=== PATIENT | female | born 1990 | race Caucasian/White ===

== ENCOUNTER → 2021-12-23 08:02 | Outpatient (CLI) | payer OTHER, SELFPAY ==
--- NOTE | ~2021-12-23 | US_ITS ---
US thyroid INDICATION: Thyroid goiter. TECHNIQUE: Real-time sonographic images of the thyroid gland were obtained. COMPARISON: No prior studies for comparison. FINDINGS: The right thyroid lobe measures 4.8 x 1.6 x 1.2 cm. The left thyroid lobe measures 4.5 x 1 .4 x 1.2 cm. There is normal echotexture and echogenicity throughout the thyroid gland. There are sma ll bilateral nodules. In the right thyroid lobe there is a hypoechoic solid mass measuring 5 x 3 x 2 mm which is wider than tall, smooth margins and punctate echogenic foci, TR 5. Follow-up is recommend ed. In the left lobe there is a 2-3 mm cyst, benign. IMPRESSION: 1. Small 5 mm right thyroid mass, TR 5. Follow-up ultrasound in 12 months recommended. Reviewed, dictated and finalized at location A. IMPRESSION: 1. Small 5 mm right thyroid mass, TR 5. Follow-up ultrasound in 12 months kandy mmended.
== END ==
PROVIDERS: PCP Physician Assistant; Visit Provider Nurse Practitioner
DX: E04.9 Nontoxic goiter, unspecified (principal)
CPT/HCPCS: 76536

== ENCOUNTER 2022-05-06 21:30 | Emergency (ER) | payer OTHER, SELFPAY ==
--- NOTE | ~2022-05-06 | CT_ITS ---
EXAMINATION: CT brain wo con DATE: 05/06/2022 22:30 INDICATION: One month of intermittent right hand and foot numbness TECHNIQUE: Computed tomography (CT) of the head was performed without intravenous contrast. Sagittal and coronal reconstructions were performed. The mA was adjusted according to patient size. Iterative reconstruction technique was employed. The dose-length product was 605.33 mGy-cm. COMPARISON: Brain MR dated 04/24/2018 FINDINGS: No acute intracranial hemorrhage, acute infarction or abnormal extra axial fluid collection. Ventricl es are normal and symmetric. No mass/mass effect. The orbits, paranasal sinuses and mastoid air cells are normal. A few small likely benign calcified scalp nodules. IMPRESSION: 1. Normal brain. Reviewed, dictated and finalized at location A. CTOR EXPORT IMPRESSION: 1. Normal brain.
[2022-05-06 21:55] VITALS: BP 129/93; PULSE 91; RESP 16; TEMP 36.8; O2SAT 98
--- NOTE | 2022-05-06 22:10 | ED.GENADULT ---
HPI - General Adult General Chief complaint: Unspecified Stated complaint: numbness on right side Time Seen by Provider: 05/06/22 21:33 History of Present Illness HPI narrative: 32-year-old female presented to the emergency department for evaluation of decreased sensation over her right arm and leg. Patient states that symptoms have been ongoing since the last few days. Patient denies any associated weakness. Patient denies any ataxia or discoordination. Patient reports she is diabetic but does not take her metformin as directed. Patient is unsure of what her blood sugars have been running. Patient reports he did have a fall last week out of bed and she is unsure what caused the fall. Patient denies any other significant past medical history. Patient states while she is not that she does has decreased sensation on the right side. Related Data Allergies Allergy/AdvReac Type Severity Reaction Status Date / Time No Known Allergies Allergy Unverified 07/15/18 06:47 Review of Systems Review of Systems: CONSTITUTIONAL: Denies fever, chills, or sweats. EYES: Denies visual changes, redness, or discharge. ENT: Denies rhinorrhea, congestion, sore throat, or otalgia. CARDIOVASCULAR: Denies chest pain, palpitations, or edema. RESPIRATORY: Denies cough or dyspnea. GASTROINTESTINAL: Denies abdominal pain, nausea, vomiting, or diarrhea. GENITOURINARY: Denies dysuria or hematuria. SKIN: Denies rash or itching. MUSCULOSKELETAL: Denies back pain, joint pain, or myalgia. NEUROLOGIC: See [facility] Family History Family History (Updated 06/30/18 @ 14:31 by DOCTOR UNKNOWN) Mother Diabetes mellitus Exam Narrative: APPEARANCE: Well appearing, no pain, no distress, well-nourished. HEAD: normocephalic, atraumatic. EYES: PERRLA/EOMI, conjunctivae clear. NOSE: Normal no drainage EARS:TMS clear with good light reflex. THROAT: Pharynx clear, no exudate. NECK: Supple. No adenopathy, no masses. RESPIRATORY: Airway patent, respirations nonlabored. Clear to auscultation bilaterally, no rales, rhonchi, wheezing. CARDIOVASCULAR: Regular rate and rhythm without murmurs rubs or gallops. ABDOMINAL: Soft, nontender, nondistended, normal bowel sounds MUSCULOSKELETAL: Moves all extremities. Strength/ROM intact, No edema, No calf tenderness. NEURO: Alert. Cranial nerves II through XII intact. Intact to both light touch and pinprick. Normal proprioception. Normal strength and reflexes. No ataxia SKIN: Warm, dry. Normal Color PSYCHIATRIC: Normal affect/mood. Course Course Emergency Course: Patient's head CT was negative. Patient was afebrile but does have a leukocytosis of 11.7. Patient's electrolytes are within normal limits. Patient was updated the results of her work-up. Low concern for acute stroke. Patient was encouraged of close follow-up with her primary care physician and with neurology. Patient and visitor were comfortable with the plan for discharge and follow-up. All questions and concerns were addressed. Vital Signs Vital signs: Vital Signs Temperature 98.3 F 05/06/22 21:55 Pulse Rate 91 05/06/22 21:55 Respiratory Rate 16 05/06/22 21:55 Blood Pressure 129/93 H 05/06/22 21:55 Pulse Oximetry 98 05/06/22 21:55 Oxygen Delivery Room Air 05/06/22 21:55 Temperature 98.0 F 05/07/22 00:00 Pulse Rate 90 05/07/22 00:00 Respiratory Rate 16 05/07/22 00:00 Blood Pressure 124/78 05/07/22 00:00 Pulse Oximetry 100 05/07/22 00:00 Oxygen Delivery Room Air 05/06/22 21:55 Medical Decision Making Vital Signs Vital Signs: Vital Signs Temperature 98.3 F 05/06/22 21:55 Pulse Rate 91 05/06/22 21:55 Respiratory Rate 16 05/06/22 21:55 Blood Pressure 129/93 H 05/06/22 21:55 Pulse Oximetry 98 05/06/22 21:55 Oxygen Delivery Room Air 05/06/22 21:55 Temperature 98.0 F 05/07/22 00:00 Pulse Rate 90 05/07/22 00:00 Respiratory Rate 16 05/07/22 00:00 Blood Pressure 124/78 05/07
[2022-05-06 22:18] LABS: Basophils Absolute Auto 0.1 K/mm3 (0.0-0.1); Basophils Percent Auto 0.7 % (0.2-1.2); Eosinophils Absolute Auto 0.2 K/mm3 (0-0.3); Hematocrit 40.6 % (37.0-47.0); Hemoglobin 13.2 g/dL (12.0-15.0); Immature Granulocyte Absolute 0.04 K/mm3 (0.00-0.031); Immature Granulocyte Percent A 0.3 % (0-0.5); Lymphocytes Absolute Auto 3.71 K/mm3 (0.9-3.2); Lymphocytes Percent Auto 31.6 % (18.3-44.2); Mean Corpuscular HGB Conc 32.5 g/dl (32-36); Mean Corpuscular Hemoglobin 28.3 pg (26-34); Mean Corpuscular Volume 87.1 fl (80-100); Mean Platelet Volume 10.5 fl (7.4-10.4); Monocytes Absolute Auto 0.6 K/mm3 (0.1-0.6); Neutrophils Absolute Auto 7.1 K/mm3 (1.3-6.7); Neutrophils Percent Auto 60.4 % (45.5-73.1); Platelet Count Result 389 k/mm3 (150-375); Red Blood Count 4.66 M/mm3 (4.2-5.4); Red Cell Distribution Width 12.7 % (11.5-14.5); White Blood Count 11.7 K/mm3 (4.5-10.0)
[2022-05-06 22:29] LABS: Alanine Aminotransferase 48 U/L (6-35); Albumin Level 4.6 g/dL (3.5-5.1); Alkaline Phosphatase 108 U/L (38-126); Anion Gap 9 mmol/L (8-16); Aspartate Amino Transferase 33 U/L (14-36); Bilirubin,Total 0.3 mg/dL (0.2-1.3); Blood Urea Nitrogen 11 mg/dL (7-17); Carbon Dioxide 28 mmol/L (22-30); Chloride 103 mmol/L (98-107); Estimated CRCL calculation 124 ml/min; Estimated Glomerular Filt Rate > 60; Glucose 103 mg/dL (65-110); Magnesium 1.7 mg/dL (1.6-2.3); Potassium 3.6 mmol/L (3.4-5.0); Sodium 140 mmol/L (137-145)
[2022-05-06 22:33] LABS: Hemoglobin A1C 5.4 % (<5.7)
[2022-05-06 23:00] VITALS: BP 126/88; PULSE 92; RESP 16; TEMP 36.7; O2SAT 100
[2022-05-07] VITALS: BP 124/78; PULSE 90; RESP 16; TEMP 36.7; O2SAT 100
== END 2022-05-07 00:20 | disposition home or self-care (01) ==
PROVIDERS: Emergency Provider Emergency Medicine; PCP Nurse Practitioner
DX: R20.2 Paresthesia of skin (principal)
CPT/HCPCS: 36415; 70450; 80053; 81025; 83036; 83735; 84443; 85025; 99284

== ENCOUNTER → 2022-05-15 10:14 | Outpatient (CLI) | payer OTHER, SELFPAY ==
--- NOTE | ~2022-05-15 | MR_ITS ---
MRI of the cervical spine Clinical History: Right-sided numbness Technique: Axial T2-weighted and gradient images, and sagittal T1-weighted, T2-weighted, and STIR april ges were acquired. Findings: There is no fracture or subluxation of the cervical spine. Vertebral bodies maintain normal height and alignment. No suspicious bone marrow signal abnormality identified. No significant disc bulge or herniation identified. No spinal canal stenosis, cord compression, or ne ural foraminal narrowing identified in the cervical spine. Multiple T2 hyperintense cord lesions are present. Lesion at the C2 level involves the right central and posterior cord. Probable small dorsal lesion at the C3-C4 level. There is a right-sided cord lesi on at the C4 level. Small lesions are present bilaterally at the C5-C6 level. No abnormal postcontrast enhancement identified. Paravertebral soft tissues are normal.. Impression: Multiple T2 hyperintense spinal cord lesions, as detailed above. Findings most likely represent demye linating plaques of multiple sclerosis. Correlate clinically. Consider MR brain for further evaluatio n. Reviewed, dictated and finalized at [facility]. NKER Impression: Multiple T2 hyperintense spinal cord lesions, as detailed above. Findings most likely represent demyelinating plaques of multiple sclerosis. Correlate clinica lly. Consider MR brain for further evaluation.
--- NOTE | ~2022-05-15 | MR_ITS ---
MRI of the thoracic spine Clinical History: Numbness Technique: Axial T2-weighted and gradient images, and sagittal T1-weighted, T2-weighted, and STIR april ges were acquired. Findings: No fracture or subluxation seen in the thoracic spine. Vertebral bodies maintain normal hei ght . No bone marrow signal abnormality seen. No disc bulge or herniation seen. No spinal canal stenosis, cord compression, or neural foraminal forest rowing identified. There is abnormal signal in the spinal cord at the T4 and T5 levels, with probable focal dilatations the central canal, as well as surrounding amorphous T2 hyperintense signal in the cord at these regio ns, best seen on series 17 images 12-18. Impression: Abnormal signal in the spinal cord at the T4-T5 levels, with with probable focal syrinx as well as esparza rrounding amorphous parenchymal T2 hyperintensity in the cord at these levels. Postcontrast enhanceme nt advised for more complete evaluation of this area. Diagnostic considerations include transverse my elitis versus other infectious/inflammatory conditions. Neoplastic etiology not completely excluded, though felt to be less likely. Reviewed, dictated and finalized at [facility]. NESS INTELLIGENCE ARCHITECT Impression: Abnormal signal in the spinal cord at the T4-T5 levels, with with probable foca l syrinx as well as surrounding amorphous parenchymal T2 hyperintensity in the cord at these levels. Postcontrast enhancement advised for more complete evalua tion of this area. Diagnostic considerations include transverse myelitis versus other infectious/inflammatory conditions. Neoplastic etiology not completely e xcluded, though felt to be less likely.
--- NOTE | ~2022-05-15 | MR_ITS ---
MRI of the lumbar spine Clinical History: Right-sided numbness Technique: Axial T2-weighted images, and sagittal T1-weighted, T2-weighted, and T2 fat-sat images wer e acquired. Findings: There is no fracture or subluxation of the lumbar spine. Vertebral bodies maintain normal h eight and alignment. No bone marrow signal abnormality identified. At L1-L2, L2-L3, L3-L4, L4-L5, there is no disc bulge or herniation. No spinal canal stenosis or neur al foraminal narrowing at these levels. There is minimal facet joint arthropathy at L4-L5. At L5-S1, there is mild disc desiccation with tiny annular fissure/tear. There is minimal disc bulge. No spinal canal stenosis. There is minimal left neural foraminal narrowing. Right neural foramen pre served. Paravertebral soft tissues are unremarkable. Impression: Minimal degenerative spondylosis at L5-S1, as detailed above. Reviewed, dictated and finalized at [facility]. UNTING PROFESSIONAL Impression: Minimal degenerative spondylosis at L5-S1, as detailed above.
== END ==
PROVIDERS: PCP Nurse Practitioner; Visit Provider Nurse Practitioner
DX: R20.0 Anesthesia of skin (principal); G95.9 Disease of spinal cord, unspecified; M47.817 Spondylosis without myelopathy or radiculopathy, lumbosacral region
CPT/HCPCS: 72156; 72157; 72158; A9577

== ENCOUNTER → 2022-05-22 15:23 | Outpatient (CLI) | payer OTHER, SELFPAY ==
--- NOTE | ~2022-05-22 | MR_ITS ---
EXAMINATION: MR brain/brain stem wo/w con DATE: 05/22/2022 16:03 INDICATION: Right-sided numbness. TECHNIQUE: Magnetic resonance imaging (MRI) of the brain and brainstem was performed without and with 19 mL MultiHance intravenous contrast. COMPARISON: Brain MRI 04/24/2018, head CT 05/06/2022, cervical spine MRI 05/15/2022 FINDINGS: There are greater than ten total lesions of increased T2-weighted signal intensity in the b rain. Of these lesions, two are periventricular, two are juxtacortical, and one is infratentorial in the cervical spinal cord. One of the lesions enhances in the right frontoparietal centrum semiovale. There is no acute ischemic infarct or intracranial hemorrhage. The ventricles are normal in size. The paranasal sinuses are clear. The orbits are normal. There is a small left mastoid effusion. IMPRESSION: 1. Brain lesions, new from 04/24/2018, consistent with multiple sclerosis. Reviewed, dictated and finalized at location A. GER QUALITY SYSTEMS
== END ==
PROVIDERS: PCP Nurse Practitioner; Visit Provider Nurse Practitioner
DX: G37.9 Demyelinating disease of central nervous system, unspecified (principal); R20.0 Anesthesia of skin; G93.9 Disorder of brain, unspecified
CPT/HCPCS: 70553; A9577

== ENCOUNTER 2022-08-28 08:13 | Outpatient (CLI) | payer OTHER, SELFPAY ==
--- NOTE | ~2022-08-28 | MMUS_ITS ---
EXAMINATION: MM diagnostic sanya BI w adria, US breast LT limited HISTORY: Patient with history of increased breast cancer wrist due to multiple sclerosis medication. TECHNIQUE: Craniocaudal, mediolateral, and mediolateral oblique 3-D tomosynthesis images of the breas ts were performed and synthetic 2-D images were generated. CAD analysis was submitted and interpreted . High resolution limited left breast ultrasound was performed. COMPARISON: None, baseline BREAST PARENCHYMAL COMPOSITION: There are scattered areas of fibroglandular density. FINDINGS: MAMMOGRAPHIC FINDINGS: No suspicious mass, calcification, or architectural distortion are identified in either breast to sug gest malignancy. A focal asymmetry in the upper outer quadrant of the left breast disperses with spot compression. ULTRASOUND: There is no evidence of focal abnormal solid or cystic mass in the vicinity of the mammographic findi ng in question in the left breast. IMPRESSION: 1. No mammographic or sonographic evidence of malignancy. 2. Recommend routine screening mammography in one year. BI-RADS Category 1: Negative Reviewed, dictated and finalized at location A. IMPRESSION: 1. No mammographic or sonographic evidence of malignancy. 2. Recommend routine screening mammography in one year. BI-RADS Category 1: Negative
== END 2022-08-28 08:14 ==
PROVIDERS: PCP Nurse Practitioner; Visit Provider Nurse Practitioner Obstetrics & Gynecology
DX: Z00.00 Encounter for general adult medical examination without abnormal findings (principal); Z79.899 Other long term (current) drug therapy; G35 Multiple sclerosis
CPT/HCPCS: 76642; 77062; 77066; G0279

== ENCOUNTER → 2023-02-22 08:17 | Outpatient (CLI) | payer OTHER, SELFPAY ==
--- NOTE | ~2023-02-22 | US_ITS ---
Thyroid ultrasound. Clinical History: Thyroid mass COMPARISON: 12/23/2021 Findings: Real-time sonography of the thyroid gland was performed. The right lobe measures 5.2 x 1.7 x 1.9 cm. The left lobe measures 4.9 x 1.7 x 1.6 cm. The isthmus is 3 mm in AP diameter. 3 mm hypoechoic nodule noted at the right midpole. There is probable 3 mm hypoechoic nodule at the le ft upper pole. Impression: Probable tiny thyroid nodules, as above, which requires no further follow-up. Reviewed, dictated and finalized at location M. Impression: Probable tiny thyroid nodules, as above, which requires no further follow-up.
== END ==
PROVIDERS: PCP Psychiatry & Neurology Neurology; Visit Provider Nurse Practitioner
DX: E07.9 Disorder of thyroid, unspecified (principal)
CPT/HCPCS: 76536

== ENCOUNTER 2023-06-12 07:46 | Outpatient (CLI) | payer OTHER, SELFPAY ==
--- NOTE | ~2023-06-12 | MR_ITS ---
MRI of the brain Clinical History: Multiple sclerosis Technique: Axial and sagittal T1-weighted images were acquired. These were followed by axial T2-weigh leonard, diffusion weighted, gradient, and FLAIR images. Following intravenous administration of 18 cc Mu ltiHance gadolinium, T1-weighted fat-sat imaging was performed in the axial, coronal, and sagittal pl anes. COMPARISON: 05/22/2022 Findings: There is no acute infarct, internal hemorrhage, or mass lesion. Several periventricular whi te matter lesions are similar to prior exam, some with radial orientation. Ventricles and subarachnoid spaces are unremarkable. Orbits are unremarkable. Paranasal sinuses and m astoid air cells are clear. Major intracranial flow voids are intact. Sagittal midline structures are intact. No abnormal postcontrast enhancement identified. IMPRESSION: White matter lesions are consistent with demyelinating plaques of multiple sclerosis, stable from tom or exam. Reviewed, dictated and finalized at [facility]. HYSICAL OBSERVER IMPRESSION: White matter lesions are consistent with demyelinating plaques of multiple scle rosis, stable from prior exam.
--- NOTE | ~2023-06-12 | MR_ITS ---
MRI of the cervical spine Clinical History: Multiple sclerosis Technique: Axial T2-weighted and gradient images, and sagittal T1-weighted, T2-weighted, and STIR april ges were acquired. Following intravenous administration of 18 cc MultiHance gadolinium, T1-weighted f at-sat imaging was performed in the axial and sagittal planes. COMPARISON: 05/15/2022 Findings: There is no fracture or subluxation of the cervical spine. Vertebral bodies maintain normal height and alignment. No suspicious bone marrow signal abnormality seen. No disc bulge or herniation seen at any cervical level. There is no spinal canal stenosis, cord compr ession, or neural foraminal narrowing at any cervical level. There is subtle amorphous hyperintense cord lesions, most prominent at the C2 and C3-C4 level central ly in the cord, compatible demanding plaques of multiple sclerosis. Lesions appear decreased in numbe r and conspicuity as compared to prior exam. No active or enhancing plaque identified. Paravertebral soft tissues are unremarkable. Impression: Spinal cord lesions are consistent with demyelinating plaques of multiple sclerosis, but appear decre ased in number and conspicuity as compared to prior exam. Reviewed, dictated and finalized at [facility]. T CLERK Impression: Spinal cord lesions are consistent with demyelinating plaques of multiple scler osis, but appear decreased in number and conspicuity as compared to prior exam.
--- NOTE | ~2023-06-12 | MR_ITS ---
MRI of the thoracic spine Clinical History: Multiple sclerosis Technique: Axial T2-weighted and gradient images, and sagittal T1-weighted, T2-weighted, and STIR april ges were acquired. Following intravenous administration of 18 cc MultiHance gadolinium, T1-weighted f at-sat imaging was performed in the sagittal and axial planes. COMPARISON: 05/15/2022 Findings: There is no fracture or subluxation of the thoracic spine. Vertebral bodies maintain normal height and alignment. No bone marrow signal reality seen. No disc bulge or herniation seen in the thoracic spine. No spinal canal stenosis or cord compression identified at any level. There is a subtle amorphous T2 hyperintense cord lesion at the T4-T5 level. No other distinct spinal cord lesion identified. Paravertebral soft tissues are unremarkable. No abnormal postcontrast enhancement seen. Impression: Probable amorphous demyelinating plaque of the thoracic cord at T4-T5 level. No active/enhancing plaq ue identified. Reviewed, dictated and finalized at [facility]. ER ERECTOR AND SERVICER Impression: Probable amorphous demyelinating plaque of the thoracic cord at T4-T5 level. No active/enhancing plaque identified.
== END 2023-06-12 07:47 ==
LOC: MICIMG 07:46
PROVIDERS: PCP Nurse Practitioner; Visit Provider Psychiatry & Neurology Neurology
DX: G35 Multiple sclerosis (principal)
CPT/HCPCS: 70553; 72156; 72157; A9577

== ENCOUNTER 2023-09-25 16:05 | Outpatient (CLI) | payer OTHER, SELFPAY ==
--- NOTE | ~2023-09-25 | MM_ITS ---
EXAMINATION: MM screening sanya BI w adria HISTORY: Screening mammogram TECHNIQUE: Craniocaudal and mediolateral oblique 3-D tomosynthesis images were obtained and synthetic 2-D images were generated. CAD analysis was submitted and interpreted. COMPARISON: August 28, 2022 diagnostic bilateral mammogram and limited left breast ultrasound, reporte d negative BREAST PARENCHYMAL COMPOSITION: The breasts are almost entirely fatty. FINDINGS: There is no evidence of suspicious mass, calcification, or architectural distortion to sugg est malignancy in either breast. There has been no suspicious interval change. IMPRESSION: 1. No mammographic evidence of malignancy. 2. Recommend routine screening mammography in one year. BI-RADS Category 1: Negative Reviewed, dictated and finalized at location B.
== END 2023-09-25 16:06 ==
PROVIDERS: PCP Nurse Practitioner; Visit Provider Nurse Practitioner Obstetrics & Gynecology
DX: Z12.31 Encounter for screening mammogram for malignant neoplasm of breast (principal); Z76.89 Persons encountering health services in other specified circumstances; Z80.9 Family history of malignant neoplasm, unspecified
CPT/HCPCS: 77063; 77067

== ENCOUNTER 2024-06-18 13:16 | Outpatient (CLI) | payer OTHER, SELFPAY ==
--- NOTE | ~2024-06-18 | DEXA_ITS ---
Bone Density Report Name: TERRA ENCINAS Age: 34 Sex: Female Ethnicity: White Date of : 1990 Indication: prior fracture; Referring Provider: MATTHIEU, CHELSEA Jurado Study: Bone densitometry was performed. Exam Date: June 18, 2024 Accession number: [id number] Bone Density: Region BMD T-score Z-score Classification AP Spine(L1-L4) 1.037 0.0 Femoral Neck (Left) 0.834 0.1 Total Hip (Left) 1.068 1.1 Femoral Neck (Right) 0.829 0.0 Total Hip (Right) 1.080 1.2 Femoral Neck Mean 0.831 0.0 Total Hip Mean 1.074 1.2 World Health Organization criteria for BMD impression classify patients as: Normal (T-score at or above -1.0), Osteopenia (T-score between -1.0 and -2.5), or Osteoporosis (T-score at or below -2.5). 10-year Fracture Risk: FRAX not reported because: Premenopausal woman Prior hip or vertebral fracture Clinical Information Provided by Patient: Have had a previous hip or vertebral fracture Has had a low trauma fracture Has used the following medications: Vitamin D Patient maximum height was 64 No regular weight bearing exercise Drinks caffeinated beverages Onset of menses at age 10 Premenopausal Number of children 0 Impression: The patient's bone mass is within expected range for age, gender and ethnicity. The patient has risk factors, including: previous fracture. Discussion: BONE DENSITY IS WITHIN EXPECTED LIMITS FOR AGE, SEX AND RACE. HISTORY OF FRACTURE. Although there is a predictable association between low bone mass and the risk of osteoporotic fractures in untreated postmenopausal women, there are no data relating bone density and fracture risk in younger women. The ISCD position is that the diagnosis of ?low bone mass? or ?osteoporosis? should not be made on densitometric criteria alone. WHO criteria only apply to postmenopausal women. Further evaluation should be considered given the patient's history of fracture at a young age. The patient should follow a healthful lifestyle (good nutrition with adequate calcium and vitamin D, and appropriate weight-bearing exercise). Follow-Up: Consider a repeat BMD and Vertebral Fracture Assessment (VFA) exam in 2 years or sooner if medically necessary, to reassess this patient's status. Reported by: MYNOR on 06/18/2024 1:35:00 PM. Reviewed, dictated and finalized at location A.
--- OUTSIDE RECORDS SUMMARY | 2024-06-18 13:23 | XMS_ITS | Encounter Summary ---
Author Organization [facility] Address [address] [place] [id number] Care Team Providers Care Store Host Name Role Phone Gloria Gregorio NP Primary Care Provider [phone] Encounter Details Date Type Department Care Team (Latest Contact Info) Description 03/18/2018 Abstract [facility] Karmen Cardenas MD Social History Tobacco Use Types Packs/Day Years Used Date Smoking Tobacco: Never Assessed Comments Unknown Sex and Gender Information Value Date Recorded Sex Assigned at Female 06/09/2024 9:52 AM INFECTION CONTROL PREVENTIONIST Legal Sex Female 12:19 AM INFECTION CONTROL PREVENTIONIST Gender Identity Female 06/16/2024 10:41 AM INFECTION CONTROL PREVENTIONIST Sexual Orientation Straight 06/16/2024 10 :41 AM INFECTION CONTROL PREVENTIONIST documented as of this encounter Plan of Treatment Upcoming Encounters Date Type Department Care Team (Late st Contact Info) Description 06/24/2024 11:00 AM INFECTION CONTROL PREVENTIONIST Appointment [facility] [place] [address] Lalito Gudino MD [address] [place] [address] Viv Carmona, ABRASIVE [employer] [place] [address] 06/30/2024 11:00 AM INFECTION CONTROL PREVENTIONIST Appointment [facility] [address] Lalito Gudino MD [address] [facility] [place] [address] Viv Carmona, ABRASIVE WATER J[employer] [place] [address] 08/07/2024 8:00 AM CDT Treatment [facility] [place] [address] Gloria Gregorio, SANTI [address] [place] [address] 11/17/2024 11:40 AM CDT Telemedicine [facility] Medical Group [facility] - [facility] [address] [facility], [address] [place] [address] Lalito Gudino MD [address] [place] [address] documented as of this encounter Visit Diagnoses Not on filedocumented in this encounter Additional Health Concerns Infection Onset Date Last Indicated Resolved Time COVID-19 Rule Out 01/23/2023 01/23/2023 01/23/2023 10:48 AM CDT COVID-19 Confirmed 01/23/2023 01/23/2023 12:32 AM CDT COVID-19 Rule Out 05/05/2024 05/05/2024 05/05/2024 8:33 AM INFECTION CONTROL PREVENTIONIST COVID-19 Rule Out 05/07/2024 05/07/2024 05/07/2024 1:36 PM INFECTION CONTROL PREVENTIONIST Influenza - Seasonal 05/07/2024 05/07/2024 025 12:32 AM INFECTION CONTROL PREVENTIONIST documented as of this encounter Care Teams Store Host Relationship Specialty Start Date End Date Gloria Gregorio NP [address] [place] [address] PCP - General NURSE PRACTITIONER 02/02/22 documented as of this encounter
--- OUTSIDE RECORDS SUMMARY | 2024-06-18 13:24 | XMS_ITS | Encounter Summary ---
Author Organization [facility] Address [address] [facility] [place] [address] Care Team Providers Care Bank Manager Name Role Phone Unavailable Primary Care Provider Unavailabl e Encounter Details Date Type Department Care Team (Late st Contact Info) Description 11/21/2022 Lab Requisition [facility] - [facility] Lab [address] [place] [address] Luis Moscoso MD [address] [place] [address] Social History Tobacco Use Types Packs/Day Years Used Date Smoking Tobacco: Never Assessed Sex and Gender Information Value Date Recorded Sex Assigned at Not on file Gender Identity Not on file Sexual Orientation Not on file documented as of this encounter Plan of Treatment Not on file documented as of this encounter Procedures Procedure Name Priority Date/Time Associated Diagnosis Comments DERMATOPATHOLOGY Routine 11/21/2022 12:0 0 AM CDT documented in this encounter Results * DERMATOPATHOLOGY (11/21/2022 12:00 AM CDT) Case Report Dermatopathology Report Case: [id number] Authorizing Provider: Luis Moscoso MD Collected: 11/21/2022 12:00 AM Ordering Location: [facility] Derm[facility] Lab Received: 11/22/2022 07:16 AM Pathologist: Faby Alejandro MD Specimen: Skin, right post. scalp 3:20 PM CDT DERMATOPATHOLOGY LABORATORY Final Diagnosis Specimen A. SKIN, right post. scalp: INTRADERMAL MELANOCYTIC NEVUS (D22.4) 3:20 PM CDT DERMATOPATHOLOGY LABORATORY Clinical History [facility] Path#[id number] 3:20 PM CDT DERMATOPATHOLOGY LABORATORY Gross Description Specimen A: Received is one formalin filled container labeled with the patient's name and designated right post. scalp. The specimen consists of a shave biopsy measuring 6x6x2 and 6x3x2 mm. Jar 0. 3:20 PM CDT DERMATOPATHOLOGY LABORATORY Microscopic Description Specimen A. SKIN, right post. scalp: There are nests of cytologically bland melanocytes within the dermis that mature with depth. 3:20 PM CDT DERMATOPATHOLOGY LABORATORY Disclaimer An external and internal positive and negative controls are appropriate for the histochemical, immunohistochemical and immunofluorescence stain(s) in this case (if any), except where stated explicitly. The performance characteristics of the stain(s) cited in this report were developed and its performance characteristic determined by the Dermatopathology Laboratory at [facility], directed by Dr. Michelle Yeung. These tests need not be, and therefore are not, approved by the [place] Food and Drug Administration. The tests are used for clinical purposes. Billing Codes Specimen Charges Stain Charges 48602 1 3:20 PM CDT DERMATOPATHOLOGY LABORATORY Embedded Images 3:20 PM CDT DERMATOPATHOLOGY LABORATORY Pathology/Cytolog y TISSUE SPECIMEN FROM SKIN / Unknown 11/21/2022 11/22/2022 7:16 AM CDT Luis Moscoso MD LAB - PATHOLOGY/CYTO LOGY ORDERABLES DERMATOPATHOLOGY LABORATORY [facility] - Department of Dermatology [address], [address] [phone] documented in this encounter Visit Diagnoses Not on filedocumented in this encounter
--- OUTSIDE RECORDS SUMMARY | 2024-06-18 13:24 | XMS_ITS | Clinical Summary ---
Author Organization [facility] Siklu Address [address] [address] Care Team Providers Care Crotch Piece Baster Name Role Phone Unavailable Primary Care Provider Unavailabl e Source Comments [facility],non-owned Affiliates and Associated Physician Practices is amultiple site organization consisting of ambulatory clinics and hospital sitesin [place], [place], [place] and [place]. This disclosure is being madepursuant to the Care Everywhere program and may not contain all information available regarding this patient. Last updated 18.[facility] S[facility] Social History Tobacco Use Types Packs/Day Years Used Date Smoking Tobacco: Never Assessed Sex and Gender Information Value Date Recorded Sex Assigned at Not on file Gender Identity Not on file Sexual Orientation Not on file Plan of Treatment Health Maintenance Due Date Last Done Comments PAP SMEAR 1988 HIV SCREENING 2003 HEPATITIS C SCREENING 03/25/2006 DTAP/TDAP/TD VACCINES (1 - Tdap) 2007 HEPATITIS B VACCINE (1 of 3 - 19+ 3-dose series) 2007 COVID-19 VACCINE ( - 2023-2 5 season) 2024 INFLUENZA VACCINE (#1) 2024 DEPRESSION SCREENING 05/13/2024 ZOSTER VACCINE (1 of 2) 2038 HIB VACCINE Aged Out No longer eligi ble based on patient's age to complete this topic HPV VACCINE Aged Out No longer eligi ble based on patient's age to complete this topic MENINGOCOCCAL (Group B) VACCINE Aged Out No longer eligible based on patient's age to complete this topic MENINGOCOCCAL VACCINE Aged Out No lucho franklin eligible based on patient's age to complete this topic PNEUMOCOCCAL VACCINE Aged Out No long er eligible based on patient's age to complete this topic
--- OUTSIDE RECORDS SUMMARY | 2024-06-18 13:24 | XMS_ITS | Encounter Summary ---
Author Organization [facility] Address [address] [place] [address] Care Team Providers Care Hat Copyist Name Role Phone Unavailable Primary Care Provider Unavailabl e Encounter Details Date Type Department Care Team (Late st Contact Info) Description 01/02/2023 Lab Requisition [facility] - DermPath Lab [address] [place] [id number] Luis Moscoso MD [address] [place] [address] Social History Tobacco Use Types Packs/Day Years Used Date Smoking Tobacco: Never Assessed Sex and Gender Information Value Date Recorded Sex Assigned at Not on file Gender Identity Not on file Sexual Orientation Not on file documented as of this encounter Plan of Treatment Not on file documented as of this encounter Procedures Procedure Name Priority Date/Time Associated Diagnosis Comments DERMATOPATHOLOGY Routine 01/02/2023 12:0 0 AM CDT documented in this encounter Results * DERMATOPATHOLOGY (01/02/2023 12:00 AM CDT) Case Report Dermatopathology Report Case: [id number] Authorizing Provider: Luis Moscoso MD Collected: 01/02/2023 12:00 AM Ordering Location: [facility] DermPath Lab Received: 01/03/2023 07:46 AM Pathologist: Faby Alejandro MD Specimens: A) - Skin, ant. scalp B) - Skin, right post scalp 4:02 PM CDT DERMATOPATHOLOGY LABORATORY Final Diagnosis Specimen A. SKIN, ant. scalp: TRICHILEMMAL (PILAR) CYST WITH CALCIFICATION (L72.12) PRESENT AT MARGIN Specimen B. SKIN, right post scalp: TRICHILEMMAL (PILAR) CYST (L72.12) PRESENT AT MARGIN 3 4:02 PM [facility] DERMATOPATHOLOGY LABORATORY Clinical History A: pilar Cyst Path#[id number] check margins B: Pilar Cyst Path#[id number] check margins 3 4:02 PM [facility] DERMATOPATHOLOGY LABORATORY Gross Description Specimen A: Received is one formalin filled container labeled with the patient's name and designated ant. scalp. The specimen consists of a 37u79i2 mm piece of skin. The specimen is serially sectioned and a administrative representative section is submitted in cassette 1. Jar 0. Specimen B: Received is one formalin filled container labeled with the patient's name and designated right post scalp. The specimen consists of a 10x7x8 mm piece of skin. The specimen is serially sectioned and a administrative representative section is submitted in cassette 1. Jar 0. 3 4:02 PM [facility] DERMATOPATHOLOGY LABORATORY Microscopic Description Specimen A. SKIN, ant. scalp: Sections show a cyst that is lined by stratified squamous epithelium that shows trichilemmal keratinization (no granular layer). There is homogeneous pink keratin and aggregates of homogenous amorphous basophilic material consistent with calcium within the cyst. This lesion is present at the margin of the specimen. Specimen B. SKIN, right post scalp: Sections show a cyst that is lined by stratified squamous epithelium that shows trichilemmal keratinization (no granular layer). There is homogeneous pink keratin within the cyst. This lesion is present at the margin of the specimen. 3 4:02 PM [facility] DERMATOPATHOLOGY LABORATORY Disclaimer An external and internal positive and negative controls are appropriate for the histochemical, immunohistochemical and immunofluorescence stain(s) in this case (if any), except where stated explicitly. The performance characteristics of the stain(s) cited in this report were developed and its performance characteristic determined by the Dermatopathology Laboratory at [facility], directed by Dr. Michelle Yeung. These tests need not be, and therefore are not, approved by the [place] Food and Drug Administration. The tests are used for clinical purposes. Billing Codes Specimen Charges Stain Charges 00709 04831 1 1 3 4:02 PM CDT DERMATOPATHOLOGY LABORATORY Embedded Images 4:02 PM CDT DERMATOPATHOLOGY LABORATORY Pathology/Cytology TISSUE SPECIMEN FROM SKIN / Unknown 01/02/2023 01/03/2023 7:46 AM CDT Miscellaneous samples (specimen) TISSUE SPECIMEN FROM SKIN / Unknown 01/02/2023 01/03/2023 7:46 AM CDT Luis Moscoso MD LAB - PATHOLOGY/CYTO LOGY ORDERABLES DERMATOPATHOLOGY LABORATORY [facility] - Department of Dermatology [facility] Medicine [address] [place] [address], [address] [phone] documented in this encounter Visit Diagnoses Not on filedocumented in this encounter
--- OUTSIDE RECORDS SUMMARY | 2024-06-18 13:24 | XMS_ITS | Encounter Summary ---
Author Organization [facility] Address [address] [place] [id number] Care Team Providers Care Oil Well Driller Name Role Phone Gloria Gregorio NP Primary Care Provider [phone] Encounter Details Date Type Department Care Team (Late st Contact Info) Description 08/13/2022 [facility] Multispecialty Care - [facility] [address], [address] [place] [address] Lalito Gudino MD [address] [place] [address] [facility] Social History Tobacco Use Types Packs/Day Years Used Date Smoking Tobacco: Former Cigarettes 0.3 4 Smokeless Tobacco: Never Alcohol Use Standard Drinks/Week Comments Yes 3.3 (1 standard drin k = 0.6 oz pure alcohol) Very rarely most times not even weekly PHQ-2 Answer Date Recorded Patient Health Questionnaire-2 Score 0 06/28/2022 Comments No Sex and Gender Information Value Date Recorded Sex Assigned at Female 06/09/2024 9:52 AM MAGNET PLACER Legal Sex Female 12:19 AM MAGNET PLACER Gender Identity Female 06/16/2024 10:41 AM MAGNET PLACER Sexual Orientation Straight 06/16/2024 10 :41 AM MAGNET PLACER COVID-19 Exposure Response Date Recorded In the last 10 days, have yo u been in contact with someone who was confirmed or suspected to have Coronavirus/COVID-19? No / Unsure 07/17/2022 7:55 AM MAGNET PLACER documented as of this encounter Plan of Treatment Upcoming Encounters Date Type Department Care Team (Late st Contact Info) Description 06/24/2024 11:00 AM MAGNET PLACER Appointment [facility] [address] Lalito Gudino MD [address] [place] [address] [place] [address] 06/30/2024 11:00 AM MAGNET PLACER Appointment [facility] [address] Lalito Gudino MD [address] [place] [phone] [place] [address] 08/07/2024 8:00 AM CDT Treatment [facility] [place] [address] Gloria Gregorio, SANTI [address] [place] [address] 11/17/2024 11:40 AM CDT Telemedicine [facility] Multispecialty Care - [address], [address] [place] [address] Lalito Gudino MD [address] [place] [phone] documented as of this encounter Visit Diagnoses Not on filedocumented in this encounter Additional Health Concerns Infection Onset Date Last Indicated Resolved Time COVID-19 Rule Out 01/23/2023 01/23/2023 01/23/2023 10:48 AM CDT COVID-19 Confirmed 01/23/2023 01/23/2023 12:32 AM CDT COVID-19 Rule Out 05/05/2024 05/05/2024 05/05/2024 8:33 AM MAGNET PLACER COVID-19 Rule Out 05/07/2024 05/07/2024 05/07/2024 1:36 PM MAGNET PLACER Influenza - Seasonal 05/07/2024 05/07/2024 025 12:32 AM MAGNET PLACER documented as of this encounter Care Teams Oil Well Driller Relationship Specialty Start Date End Date Gloria Gregorio NP [address] [place] [address] PCP - General NURSE PRACTITIONER 02/02/22 documented as of this encounter
--- OUTSIDE RECORDS SUMMARY | 2024-06-18 13:24 | XMS_ITS | Continuity of Care Document ---
Author Name [facility] Organization [facility] Care Team Providers Care Industrial Eng Name Role Phone [facility] Unavailable Unavailable Problems Combined list of problems from 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 It does not include entries that were removed or entered in error. Problem Status Onset Date Problem Type Date of Resolution Comments Source visit for: administrative purpose Inactive Condition DoD atypical chest pain Inactive Condition D oD itching (pruritus) Inactive Condition Do D chest pain Active Condition DoD adjustment disorder with anxiety and depressed mood Active Condition DoD partner relational problem Inactive Condition DoD chronic pain Active Condition DoD depression Active Condition DoD no psychiatric diagnosis on axis III Inactive Condition DoD no psychiatric diagnosis on axis II Inactive Condition DoD adjustment disorder Active Condition Do D visit for: follow-up exam Inactive Condition DoD Outpatient Physician Consultation Active Condition DoD tobacco use Active Condition DoD drip or drainage down throat from above Active Condition DoD Cervical High Risk Human Papilloma Virus DNA Test Active Condition DoD control method - subdermal contraceptive implant Active Condition DoD Patient Ed Facilitate Preg Discuss Timing Of Peak Fertility Active Condition DoD routine pelvic exam Inactive Condition D oD Administrative Evaluation Services Inactive Condition DoD gastroenteritis Active Condition DoD visit for: issue repeat prescription for medication Inactive Condition DoD visit for: issue repeat prescription Inactive Condition DoD adjustment disorder with depressed mood Active Condition DoD Other Physical Therapy Active Condition DoD segmental dysfunction of cervical region Active Condition DoD dislocation of the hip closed anterior right Inactive Condition DoD bulging intervertebral disc lumbar Active Condition DoD Implantable Contraceptive Capsules Insertion Inactive Condition DoD ovarian cyst left Active Condition DoD ovarian cyst Active Condition DoD joint pain, localized in the hip Active Condition DoD segmental dysfunction of thoracic region Active Condition DoD segmental dysfunction of lumbosacral region Active Condition DoD Hypertonicity Active Condition DoD joint pain, localized in the knee Active Condition DoD lumbago Active Condition DoD cervical dysplasia: mild Active Condition DoD Pap Smear (+) Low Grade Squamous Intraepithelial Lesion Active Condition DoD Oral Contraceptives Active Condition Do D Test Negative Inactive Condition DoD nicotine dependence Active Condition Do D Need For Vaccination Human Papilloma Virus Inactive Condition DoD Gynecologic Services Contraceptive General Counseling Active Condition DoD visit for: screening exam chlamydial infections Inactive Condition DoD visit for: screening exam for malignant neoplasm cervix Inactive Condition DoD routine gynecological exam with cervical pap smear Inactive Condition DoD astigmatism Active Condition DoD refractive error - myopia Active Condition DoD visit for: services physical pre-deployment Active Condition DoD visit for: screening exam hypertension Inactive Condition DoD visit for: services physical Active Condition DoD Patient Education Active Condition DoD Guidance: Concerns About Unsafe Sexual Practices Inactive Condition DoD foot sprain right Inactive Condition DoD contact dermatitis Inactive Condition Do D bronchitis Inactive Condition DoD visit for: services physical accession Active Condition DoD Allergies, Adverse Reactions, Alerts Combined list of allergies from 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 It does not include entries that were removed or entered in error. Substance Category Reaction Severity Reaction type Status Date Reported Comments Source No Known Allergies Drug allergy (disorder) active 03/10/2010 [facility] [place] [address] Immunizations Combined list of available immunizations from the 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 Immunization Series Date Given Administered By Site Reaction Lot Number CVX Code Drug Milk Of Lime Slaker Status Comments Source human papilloma virus vaccine, bivalent 2 2011 [id number] 118 [employer] ([facility]) complet ed human papilloma virus vaccine, bivalent DoD Influenza, seasonal, injectable 1 2011 [id number] 141 Sanofi Pasteur ([facility]) complet ed Influenza , seasonal, injectabl e DoD human papilloma virus vaccine, bivalent 1 2011 [id number] 2AD 118 [employer] ([facility]) complet ed human papilloma virus vaccine, bivalent DoD hepatitis A vaccine, adult dosage 2 2011 [id number] 52 [employer] ([facility]) complet ed hepatitis A vaccine, adult dosage DoD anthrax vaccine 1 2010 [id number] 24 [employer] [place] ([facility]) complet ed anthrax vaccine DoD vaccinia (smallpox) vaccine 1 2010 [id number] [id number] 75 [facility] ([facility]) complet ed vaccinia (smallpox ) vaccine DoD typhoid Vi capsular polysaccharid e vaccine 1 2010 [id number] 101 Sanofi Pasteur ([facility]) complet ed typhoid Vi capsular polysacch aride vaccine DoD Influenza, seasonal, injectable 0 2010 [id number] 141 Sanofi Pasteur ([facility]) complet ed Influenza , seasonal, injectabl e DoD hepatitis A vaccine, adult dosage 1 2010 [id number] 3BA 52 [employer] ([facility]) complet ed hepatitis A vaccine, adult dosage DoD measles, mumps and rubella virus vaccine 1 2009 03 () Not Given measles, mumps and rubella virus vaccine DoD varicella virus vaccine 1 2009 21 () Not Given varicella virus vaccine DoD hepatitis B vaccine, adult dosage 1 2009 43 () Not Given hepatitis B vaccine, adult dosage DoD poliovirus vaccine, inactivated 1 2009 [id number] 10 Sanofi Pasteur ([facility]) complet ed polioviru s vaccine, inactivat ed DoD influenza virus vaccine, split virus (incl. purified surface antigen)-reti red CODE 1 2009 [id number] 15 [employer] ([facility]) complet ed influenza virus vaccine, split virus (incl. purified surface antigen)- retired CODE DoD meningococcal polysaccharid e (groups A, C, Y and W-135) diphtheria toxoid conjugate vaccine (MCV4P) 1 2009 [id number] 114 Sanofi Pasteur ([facility]) complet ed meningoco ccal polysacch aride (groups A, C, Y and W-135) diphtheri a toxoid conjugate vaccine (MCV4P) DoD tetanus toxoid, reduced diphtheria toxoid, and acellular pertu is vaccine, adsorbed 1 2009 [id number] 115 Sanofi Pasteur ([facility]) complet ed tetanus toxoid, reduced diphtheri a toxoid, and acellular pertussis vaccine, adsorbed DoD Encounters Combined list of: 1) Encounters from Department of Veterans Affairs facilities going backup to the last 18 months, not all VA inpatient encounters are included; 2) Encounters from the Department of Defense facilities going backup to 280 months. Location Location Details Encounter Type Encounter Number Reason For Visit Attending Provider ADM Date DC Date Status Disposition Source [facility] [place] [address] OUTPATIENT [id number] 0740-f/ u sob-(32 6/046/1 ) ELISABETH OBREGON 03/10 Released with Work/Duty Limitations [place] [address]([facility] [place] [address]([facility]) OUTPATIENT [id number] AR JUDITH REID 03/10 Released w/o Limitations [facility] [place] [address](O ptometr y Clinic [facility]) [facility] [place] [facility] [place] [address](Critical access hospital) OUTPATIENT [id number] 0820 - F/U BRONCHI TIS (10/12) ELISABETH OBREGON 03/13 Released with Work/Duty Limitations [facility] [place] [address]([facility] RubénIsidro tysonlan d) [facility] [place] [facility] [place] [address](Critical access hospital) OUTPATIENT [id number] 0820 - F/U BRONCHI TIS (10/12) TRISH ARIAS T 03/16 Released with Work/Duty Limitations [place] [address](T jarad Health Isidro [place] d) [facility] [place] [facility] [place] [address] OUTPATIENT [id number] 1020-R foot pain (343/t -4) TRISH ARIAS 08/07 Released with Work/Duty Limitations [facility] [place] [address](T alisha Health Isidro [facility] d) [facility] [place] [facility] [place] [address]([facility] Rubén[facility]ly [facility]) OUTPATIENT [id number] 1320-F/ U R FOOT (343/XR AY) TRISH ARIAS T 08/11 Released with Work/Duty Limitations [facility] [place] [address](T jarad Health RubénIsidro tysonlan d) [facility] [place] [facility] [place] [address](Critical access hospital) OUTPATIENT [id number] 0840-f/ u R foot-(3 43xray) VIRGILIO IRENE 08/18 Released w/o Limitations [facility] [place] [address](T jarad Health Isidro Mont[place] d) [address] [place] [address] Grant VELEZ ([facility])(Hea lthcare Integrato rs) OUTPATIENT [id number] LATE ENTRY: Attende d FTAC Orienta tion to MDG September 20 ELIJAH KIRKPATRICK 09/25 Released w/o Limitations [employer] ([facility])(H ealthca re Integra tors) [employer] ([facility])(Sco tt [facility] Team 3) OUTPATIENT [id number] [facility] BASILIO WOLF 10/05 Released w/o Limitations [employer] ([facility])(S [facility] Team 3) [employer] ([facility])(Sco tt [facility] Team 3) TELE CONSULT [id number] Needs Well Woman Exam - Luciano /[phone]/ PRAVEEN Obando 10/13 [employer] ([facility])(S [facility] Team 3) [employer] ([facility])(Sco tt [facility] Team 3) OUTPATIENT [id number] [facility]/A BASILIO COELLO 12/11 Released w/o Limitations [employer] ([facility])(S [facility] Team 3) [employer] ([facility])([facility]) OUTPATIENT [id number] HASEEB JUSTIN 01/29 Released w/o Limitations [employer] ([facility]M [facility]) [employer] ([facility])(Dep loyment Health Assessmen ts) OUTPATIENT [id number] Pre Deploye r MAYCO GIRARD 01/31 Released w/o Limitations [employer] ([facility])(D eployme nt Health Assessm ents) [employer] ([facility])(Opt ometry) OUTPATIENT [id number] routine for depoyme nt FRANCO VENCES 02/12 Released w/o Limitations [employer] ([facility])(O ptometr y) [employer] ([facility])(Dry Room Attendant ecology) OUTPATIENT [id number] annual pap [phone] DESHAWN CABRERA 02/12 Released w/o Limitations [employer] ([facility])(G ynecolo gy) [facility] Medical [facility] [employer] ([facility])(Ob/ Dry Room Attendant) OUTPATIENT [id number] COLPO LILIANA ROMERO LATRICIA 02/15 Released w/o Limitations [facility] [employer] ([facility])(O b/Dry Room Attendant) [facility] [employer] ([facility])(Dry Room Attendant ecology) TELE CONSULT [id number] Discuss pap results DESHAWN CABRERA 02/[address] [place] [address] [employer] ([facility])(G ynecolo gy) [address] [place] [address] [employer] ([facility])(Ob/ Dry Room Attendant) TELE CONSULT [id number] colpo results ROMERO FORD 02/[address] [place] [address] [employer] ([facility])(O b/Dry Room Attendant) [address] [place] [address] [employer] ([facility])(Sco tt [facility] Team 3) OUTPATIENT [id number] knee and back pain BRIANA ARIAS 03/28 Released w/o Limitations [address] [place] [address] [employer] ([facility])(S cott [facility] Team 3) [address] [place] [address] [employer] ([facility])(Phy sical Therapy) OUTPATIENT [id number] LUMBAGO WILLEM GURROLA 04/12 Released with Work/Duty Limitations [address] [place] [address] [employer] ([facility])(P hysical Therapy ) [address] [place] [address] [employer] ([facility])(Sco tt [facility] Team 3) OUTPATIENT [id number] f/u back pain RICHARD PEDERSEN 05/30 Released w/o Limitations [facility] [employer] ([facility])(S cott [facility] Team 3) [address] [place] [address] [employer] ([facility])(Phy sical Therapy) OUTPATIENT [id number] low back pain WILLEM GURROLA 06/01 Released w/o Limitations [facility] [employer] ([facility])(P hysical Therapy ) [address] [place] [address] [employer] ([facility])(Sco tt [facility] Team 3) TELE CONSULT [id number] Patient calling about profile from May appt Sj Brown [id number] PRAVEEN ESTEVEZ 06/[address] [place] [address] [employer] ([facility])(S hi [facility] Team 3) [employer] ([facility])(Chi ropractic ) OUTPATIENT [id number] LUMBAGO ARABELLA GONZALES R 06/12 Released w/o Limitations [employer] ([facility])(C hiropra ctic) [employer] ([facility])(Chi ropractic ) OUTPATIENT [id number] back pain ARABELLA GONZALES R 06/15 Released w/o Limitations [employer] ([facility])(C hiropra ctic) [employer] ([facility])(Chi ropractic ) OUTPATIENT [id number] f/u on back - [id number] ARABELLA GONZALES R 07/06 Released w/o Limitations [employer] ([facility])(C hiropra ctic) [employer] ([facility])(Chi ropractic ) OUTPATIENT [id number] back pain ARABELLA GONZALES R 07/11 Released w/o Limitations [employer] ([facility])(C hiropra ctic) [employer] ([facility])(Sco tt [facility] Team 3) OUTPATIENT [id number] f/u on back - [id number] RICHARD PEDERSEN 07/15 Released w/o Limitations [employer] ([facility])(S hi [facility] Team 3) [employer] ([facility])(Chi ropractic ) OUTPATIENT [id number] f/u on back - [id number] ARABELLA GONZALES R 07/24 Released w/o Limitations [employer] ([facility])(C hiropra ctic) [employer] ([facility])(Chi ropractic ) OUTPATIENT [id number] back pain ARABELLA GONZALES R 08/01 Released w/o Limitations [employer] ([facility])(C hiropra ctic) [employer] ([facility])(Sco tt [facility] Team 3) TELE CONSULT [id number] Notes Entered by: REFUGIO SIMON 07 Aug 2011 0821 ------- ------- ------- ------- -- Test results - [facility] - [phone] - [facility] PRAVEEN ESTEVEZ 08/[address] [place] [address] [employer] MAR[employer]ELB ([facility] Team 3) [address] [place] [address] [employer] [facility])(Dry Room Attendant ecology) OUTPATIENT [id number] OVARIAN CYST ROMERO FORD LATRICIA 08/07 Released w/o Limitations [address] [place] [address] [employer] [facility])(G ynecolo gy) [address] [place] [address] [employer] [facility])(Dry Room Attendant ecology) OUTPATIENT [id number] ROMERO FORD LATRICIA 08/08 Released w/o Limitations [address] [place] [address] [employer] ([facility])(G ynecolo gy) [address] [place] [address] [employer] [facility])(Chi ropractic ) OUTPATIENT [id number] JÚNIORAAMIRARABELLA 08/16 Released w/o Limitations [address] [place] [address] [employer] [place] [facility])(C hiropra ctic) [address] [place] [address] [employer] [facility])(Chi ropractic ) TELE CONSULT [id number] JANET ARABELLA Lonnie 08/[address] [place] [address] [employer] [facility])(C hiropra ctic) [address] [place] [address] [employer] [facility])(Sco tt [facility] Team 3) OUTPATIENT [id number] f/u for back issues [phone] kellie'd by RICHARD BLAS 08/28 Released w/o Limitations [address] [place] [address] [employer] MARI[employer]B ([facility])([facility] Team 3) [address] [place] [address] [employer] [facility])([facility] Team 3) TELE CONSULT [id number] Notes Entered by: Isabelle BRADSHAW 18 Sep 2011 0627 ------- ------- ------- ------- -- Need profile OBED Schumacher 09/[address] [place] [address] [employer] B ([facility])([facility] Team 3) [address] [place] [address] [employer] B ([facility])(Chi ropractic ) OUTPATIENT [id number] follow up [id number] ARABELLA GONZALES 09/19 Released w/o Limitations [address] [place] [address] [employer] ([facility])(C hiropra ctic) [employer] [facility] [employer] ([facility])(Phy sical Therapy) OUTPATIENT [id number] joint pain, localiz ed in the hip STERLING FOX Pita 09/30 Released w/o Limitations [employer] [employer] ([facility])(P hysical Therapy ) [facility] [employer] [facility])(Sco tt [facility] Team 3) TELE CONSULT [id number] Notes Entered by: DEISY WEST 22 Oct 2011900 ------- ------- ------- ------- -- Rx Refill/ Sj /[id number] [phone]/ ANTHONY TSE 10/21[facility] [employer] ([facility])(S cott [facility] Team 3) [facility] [employer] [facility])(Phy sical Therapy) OUTPATIENT [id number] IAN DYER 10/22 Released w/o Limitations [employer] ([facility])(P hysical Therapy ) [facility] Medical [facility] [employer] ([facility])(Chi ropractic ) OUTPATIENT [id number] ARABELLA GONZALES 10/24 Released w/o Limitations [facility] [employer] ([facility])(C hiropra ctic) [address] [place] [address] [employer] ([facility])(Phy sical Therapy) OUTPATIENT [id number] IAN DYER 10/24 Released w/o Limitations [address] [place] [address] [employer] ([facility])(P hysical Therapy ) [address] [place] [address] [employer] [facility])(Fam felix Med Tm B Non-AD BCC) OUTPATIENT [id number] Pt w/back, hip pain. RICHARD PEDERSEN 10/31 Released with Work/Duty Limitations [facility] [employer] ([facility])(F amily Med Tm B Non-AD BCC) [facility] Medical [facility] [employer] ([facility])(Chi ropractic ) OUTPATIENT [id number] ARABELLA GONZALES 11/01 Released w/o Limitations [facility] [employer] ([facility])(C hiropra ctic) [address] [place] [address] [employer] ([facility])(Phy sical Therapy) OUTPATIENT [id number] lbp/leg ANEL FOXIdris Lema 11/01 Released w/o Limitations [address] [place] [address] Grant [facility] ([facility])(P hysical Therapy ) [address] [place] [address] [facility])(Nmo tt [facility] Team 3) TELE CONSULT [id number] Notes Entered by: PAOLO ARGUELLES 06 Nov 2011 0744 ------- ------- ------- ------- -- [facility]/BASILIO GHOSH 11/[address] [place] [address] [employer] [facility])(S cott [facility] Team 3) [address] [place] [address] [employer] [facility])(Chi ropractic ) OUTPATIENT [id number] BP W#[id number] ARABELLA GONZALES Lonnie 11/20 Released w/o Limitations [address] [place] [address] [employer] [facility] ([facility])(C hiropra ctic) [address] [place] [address] Grant [facility])([facility] Team 3) TELE CONSULT [id number] Notes Entered by: ZANA WRIGHT 27 Nov 2011 1544 ------- ------- ------- ------- -- Med samantha /Chidi r/ /[facility] ANTHONY MCKEON 11/[address] [place] [address] [employer] [facility])(S hi [facility] Team 3) [address] [place] [address] [facility])(Chi ropractic ) OUTPATIENT [id number] BP W#[id number] ARABELLA GONZALES R 11/28 Released w/o Limitations [address] [place] [address] [employer] ([facility])(C hiropra ctic) [address] [place] [address] [employer] [facility])([facility] Team 3) OUTPATIENT [id number] Possibl e MEB for back BASILIO WOLF 12/20 Released w/o Limitations [address] [place] [address] [employer] ([facility])(S [facility] Team 3) [address] [place] [address] [employer] [facility])([facility] Team 3) TELE CONSULT [id number] Notes Entered by: ZANA WRIGHT 24 Dec 2011 0925 ------- ------- ------- ------- -- BOGDAN/Reena oer/[phone] .[phone] 22 or 256.167 1/mnm BASILIO WOLF 12/[address] [place] [address] [facility])([facility] Team 3) [address] [place] [address])(Phy sical Therapy) OUTPATIENT [id number] LUMSTERLING MCCORMACK 12/26 Released w/o Limitations [address] [place] [address] Grant [facility] ([facility])(P hysical Therapy ) [address] [place] [address])(Chi ropractic ) OUTPATIENT [id number] follow up [id number] ARABELLA GONZALES 01/09 Released w/o Limitations [address] [place] [address])(C hiropra ctic) [address] [place] [address] [facility])(Nmo [facility] Team 3) TELE CONSULT [id number] Notes Entered by: REFUGIO SIMON 21 Jan 2012 1219 ------- ------- ------- ------- -- Ira Wolf - [id number] [phone] - /[facility] PRAVEEN ESTEVEZ 01/[address] [place] [address] [facility])([facility] 3) [address] [place] [address])([facility] Team 3) TELE CONSULT [id number] Notes Entered by: SENTHIL AUSTIN 21 Jan 2012 1317 ------- ------- ------- ------- -- Info for referra stark being sent to clinic BLUE Bah 01/[address] [place] [address] Grant [facility] ([facility])([facility] 3) [address] [place] [address])(War rior Op Med Cln Tm A Ad) TELE CONSULT [id number] Notes Entered by: WILBER GUZMAN 12 Feb 2012 1427 ------- ------- ------- ------- -- Nausea, vomitin g, POLLY Corrigan 02/[address] [place] [address])(W arrior Op Med Cln Tm A Ad) [address] [place] [address])(Chi ropractic ) OUTPATIENT [id number] ARABELLA GONZALES 02/20 Released w/o Limitations [address] [place] [address])(C hiropra ctic) [address] [place] [address])([facility] Team 3) TELE CONSULT [id number] Notes Entered by: BASILIO WOLF 26 Feb 2012 0726 ------- ------- ------- ------- -- BASILIO RODAS 02/[address] [place] [address])(S cott [facility] Team 3) [address] [place] [address])([facility] Team 3) TELE CONSULT [id number] Notes Entered by: DEISY WEST 26 Feb 2012 1106 ------- ------- ------- ------- -- Stat Referra l for Feb/Na almanza/61 [id number] * BLUE FRASER 02/[address] [place] [address])(S cott [facility] Team 3) [address] [place] [address])(Dry Room Attendant ecology) TELE CONSULT [id number] Notes Entered by: CAROL CUELLAR 03 Mar 2012 1447 ------- ------- ------- ------- -- Concern s appt itzel w ph [phone], MIGNON VINSON 03/[address] [place] [address])(Camron dias gy) [address] [place] [address])(Dry Room Attendant ecology) OUTPATIENT [id number] 1 yr f/u hpv [id number] ROMERO FORD 03/04 Released w/o Limitations [address] [place] [address] [employer] ([facility])(G ynecolo gy) [address] [place] [address] [facility] B ([facility])(Dry Room Attendant ecology) TELE CONSULT [id number] Notes Entered by: ROMERO FORD 12 Mar 2012 0904 ------- ------- ------- ------- -- Needs colpo/+ hpv STEFAN HENDRIX 03/[address] [place] [address] [employer] ([facility])(G ynecolo gy) [address] [place] [address] [employer] ([facility])(Nmo tt [facility] Team 3) OUTPATIENT [id number] Stomach pain/he adache BASILIO WOLF 03/17 Sick at Home/Quarter s [address] [place] [address] [employer] ([facility])(S [facility] Team 3) [address] [place] [address] [employer] B ([facility])(Dry Room Attendant ecology) OUTPATIENT [id number] Colpo ELIJAH TURNER 03/31 Released w/o Limitations [address] [place] [address] [employer] ([facility])(G ynecolo gy) [address] [place] [address] [employer] ([facility])([facility] Team 3) TELE CONSULT [id number] Notes Entered by: ADRY MOREL 01 Apr 2012 1131 ------- ------- ------- ------- -- Network Results -RADIOL OGY 02/14/12 BASILIO WOLF 04/[address] [place] [address] [employer] ([facility])(S [facility] Team 3) [address] [place] [address] [employer] ([facility])(Ob/ Dry Room Attendant) TELE CONSULT [id number] Notes Entered by: Pita TURNER 11 Apr 2012 0732 ------- ------- ------- ------- -- Results of colpo ELIJAH TURNER 04/[address] [place] [address] [employer] ([facility])(O b/Dry Room Attendant) [address] [place] [address] [employer] ([facility])([facility] Team 3) TELE CONSULT [id number] Notes Entered by: DEISY WEST 21 May 2012 0840 ------- ------- ------- ------- -- Juancarlos quintero for 1 day/Na almanza/Tisha [phone] BLUE FRASER 05/[address] [place], [place] [address]B [facility])([facility] 3) [address] [place] [address])([facility] Team 3) OUTPATIENT [id number] follow up MEB [id number] BASILIO WOLF 06/24 Released w/o Limitations [address] [place], [place] [address]B [facility])([facility] 3) [address] [place] [address])([facility] Team 3) OUTPATIENT [id number] f/u depress ion medicat ion BASILIO WOLF 07/28 Released w/o Limitations [address] [place] [address])([facility] 3) [address] [place] [address])([facility]) TELE CONSULT [id number] Notes Entered by: TRISTAN LIMA 18 Aug 2012 1519 ------- ------- ------- ------- -- SUMAYA Nguyen 08/[address] [place] [address])([facility]) [address] [place] [address])([facility] Team 3) TELE CONSULT [id number] Notes Entered by: DEISY WEST 21 Aug 2012 1041 ------- ------- ------- ------- -- Chest Pain and Black Tar Stool/S chloer/ / BLUE FRASER 08/[address] [place], [place] [address]B [facility])([facility] 3) [address] [place] [address])([facility] Team 3) TELE CONSULT [id number] Notes Entered by: ZANA WRIGHT 22 Aug 2012 0717 ------- ------- ------- ------- -- ER follow yp/Schl oer/618 .[phone] 19 EVELIOBLUE RODRIGUEZ Deepika 08/[address] [place] [address] Grant B [facility])([facility] 3) [address] [place] [address] Grant B [facility])([facility] Team 3) OUTPATIENT [id number] er follow up now itchy all over. BASILIO WOLF 08/22 Released w/o Limitations [address] [place] [address] Grant B [facility])([facility] 3) [address] [place] [address] [facility])([facility]) TELE CONSULT [id number] Notes Entered by: SIRENA SY 02 Sep 2012 1007 ------- ------- ------- ------- -- Pt cancell ed SUMAYA GRAYSON 09/[address] [place] [address] [facility])([facility]) [address] [place] [address] [facility])([facility] Team 3) TELE CONSULT [id number] Notes Entered by: ZANA WRIGHT 04 Sep 2012 1156 ------- ------- ------- ------- -- Fax medical records /Chidi r/ or SADAF MAGANA 09/04 Referred for Appointment [address] [place] [address] Grant FLOYDB [facility])([facility] 3) [address] [place] [address] Grant B [facility])([facility] Team 3) TELE CONSULT [id number] Notes Entered by: BASILIO WOLF 08 Sep 2012 1214 ------- ------- ------- ------- -- lab results BASILIO WOLF 09/[address] [place] [address] Grant MARIELB [facility])([facility] 3) [address] [place] [address] [facility])(Nmo [facility] Team 3) OUTPATIENT [id number] AF serpati on phys [id number] BASILIO WOLF 10/14 Released w/o Limitations [address] [place] [address] [facility])([facility] 3) [address] [place] [address] [facility])([facility] Team 3) OUTPATIENT [id number] Sepjama jimenez BASILIO Villareal 10/16 Released w/o Limitations [address] [place] [address] [facility])([facility] 3) [address] [place] [address] [facility])(Fam felix Med Tm B Non-AD BCC) TELE CONSULT [id number] Notes Entered by: VENITA GARCIA 24 Nov 2012 1040 ------- ------- ------- ------- -- Network Results -GASTRO ENTEROL OGY 3 BASILIO WOLF 11/[address] [place] [address] [facility])(F amily Med Tm B Non-AD BCC) [facility] Outpatient Encounter [id number] 3 03/09 [facility] Outpatient Encounter [id number] 2 FIDEL LOUIS I 09/25 [facility] Procedures Combined list of: 1) Procedures from Department of Veterans Affairs facilities going back up to thelast 18 months, not all VA non-surgical procedures are included; 2) All procedures from the Department of Defense facilities. Procedure Procedure Type Code Date Perfomer Comments Sourc e THERAPEUTIC, PROPHYLACTIC, OR DIAGNOSTIC INJECTION (SPECIFY SUBSTANCE OR DRUG); SUBCUTANEOUS OR INTRAMUSCULAR 2009 [facility] FITTING OF SPECTACLES, EXCEPT FOR APHAKIA; MONOFOCAL 2009 [facility] ALBUTEROL, UP TO 2.5 MG AND IPRATROPIUM BROMIDE, UP TO 0.5 MG, FDA-APPROVED FINAL PRODUCT, NON-COMPOUNDED, ADMINISTERED THROUGH DME 2009 DoD PSYCHIATRIC EVALUATION OF HOSPITAL RECORDS, OTHER PSYCHIATRIC REPORTS, PSYCHOMETRIC AND/OR PROJECTIVE TESTS, AND OTHER ACCUMULATED DATA FOR MEDICALDIAGNOSTIC PURPOSES 2012 DoD PSYCHOTHERAPY, 30 MINUTES WITH PATIENT WHEN PERFORMED WITH AN EVALUATION AND MANAGEMENT SERVICE (LIST SEPARATELY IN ADDITION TO THE CODE FOR PRIMARY PROCEDURE) 2012 DoD TELE ASSESS & MGT SRV PROV QUAL NONPHYS HLTH CARE PRO TO EST PAT,PARENT,GUARD NOT ORIG REL ASSESS & MGT SRV PROV W/IN PREV 7 DAYS NOR LEAD ASSESS & MGT SRV/PX W/IN NXT 24 HR/SOON APT;5-10 MIN MED DIS 2012 DoD PSYCHOTHERAPY, 60 MINUTES WITH PATIENT 2012 DoD PSYCHOTHERAPY, 60 MINUTES WITH PATIENT 2012 DoD PSYCHOTHERAPY, 45 MINUTES WITH PATIENT WHEN PERFORMED WITH AN EVALUATION AND MANAGEMENT SERVICE (LIST SEPARATELY IN ADDITION TO THE CODE FOR PRIMARY PROCEDURE) 2012 DoD PSYCHOTHERAPY, 60 MINUTES WITH PATIENT 2012 DoD PSYCHIATRIC DIAGNOSTIC EVALUATION 2012 DoD PSYCHOTHERAPY, 60 MINUTES WITH PATIENT 2012 DoD PSYCHOTHERAPY, 60 MINUTES WITH PATIENT 2012 DoD PSYCHOTHERAPY, 60 MINUTES WITH PATIENT 2012 DoD PSYCHIATRIC DIAGNOSTIC EVALUATION 2012 DoD INDIVIDUAL PSYCHOTHERAPY, INSIGHT ORIENTED, BEHAVIOR MODIFYING AND/OR SUPPORTIVE, IN AN OFFICE OR OUTPATIENT FACILITY, APPROXIMATELY 45 TO 50 MINUTES SPOD-IP-BEPY W THE PATIENT; W MED EVAL & MGT SER 2012 DoD COLPOSCOPY OF THE CERVIX INCLUDING UPPER/ADJACENT VAGINA; WITH ENDOCERVICAL CURETTAGE 2011 DoD SCREENING PAPANICOLAOU SMEAR; OBTAINING, PREPARING AND CONVEYANCE OF CERVICAL OR VAGINAL SMEAR TO LABORATORY 2011 DoD APPLICATION OF A MODALITY TO 1 OR MORE AREAS; HOT OR COLD PACKS 2011 DoD TELE ASSESS & MGT SRV PROV QUAL NONPHYS HLTH CARE PRO TO EST PAT,PARENT,GUARD NOT ORIG REL ASSESS & MGT SRV PROV W/IN PREV 7 DAYS NOR LEAD ASSESS & MGT SRV/PX W/IN NXT 24 HR/SOON APT;5-10 MIN MED DIS 2011 DoD APPLICATION OF A MODALITY TO 1 OR MORE AREAS; HOT OR COLD PACKS 2011 DoD RANGE OF MOTION MEASUREMENTS AND REPORT (SEPARATE PROCEDURE); EACH EXTREMITY (EXCLUDING HAND) OR EACH TRUNK SECTION (SPINE) 2011 DoD APPLICATION OF A MODALITY TO 1 OR MORE AREAS; HOT OR COLD PACKS 2011 DoD PSYCHIATRIC DIAGNOSTIC INTERVIEW EXAMINATION 2011 DoD APPLICATION OF A MODALITY TO 1 OR MORE AREAS; ELECTRICAL STIMULATION (UNATTENDED) 2011 DoD PHYSICAL THERAPY RE-EVALUATION 2011 DoD APPLICATION OF A MODALITY TO 1 OR MORE AREAS; HOT OR COLD PACKS 2011 DoD THERAPEUTIC ACTIVITIES, DIRECT (ONE-ON-ONE) PATIENT CONTACT (USE OF DYNAMIC ACTIVITIES TO IMPROVE FUNCTIONAL PERFORMANCE), EACH 15 MINUTES 2011 DoD APPLICATION OF A MODALITY TO 1 OR MORE AREAS; HOT OR COLD PACKS 2011 DoD THERAPEUTIC ACTIVITIES, DIRECT (ONE-ON-ONE) PATIENT CONTACT (USE OF DYNAMIC ACTIVITIES TO IMPROVE FUNCTIONAL PERFORMANCE), EACH 15 MINUTES 2011 DoD THERAPEUTIC PROCEDURE, 1 OR MORE AREAS, EACH 15 MINUTES; THERAPEUTIC EXERCISES TO DEVELOP STRENGTH AND ENDURANCE, RANGE OF MOTION AND FLEXIBILITY 2011 DoD APPLICATION OF A MODALITY TO 1 OR MORE AREAS; ELECTRICAL STIMULATION (UNATTENDED) 2011 DoD APPLICATION OF A MODALITY TO 1 OR MORE AREAS; HOT OR COLD PACKS 2011 DoD TELE ASSESS & MGT SRV PROV QUAL NONPHYS HLTH CARE PRO TO EST PAT,PARENT,GUARD NOT ORIG REL ASSESS & MGT SRV PROV W/IN PREV 7 DAYS NOR LEAD ASSESS & MGT SRV/PX W/IN NXT 24 HR/SOON APT;5-10 MIN MED DIS 2011 DoD MANUAL THERAPY TECHNIQUES (EG, MOBILIZATION/ MANIPULATION, MANUAL LYMPHATIC DRAINAGE, MANUAL TRACTION), 1 OR MORE REGIONS, EACH 15 MINUTES 2011 DoD APPLICATION OF A MODALITY TO 1 OR MORE AREAS; ELECTRICAL STIMULATION (UNATTENDED) 2011 DoD APPLICATION OF A MODALITY TO 1 OR MORE AREAS; HOT OR COLD PACKS 2011 DoD THERAPEUTIC PROCEDURE, 1 OR MORE AREAS, EACH 15 MINUTES; THERAPEUTIC EXERCISES TO DEVELOP STRENGTH AND ENDURANCE, RANGE OF MOTION AND FLEXIBILITY 2011 DoD CHIROPRACTIC MANIPULATIVE TREATMENT (CMT); SPINAL, 3-4 REGIONS 2011 DoD APPLICATION OF A MODALITY TO 1 OR MORE AREAS; HOT OR COLD PACKS 2011 DoD TELE ASSESS & MGT SRV PROV QUAL NONPHYS HLTH CARE PRO TO EST PAT,PARENT,GUARD NOT ORIG REL ASSESS & MGT SRV PROV W/IN PREV 7 DAYS NOR LEAD ASSESS & MGT SRV/PX W/IN NXT 24 HR/SOON APT;5-10 MIN MED DIS 2011 [facility] OSTEOPATHIC MANIPULATIVE TREATMENT (OMT); 1-2 BODY REGIONS INVOLVED 2011 [facility] THERAPEUTIC PROCEDURE, 1 OR MORE AREAS, EACH 15 MINUTES; THERAPEUTIC EXERCISES TO DEVELOP STRENGTH AND ENDURANCE, RANGE OF MOTION AND FLEXIBILITY 2010 [facility] URINE TEST, BY VISUAL COLOR COMPARISON METHODS 2010 [facility] CULTURE, CHLAMYDIA, ANY SOURCE 2010 [facility] FITTING OF SPECTACLES, EXCEPT FOR APHAKIA; MONOFOCAL 2010 [facility] NEUROPSYCHOLOGICAL TESTING (EG, [place] CARD SORTING TEST), ADMINISTERED BY A COMPUTER, WITH QUALIFIED HEALTH COMPOUND MIXER INTERPRETATION AND REPORT 2010 [facility] Determination Of Refractive State Determination Of Refractive State [id number] 2009 MAYTE CADENA [facility] Psychiatric Diagnostic Evaluation Review of Records and Reports Psychiatric Diagnostic Evaluation Review of Records and Reports 27509 2012 NI BARRERA Psychotherapy Individual Approx 30 Min W/ Medical Evaluation & Management 2012 NI BARRERA Non-Physician Phone Call To Patient/Provider Brief (5-10min) Non-Physician Phone Call To Patient/Provider Brief (5-10min) 12142 2012 SADAF MAGANA [facility] Psychotherapy Individual Approximately 60 Minutes 2012 EMANUEL DANIEL Psychotherapy Individual Approximately 60 Minutes 2012 EMANUEL DANIEL Psychotherapy Indiv Approx 45 Min W/ Medical Evaluation & Management 2012 NI BARRERA Psychotherapy Individual Approximately 60 Minutes 2012 EMANUEL DANIEL Psychiatric Diagnostic Evaluation Comprehensive Examination Psychiatric Diagnostic Evaluation Comprehensive Examination [id number] 2012 NI BARRERA DoD Psychotherapy Individual Approximately 60 Minutes 2012 EMANUEL DANIEL Psychiatric Diagnostic Evaluation Comprehensive Examination Psychiatric Diagnostic Evaluation Comprehensive Examination [id number] 2012 EMANUEL DANIEL Psychotherapy Indiv Approx 45 Min W/ Medical Evaluation & Management Psychotherapy Indiv Approx 45 Min W/ Medical Evaluation & Management 21230 2012 NI BARRERA Test Test 96561 2011 ELIJAH TURNER [facility] Colposcopy Cervix With Endocervical Curettage Colposcopy Cervix With Endocervical Curettage 57018 2011 ELIJAH TURNER [facility] Screening papanicolaou smear; obtaining, preparing and conveyance of cervical or vaginal smear to laboratory 2011 ROMERO FORD [facility] Modalities Heat Hot Packs Modalities Heat Hot Packs 99549 2011 ARABELLA GONZALES Modalities Electrical Stimulation Unattended Modalities Electrical Stimulation Unattended 18773 2011 ARABELLA GONZALES Chiropractic Manip Treatmt (CMT) Spinal Three To Four Region Chiropractic Manip Treatmt (CMT) Spinal Three To Four Region 77446 2011 ARABELLA GONZALES Modalities Traction Manual (Each Region 15 Minutes) Modalities Traction Manual (Each Region 15 Minutes) 78314 2011 ARABELLA GONZALES Non-Physician Phone Call To Patient/Provider Brief (5-10min) Non-Physician Phone Call To Patient/Provider Brief (5-10min) 54140 2011 BLUE FRASER [facility] Modalities Heat Hot Packs Modalities Heat Hot Packs 23768 2011 ARABELLA GONZALES Moist heat for 20min to hypertonic lumbar erectors bilaterally DoD Modalities Electrical Stimulation Unattended Modalities Electrical Stimulation Unattended 88933 2011 ARABELLA GONZALES Interferential 80-150hz with Moist heat for 20min to hypertonic lumbar erectors bilaterally [facility] Modalities Traction Manual (Each Region 15 Minutes) Modalities Traction Manual (Each Region 15 Minutes) 43330 2011 ARABELLA GONZALES 57-Performed attended, prone, Aguilera Flexion/Distracti on to lumbar spine (15min) [facility] Chiropractic Manip Treatmt (CMT) Spinal Three To Four Region Chiropractic Manip Treatmt (CMT) Spinal Three To Four Region 86300 2011 ARABELLA GONZALES AT - Diversified supine adjustment to C/S, prone T/S, Diversified side posture to SI and L/S [facility] Range Of Motion Evaluation Of Extremity Range Of Motion Evaluation Of Extremity 48551 2011 STERLING FOX [facility] Modalities Electrical Stimulation Unattended Modalities Electrical Stimulation Unattended 00382 2011 ARABELLA GONZALES Modalities Heat Hot Packs Modalities Heat Hot Packs 26485 2011 ARABELLA GONZALES [facility] Modalities Traction Manual (Each Region 15 Minutes) Modalities Traction Manual (Each Region 15 Minutes) 65326 2011 ARABELLA GONZALES [facility] Chiropractic Manip Treatmt (CMT) Spinal Three To Four Region Chiropractic Manip Treatmt (CMT) Spinal Three To Four Region 44204 2011 ARABELLA GONZALES [facility] Psychiatric Diagnostic Evaluation Comprehensive Examination Psychiatric Diagnostic Evaluation Comprehensive Examination 13739 2011 JACQUES CORTES [facility] Modalities Electrical Stimulation Unattended Modalities Electrical Stimulation Unattended 93524 2011 ARABELLA GONZALES [facility] Modalities Heat Hot Packs Modalities Heat Hot Packs 56560 2011 ARABELLA GONZALES [facility] Modalities Traction Manual (Each Region 15 Minutes) Modalities Traction Manual (Each Region 15 Minutes) 71882 2011 ARABELLA GONZALES [facility] Chiropractic Manip Treatmt (CMT) Spinal Three To Four Region Chiropractic Manip Treatmt (CMT) Spinal Three To Four Region 97861 2011 ARABELLA GONZALES [facility] Physical Therapy Service Re-Evaluation Physical Therapy Service Re-Evaluation 78037 2011 STERLING FOX [facility] Modalities Heat Hot Packs Modalities Heat Hot Packs 78509 2011 ARABELLA GONZALES [facility] Modalities Electrical Stimulation Unattended Modalities Electrical Stimulation Unattended 67604 2011 ARABELLA GONZALES [facility] Modalities Traction Manual (Each Region 15 Minutes) Modalities Traction Manual (Each Region 15 Minutes) 93562 2011 ARABELLA GONZALES Chiropractic Manip Treatmt (CMT) Spinal Three To Four Region Chiropractic Manip Treatmt (CMT) Spinal Three To Four Region 88359 2011 ARABELLA GONZALES [facility] PT A e ment Kinetic Training PT Assessment Kinetic Training 69425 2011 IAN DYER [facility] Physical Therapy Neuromuscular Re-education Physical Therapy Neuromuscular Re-education 65959 2011 IAN DYER Physical Therapy: ___ Se ion Segments, 15 Minutes Each Physical Therapy: ___ Session Segments, 15 Minutes Each 54604 2011 IAN DYER Modalities Electrical Stimulation Unattended Modalities Electrical Stimulation Unattended 25207 2011 ARABELLA GONZALES Interferential 80-150hz with Moist heat for 20min to hypertonic cervicothoracic thoracic erectors bilaterally DoD Modalities Heat Hot Packs Modalities Heat Hot Packs 74351 2011 ARABELLA GONZALES Moist heat for 20min to hypertonic cervicothoracic thoracic erectors bilaterally DoD Modalities Traction Manual (Each Region 15 Minutes) Modalities Traction Manual (Each Region 15 Minutes) 33933 2011 ARABELLA GONZALES 57-Performed attended, prone, Aguilera Flexion/Distracti on to lumbar spine (15min) [facility] Chiropractic Manip Treatmt (CMT) Spinal Three To Four Region Chiropractic Manip Treatmt (CMT) Spinal Three To Four Region 81230 2011 ARABELLA GONZLAES AT - Diversified supine adjustment to C/S, prone T/S, Diversified side posture to SI and L/S [facility] PT A e ment Kinetic Training PT Assessment Kinetic Training 23827 2011 IAN DYER [facility] Physical Therapy Neuromuscular Re-education Physical Therapy Neuromuscular Re-education 67199 2011 IAN DYER Physical Therapy: ___ Se ion Segments, 15 Minutes Each Physical Therapy: ___ Session Segments, 15 Minutes Each 70358 2011 IAN DYER [facility] A isted Exercises For ROM Assisted Exercises For ROM 81147 2011 STERLING FOX [facility] Osteopathic Manip Treatment (OMT) 1-2 Body Regions Involved Osteopathic Manip Treatment (OMT) 1-2 Body Regions Involved 47044 2011 STERLING FOX [facility] Physical Therapy Service Evaluation Physical Therapy Service Evaluation 94106 2011 STERLING FOX [facility] Modalities Electrical Stimulation Unattended Modalities Electrical Stimulation Unattended 35770 2011 ARABELLA GONZALES DoD Modalities Heat Hot Packs Modalities Heat Hot Packs 32752 2011 ARABELLA GONZALES Moist heat for 20min to hypertonic lumbar erectors bilaterally DoD Modalities Traction Manual (Each Region 15 Minutes) Modalities Traction Manual (Each Region 15 Minutes) 68376 2011 ARABELLA GONZALES 59 - Performed attended, prone, Aguilera Flexion/Distracti on to lumbar spine (15min) [facility] Chiropractic Manip Treatmt (CMT) Spinal Three To Four Region Chiropractic Manip Treatmt (CMT) Spinal Three To Four Region 07192 2011 ARABELLA GONZALES AT - Diversified supine adjustment to C/S, prone T/S, Diversified side posture to SI and L/S DoD Modalities Heat Hot Packs Modalities Heat Hot Packs 20701 2011 RAABELLA GONZALES Moist heat for 20min to hypertonic lumbar erectors bilaterally DoD Modalities Electrical Stimulation Unattended Modalities Electrical Stimulation Unattended 47578 2011 ARABELLA GONZALES Interferential 80-150hz with Moist heat for 20min to hypertonic lumbar erectors bilaterally DoD Modalities Traction Manual (Each Region 15 Minutes) Modalities Traction Manual (Each Region 15 Minutes) [id number] 2011 ARABELLA GONZALES Chiropractic Manip Treatmt (CMT) Spinal [facility] Region Chiropractic Manip Treatmt (CMT) Spinal Three To Four Region 89184 2011 ARABELLA GONZALES Test Test 00479 2011 ROMERO FORD Implantable Contraceptive Capsules Insertion Implantable Contraceptive Capsules Insertion 89175 2011 ROMERO FORD Non-Physician Phone Call To Patient/Provider Brief (5-10min) Non-Physician Phone Call To Patient/Provider Brief (5-10min) 78762 2011 PRAVEEN ESTEVEZ Modalities Traction Manual (Each Region 15 Minutes) Modalities Traction Manual (Each Region 15 Minutes) 42167 2011 ARABELLA GONZALES Chiropractic Manip Treatmt (CMT) Spinal Three To Four Region Chiropractic Manip Treatmt (CMT) Spinal Three To Four Region 33847 2011 ARABELLA GONZALES Modalities Electrical Stimulation Unattended Modalities Electrical Stimulation Unattended 10347 2011 ARABELLA GONZALES Modalities Heat Hot Packs Modalities Heat Hot Packs 35380 2011 ARABELLA GONZALES Chiropractic Manip Treatmt (CMT) Spinal Three To Four Region Chiropractic Manip Treatmt (CMT) Spinal Three To Four Region 29737 2011 ARABELLA GONZALES Modalities Traction Manual (Each Region 15 Minutes) Modalities Traction Manual (Each Region 15 Minutes) 32146 2011 ARABELLA GONZALES Modalities Heat Hot Packs Modalities Heat Hot Packs 82215 2011 ARABELLA GONZALES Moist heat for 20min to hypertonic lumbar erectors bilaterally DoD Modalities Electrical Stimulation Unattended Modalities Electrical Stimulation Unattended 23103 2011 ARABELLA GONZALES Interferential 80-150hz with Moist heat for 20min to hypertonic lumbar erectors bilaterally DoD Modalities Traction Manual (Each Region 15 Minutes) Modalities Traction Manual (Each Region 15 Minutes) 83803 2011 ARABELLA GONZALES Chiropractic Manip Treatmt (CMT) Spinal Three To Four Region Chiropractic Manip Treatmt (CMT) Spinal Three To Four Region 68914 2011 ARABELLA GONZALES A isted Exercises For ROM Assisted Exercises For ROM 05490 2011 ARABELLA GONZALES Tonic/Phasic lumbar hip extensor imbalance. Tonic lumbar erectors, tonic biceps femoris, paresis 3/5 hip extensors. 15min attended hip extensor/biceps femoris Proprioceptive Neuromuscular Facilitation stretching followed by hip extension and gluteal seated isometric contraction exercises to strengthen weak g-medius bilaterally. Patient to continue routine daily 25 reps bilaterally hold 3 secs, stretch before and after exercise [facility] Chiropractic Manip Treatmt (CMT) Spinal Three To Four Region Chiropractic Manip Treatmt (CMT) Spinal Three To Four Region 29702 2011 ARABELLA GONZALES Modalities Traction Manual (Each Region 15 Minutes) Modalities Traction Manual (Each Region 15 Minutes) 71176 2011 ARABELLA GONZALES Modalities Traction Manual (Each Region 15 Minutes) Modalities Traction Manual (Each Region 15 Minutes) 84975 2011 ARABELLA GONZALES Performed attended, prone, Aguilera Flexion/Distracti on to lumbar spine (15min) [facility] Chiropractic Manip Treatmt (CMT) Spinal Three To Four Region Chiropractic Manip Treatmt (CMT) Spinal Three To Four Region 29693 2011 ARABELLA GONZALES Modalities Heat Hot Packs Modalities Heat Hot Packs 61923 2011 ARABELLA GONZALES Modalities Electrical Stimulation Unattended Modalities Electrical Stimulation Unattended 20563 2011 ARABELLA GONZALES Chiropractic Manip Treatmt (CMT) Spinal Three To Four Region Chiropractic Manip Treatmt (CMT) Spinal Three To Four Region 07047 2011 ARABELLA GONZALES [facility] Non-Physician Phone Call To Patient/Provider Brief (5-10min) Non-Physician Phone Call To Patient/Provider Brief (5-10min) 88741 2011 PRAVEEN ESTEVEZ Osteopathic Manip Treatment (OMT) 1-2 Body Regions Involved Osteopathic Manip Treatment (OMT) 1-2 Body Regions Involved 57684 2011 WILLEM GURROLA Physical Therapy Service Re-Evaluation Physical Therapy Service Re-Evaluation 40868 2011 WILLEM GURROLA Physical Therapy: ___ Se ion Segments, 15 Minutes Each Physical Therapy: ___ Session Segments, 15 Minutes Each 17098 2010 WILLEM GURROLA combined time of 16 minutes exercises for back rotation and left quad strengthening [facility] Physical Therapy Service Evaluation Physical Therapy Service Evaluation 37066 2010 WILLEM GURROLA Osteopathic Manip Treatment (OMT) 1-2 Body Regions Involved Osteopathic Manip Treatment (OMT) 1-2 Body Regions Involved 27031 2010 WILLEM GURROLA OMT to the LS spine [facility] Colposcopy Cervix With Biopsy Colposcopy Cervix With Biopsy 36406 2010 ROMERO FORD Test Test 71064 2010 ROMERO FORD Pt informed of Negative results [facility] Cervical Culture Chlamydia trachomatis Cervical Culture Chlamydia trachomatis 21943 2010 DESHAWN CABRERA Screening papanicolaou smear; obtaining, preparing and conveyance of cervical or vaginal smear to laboratory 2010 DESHAWN CABRERA Determination Of Refractive State Determination Of Refractive State 60979 2010 FRANCO VENCES Spectacles Services Fitting Monofocal Except For Aphakia Spectacles Services Fitting Monofocal Except For Aphakia 10750 2010 FRANCO VENCES Ophthalmological New Patient Start Comprehensive Care Ophthalmological New Patient Start Comprehensive Care 76434 2010 FRANCO VENCES Psychometric Neuropsych Testing Battery Admin By Computer Psychometric Neuropsych Testing Battery Admin By Computer 12114 2010 KEENAN LONDONO Spectacles Services Fitting Monofocal Except For Aphakia Spectacles Services Fitting Monofocal Except For Aphakia 06254 2009 MAYTE CADENA DoD Social History Combined list of available smoking, tobacco, and other social history from 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 Social History Type Response Date Comment [facility] e This section is an empty social history section. DoD
--- OUTSIDE RECORDS SUMMARY | 2024-06-18 13:24 | XMS_ITS | Encounter Summary ---
Author Organization [facility] Address [address] [place] [address] Care Team Providers Care Tire Buffer Name Role Phone Gloria Gregorio NP Primary Care Provider [phone] Encounter Details Date Type Department Care Team (Late Contact Info) Description 06/30/2022 Full Throttle Indoor Kart Racingt Message Enc [facility] Medical Group Family Medicine [facility] [address] [facility] [address] [place] [address] [phone] Gloria Gregorio, ROUNDING MACHINE OPERATOR [address] [place] [address] Mamm/Pap Social History Tobacco Use Types Packs/Day Years [...] Sex Assigned at Female 06/09/2024 9:52 AM MARINE ENGINE MECHANIC Legal Sex Female 12:19 AM MARINE ENGINE MECHANIC Gender Identity Female 06/16/2024 10:41 AM MARINE ENGINE MECHANIC Sexual Orientation Straight 06/16/2024 10 :41 AM MARINE ENGINE MECHANIC COVID-19 Exposure Response Date Recorded In the last 10 days, have yo u been in contact with someone who was confirmed or suspected to have Coronavirus/COVID-19? No / Unsure 07/03/2022 7:54 AM MARINE ENGINE MECHANIC documented as of this encounter Plan of Treatment Upcoming Encounters Date Type Department Care Team (Late Contact Info) Description 06/24/2024 11:00 AM MARINE ENGINE MECHANIC Appointment [facility] [place] [address] Lalito Gudino MD 3 [place] [address] [place] [address] 06/30/2024 11:00 AM MARINE ENGINE MECHANIC Appointment [facility] [place] [address] Lalito Gudino MD 3 [place] [address] [place] [address] 08/07/2024 8:00 AM CDT Treatment [facility] [place] [address] Gloria Gregorio, SANTI [address] [place] [address] 11/17/2024 11:40 AM CDT Telemedicine [facility] Medical Group Multispecialty Care - [address] [address] Lalito Gudino MD [address] [place] [address] documented as of this encounter Visit Diagnoses Not on filedocumented in this encounter Additional Health Concerns Infection Onset Date Last Indicated Resolved Time COVID-19 Rule Out 01/23/2023 01/23/2023 01/23/2023 10:48 AM CDT COVID-19 Confirmed 01/23/2023 01/23/2023 12:32 AM CDT COVID-19 Rule Out 05/05/2024 05/05/2024 05/05/2024 8:33 AM MARINE ENGINE MECHANIC COVID-19 Rule Out 05/07/2024 05/07/2024 05/07/2024 1:36 PM MARINE ENGINE MECHANIC Influenza - Seasonal 05/07/2024 05/07/2024 025 12:32 AM MARINE ENGINE MECHANIC documented as of this encounter Care Teams Tire Buffer Relationship Specialty Start Date End Date Gloria Gregorio NP [address] [place] [address] PCP - General NURSE PRACTITIONER 02/02/22 documented as of this encounter
--- OUTSIDE RECORDS SUMMARY | 2024-06-18 13:24 | XMS_ITS | Encounter Summary ---
Author Organization [facility] Address [address] [place] [address] Care Team Providers Care Girls Swimming Coach Name Role Phone Gloria Gregorio NP Primary Care Provider [phone] Encounter Details Date Type Department Care Team (Late st Contact Info) Description 01/15/2024 Easy Ice Message Enc [facility] Provider Action Needed Social History Tobacco Use Types Packs/Day Years Used Date Smoking Tobacco: Former Cigarettes 0.3 4 Passive Smoke Exposure: Never Smokeless Tobacco: Never Alcohol Use Standard Drinks/Week Comments Yes 3.3 (1 standard drin k = 0.6 oz pure alcohol) Very rarely most times not even weekly PHQ-2 Answer Date Recorded Patient Health Questionnaire-2 Score 0 09/03/2023 Comments No Sex and Gender Information Value Date Recorded Sex Assigned at Female 06/09/2024 9:52 AM AUTHOR AGENT Legal Sex Female 12:19 AM AUTHOR AGENT Gender Identity Female 06/16/2024 10:41 AM AUTHOR AGENT Sexual Orientation Straight 06/16/2024 10 :41 AM AUTHOR AGENT documented as of this encounter Plan of Treatment Upcoming Encounters Date Type Department Care Team (Late st Contact Info) Description 06/24/2024 11:00 AM AUTHOR AGENT [address]ointment [facility] [place] [place] [address] Lalito Gudino MD 3 [place], [place] [phone] [place] [address] 06/30/2024 11:00 AM AUTHOR AGENT Appointment [facility] [place] [address] Lalito Gudino MD [address] [place] [address] [place] [address] 08/07/2024 8:00 AM CDT Treatment [facility] [place] [address] Gloria Gregorio, SANTI [address] [place] [address] 11/17/2024 11:40 AM CDT Telemedicine [facility] Medical Group Multispecialty Care - [address], [address] [place] [address] Lalito Gudino MD [address] [place] [address] documented as of this encounter Visit Diagnoses Not on filedocumented in this encounter Additional Health Concerns Infection Onset Date Last Indicated Resolved Time COVID-19 Rule Out 05/05/2024 05/05/2024 05/05/2024 8:33 AM AUTHOR AGENT COVID-19 Rule Out 05/07/2024 05/07/2024 05/07/2024 1:36 PM AUTHOR AGENT Influenza - Seasonal 05/07/2024 05/07/202405/2 025 12:32 AM AUTHOR AGENT documented as of this encounter Care Teams Girls Swimming Coach Relationship Specialty Start Date End Date Gloria Gregorio NP [address] [place] [address] PCP - General NURSE PRACTITIONER 02/02/22 documented as of this encounter
--- OUTSIDE RECORDS SUMMARY | 2024-06-18 13:24 | XMS_ITS | Encounter Summary ---
Author Organization [facility] Address [address] [place] [address] Care Team Providers Care Communications Tower Climber Name Role Phone Gloria Gregorio NP Primary Care Provider [phone] Encounter Details Date Type Department Care Team (Late st Contact Info) Description 05/26/2022 MyChart Message Enc [facility] Medical Group Multispecialty Care - [facility] [address] [facility], [address] [place] [address] Lalito Gudino MD 3 [place] [address] Blood test Social History Tobacco Use Types Packs/Day Years Used Date Smoking Tobacco: Former Cigarettes 0.3 4 Smokeless Tobacco: Never Alcohol Use Standard Drinks/Week Comments Yes 3.3 (1 standard drin k = 0.6 oz pure alcohol) Very rarely most times not even weekly PHQ-2 Answer Date Recorded Patient Health Questionnaire-2 Score 0 05/24/2022 Comments No Sex and Gender Information Value Date Recorded Sex Assigned at Female 06/09/2024 9:52 AM NEW HOME SALES CONSULTANT Legal Sex Female 12:19 AM NEW HOME SALES CONSULTANT Gender Identity Female 06/16/2024 10:41 AM NEW HOME SALES CONSULTANT Sexual Orientation Straight 06/16/2024 10 :41 AM NEW HOME SALES CONSULTANT COVID-19 Exposure Response Date Recorded In the last 10 days, have yo u been in contact with someone who was confirmed or suspected to have Coronavirus/COVID-19? No / Unsure 05/28/2022 4:21 PM NEW HOME SALES CONSULTANT documented as of this encounter Plan of Treatment Upcoming Encounters Date Type Department Care Team (Late st Contact Info) Description 06/24/2024 11:00 AM NEW HOME SALES CONSULTANT Appointment [facility] [address] Lalito Gudino MD [address] [place] [address] [place] [address] 06/30/2024 11:00 AM NEW HOME SALES CONSULTANT Appointment [facility] [address] Lalito Gudino MD [address] [place] [address] [place] [address] 08/07/2024 8:00 AM CDT Treatment [facility] [place] [address] Gloria Gregorio, SANTI [address] [place] [address] 11/17/2024 11:40 AM CDT Telemedicine [facility] Medical Group Multispecialty Care - [address], [address] [place] [address] Lalito Gudino MD [address] [place] [address] documented as of this encounter Visit Diagnoses Not on filedocumented in this encounter Additional Health Concerns Infection Onset Date Last Indicated Resolved Time COVID-19 Rule Out 01/23/2023 01/23/2023 01/23/2023 10:48 AM CDT COVID-19 Confirmed 01/23/2023 01/23/2023 12:32 AM CDT COVID-19 Rule Out 05/05/2024 05/05/2024 05/05/2024 8:33 AM NEW HOME SALES CONSULTANT COVID-19 Rule Out 05/07/2024 05/07/2024 05/07/2024 1:36 PM NEW HOME SALES CONSULTANT Influenza - Seasonal 05/07/2024 05/07/2024 025 12:32 AM NEW HOME SALES CONSULTANT documented as of this encounter Care Teams Communications Tower Climber Relationship Specialty Start Date End Date Gloria Gregorio NP [address] [place] [id number] PCP - General NURSE PRACTITIONER 02/02/22 documented as of this encounter
--- OUTSIDE RECORDS SUMMARY | 2024-06-18 13:24 | XMS_ITS | Encounter Summary ---
Author Organization [facility] Address [address] [place] [address] Care Team Providers Care Global Lead Name Role Phone Gloria Gregorio NP Primary Care Provider [phone] Encounter Details Date Type Department Care Team (Late Contact Info) Description 05/25/2022 Therapy Plan [facility] [place], [place] [address] Lalito Gudino MD [address] [place] [address] Social History Tobacco Use Types Packs/Day Years [...] Sex Assigned at Female 06/09/2024 9:52 AM BELL TIER Legal Sex Female 12:19 AM BELL TIER Gender Identity Female 06/16/2024 10:41 AM BELL TIER Sexual Orientation Straight 06/16/2024 10 :41 AM BELL TIER COVID-19 Exposure Response Date Recorded In the last 10 days, have yo u been in contact with someone who was confirmed or suspected to have Coronavirus/COVID-19? No / Unsure 05/28/2022 4:21 PM BELL TIER documented as of this encounter Plan of Treatment Upcoming Encounters Date Type Department Care Team (Late Contact Info) Description 06/24/2024 11:00 AM BELL TIER Appointment [facility] [place] [address] Lalito Gudino MD [address] [place] [address] [place] [address] 06/30/2024 11:00 AM BELL TIER Appointment [facility] [place] [address] Lalito Gudino MD [address] [place] [address] [place] [address] 08/07/2024 8:00 AM CDT Treatment [facility] [address] Gloria Gregorio, SANTI [address] [place] [address] 11/17/2024 11:40 AM CDT Telemedicine [facility] Medical Group Multispecialty Care - [address], [facility] [address] [place] [address] Lalito Gudino MD [address] [place] [address] documented as of this encounter Visit Diagnoses Diagnosis Multiple sclerosis ([facility])- Primary Multiple sclerosis documented in this encounter Additional Health Concerns Infection Onset Date Last Indicated Resolved Time COVID-19 Rule Out 01/23/2023 01/23/2023 01/23/2023 10:48 AM CDT COVID-19 Confirmed 01/23/2023 01/23/2023 12:32 AM CDT COVID-19 Rule Out 05/05/2024 05/05/2024 05/05/2024 8:33 AM BELL TIER COVID-19 Rule Out 05/07/2024 05/07/2024 05/07/2024 1:36 PM BELL TIER Influenza - Seasonal 05/07/2024 05/07/2024 025 12:32 AM BELL TIER documented as of this encounter Care Teams Global Lead Relationship Specialty Start Date End Date Gloria Gregorio NP [address] [place] [address] PCP - General NURSE PRACTITIONER 02/02/22 documented as of this encounter
--- OUTSIDE RECORDS SUMMARY | 2024-06-18 13:24 | XMS_ITS | Referral Summary ---
Author Organization [facility] Address [address] [place] [address] Care Team Providers Care Chro Name Role Phone Unavailable Primary Care Provider Unavailabl e Source Comments [facility],non-[facility] Affiliates and Associated Physician Practices is amultiple site organization consisting of ambulatory clinics and hospital sitesin [place], [place], [place]. This disclosure is being madepursuant to the Care Everywhere program and may not contain all information available regarding this patient. Last updated 18.[facility] myOrder Social History Tobacco Use Types Packs/Day Years Used Date Smoking Tobacco: Never Assessed Sex and Gender Information Value Date Recorded Sex Assigned at Not on file Gender Identity Not on file Sexual Orientation Not on file Plan of Treatment Not on file
--- OUTSIDE RECORDS SUMMARY | 2024-06-18 13:24 | XMS_ITS | Encounter Summary ---
Author Organization [facility] Address [address] [place] [address] Care Team Providers Care Day Spa Manager Name Role Phone Gloria Gregorio NP Primary Care Provider [phone] Encounter Details Date Type Department Care Team (Late Contact Info) Description 08/13/2022 XYZEt Message Enc [facility] Medical Group Family Medicine [facility] [address] [facility] [address] [place] [phone] Gloria Gregorio, X RAY PHYSICIAN [address] [place] [address] [place] [address] Fmla Social History Tobacco Use Types Packs/Day [...] Sex Assigned at Female 06/09/2024 9:52 AM DRUG SAFETY SPECIALIST Legal Sex Female 12:19 AM DRUG SAFETY SPECIALIST Gender Identity Female 06/16/2024 10:41 AM DRUG SAFETY SPECIALIST Sexual Orientation Straight 06/16/2024 10 :41 AM DRUG SAFETY SPECIALIST COVID-19 Exposure Response Date Recorded In the last 10 days, have yo u been in contact with someone who was confirmed or suspected to have Coronavirus/COVID-19? No / Unsure 07/17/2022 7:55 AM DRUG SAFETY SPECIALIST documented as of this encounter Plan of Treatment Upcoming Encounters Date Type Department Care Team (Late Contact Info) Description 06/24/2024 11:00 AM DRUG SAFETY SPECIALIST Appointment [facility] [place] [address] Lalito Gudino MD 3 [place] [address] [place] [address] 06/30/2024 11:00 AM DRUG SAFETY SPECIALIST Appointment [facility] [place] [address] Lalito Gudino MD 3 [place] [address] [place] [address] 08/07/2024 8:00 AM CDT Treatment [facility] [place] [address] Gloria Gregorio, SANTI [address] [place] [address] 11/17/2024 11:40 AM CDT Telemedicine [facility] Medical Group Multispecialty Care - [address] [address] Lalito Gudino MD 3 [place] [address] documented as of this encounter Visit Diagnoses Not on filedocumented in this encounter Additional Health Concerns Infection Onset Date Last Indicated Resolved Time COVID-19 Rule Out 01/23/2023 01/23/2023 01/23/2023 10:48 AM CDT COVID-19 Confirmed 01/23/2023 01/23/2023 12:32 AM CDT COVID-19 Rule Out 05/05/2024 05/05/2024 05/05/2024 8:33 AM DRUG SAFETY SPECIALIST COVID-19 Rule Out 05/07/2024 05/07/2024 05/07/2024 1:36 PM DRUG SAFETY SPECIALIST Influenza - Seasonal 05/07/2024 05/07/2024 025 12:32 AM DRUG SAFETY SPECIALIST documented as of this encounter Care Teams Day Spa Manager Relationship Specialty Start Date End Date Gloria Gregorio NP [address] [place] [address] PCP - General NURSE PRACTITIONER 02/02/22 documented as of this encounter
--- OUTSIDE RECORDS SUMMARY | 2024-06-18 13:24 | XMS_ITS | Patient Health Summary ---
Author Organization [facility] [place] Address [address] [place] [address] Care Team Providers Care Electronic Prepress System Operator Name Role Phone Unavailable Primary Care Provider Unavailabl e Note from [facility],non-owned Affiliates and Associated Physician Practices is amultiple site organization consisting of ambulatory clinics and hospital sitesin [place], [place] and [place]. This disclosure is being madepursuant to the Care Everywhere program and may not contain all information available regarding this patient. Last updated 18.[facility] Social History Tobacco Use Types Packs/Day Years Used Date Smoking Tobacco: Never Assessed Sex and Gender Information Value Date Recorded Sex Assigned at Not on file Gender Identity Not on file Sexual Orientation Not on file Procedures * DERMATOPATHOLOGY(Performed 01/02/2023) * DERMATOPATHOLOGY(Performed 11/21/2022) Results * DERMATOPATHOLOGY (01/02/2023 12:00 AM CDT) Only the most recent of2 resultswithin the time period is included. Case Report Dermatopathology Report Case: [id number] Authorizing Provider: Luis Moscoso MD Collected: 01/02/2023 12:00 AM Ordering Location: [facility] DermPath Lab Received: 01/03/2023 07:46 AM Pathologist: Faby Alejandro MD Specimens: A) - Skin, ant. scalp B) - Skin, right post scalp 4:02 PM CDT DERMATOPATHOLOGY LABORATORY Final Diagnosis Specimen A. SKIN, ant. scalp: TRICHILEMMAL (PILAR) CYST WITH CALCIFICATION (L72.12) PRESENT AT MARGIN Specimen B. SKIN, right post scalp: TRICHILEMMAL (PILAR) CYST (L72.12) PRESENT AT MARGIN 3 4:02 PM [facility] DERMATOPATHOLOGY LABORATORY Clinical History A: pilar Cyst Path#[id number] check margins B: Pilar Cyst Path#[id number] check margins 3 4:02 PM [facility] DERMATOPATHOLOGY LABORATORY Gross Description Specimen A: Received is one formalin filled container labeled with the patient's name and designated ant. scalp. The specimen consists of a [id number] mm piece of skin. The specimen is serially sectioned and a apprenticeship representative section is submitted in cassette 1. Jar 0. Specimen B: Received is one formalin filled container labeled with the patient's name and designated right post scalp. The specimen consists of a 10x7x8 mm piece of skin. The specimen is serially sectioned and a apprenticeship representative section is submitted in cassette 1. Jar 0. 3 4:02 PM [facility] DERMATOPATHOLOGY LABORATORY Microscopic Description Specimen A. SKIN, [...] margin of the specimen. 3 4:02 PM [facility] DERMATOPATHOLOGY LABORATORY Disclaimer An external and internal positive and negative controls are appropriate for the histochemical, immunohistochemical and immunofluorescence stain(s) in this case (if any), except where stated explicitly. The performance characteristics of the stain(s) cited in this report were developed and its performance characteristic determined by the Dermatopathology Laboratory at [facility], directed by Dr. Michelle Yeung. These tests need not be, and therefore are not, approved by the [place] Food and Drug Administration. The tests are used for clinical purposes. Billing Codes Specimen Charges Stain Charges 53529 37907 1 1 3 4:02 PM T DERMATOPATHOLOGY LABORATORY Embedded Images 3 4:02 PM [facility] DERMATOPATHOLOGY LABORATORY Pathology/Cytology TISSUE SPECIMEN FROM SKIN / Unknown 01/02/2023 01/03/2023 7:46 AM CDT Miscellaneous samples (specimen) TISSUE SPECIMEN FROM SKIN / Unknown 01/02/2023 01/03/2023 7:46 AM CDT Luis Moscoso MD LAB - PATHOLOGY/CYTO LOGY ORDERABLES DERMATOPATHOLOGY LABORATORY [facility] - Department of Dermatology [facility] [address] [place] [address], [address] [phone]
--- OUTSIDE RECORDS SUMMARY | 2024-06-18 13:24 | XMS_ITS | Data Portability ---
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 Patient will come back in a year unless there are new symptoms. [email or web address] Not available 11/08/2021 17:17:59 07/14/2022 07/14/2022 Annual gynecological exam performed. Patient will come back in a year unless there are new symptoms. [email or web address] Not available 07/14/2022 09:29:52 09/05/2023 09/05/2023 Annual gynecological exam performed. Patient will come back in a year unless there are new symptoms. [email or web address] Not available 09/05/2023 17:37:42 Plan of Treatment Reminders Order Date Submit Date Provider Last Modified By Organization Details Last Modified Time Details Appointments None recorded. Lab CBC w/ auto diff 2021 022 [facility] (Lab), [address], [place], [address], 05:44:44 CMP, serum or plasma 2021 022 [facility] (Lab), [address], [place], [address], 05:44:46 prolactin, serum 2021 022 [facility] (Lab), [address], [place], [address], 2 05:44:49 HbA1c (hemoglobi n A1c), blood 2021 022 [facility] (Lab), [address], [place], [address], 05:44:52 TSH, serum or plasma 2021 022 [facility] (Lab), [address], [place], [address], 05:44:47 beta-HCG, quantitati ve, serum or plasma 2021 022 [facility] (Lab), [address], [place], [address], 05:44:47 hormone panel, serum or plasma 2021 022 [facility] (Lab), [address], [place], [address], 2 05:44:51 progestero ne, serum 2021 022 [facility] (Lab), [address], [place], [address], 2 05:44:48 estradiol, serum 2021 022 [facility] (Lab), [address], [place], [address], 2 05:44:50 testostero ne, total, serum 2021 022 [facility] (Lab), [address], [place], [address], 2 05:44:45 Referral None recorded. Procedures None recorded. Surgeries None recorded. Imaging MAMMO, screening, bilateral 2022 023 [facility], [address], [place], [address], 3 05:01:35 MAMMO, screening, bilateral 2023 024 [facility], [address], [place], [address], 4 09:44:43 Medication Orders None recorded. Patient TargetsNo targets recorded. Patient InstructionsNo instructions recorded. Reason for Referral None Reported. Results Created Date Observation Date Name Description Value Unit Range Abnormal Flag Note LastModifiedBy Organization Detail LastModifiedTime 01/12/2001/11/2021 PROGE STERO NE progesterone 7.34 NG/mL This assay was perfo rmed using [employer] ratio n reage nts and test kits. Value s obtai santos with other assay metho ds or kits canno t be used inter high eably . Femal e Proge stero ne Range s: Folli cular phase 0.06- 0.89 ng/mL Ovula tion phase 0.12- 12.00 ng/mL Lutea l phase 1.83- 23.90 ng/mL Postm enopa usal< 0.05- 0.13 ng/mL Healt hy Pregn ant Women 1st Trime ster1 1.0-4 4.30 2nd Trime ster2 5.40- 83.30 3rd Trime ster5 8.70- 214.0 0 Not Available [facility] (Lab) [address], [place], [address], 01/12/2021 15:15:30 02/04/20 21 02/03/2021 PROGE STERO NE progesterone 10.50 NG/mL This assay was perfo rmed using [employer] ratio n reage nts and test kits. Value s obtai santos with other assay metho ds or kits canno t be used inter high eably . Femal e Proge stero ne Range s: Folli cular phase 0.06- 0.89 ng/mL Ovula tion phase 0.12- 12.00 ng/mL Lutea l phase 1.83- 23.90 ng/mL Postm enopa usal< 0.05- 0.13 ng/mL Healt hy Pregn ant Women 1st Trime ster1 1.0-4 4.30 2nd Trime ster2 5.40- 83.30 3rd Trime ster5 8.70- 214.0 0 Not Available [facility] (Lab) [address], [place], [address], 02/04/2021 04:03:55 10/11/19 22 10/10/2021 CBC W/DIF F WBC 10.2 10'3/ uL 3.6-10 .2 Not Available [facility] (Lab) [address], [place], [address], 10/11/2021 05:44:44 10/11/19 22 10/10/2021 CBC W/DIF F RBC 4.70 10'6/ uL (based on docume nted legal sex) 4.10-5 .30 Not Available [facility] (Lab) [address] [place], [address], 10/11/2021 05:44:44 10/11/19 22 10/10/2021 CBC W/DIF F HGB 13.3 g/dL (based on docume nted legal sex) 11.9-1 5.8 Not Available [facility] (Lab) [address] [place], [address], 10/11/2021 05:44:44 10/11/19 22 10/10/2021 CBC W/DIF F HCT 41.6 % (based on docume nted legal sex) 37.4-4 8.3 Not Available [facility] (Lab) [address] [place], [address], 10/11/2021 05:44:44 10/11/19 22 10/10/2021 CBC W/DIF F MCV 88.0 fL 82.0-9 9.0 Not Available [facility] (Lab) [address], [place], [address], 10/11/2021 05:44:44 10/11/19 22 10/10/2021 CBC W/DIF F MCH 28.0 pg 27.0-3 3.0 Not Available [facility] (Lab) [address], [place], [address], 10/11/2021 05:44:44 10/11/19 22 10/10/2021 CBC W/DIF F MCHC 32.0 g/dL 32.0-3 6.0 Not Available [facility] (Lab) [address], [place], [address], 10/11/2021 05:44:44 10/11/19 22 10/10/2021 CBC W/DIF F RDW 13.0 % 11.0-1 5.0 Not Available [facility] (Lab) [address], [place], [address], 10/11/2021 05:44:44 10/11/19 22 10/10/2021 CBC W/DIF F plt 347 10'3/ uL 150-45 0 Not Available [facility] (Lab) [address], [place], [address], 10/11/2021 05:44:44 10/11/19 22 10/10/2021 CBC W/DIF F MPV 11.2 fL 9.8-12 .7 Not Available [facility] (Lab) [address], [place], [address], 10/11/2021 05:44:44 10/11/19 22 10/10/2021 CBC W/DIF F NRBC's 0.00 % 0 Not Available [facility] (Lab) [address], [place], [address], 10/11/2021 05:44:44 10/11/19 22 10/10/2021 CBC W/DIF F absolute NRBCs 0.0 10'3/ uL 0 Not Available [facility] (Lab) [address], [place], [address], 10/11/2021 05:44:44 10/11/19 22 10/10/2021 CBC W/DIF F neutrophils 62.0 % 37.0-7 2.0 Not Available [facility] (Lab) [address], [place], [address], 10/11/2021 05:44:44 10/11/19 22 10/10/2021 CBC W/DIF F lymphocytes 30.0 % 16.0-4 8.0 Not Available [facility] (Lab) [address], [place], [address], 10/11/2021 05:44:44 10/11/19 22 10/10/2021 CBC W/DIF F monocytes 6.0 % 4.0-14 .0 Not Available [facility] (Lab) [address], [place], [address], 10/11/2021 05:44:44 10/11/19 22 10/10/2021 CBC W/DIF F eosinophils 1.0 % 0.0-9. 0 Not Available [facility] (Lab) [address], [place], [address], 10/11/2021 05:44:44 10/11/19 22 10/10/2021 CBC W/DIF F basophils 1.0 % 0.0-2. 0 Not Available [facility] (Lab) [address], [place], [address], 10/11/2021 05:44:44 10/11/19 22 10/10/2021 CBC W/DIF F immature granulocytes 0.0 % no define d refere nce range Not Available [facility] (Lab) [address], [place], [address], 10/11/2021 05:44:44 10/11/19 22 10/10/2021 CBC W/DIF F absolute neutrophils 6.3 10'3/ uL 1.1-6. 0 high Not Available [facility] (Lab) [address] [place], [address], 10/11/2021 05:44:44 10/11/19 22 10/10/2021 CBC W/DIF F absolute lymphocytes 3.1 10'3/ uL 0.7-3. 4 Not Available [facility] (Lab) [address], [place], [address], 10/11/2021 05:44:44 10/11/19 22 10/10/2021 CBC W/DIF F absolute monocytes 0.6 10'3/ uL 0.3-1. 0 Not Available [facility] (Lab) [address], [place], [address], 10/11/2021 05:44:44 10/11/19 22 10/10/2021 CBC W/DIF F absolute eosinophils 0.1 10'3/ uL 0.0-0. 6 Not Available [facility] (Lab) [address] [place], [address], 10/11/2021 05:44:44 10/11/19 22 10/10/2021 CBC W/DIF F absolute basophils 0.1 10'3/ uL 0.0-0. 1 Not Available [facility] (Lab) [address] [place], [address], 10/11/2021 05:44:44 10/11/19 22 10/10/2021 CBC W/DIF F absolute immature granulocytes 0.00 10'3/ uL 0.00-0 .10 022 3:43 AM: P indic ates parti al resul ts on a panel have been relea sed. Addit ional resul ts will follo w. 022 3:44 AM: This resul t has been final verif ied. No addit ional or high ed resul ts are expec leonard. Not Available [facility] (Lab) [address], [place], [address], 10/11/2021 05:44:44 10/11/19 22 10/10/2021 TESTO STERO NE, TOTAL testosterone , total 72 NG/dL 0-100 Not Available [facility] (Lab) [address], [place], [address], 10/11/2021 05:44:45 10/11/19 22 10/10/2021 CMP WITH BUN/C REAT RATIO sodium 136 mmol/ L 133-14 6 Not Available [facility] (Lab) [address], [place], [address], 10/11/2021 05:44:46 10/11/19 22 10/10/2021 CMP WITH BUN/C REAT RATIO potassium 4.0 mmol/ L 3.5-5. 1 Not Available [facility] (Lab) [address] [place], [address], 10/11/2021 05:44:46 10/11/19 22 10/10/2021 CMP WITH BUN/C REAT RATIO chloride 101 mmol/ L 98-107 Not Available [facility] (Lab) [address] [place], [address], 10/11/2021 05:44:46 10/11/19 22 10/10/2021 CMP WITH BUN/C REAT RATIO carbon dioxide 27 mmol/ L 21-31 Not Available [facility] (Lab) [address] [place], [address], 10/11/2021 05:44:46 10/11/19 22 10/10/2021 CMP WITH BUN/C REAT RATIO anion gap 8 mmol/ L 4-13 Not Available [facility] (Lab) [address] [place], [address], 10/11/2021 05:44:46 10/11/19 22 10/10/2021 CMP WITH BUN/C REAT RATIO blood urea nitrogen 7 mg/dL 7-25 Not Available [facility] (Lab) [address], [place], [address], 10/11/2021 05:44:46 10/11/19 22 10/10/2021 CMP WITH BUN/C REAT RATIO creatinine 0.53 mg/dL 0.60-1 .30 low Not Available [facility] (Lab) [address], [place], [address], 10/11/2021 05:44:46 10/11/19 22 10/10/2021 CMP WITH BUN/C REAT RATIO egfrcr (CKD-epi 2020) >90 mL/mi n/1.7 3_m2 >=60 Not Available [facility] (Lab) [address], [place], [address], 10/11/2021 05:44:46 10/11/19 22 10/10/2021 CMP WITH BUN/C REAT RATIO BUN/creatini ne ratio 13.2 . 10.0-2 2.0 Not Available [facility] (Lab) [address], [place], [address], 10/11/2021 05:44:46 10/11/19 22 10/10/2021 CMP WITH BUN/C REAT RATIO calcium 9.4 mg/dL 8.3-10 .5 Not Available [facility] (Lab) [address], [place], [address], 10/11/2021 05:44:46 10/11/19 22 10/10/2021 CMP WITH BUN/C REAT RATIO glucose 81 mg/dL 70-100 Not Available [facility] (Lab) [address] [place], [address], 10/11/2021 05:44:46 10/11/19 22 10/10/2021 CMP WITH BUN/C REAT RATIO protein, total 7.1 g/dL 6.4-8. 3 Not Available [facility] (Lab) [address] [place], [address], 10/11/2021 05:44:46 10/11/19 22 10/10/2021 CMP WITH BUN/C REAT RATIO albumin 4.1 g/dL 3.5-5. 0 Not Available [facility] (Lab) [address] [place], [address], 10/11/2021 05:44:46 10/11/19 22 10/10/2021 CMP WITH BUN/C REAT RATIO ALT 24 units /L 9-43 Not Available [facility] (Lab) [address] [place], [address], 10/11/2021 05:44:46 10/11/19 22 10/10/2021 CMP WITH BUN/C REAT RATIO alkaline phosphatase 83 units /L 34-104 Not Available [facility] (Lab) [address] [place], [address], 10/11/2021 05:44:46 10/11/19 22 10/10/2021 CMP WITH BUN/C REAT RATIO AST 16 units /L 13-39 Not Available [facility] (Lab) [address] [place], [address], 10/11/2021 05:44:46 10/11/19 22 10/10/2021 CMP WITH BUN/C REAT RATIO bilirubin, total 0.4 mg/dL 0.2-1. 2 Not Available [facility] (Lab) [address] [place], [address], 10/11/2021 05:44:46 10/11/19 22 10/10/2021 TSH, REFLE X FREE T4 TSH 1.75 uIU/m L 0.30-5 .33 Not Available [facility] (Lab) [address] [place], [address], 10/11/2021 05:44:47 10/11/19 22 10/10/2021 BHCG, QUANT ITATI VE B-HCG <0.2 mIU/m L This assay was perfo rmed using [employer] ratio n reage nts and test kits. Value s obtai santos with other assay metho ds or kits canno t be used inter [facility] . Refer ence Range s: Non-p regna nt, preme nopau raj women : 0.0-5 .3 mIU/m L Postm enopa usal women : 0.0-7 .0 mIU/m L Gisselle l Pregn betty: Gesta kamran l Age bHCG Conc. - mIU/m L 3 Weeks 5.8 - 71.7 4 Weeks 9.5 - 750 5 Weeks 217-7 138 6 Weeks 158 - 31,79 5 7 Weeks 3,697 - 162,5 63 8 Weeks 32,06 5 - 149,5 71 9 Weeks 63,80 3 - 151,4 10 10 Weeks 46,50 9 - 186,9 77 12 Weeks 27,83 2 - 210,6 12 14 Weeks 13,95 0 - 62,53 0 15 Weeks 12,03 9 - 70,97 1 16 Weeks 9,040 - 56,45 1 17 Weeks 8,175 - 55,86 8 18 Weeks 8,099 - 58,17 6 Not Available [facility] (Lab) [address], [place], [address], 10/11/2021 05:44:47 10/11/19 22 10/10/2021 PROGE STERO NE progesterone 5.31 NG/mL This assay was perfo rmed using [employer] ratio n reage nts and test kits. Value s obtai santos with other assay metho ds or kits canno t be used inter [facility] eay . Femal e Proge stero ne Range s: Folli cular phase 0.06- 0.89 ng/mL Ovula tion phase 0.12- 12.00 ng/mL Lutea l phase 1.83- 23.90 ng/mL Postm enopa usal< 0.05- 0.13 ng/mL Healt hy Pregn ant Women 1st Trime ster1 1.0-4 4.30 2nd Trime ster2 5.40- 83.30 3rd Trime ster5 8.70- 214.0 0 Not Available [facility] (Lab) [address] [place], [address], 10/11/2021 05:44:48 10/11/19 22 10/10/2021 PROLA CTIN prolactin, total 31.20 NG/mL 4.79-2 3.30 high This assay was perfo rmed using [employer] ratio n reage nts and test kits. Value s obtai santos with other assay metho ds or kits canno t be used inter high eay . Not Available [facility] (Lab) [address] [place], [address], 10/11/2021 05:44:49 10/11/19 22 10/10/2021 ESTRA DIOL estradiol 109.0 pg/mL This assay was perfo rmed using [employer] ratio n reage nts and test kits. Value s obtai santos with other assay metho ds or kits canno t be used inter high eay . Femal e Estra diol Range s: Folli cular phase 12.4- 233 pg/mL Ovula tion phase 41.0- 398 pg/mL Lutea l phase 22.3- 341 pg/mL Postm enopa usal< 5-138 pg/mL Healt hy Pregn ant Women 1st Trime ster1 54-32 43 pg/mL 2nd Trime ster1 561-2 1280 pg/mL 3rd Trime ster8 525-> 20777 pg/mL This assay was perfo rmed using [employer] ratio n reage nts and test kits. Value s obtai santos with other assay metho ds or kits canno t be used inter high eay . Femal e Estra diol Range s: Folli cular phase 12.4- 233 pg/mL Ovula tion phase 41.0- 398 pg/mL Lutea l phase 22.3- 341 pg/mL Postm enopa usal< 5-138 pg/mL Healt hy Pregn ant Women 1st Trime ster1 54-32 43 pg/mL 2nd Trime ster1 561-2 1280 pg/mL 3rd Trime ster8 525-> 47379 pg/mL Not Available [facility] (Lab) [address] [place], [address], 10/11/2021 05:44:50 10/11/19 22 10/10/2021 FSH, LH, ESTRA DIOL estradiol 109.0 pg/mL This assay was perfo rmed using [employer] ratio n reage nts and test kits. Value s obtai santos with other assay metho ds or kits canno t be used inter [facility] eay . Femal e Estra diol Range s: Folli cular phase 12.4- 233 pg/mL Ovula tion phase 41.0- 398 pg/mL Lutea l phase 22.3- 341 pg/mL Postm enopa usal< 5-138 pg/mL Healt hy Pregn ant Women 1st Trime ster1 54-32 43 pg/mL 2nd Trime ster1 561-2 1280 pg/mL 3rd Trime ster8 525-> 91709 pg/mL Not Available [facility] (Lab) [address] [place], [address], 10/11/2021 05:44:51 10/11/19 22 10/10/2021 FSH, LH, ESTRA DIOL FSH 5.5 mIU/m L This assay was perfo rmed using [employer] ratio n reage nts and test kits. Value s obtai santos with other assay metho ds or kits canno t be used inter [facility] eay . Femal es Folli cular : 3.5-1 2.5 mIU/m L Ovula tion: 4.7-2 1.5 mIU/m L Lutea l: 1.7-7 .7 mIU/m L Postm enopa use: 25.8- 134.8 mIU/m L Not Available [facility] (Lab) [address] [place], [address], 10/11/2021 05:44:51 10/11/19 22 10/10/2021 FSH, LH, ESTRA DIOL LH 11.7 mIU/m L This assay was perfo rmed using [employer] ratio n reage nts and test kits. Value s obtai santos with other assay metho ds or kits canno t be used inter high eay . Femal es Mid-F ollic ular: 2.4-1 2.6 mIU/m L Mid-C ycle: 14.0- 95.6 mIU/m L Mid-L uteal : 1.0-1 1.4 mIU/m L Postm enopa use: 7.7-5 8.5 mIU/m L Not Available [facility] (Lab) [address], [place], [address], 10/11/2021 05:44:51 10/11/19 22 10/10/2021 HEMOG LOBIN A1C hemoglobin A1C 5.5 % 0-5.6 The Ameri can [employer] i[employer] n recom mends that a prima ry goal of thera py shoul d be a HBA1C of < 7% and that physi cians shoul d reeva luate the treat ment regim en in patie nts with HBA1C value s consi stent ly > 8%. <5.7% Gisselle l 5.7 - 6.4% Incre ased risk for diabe juan >=6.5 % Diagn ostic of diabe juan <7.0% Goal of thera py >8.0% Actio n sugge sted Not Available [facility] (Lab) [address], [place], [address], 10/11/2021 05:44:52 10/24/19 22 10/23/2021 PROLA CTIN prolactin, total 24.80 NG/mL 4.79-2 3.30 high This assay was perfo rmed using [employer] ratio n reage nts and test kits. Value s obtai santos with other assay metho ds or kits canno t be used inter [facility] . Copy resul ts to: JARED GOODE , fax Not Available [facility] (Lab) [address], [place], [address], 10/24/2021 05:54:32 10/24/19 22 10/23/2021 CBC W/DIF F WBC 8.3 10'3/ uL 3.6-10 .2 Not Available [facility] (Lab) [address], [place], [address], 10/24/2021 05:54:33 10/24/19 22 10/23/2021 CBC W/DIF F RBC 4.80 10'6/ uL (based on docume nted legal sex) 4.10-5 .30 Not Available [facility] (Lab) [address], [place], [address], 10/24/2021 05:54:33 10/24/19 22 10/23/2021 CBC W/DIF F HGB 13.6 g/dL (based on docume nted legal sex) 11.9-1 5.8 Not Available [facility] (Lab) [address], [place], [address], 10/24/2021 05:54:33 10/24/19 22 10/23/2021 CBC W/DIF F HCT 43.8 % (based on docume nted legal sex) 37.4-4 8.3 Not Available [facility] (Lab) [address], [place], [address], 10/24/2021 05:54:33 10/24/19 22 10/23/2021 CBC W/DIF F MCV 92.0 fL 82.0-9 9.0 Not Available [facility] (Lab) [address], [place], [address], 10/24/2021 05:54:33 10/24/19 22 10/23/2021 CBC W/DIF F MCH 29.0 pg 27.0-3 3.0 Not Available [facility] (Lab) [address], [place], [address], 10/24/2021 05:54:33 10/24/19 22 10/23/2021 CBC W/DIF F MCHC 31.0 g/dL 32.0-3 6.0 low Not Available [facility] (Lab) [address], [place], [address], 10/24/2021 05:54:33 10/24/19 22 10/23/2021 CBC W/DIF F RDW 13.0 % 11.0-1 5.0 Not Available [facility] (Lab) [address], [place], [address], 10/24/2021 05:54:33 10/24/19 22 10/23/2021 CBC W/DIF F plt 352 10'3/ uL 150-45 0 Not Available [facility] (Lab) [address], [place], [address], 10/24/2021 05:54:33 10/24/19 22 10/23/2021 CBC W/DIF F MPV 11.0 fL 9.8-12 .7 Not Available [facility] (Lab) [address], [place], [address], 10/24/2021 05:54:33 10/24/19 22 10/23/2021 CBC W/DIF F NRBC's 0.00 % 0 Not Available [facility] (Lab) [address] [place], [address], 10/24/2021 05:54:33 10/24/19 22 10/23/2021 CBC W/DIF F absolute NRBCs 0.0 10'3/ uL 0 Not Available [facility] (Lab) [address] [place], [address], 10/24/2021 05:54:33 10/24/19 22 10/23/2021 CBC W/DIF F neutrophils 64.0 % 37.0-7 2.0 Not Available [facility] (Lab) [address], [place], [address], 10/24/2021 05:54:33 10/24/19 22 10/23/2021 CBC W/DIF F lymphocytes 29.0 % 16.0-4 8.0 Not Available [facility] (Lab) [address], [place], [address], 10/24/2021 05:54:33 10/24/19 22 10/23/2021 CBC W/DIF F monocytes 5.0 % 4.0-14 .0 Not Available [facility] (Lab) [address], [place], [address], 10/24/2021 05:54:33 10/24/19 22 10/23/2021 CBC W/DIF F eosinophils 1.0 % 0.0-9. 0 Not Available [facility] (Lab) [address], [place], [address], 10/24/2021 05:54:33 10/24/19 22 10/23/2021 CBC W/DIF F basophils 1.0 % 0.0-2. 0 Not Available [facility] (Lab) [address], [place], [address], 10/24/2021 05:54:33 10/24/19 22 10/23/2021 CBC W/DIF F immature granulocytes 0.0 % no define d refere nce range Not Available [facility] (Lab) [address], [place], [address], 10/24/2021 05:54:33 10/24/19 22 10/23/2021 CBC W/DIF F absolute neutrophils 5.3 10'3/ uL 1.1-6. 0 Not Available [facility] (Lab) [address] [place], [address], 10/24/2021 05:54:33 10/24/19 22 10/23/2021 CBC W/DIF F absolute lymphocytes 2.4 10'3/ uL 0.7-3. 4 Not Available [facility] (Lab) [address], [place], [address], 10/24/2021 05:54:33 10/24/19 22 10/23/2021 CBC W/DIF F absolute monocytes 0.4 10'3/ uL 0.3-1. 0 Not Available [facility] (Lab) [address], [place], [address], 10/24/2021 05:54:33 10/24/19 22 10/23/2021 CBC W/DIF F absolute eosinophils 0.1 10'3/ uL 0.0-0. 6 Not Available [facility] (Lab) [address], [place], [address], 10/24/2021 05:54:33 10/24/19 22 10/23/2021 CBC W/DIF F absolute basophils 0.1 10'3/ uL 0.0-0. 1 Not Available [facility] (Lab) [address], [place], [address], 10/24/2021 05:54:33 10/24/19 22 10/23/2021 CBC W/DIF F absolute immature granulocytes 0.00 10'3/ uL 0.00-0 .10 Copy resul ts to: JARED MICHELLE GARCIAICH , fax 2021 4:51 AM: P indic ates parti al resul ts on a panel have been relea sed. Addit ional resul ts will follo w. 2021 4:51 AM: This resul t has been final verif ied. No addit ional or high ed resul ts are expec leonard. 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 Elect bailey hicks chelita d by Urmila Baron on 022 at 5:48 PM ----- ----- ----- ----- ----- ----- ----- ----- ----- ----- ----- ----- ----- ----- ----- ----- ----- ---- HPV RESUL TS: HPV mRNA E6/E7 : No HPV mRNA Detec leonard NOTE: This high risk HPV mRNA assay detec ts fourt een high- risk HPV types (16, 18, 31, 33, 35, 39, 45, 51, 52, 56, 58, 59, 66, 68) witho ut diffe renti ation . COMME NT: Note: This speci men was revie wed by a Cytot echno logis t and/o r Patho logis t (as indic ated in this repor t) after evalu ation using the Thinp rep Imagi ng Syste m. CLINI MARCELINO INFOR MATIO N: Menst rual Statu s: LMP (if appli cable ): Clini marcelino Histo ry/Pr eviou s Pap: Type of Neopl raegan (if appli cable ): Signi fican t Clini marcelino Findi ngs: Other Histo ry: Hormo patsy (if appli cable ): PAP EDUCA KAMRAN L NOTE: The Pap Test is a scree richi test with an inher ent false negat martha rate. Liqui d-bas ed sampl ing may decre ase, but will not elimi karina, false negat martha resul ts. A negat martha resul t does not precl ude the prese nce and/o r devel opmen t of disea se, since the prese nce of abnor mal cells in the sampl e depen ds on the locat ion of the lesio n and sampl ing techn ique. Jessiac nued regul ar scree richi is the best metho d of cance r preve ntion . If repor leonard cytol ogic findi ng do not corre late with physi marcelino and/o r histo rical findi ngs, furth er inves tigat ion is recom tye d, as clini lluvia jeronimo nted. 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 Michelle hicks chelita d by Mason Mattson, CT on 023 at 3:27 PM ----- ----- ----- ----- ----- ----- ----- ----- ----- ----- ----- ----- ----- ----- ----- ----- ----- ---- HPV RESUL TS: HPV mRNA E6/E7 : No HPV mRNA Detec leonard NOTE: This high risk HPV mRNA assay detec ts fourt een high- risk HPV types (16, 18, 31, 33, 35, 39, 45, 51, 52, 56, 58, 59, 66, 68) witho ut diffe renti ation . COMME NT: Note: This speci men was revie wed by a Cytot echno logis t and/o r Patho logis t (as indic ated in this repor t) after evalu ation using the Thinp rep Imagi ng Syste m. CLINI MARCELINO INFOR MATIO N: Menst rual Statu s: LMP (if appli cable ): Clini marcelino Histo ry/Pr eviou s Pap: Type of Neopl raegan (if appli cable ): Signi fican t Clini marcelino Findi ngs: Other Histo ry: Hormo patsy (if appli cable ): PAP EDUCA KAMRAN L NOTE: The Pap Test is a scree richi test with an inher ent false negat martha rate. Liqui d-bas ed sampl ing may decre ase, but will not elimi karina, false negat martha resul ts. A negat martha resul t does not precl ude the prese nce and/o r devel opmen t of disea se, since the prese nce of abnor mal cells in the sampl e depen ds on the locat ion of the lesio n and sampl ing techn ique. Jessica nued regul ar scree richi is the best metho d of cance r preve ntion . If repor leonard cytol ogic findi ng do not corre late with physi marcelino and/o r histo rical findi ngs, furth er inves tigat ion is recom tye d, as clini lluvia jeronimo nted. 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 Elect bailey hicks chelita d by Vandana Schmidt, CT on 024 at 2:44 PM ----- ----- ----- ----- ----- ----- ----- ----- ----- ----- ----- ----- ----- ----- ----- ----- ----- ---- HPV RESUL TS: HPV mRNA E6/E7 : No HPV mRNA Detec leonard NOTE: This high risk HPV mRNA assay detec ts fourt een high- risk HPV types (16, 18, 31, 33, 35, 39, 45, 51, 52, 56, 58, 59, 66, 68) witho ut diffe renti ation . COMME NT: This speci men was revie wed by a Cytot echno logis t and/o r Patho logis t (as indic ated in this repor t) after evalu ation using the Thinp rep Imagi ng Syste m. CLINI MARCELINO INFOR MATIO N: Menst rual Statu s: LMP (if appli cable ): Clini marcelino Histo ry/Pr eviou s Pap: Type of Neopl raegan (if appli cable ): Signi fican t Clini marcelino Findi ngs: Other Histo ry: Hormo patsy (if appli cable ): PAP EDUCA KAMRAN L NOTE: The Pap Test is a scree richi test with an inher ent false negat martha rate. Liqui d-bas ed sampl ing may decre ase, but will not elimi karina, false negat martha resul ts. A negat martha resul t does not precl ude the prese nce and/o r devel opmen t of disea se, since the prese nce of abnor mal cells in the sampl e depen ds on the locat ion of the lesio n and sampl ing techn ique. Jessica nued regul ar scree richi is the best metho d of cance r preve ntion . If repor leonard cytol ogic findi ng do not corre late with physi marcelino and/o r histo rical findi ngs, furth er inves tigat ion is recom tye d, as clini lluvia warra nted. Not Available [facility] (Lab) [address], [place], [address], 09/12/2023 15:47:03 12/31/19 21 12/30/2020 US, pelvi s, trans abdom inal + trans vagin al No observ ation record ed. christos Me[address]ia [address] [facility], [place], [address], 01/03/2021 11:41:14 12/31/19 21 01/02/2021 US, trans vagin al No observ ation record ed. [email or web address] [facility] [address], [place], [address], 01/02/2021 15:22:53 01/03/20 21 01/02/2021 US, pelvi s No observ ation record ed. [email or web address] [facility] [address], [place], [address], 01/02/2021 14:25:18 01/03/20 21 01/02/2021 US, pelvi s No observ ation record ed. christos Mejia [address], [place], [address], 01/03/2021 11:37:01 01/28/20 21 01/27/2021 US, trans vagin al No observ ation record ed. [email or web address] [address], [place], [address], 01/27/2021 17:22:58 01/28/20 21 01/27/2021 US, trans vagin al No observ ation record ed. layran Jackie [address], [place], [address], 01/30/2021 12:14:04 08/29/19 23 08/28/2022 MAMMO , diagn ostic , digit al, bilat eral No observ ation record ed. [email or web address] [facility] [address], [place], [address], 10/30/2022 12:28:57 09/26/19 24 09/25/2023 MAMMO , scree richi, bilat eral No observ ation record ed. POONAM [facility] [address], [place], [address], 10/16/2023 04:02:00 Result Notes None recorded. Procedures Surgical History Date Name Laterality Status Provider Name and Address Organization Details Recorded Time 07/17/19 23 Date of Last Pap Smear completed Callie De La Vega [facility] 09/05/2023 17:38:37 01/29/20 21 intrauterine artificial insemination completed Gabriella Collins [facility] 09/28/2021 09:14:16 01/04/20 21 intrauterine artificial insemination completed Gabriella Collins [facility] 09/28/2021 09:14:21 12/07/19 21 intrauterine artificial insemination completed Gabriella Collins [facility] 09/28/2021 09:14:25 05/13/19 19 Dilation and Curettage completed [facility] 10/07/2020 12:48:43 05/13/19 19 excision of cystic duct remnant completed [facility] 10/07/2020 12:49:38 05/13/19 14 cholecystectomy completed [facility] 01/03/2021 09:46:13 05/13/19 04 excision of cystic duct remnant completed [facility] 10/07/2020 12:49:33 Imaging Results Imaging Date Name Status LastModified by Organization Details LastModified Time 12/30/2020 US, pelvis, transabdominal + transvaginal completed layran Jackie [address], [place], [address], 01/03/2021 11:41:14 01/02/2021 US, transvaginal completed [email or web address] [facility] [address], [place], [address], 01/02/2021 15:22:53 01/02/2021 US, pelvis completed [email or web address] [facility] [address], [place], [address], 01/02/2021 14:25:18 01/02/2021 US, pelvis completed layran Jackie [address], [place], [address], 01/03/2021 11:37:01 01/27/2021 US, transvaginal completed [email or web address] [facility] [address], [place], [address], 01/27/2021 17:22:58 01/27/2021 US, transvaginal completed layran Jackie [address], [place], [address], 01/30/2021 12:14:04 08/28/2022 MAMMO, diagnostic, digital, bilateral completed [email or web address] [facility] [address], [place], [address], 10/30/2022 12:28:57 09/25/2023 MAMMO, screening, bilateral active POONAM [facility] [address], [place], [address], 10/16/2023 04:02:00 Procedure Notes None recorded. Medical Equipment None Reported. Allergies No known drug allergies Medications Name Sig Start Date Stop Date Status Note LastModified by Organization Details LastModified Time Pregnyl 10,000 unit intramusc ular solution Inject 52115 units by intramus cular route for 1 day. 10/07 completed patient was given pregnyl injectio n into right hip lot [id number] Exp Not Available Not Available Not Available amoxicill in 875 mg tablet TAKE 1 TABLET BY MOUTH EVERY 12 HOURS FOR 10 DAYS 10/07 completed Not Available Not Available Not Available ergocalci ferol (vitamin D2) 1,250 mcg (50,000 unit) capsule TAKE 1 CAPSULE BY MOUTH TWICE WEEKLY 10/07 completed Not Available Not Available Not Available letrozole 2.5 mg tablet TAKE 2 TABLET ON DAYS 5 9 OF CYCLE 10/07 completed Not Available Not Available Not Available hydroxyzi ne HCl 10 mg tablet TAKE 1 -2 TABLETS 30-60 MINUTES PRIOR TO BEDTIME. 09/04 completed Not Available Not Available Not Available metformin ER 500 mg tablet,ex tended release 24 hr TAKE 1 TABLET BY MOUTH TWICE A DAY 07/14 completed Not Available Not Available Not Available cholecalc iferol (vitamin D3) 125 mcg (5,000 unit) capsule TAKE 1 TABLET (5,000 UNITS TOTAL) BY MOUTH DAILY active Not Available Not Available No t Available modafinil 100 mg tablet TAKE 1 2 TABS BY MOUTH DAILY IN THE MORNING WITH A MEAL 10/07 completed Not Available Not Available Not Available Denta 5000 Plus 1.1 % cream USE AT BEDTIME AND EXPECTOR ATE TOOTHPAS TE, DO NOT RINSE AFTER TOOTHPAS TE 10/07 completed Not Available Not Available Not Available nitrofura ntoin monohydra te/macroc rystals 100 mg capsule TAKE 1 CAPSULE BY MOUTH TWICE A DAY FOR 7 DAYS 07/14 completed Not Available Not Available Not Available Ocrevus Q6 Months active Not Available Not Available No t Available Paxlovid 300 mg (150 mg x 2)-100 mg tablets in a dose pack PLEASE SEE ATTACHED FOR DETAILED DIRECTIO NS 09/04 completed Not Available Not Available Not Available Vitals Date Recorded Body height Body mass index (BMI) Body weight Systolic blood pressure Diastolic blood pressure Provider Name and Address Organization Details Last Updated DateTime 01/28/2021 165.1 cm 35.4 kg/m2 24711.17 g 136 mm[Hg] 85 mm[Hg] Gabriella Collins [facility] 09:05:05 Date Recorded Body height Body mass index (BMI) Body weight Provider Name and Address Organization Details Last Updated DateTime 10/07/2021 165.1 cm 34.9 kg/m2 09499.4 g Gabriella Collins [facility] 10/07/2021 10:13:07 Date Recorded Systolic blood pressure Diastolic blood pressure Provider Name and Address Organization Details Last Updated DateTime 10/07/2021 126 mm[Hg] 80 mm[Hg] Rose Mary Shafer [facility] [address], [place], [address], [facility] 10/07/2021 13:12:53 Date Recorded Body height Body mass index (BMI) Body weight Provider Name and Address Organization Details Last Updated DateTime 11/08/2021 165.1 cm 34.9 kg/m2 92117.4 g Carolina Brizuela [facility] 11/08/2021 17:18:28 Date Recorded Systolic blood pressure Diastolic blood pressure Provider Name and Address Organization Details Last Updated DateTime 11/08/2021 126 mm[Hg] 80 mm[Hg] Rose Mary Shafer [facility] [address], [place], [address], [facility] 11/08/2021 17:32:50 Date Recorded Body height Body mass index (BMI) Body weight Provider Name and Address Organization Details Last Updated DateTime 07/14/2022 165.1 cm 35.4 kg/m2 37109.74 g Carolina Eloy [facility] 07/14/2022 09:30:32 Date Recorded Systolic blood pressure Diastolic blood pressure Provider Name and Address Organization Details Last Updated DateTime 07/14/2022 129 mm[Hg] 80 mm[Hg] Rose Mary Shafer, [facility] [address], [place], [address], [facility] 07/14/2022 09:32:42 Date Recorded Body height Body mass index (BMI) Body weight Provider Name and Address Organization Details Last Updated DateTime 09/05/2023 165.1 cm 32 kg/m2 60414.74 g Callie De La Vega [facility] 09/05/2023 17:37:55 Date Recorded Systolic blood pressure Diastolic blood pressure Provider Name and Address Organization Details Last Updated DateTime 09/05/2023 118 mm[Hg] 80 mm[Hg] Rose Mary Shafer, [facility] [address], [place], [address], [facility] 09/05/2023 17:57:03 Social History Question Answer Notes LastModified by Organizat ion Details LastModified Time Tobacco Smoking Status Former Smoker Dayana reese, [facility] 07/14/2022 09:24:01 What Is Your Level Of Alcohol Consumption? Occasional [email or web address] Information not available 10/07/2020 If You Are , What Was Your Level Of Alcohol Consumption Prior To ? None Information not available 07/14/2022 Are You Blind Or Do You Have Difficulty Seeing? No [email or web address] Information not available 10/07/2020 What Is Your Level Of Caffeine Consumption? Occasional [email or web address] Information not available 10/07/2020 How Much Tobacco Do You Chew? None [email or web address] Information not available 10/07/2021 In The 14 Days Before Symptom Onset, Have You Had Close Contact With A Laboratory-confir med COVID-19 While That Case Was Ill? No Information not available 10/07/2020 In The 14 Days Before Symptom Onset, Have You Had Close Contact With A Person Who Is Under Investigation For COVID-19 While That Person Was Ill? No Information not available 10/07/2020 Have You Been To An Area Known To Be High Risk For COVID-19? No [email or web address] Information not available 10/07/2020 Are You Deaf Or Do You Have Serious Difficulty Hearing? No [email or web address] Information not available 10/07/2020 What Type Of Diet Are You Following? REGULAR [email or web address] Information not available 10/07/2020 Do You Or Have You Ever Used E-cigarettes Or Vape? Former User Of Electronic Cigarettes Information not available 07/14/2022 What Is The Highest Grade Or Level Of School You Have Completed Or The Highest Degree You Have Received? RA58749-9 [email or web address] Information not available 10/07/2021 Have You Ever Been Counseled For Unhealthy Alcohol Use? No Information not available 07/14/2022 Do You Use Protection During Sex? No [email or web address] Information not available 10/07/2021 Do You Use Your Seat Belt Or Car Seat Routinely? Yes [email or web address] Information not available 10/07/2020 Do You Have Smoke And Carbon Monoxide Detectors In Your Home? Yes [email or web address] Information not available 10/07/2020 Do You Or Have You Ever Used Smokeless Tobacco? Never Used Smokeless Tobacco Information not available 07/14/2022 How Much Tobacco Do You Smoke? No [email or web address] Information not available 10/07/2021 Do You Feel Stressed (tense, Restless, Nervous, Or Anxious, Or Unable To Sleep At Night)? [id number] [email or web address] Information not available 10/07/2020 Do You Use Any Illicit Or Recreational Drugs? No [email or web address] Information not available 10/07/2020 Do You Use Sunscreen Routinely? Yes [email or web address] Information not available 10/07/2020 Has Tobacco Cessation Counseling Been Provided? No Information not available 07/14/2022 Have You Used IV Drugs? No [email or web address] Information not available 10/07/2021 Do You Or Have You Ever Used Any Other Forms Of Tobacco Or Nicotine? Yes Information not available 07/14/2022 Sex: Unknown Functional Status Question Answer Note LastModified by Organizat ion Details LastModified Time Do you have difficulty walking or climbing stairs? No Information not available 07/14/2022 Are you able to walk? YESWOREST [email or web address] Information not available 10/07/2020 Are you able to care for yourself? Yes Information not available 07/14/2022 Do you have difficulty dressing or bathing? No Information not available 07/14/2022 What is your exercise level? Occasional [email or web address] Information not available 10/07/2020 Mental Status None recorded. Family History Relationship Description Onset Age of this Age Resolved Age Notes LastModified by Organization Details LastModified Time Maternal Uncle Malignant neoplasm of bone [email or web address] Not available 2023 17:31:46 Maternal Uncle Malignant tumor of lung [email or web address] Not available 10/07 12:47:39 Mother Diabetes mellitus [email or web address] Not available 10/07 12:47:50 Medical History Condition Response Allergies (Food, seasonal, environmental ) N Other Y Breast Cancer N Drug/Latex Allergies/Reactions N Blood Transfusion N Dermatologic Disorders N Lung Disease N Defects or Inherited Disease N Breast Problem N Gestational Diabetes N Hematologic disorders N Anesthesia Complications N History of STI N Deep Vein Thrombosis N Polycystic ovary syndrome N Anxiety Disorder Y Autoimmune disease N Arthritis Y Infertility Y Polyps N Acid Reflux (GERD) N History of abnormal pap N Cancer N Stroke N Varicosities N Neurologic/Epilepsy N Endometriosis N High Cholesterol N Headaches N Fibromyalgia N Kidney Disease N Heart Problems N Kidney or Bladder Problems N Thyroid Problems N GI Problems N Eating Disorder N Anemia N Art (IVF or FET) N Psychiatric Illness N Ovarian Cancer N Diabetes N Pulmonary (TB, Asthma) N Hepatitis/Liver Disease N No Past Medical History N Eczema N Urinary Tract Infection N Abuse/Domestic Violence N Asthma N Trauma/Violence N Depression/ depression Y Heart Disease N Pre-Eclampsia N Hypertension N Osteoporosis N Thrombophilias N Gynecological History Statement/Question Response Abnormal Pap Y Flow Moderate Date of Last Mammogram Date of LMP 08/12/2023 N Was last menstrual period normal Y STIs/STDs Y HPV Vaccine N Duration of Flow (days) 4 Current Control Method None Are cycles usually normal Y Frequency of Cycle (Q days) 28 Sexually Active? Y Menses Monthly Y Age of first menstrual cycle 11 Date of Last Pap Smear 07/16/2022 Sexual Problems? N LMP Approximate N Obstetrics History GPAL:G 1 P 0 0 1 0 Type Value Spontaneous 1 Living 0 Total 1 Past Encounters Encounter ID Performer Location Encounter Start Date Encounter Closed Date Diagnosis/Indication Diagnosis SNOMED-CT Code Diagnosis ICD10 Code Diagnosis Note [id number] Roslyn Reed [facility] [address],[place] [address] 10/07/2020 12:25:31 10/07/2020 13:58:01 Irregular periods 17058129 N92.6 cont to monitor can consider monthly prometrium and tsh level if cont to be irregular [id number] Jyothi Brizuela [facility] [address],[place] [address] 12/05/2020 17:18:56 12/05/2020 18:24:06 Female infertility 6931568 N97.9 [id number] Gabriella Collins [facility] [address] [place] [address] 12/05/2020 18:21:35 12/07/2020 14:40:52 Trying to conceive [id number] Z31.9 [id number] Roslyn Reed [facility] [address],[place] [address] 12/06/2020 08:36:25 12/06/2020 09:54:45 Artificial insemination 69810238 Z31.83 [id number] [facility] [address] [place] [address] 12/30/2020 16:13:34 12/31/2020 09:45:05 Female infertility 1027516 N97.9 [id number] [facility] [address] [place] [address] 01/02/2021 11:58:29 01/02/2021 12:49:38 Female infertility 7369149 N97.9 [id number] Gabriella Collins [facility] [address],[place] [address] 01/02/2021 12:56:43 01/02/2021 13:10:48 Trying to conceive 137792071 Z31.9 [id number] Roslyn Reed [facility] [address],[place] [address] 01/03/2021 09:31:20 01/03/2021 12:01:57 Artificial insemination 54491236 Z31.83 [id number] Jyothi Brizuela [facility] [address],[place] [address] 01/27/2021 16:25:44 01/28/2021 11:47:29 Female infertility 3840446 N97.9 [id number] Gabriella Collins [facility] [address],[place] [address] 01/27/2021 17:24:00 01/28/2021 11:45:33 [facility] [id number] Z31.9 [id number] [facility] [address] [address] 01/28/2021 08:54:34 01/28/2021 10:10:12 Female infertility 0170015 N97.9 [id number] Rose Mary Shafer [facility] [address],[place] [address] 10/07/2021 09:53:25 10/10/2021 16:08:48 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 Will return for lab work. Time spent in visit is a total of 15 mins with at least 50% of visit consisting of counseling and review of plan of care. [id number] Rose Mary Shafer [facility] [address],[place] [address] 11/08/2021 16:07:12 11/08/2021 17:46:53 Gynecologic examination 93367208 Z01.419 Take Calcium with Vitamin D 1200mg daily if not receiving in daily diet. It is strongly advised to have an annual flu shot and up can obtain at most pharmacies . If you have not had a TDap shot in the last 10 years you should obtain one as well. Discussed with patient & provided with informatio n regarding Gardisil vaccine to prevent the 4 strains for HPV that cause cervical cancer if under age 26. Encourage safe sexual practices, to use condoms and limit partners if not already in a monogamous relationsh ip. Do monthly self breast exams. Have mammogram yearly or every other year depending on family history. BRCA testing is now available for patients with strong genetic history of female cancer. If interested contact the office. Engage in daily exercise of low impact aerobic exercise 45-60 minutes 4-5 times weekly. Avoid tobacco and illicit drugs as well as using moderation with alcohol intake less than 1-2 8 oz beverages daily. This lifestyle behavior pattern will lead to less health conditions and longer life span. If BMI greater than 25 weight watchers or dietary consult advised. Patient received above instructio ns, and questions have been answered. If you have any questions please call or respond to this email. Patient was made aware of the patient portal and may obtain a paper copy of today's plan if desired. Pap/hpv sent STD Screen declined Genetic Screen na Colon Screen na Dexa Screen na Routine Labs UTD--going to Endocrinol ogist two elevated prolactin levels found; having fertility issues[facility] [id number] Rose Mary Shafer [facility] [address] [address] 07/14/2022 09:23:20 07/16/2022 15:22:06 Gynecologic examination [id number] Z01.419 Z11.51 Take Calcium with Vitamin D 1200mg daily if not receiving in daily diet. It is strongly advised to have an annual flu shot and up can obtain at most pharmacies . If you have not had a TDap shot in the last 10 years you should obtain one as well. Discussed with patient & provided with informatio n regarding Gardisil vaccine to prevent the 4 strains for HPV that cause cervical cancer if under age 26. Encourage safe sexual practices, to use condoms and limit partners if not already in a monogamous relationsh ip. Do monthly self breast exams. Have mammogram yearly or every other year depending on family history. BRCA testing is now available for patients with strong genetic history of female cancer. If interested contact the office. Engage in daily exercise of low impact aerobic exercise 45-60 minutes 4-5 times weekly. Avoid tobacco and illicit drugs as well as using moderation with alcohol intake less than 1-2 8 oz beverages daily. This lifestyle behavior pattern will lead to less health conditions and longer life span. If BMI greater than 25 weight watchers or dietary consult advised. Patient received above instructio ns, and questions have been answered. If you have any questions please call or respond to this email. Patient was made aware of the patient portal and may obtain a paper copy of today's plan if desired. Pap/hpv sentSTD Screen declinedGe netic Screen discussedC olon Screen PCPDexa Screen PCPRoutine Labs PCPMammo ordered d/t use of Ocrevus for MS. Screening mammography 24 [id number] Z12.31 G35 [id number] Rose Mary Shafer , [facility] [address] [address] 09/05/2023 17:29:44 09/05/2023 18:03:05 Gynecologic examination [id number] Z01.419 Z11.51 Take Calcium with Vitamin D 1200mg daily if not receiving in daily diet. It is strongly advised to have an annual flu shot and up can obtain at most pharmacies . If you have not had a TDap shot in the last 10 years you should obtain one as well. Discussed with patient & provided with informatio n regarding Gardisil vaccine to prevent the 4 strains for HPV that cause cervical cancer if under age 26. Encourage safe sexual practices, to use condoms and limit partners if not already in a monogamous relationsh ip. Do monthly self breast exams. Have mammogram yearly or every other year depending on family history. BRCA testing is now available for patients with strong genetic history of female cancer. If interested contact the office. Engage in daily exercise of low impact aerobic exercise 45-60 minutes 4-5 times weekly. Avoid tobacco and illicit drugs as well as using moderation with alcohol intake less than 1-2 8 oz beverages daily. This lifestyle behavior pattern will lead to less health conditions and longer life span. If BMI greater than 25 weight watchers or dietary consult advised. Patient received above instructio ns, and questions have been answered. If you have any questions please call or respond to this email. Patient was made aware of the patient portal and may obtain a paper copy of today's plan if desired. Pap/hpv sentSTD Screen declinedGe netic Screen discussedC olon Screen PCPDexa Screen PCPRoutine Labs PCPMammo ordered d/t use of Ocrevus for MS.Condoms BC High risk medication monitoring indicated [id number] Z76.89 Z12.31 Z80.9 On ocrevus for MSVery high risk of cancer including breast cancer.It is recommende d a yearly mammogram be completed while on this medication if age is less than 40yr; then regular yearly screenings 40+yrs routinely. Health Concerns Section Related Observation LastModified by Organization Detai ls LastModified Time None Recorded Concern Status LastModified by Organization Details LastModified Time None Recorded Advance Directives Directive None Recorded Payers Encounter Date Sequence Insurance Name Policy Number Policy Miller Covered Member ID Miller Member ID Guarantor Name 01/28/2021 1 [employer] [id number] Neo Copple [id number] Josephine S Copple 10/07/2021 1 [employer] [id number] Neo Copple [id number] Ojsephine S Copple 11/08/2021 1 [employer] [id number] Neo Copple [id number] Josephine S Copple 07/14/2022 1 [employer] [id number] Neo Copple [id number] Josephine S Copple 09/05/2023 1 [employer] [id number] Neo Copple [id number] Josephine S Copple Notes Date Note Type Note Provider Name and Address Organization Details Recorded Time 01/28/2021 text/html pt here for insemination, pre and post wash good, questions answered Roslyn Reed CNM [address], [place], [address], [place] [facility] 01/28/2021 09:32:31 10/07/2021 text/html Here today be thought she missed a menses this past month.It took almost 40 days for her to start this most recent cycle on 09/20/2021.Has been attempting for the past 3yrs without success.UPT's at home neg.She denies recent stress events, changes in supplements or medications/relati onship is good; working going well.No other sx's or complaints.Keeps track of her cycle with viviana.Usually monthly lasting 4-6 days, moderate flow. Neg N/V/F/D/CNeg pelvic painNeg GI or urinary issuesNeg abn d/c, itching, odor, irritation.Monogam ous Rose Mary Shafer [facility] [address], [place], [address], [facility] 10/07/2021 13:17:05 11/08/2021 text/html Annual GYNReport ed bypatient.History: actively trying to conceive Menstrual cycle:Normal menses Urinary symptoms:No hematuria; No incontinence Vulva:No genital lesion Vagina:Normal vaginal discharge Breast:No breast pain; No breast lump; No nipple discharge Current Contraception:Russell h control not practiced Sexual complaints:No sexual complaints; No pain during intercourse; Normal libido Menopausal Symptoms:No menopausal symptoms; Normal vaginal lubrication Psychological symptoms:No depression; No anxiety; No PMDD Preventive measures:Encourage self breast examination; Encourage regular exercise; Encourage no tobacco use; Encourage regular mammograms starting age 40 Rose Mary Shafer [facility] [address], [place], [address], [facility] 11/08/2021 17:35:06 07/14/2022 text/html Annual GYNReport ed bypatient.History: no gynecologic complaints Menstrual cycle:Normal menses Urinary symptoms:No hematuria; No incontinence Vulva:No genital lesion Vagina:Normal vaginal discharge Breast:No breast pain; No breast lump; No nipple discharge Current Contraception:Russell h control not practiced Sexual complaints:No sexual complaints; No pain during intercourse; Normal libido Menopausal Symptoms:No menopausal symptoms; Normal vaginal lubrication Psychological symptoms:No depression; No anxiety; No PMDD Preventive measures:Encourage self breast examination; Encourage regular exercise; Encourage no tobacco use; Encourage regular mammograms starting age 40; Followed with yearly pap smears; Needs to schedule mammogram Rose Mary Shafer [facility] [address], [place], [address], [facility] 07/14/2022 09:50:54 09/05/2023 text/html Annual GYNReport ed bypatient.History: no gynecologic complaints Menstrual cycle:Normal menses Urinary symptoms:No hematuria; No incontinence Vulva:No genital lesion Vagina:Normal vaginal discharge Breast:No breast pain; No breast lump; No nipple discharge Current Contraception:Cond oms (Wants to have a baby moving forward.) Sexual complaints:No sexual complaints; No pain during intercourse; Normal libido Menopausal Symptoms:No menopausal symptoms; Normal vaginal lubrication Psychological symptoms:No depression; No anxiety; No PMDD Preventive measures:Encourage self breast examination; Encourage regular exercise; Encourage no tobacco use; Encourage regular mammograms starting age 40; Followed with yearly pap smears; Needs to schedule mammogram Rose Mary Shafer [facility] [address], [place], [address], [facility] 09/05/2023 17:59:38 OBGyn Episode Ob Episode Information Episode Created Date Number of Fetuses Patient Bloodtype Patient rh Status Prepregnancy Weight lbs Domestic Partner Domestic Partner Phone Father Name Bell Person Status 10/08/19 21 1 CLOSED Fetus Data First Name Last Name Admitted to NICU Weight (g) Sex Living Outcome Pediatric Complications Fetus ID Race Codes Race Delivery Type , Spontane ous [id number] Martin Calculation Initial Martin Date Initial Exam Date Initial Exam Provider Initial Ultrasound Date Last Menstrual Period Date Ultra Sound Weeks Gestation 0 Eighteen To Twenty Week Martin Update Ultra Sound Date Fundal Height At Umbil Quickening Date Ultra Sound Latest Weeks Gestation Final Martin Confirmed By Final Martin Confirmed Date Final Martin Date Ultra Sound Latest Days Gestation 0 0 Menstrual History Last Menstrual Date Menses Monthly On Bcp Conception Prior Menses Frequency Hcg Plus Date Menarche Onset Age Delivery Information Delivery Date Delivery Type Labor Anesthesia Weeks Gestation Incision Type Labor Labor Length Hrs Delivered By Post Complications Tubal Sterilization Discharge Date Comments 9 Discharge Information Feeding Method Contraceptive Method Maternal HG B and HCT Levels
--- OUTSIDE RECORDS SUMMARY | 2024-06-18 13:25 | XMS_ITS | Encounter Summary ---
Author Organization [facility] Address [address] [place] [address] Care Team Providers Care Lime Kiln And Recausticizing Operator Name Role Phone Gloria Gregorio NP Primary Care Provider [phone] Reason for Visit * Reason Onset Date Comments Orders 06/16/2024 Encounter Details Date Type Department Care Team (Late st Contact Info) Description 06/16/2024 Telephone [facility] Medical [facility] Family Medicine [facility] [address] [id number] Gloria Gregorio NP [address] [place] [address] Orders Social History Tobacco Use Types Packs/Day Years Used Date Smoking Tobacco: Former Cigarettes 0.3 4 Passive Smoke Exposure: Never Smokeless Tobacco: Never Alcohol Use Standard Drinks/Week Comments Yes 3.3 (1 standard drin k = 0.6 oz pure alcohol) Very rarely most times not even weekly PHQ-2 Answer Date Recorded Patient Health Questionnaire-2 Score 0 06/16/2024 Comments No Sex and Gender Information Value Date Recorded Sex Assigned at Female 06/09/2024 9:52 AM TOWN JUSTICE Legal Sex Female 12:19 AM TOWN JUSTICE Gender Identity Female 06/16/2024 10:41 AM TOWN JUSTICE Sexual Orientation Straight 06/16/2024 10 :41 AM TOWN JUSTICE documented as of this encounter Progress Notes * Gloria Gregorio NP - 06/17/2024 8:31 AM CST Thank you! 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 Gloria verbally ok the dx. I refaxed order JUSTICE * Flores Stein MA - 06/16/2024 4:22 PM CST Patient informed and voiced understanding JUSTICE * Gloria Gregorio NP - 06/16/2024 4:09 PM CST Please let pt know this. I used all the dx that I could think. She may have to discuss with her insurance first or pay out of pocked if Dr. Lyon wants her to get done. JUSTICE * Flores Stein MA - 06/16/2024 4:05 PM CST We received a message from [facility]: Order does not meet medical necessity (DX does not pass). Correct order and fax back.[phone] or [phone] JUSTICE documented in this encounter Plan of Treatment Upcoming Encounters Date Type Department Care Team (Late st Contact Info) Description 06/24/2024 11:00 AM TOWN JUSTICE Appointment [facility] [address] [place], [place] [phone] Lalito Gudino MD [address] [place], [place] [phone] Viv Carmona [employer] [place] [address] 06/30/2024 11:00 AM TOWN JUSTICE Appointment [facility] [place] [address] Lalito Gudino MD [address] [place] [address] [place] [address] 08/07/2024 8:00 AM CDT Treatment [facility] [place] [place] [address] Gloria Gregorio NP [address] [place] [address] 11/17/2024 11:40 AM CDT Telemedicine [facility] Medical Group Multispecialty Care - [address], [address] [place] [address] Lalito Gudino MD [address] [place] [address] documented as of this encounter Visit Diagnoses Not on filedocumented in this encounter Care Teams Lime Kiln And Recausticizing Operator Relationship Specialty Start Date End Date Gloria Gregorio NP [address] [place] [address] PCP - General NURSE PRACTITIONER 02/02/22 documented as of this encounter
--- OUTSIDE RECORDS SUMMARY | 2024-06-18 13:25 | XMS_ITS | Encounter Summary ---
Author Organization [facility] Address [address] [place] [address] Care Team Providers Care Sheet Metal Assembler Name Role Phone Gloria Gregorio NP Primary Care Provider [phone] Encounter Details Date Type Department Care Team (Late st Contact Info) Description 03/05/2023 [facility] Message Enc [facility] Medical Group Family Medicine [facility] [address] [facility] [address] [place] [phone] Gloria Gregorio, [employer] [address] [place] [address] follow up thryoid [place] Social History Tobacco Use Types Packs/Day Years [...] Sex Assigned at Female 06/09/2024 9:52 AM RIG OPERATOR Legal Sex Female 12:19 AM RIG OPERATOR Gender Identity Female 06/16/2024 10:41 AM RIG OPERATOR Sexual Orientation Straight 06/16/2024 10 :41 AM RIG OPERATOR documented as of this encounter Plan of Treatment Upcoming Encounters Date Type Department Care Team (Late st Contact Info) Description 06/24/2024 11:00 AM RIG OPERATOR Appointment [facility] [place] [address] Lalito Gudino MD [address] [place] [address] [place] [address] 06/30/2024 11:00 AM RIG OPERATOR Appointment [facility] [place] [address] Lalito Gudino MD [address] [place] [address] [place] [address] 08/07/2024 8:00 AM CDT Treatment [facility] [place] [address] Gloria Gregorio, [employer] [address] [place] [address] 11/17/2024 11:40 AM CDT Telemedicine [facility] Medical Group Multispecialty Care - [address], [address] [place] [address] Lalito Gudino MD [address] [place] [address] documented as of this encounter Visit Diagnoses Not on filedocumented in this encounter Additional Health Concerns Infection Onset Date Last Indicated Resolved Time COVID-19 Rule Out 05/05/2024 05/05/202405/0505/05/2024 8:33 AM RIG OPERATOR COVID-19 Rule Out 05/07/2024 05/07/2024 05/07/2024 1:36 PM RIG OPERATOR Influenza - Seasonal 05/07/2024 05/07/2024 025 12:32 AM RIG OPERATOR documented as of this encounter Care Teams Sheet Metal Assembler Relationship Specialty Start Date End Date Gloria Gregorio NP [address] [place] [address] PCP - General NURSE PRACTITIONER 02/02/22 documented as of this encounter
--- OUTSIDE RECORDS SUMMARY | 2024-06-18 13:25 | XMS_ITS | Clinical Summary ---
Author Organization [facility] Address [address], [address] [place] [address] Phone Care Team Providers Care Vp Director Of Creative Strategy Name Role Phone Gloria Gregorio APRN, JANE Primary Care Provid er Jan Alvares MD Unavailable [phone] Allergies No known active allergies Medications Ocrelizumab (OCREVUS IV) by Intravenous route. Active ferrous sulfate 325 (65 Fe) MG Tablet Take 1 Tablet by mouth daily. 90 Tablet 3 4 Active Family History Medical History Relation Name Comments Diabetes Father Diabetes Mother Relation Name Status Comments Brother Alive Father Alive Mother Alive Social History Tobacco Use Types Packs/Day Years Used Date Smoking Tobacco: Former Cigarettes Q uit: 2019 Smokeless Tobacco: Never Alcohol Use Standard Drinks/Week Comments Yes 0 (1 standard drink = 0.6 oz pur e alcohol) rarely Comments Unknown Sex and Gender Information Value Date Recorded Sex Assigned at Not on file Legal Sex Female 8:09 PM CDT Gender Identity Not on file Sexual Orientation Not on file Last Filed Vital Signs Vital Sign Reading Time Taken Comments Blood Pressure 132/84 06/19/2023 9:03 AM CABIN WORKER Pulse 96 06/19/2023 9:03 AM CABIN WORKER Temperature 36.6 C (97.8 F) 06/19/2023 9:03 AM CABIN WORKER Respiratory Rate 18 06/19/2023 9:03 AM CABIN WORKER Oxygen Saturation 96% 06/19/2023 9:03 AM CABIN WORKER Inhaled Oxygen Concentration - - Weight 88.2 kg (194 lb 6.4 oz) 06/19/2023 9:03 A M CABIN WORKER Height 165.1 cm (5' 5 ) 06/19/2023 9:03 AM CABIN WORKER Body Mass Index 32.35 06/19/2023 9:03 AM CABIN WORKER Plan of Treatment Health Maintenance Due Date Last Done Comments Hepatitis B Immunization (1 of 3 - 19+ 3-dose series) 2007 Pap Smear 2009 Cervical Cancer Screening (CCS) 2018 HPV/Cotest 2018 Influenza Immunization (#1) 01/12/202402/10, 02/07/2022, 05/24/2021, Additional history exists SARS-COV-2 Immunization ( season) 2024 05/24/2021, 09/18/2020, 08/21/2020 Respiratory Syncytial Virus (RSV) Immunization (Adult) (1 - 1-dose 75+ series) 2063 Meningococcal Immunization (ACWY) Aged Out 03/03/2010 No longer eligible based on patient's age to complete this topic DTaP/Tdap/Td Immunization Discontinued 02/07/2022, TdaP Immunization Completed 02/07/2022, 03/03/2010 Hepatitis C Virus (HCV) Screening Completed 06/04/2023 Pneumococcal Immunization Combined Aged Out No longer eligible based on patient's age to complete this topic Rotavirus Immunization Aged Out No lo nger eligible based on patient's age to complete this topic Insurance [facility] Care Teams Vp Director Of Creative Strategy Relationship Specialty Start Date End Date Gloria Gregorio APRN, DECKHAND SHRIMP [employer]AT [address] [place] [address] PCP - General Advanced Practice Nurse 06/07/23 Jan Alvares MD [address] [place] [phone] Consulting Physician Oncology 06/07/23
--- OUTSIDE RECORDS SUMMARY | 2024-06-18 13:25 | XMS_ITS | Encounter Summary ---
Author Organization [facility] Address [address] [place] [address] Care Team Providers Care Drawer Fitter Name Role Phone Gloria Gregorio NP Primary Care Provider [phone] Reason for Visit * Reason Onset Date Comments Medication Information 06/17/2024 Medication 06/17/2024 Encounter Details Date Type Department Care Team (Late st Contact Info) Description 06/17/2024 Telephone [facility] Neurology Speciality Clinic - [address] [phone] Lalito Gudino MD [address] [place] [address] Medication Information; Medication Social History Tobacco Use Types Packs/Day Years [...] Sex Assigned at Female 06/09/2024 9:52 AM RVDA MASTER CERTIFIED RV TECHNICIAN Legal Sex Female 12:19 AM RVDA MASTER CERTIFIED RV TECHNICIAN Gender Identity Female 06/16/2024 10:41 AM RVDA MASTER CERTIFIED RV TECHNICIAN Sexual Orientation Straight 06/16/2024 10 :41 AM RVDA MASTER CERTIFIED RV TECHNICIAN documented as of this encounter Progress Notes * Rafat Khan MA - 06/17/2024 11:16 AM CST Spoke with Josephine. She confirmed she is still getting infusions. Called Mildred and left to give the office a call back. MASTER CERTIFIED RV TECHNICIAN * Jodi Timmons - 06/17/2024 11:12 AM CST Patient returned your call and transferred to [facility] MASTER CERTIFIED RV TECHNICIAN * Rafat Khan MA - 06/17/2024 11:05 AM CST Called patient for update on infusions. Left vm to give the office a call back. MASTER CERTIFIED RV TECHNICIAN * Jodi Timmons - 06/17/2024 9:57 AM CST Mildred from [facility] specialist wound care is calling today to see if Josephine will continue with her infusion. Please call her at [phone] MASTER CERTIFIED RV TECHNICIAN documented in this encounter Plan of Treatment Upcoming Encounters Date Type Department Care Team (Late st Contact Info) Description 06/24/2024 11:00 AM RVDA MASTER CERTIFIED RV TECHNICIAN Appointment [facility] [place] [address] Lalito Gudino MD [address] [place] [address] Viv Carmona, [place] [address] 06/30/2024 11:00 AM RVDA MASTER CERTIFIED RV TECHNICIAN Appointment [facility] [place]patient [place] [address] Lalito Gudino MD [address] [place] [address] Viv Carmona, [place] [address] 08/07/2024 8:00 AM CDT Treatment [facility] [place] [address] Gloria Gregorio, SANTI [address] [place] [address] 11/17/2024 11:40 AM CDT Telemedicine [facility] Medical Group Multispecialty Care - [facility] [address] [facility], [address] [place] [address] Lalito Gudino MD [address] [place] [address] documented as of this encounter Visit Diagnoses Not on filedocumented in this encounter Care Teams Drawer Fitter Relationship Specialty Start Date End Date Gloria Gregorio NP [address] [place] [address] PCP - General NURSE PRACTITIONER 02/02/22 documented as of this encounter
--- OUTSIDE RECORDS SUMMARY | 2024-06-18 13:25 | XMS_ITS | Clinical Summary ---
Author Organization [facility] Address [address] [place] [address] Care Team Providers Care Shovel Loader Operator Name Role Phone Lalito Gudino MD Unavailable [phone] Gloria Gregorio MD Primary Care Provider [phone] Allergies No known active allergies Medications ocrelizumab (OCREVUS IV) Ocrevus Q6 Months Active cholecalciferol (VITAMIN D-3) 5,000 unit tablet Take 1 tablet (5,000 Units total) by mouth daily 05/28/2022 Active Active Problems Problem Noted Date Diagnosed Date Lumbago 01/11/2012 Arthralgia of hip 11/09/2011 Surgical History Surgery Date Site/Laterality Comments CHOLECYSTECTOMY Medical History Medical History Date Comments Multiple sclerosis (HCC) Obesity (BMI 30-39.9) Vitamin D deficiency THA (obstructive sleep apnea) Family History Medical History Relation Name Comments Diabetes type II Father Arthritis Mother Diabetes type II Mother Hypertension Mother Miscarriages / Stillbirths Mother Relation Name Status Comments Father Mother Social History Tobacco Use Types Packs/Day Years Used Date Smoking Tobacco: Former Cigarettes 0.3 4 2 015 - 2019 Tobacco Cessation:Counseling Given: Not Answered Comments Unknown Sex and Gender Information Value Date Recorded Sex Assigned at Not on file Legal Sex Female 9:54 AM ASSOCIATE PROFESSOR OF ART Gender Identity Female 12/03/2022 11:45 AM CDT Sexual Orientation Straight 12/03/2022 11 :45 AM CDT Obstetrics History Last Filed Vital Signs Vital Sign Reading Time Taken Comments Blood Pressure 135/91 07/23/2023 8:58 AM CDT Pulse 97 07/23/2023 8:58 AM CDT Temperature 36.9 C (98.4 F) 07/23/2023 8:58 AM CDT Respiratory Rate - - Oxygen Saturation 97% 07/23/2023 8:58 AM CDT Inhaled Oxygen Concentration - - Weight 86.2 kg (190 lb) 07/23/2023 8:58 AM CDT Height 165.1 cm (5' 5 ) 07/23/2023 8:58 AM CDT Body Mass Index 31.62 07/23/2023 8:58 AM CDT Plan of Treatment Health Maintenance Due Date Last Done Comments Cervical Cancer Screening 1988 Depression Screening 1988 Hepatitis C Screening 1988 Varicella Vaccines (1 of 2 - 13+ 2-dose series) 2001 Hepatitis B Screening 2006 Regular Well Visit/Exam 18-64 2006 HPV Vaccines (3 - 3-dose series) 05/27/2012 03/04/2012, 08/09/2011 Covid-19 Vaccine ( season) 2024 05/24/2021, 09/18/2020, 08/21/2020 Influenza Vaccine (#1) 2024 , 02/07/2022, 05/24/2021, Additional history exists DTaP/Tdap/Td Vaccine (3 - Td or Tdap) 02/08/2032 02/07/2022, 03/03/2010 Pneumococcal vaccine <65 Aged Out No longer eligible based on patient's age to complete this topic Insurance [employer] SIG [id number] [facility] Care Teams Shovel Loader Operator Relationship Specialty Start Date End Date Gloria Gregorio MD [address] [address] PCP - General Nurse Practitioner 10/11/22 Lalito Gudino MD [address] [place] [address] Referring Physician Neurology 10/02/22
--- OUTSIDE RECORDS SUMMARY | 2024-06-18 13:25 | XMS_ITS | Clinical Summary ---
Author Organization [facility] Address [facility] [place] [address] Care Team Providers Care Floor Inspector Name Role Phone Gloria Gregorio NP Primary Care Provider [phone] Allergies No known active allergies Medications Cholecalciferol (VITAMIN D-3) 125 MCG (5000 UT) TabIndications: MS (multiple sclerosis) ([facility]) Take 1 tablet (5,000 Units total) by mouth daily. 30 tablet 11 3 Active Ocrelizumab (OCREVUS IV) Inject into the vein every 6 (six) months. Active nystatin-triamc inolone (MYCOLOG) ointmentIndicat ions:Skin rash in pelvic region Apply topically 2 (two) times daily. 30 g 4 06/28/19 25 Active Additional Information Patient not taking.Reported on 06/16/2024 memantine (NAMENDA) 5 MG tabletIndicatio ns:MS (multiple sclerosis) ([facility]) Take 1 tablet (5 mg total) by mouth 2 (two) times daily. 60 tablet 11 5 Active Active Problems Problem Noted Date Diagnosed Date Brain fog 04/07/2024 Overview (04/07/2024): Has been having brain fog. Unsure the cause. Assessment & Plan (04/07/2024 1:32 PM BOOMBOAT OPERATOR): Recommend discussing with her neurologist. Pt to find out if NAC supplement would be something she could try or not from neurology. Mild obstructive sleep apnea 04/07/2024 Overview (04/07/2024): Retested in 2022 and has mild THA . Pt has been on CPAP in the past but did not tolerate. When she was retested positional changes alone recommended. Pt does not have significant daytime fatigue, morning headaches, falling asleep at work, or not feeling overally well rested. She is getting adequate sleep per night. Does have some brain fog. Assessment & Plan (04/07/2024 1:31 PM BOOMBOAT OPERATOR): Encourage good sleep hygiene. Weight loss. Vitamin D deficiency 08/20/2022 Assessment & Plan (04/07/2024 1:28 PM BOOMBOAT OPERATOR): Will recheck levels. MS (multiple sclerosis) ([facility]) 2022 Overview (04/07/2024): Follows with neurology for management. On ocrevus. Tolerating well. No flairs. Pt suffrers from brain fog but is unsure what its from. Assessment & Plan (04/07/2024 1:26 PM BOOMBOAT OPERATOR): Continue to follow up with neurology as directed. PCOS (polycystic ovarian syndrome) 02/08/2022 Overview (04/07/2024): Hx of PCOS. Assessment & Plan (04/07/2024 1:35 PM BOOMBOAT OPERATOR): Encourage diet and lifestyle changes to assist with weight loss and improve PCOS symptoms. Obesity (BMI 30-39.9) 02/08/2022 Overview (04/07/2024): Struggles with weight loss. Assessment & Plan (04/07/2024 1:27 PM BOOMBOAT OPERATOR): Encourage diet and lifestyle changes to assist with weight loss. Costochondritis 03/17/2015 Dysuria 12/09/2013 Ovarian follicular cyst 06/15/2013 Lumbar degenerative disc disease 06/15/2013 Contraceptive surveillance 06/15/2013 Depression 06/15/2013 Lumbago 01/11/2012 Resolved Problems Problem Noted Date Diagnosed Date Resolved Date Ear pain 01/23/2023 04/07/2024 Incontinence 05/09/2022 04/07/2024 Right sided numbness 05/08/2022 024 Pleurisy 03/17/2015 04/07/2024 Abdominal pain 03/17/2015 04/07/2024 Urinary urgency 12/09/2013 04/07/2024 Strain of muscle or tendon at lower leg level 06/15/19 14 04/07/2024 Acute bronchitis 06/15/2013 04/07/2024 Encounter for preventive health examination 06/15/2013 08/27/2022 Encounters Date Type Department Care Team Description 06/17/2024 Telephone [facility] Neurology Speciality Clinic - [address] [place] [address] Lalito Gudino MD Medication Information; Medication 06/16/2024 10:40 AM BOOMBOAT OPERATOR Office Visit [facility] Family Medicine [address] [place] [address] Gloria Gregorio NP Follow Up (Patient presents for a f/u regarding a compression fracture and osteoporosis ) 06/16/2024 Telephone [facility] Family [place] [id number] [facility] [address] [place] [address] Gloria Gregorio NP Orders 06/16/2024 Travel 06/11/2024 Telephone [facility] Multispecialty Care - [address], [address] [place] [address] Lalito Gudino MD Results 06/10/2024 Orders Only [facility] Multispecialty Care - [address], [address] [place] [address] Lalito Gudino MD 06/09/2024 9:55 AM BOOMBOAT OPERATOR - 06/09/2024 11:59 PM BOOMBOAT OPERATOR Hospital Encounter [facility] Open MRI [address] [place] [address] Lalito Gudino MD Discharge Disposition: Home or Self Care (Routine Discharge) 06/09/2024 Travel 06/02/2024 9:10 AM BOOMBOAT OPERATOR - 06/02/2024 11:59 PM BOOMBOAT OPERATOR Hospital Encounter [facility] Outpatient Therapy [facility] [place] [address] Lalito Gudino MD Frost, Shayna L, BODY WORKER Cognitive Linguistic Impairment Discharge Disposition: Home or Self Care (Routine Discharge) 06/02/2024 Travel 05/26/2024 Telephone [facility] Neurology Speciality [address] [place] [phone] Lalito Gudino MD Question 05/21/2024 MyChart Message Enc [facility] Multispecialty Care - [facility] [address] [facility] [facility], [address] [place] [address] Lalito Gudino MD Referral 05/20/2024 Scan [facility] INFO SRVCS Scanned, [facility] (SCAN) 05/20/2024 Telephone [facility] Multispecialty Care - [facility] [address], [address] [place] [address] Lalito Gudino MD Information 05/20/2024 Telephone [facility] Neurology Speciality [facility] - [place] [address] [facility] [address] [place] [address] Lalito Gudino MD Orders 05/19/2024 Scan [facility] INFO SRVCS Scanned, [facility] 05/18/2024 2:20 PM BOOMBOAT OPERATOR Telemedicine [facility] Multispecialty [facility] [place] - [address], [address] [place] [address] Lalito Gudino MD Numbness 05/18/2024 Telephone [facility] Neurology Speciality Clinic - [place] [address] [place] [address] Lalito Gudino MD Reschedule 05/18/2024 Travel 05/07/2024 1:00 PM BOOMBOAT OPERATOR Office Visit [address] [place] [address] Gloria Gregorio NP URI (Patient presents for follow up URI, still having Cough, congestion, sore throat, headache, body aches. X 4 days) 05/07/2024 Travel 05/07/2024 GoodAprilhart Message Enc [address] [address] Gloria Gregorio NP Sick note 05/05/2024 8:00 AM BOOMBOAT OPERATOR Office Visit [address] [place] [address] Gloria Gregorio NP Sore Throat (Patient presents with c/o sore throat, swollen glands in neck, cough, congestion, and body ache x 2 days) 05/05/2024 Travel 04/26/2024 4:57 PM BOOMBOAT OPERATOR - 04/26/2024 7:22 PM BOOMBOAT OPERATOR Emergency [facility] [address] [place] [address] Freddy Orellana, DO George Discharge Disposition: Home or Self Care (Routine Discharge) 04/26/2024 Travel 04/07/2024 12:40 PM BOOMBOAT OPERATOR Office Visit [address] [address] Gloria Gregorio NP Annual (Patient presents for an adult routine exam) 04/07/2024 - 04/07/2024 11:59 PM BOOMBOAT OPERATOR Hospital Encounter [facility]-[address] [address] Gloria Gregorio NP Discharge Disposition: Home or Self Care (Routine Discharge) 04/07/2024 Travel 03/30/2024 10:40 AM BOOMBOAT OPERATOR Office Visit [facility] Family [facility] - [place] [address] [place] [address] Gloria Gregorio NP Rash (Patient presents with c/o rash pelvic area) 03/30/2024 Travel from Last 3 Months Immunizations Name Administration Dates Next Due Anthrax Vaccine 02/07/2011 Fluzone 6 Months+ Quad (0.5 mL Prefilled Syringe) 02/20/2023,02/07/2022 HPV2 (Cervarix) 03/04/2012,08/09/2011 Hepatitis A (Havrix [address]) 06/20/2011,2010 Influenza (Generic) 02/28/2024, 2,01/03/2011,03/03 Influenza Adult (Generic) 05/24/2021 MODERNA COVID-19 (BENEFITS ADMINISTRATOR JUAN SAVAGE), MRNA, LNP-S, PF, 50 MCG/ 0.25 ML DOSE 05/24/2021 Meningococcal (Menactra) 03/03/2010 Polio IPV (Ipol) 03/03/2010 Small Pox 02/07/2011 Tdap (Adacel) 02/07/2022 Tdap (Generic) 03/03/2010 Typhoid (Typhim ) 02/07/2011 Family History Medical History Relation Comments Diabetes Father Hypertension Father Alcohol Abuse Maternal Grandfather Miscarriages / Stillbirths Maternal Grandmother Arthritis Mother Diabetes Mother Hypertension Mother Miscarriages / Stillbirths Mother Alcohol Abuse Paternal Grandfather Bone cancer Paternal Uncle 1 Cancer Paternal Uncle 2 Relation Status Comments Father Maternal Grandfather Maternal Grandmother Mother Paternal Grandfather Paternal Uncle 1 Paternal Uncle 2 Social History Tobacco Use Types Packs/Day Years Used Date Smoking Tobacco: Former Cigarettes 0.3 4 Passive Smoke Exposure: Never Smokeless Tobacco: Never Tobacco Cessation:Counseling Given: No Alcohol Use Standard Drinks/Week Comments Yes 3.3 (1 standard drin k = 0.6 oz pure alcohol) Very rarely most times not even weekly PHQ-2 Answer Date Recorded Patient Health Questionnaire-2 Score 0 06/16/2024 Comments No Sex and Gender Information Value Date Recorded Sex Assigned at Female 06/09/2024 9:52 AM BOOMBOAT OPERATOR Legal Sex Female 12:19 AM BOOMBOAT OPERATOR Gender Identity Female 06/16/2024 10:41 AM BOOMBOAT OPERATOR Sexual Orientation Straight 06/16/2024 10 :41 AM BOOMBOAT OPERATOR Last Filed Vital Signs Vital Sign Reading Time Taken Comments Blood Pressure 122/82 06/16/2024 10:41 AM BOOMBOAT OPERATOR Pulse 74 06/16/2024 10:41 AM BOOMBOAT OPERATOR Temperature 36.6 C (97.8 F) 06/16/2024 10:41 AM BOOMBOAT OPERATOR Respiratory Rate 16 06/16/2024 10:4 1 AM BOOMBOAT OPERATOR Oxygen Saturation 98% 06/16/2024 10: 41 AM BOOMBOAT OPERATOR Inhaled Oxygen Concentration - - Weight 84.3 kg (185 lb 12.8 oz) 025 10:41 AM BOOMBOAT OPERATOR Height 162.6 cm (5' 4 ) 06/16/2024 10:4 1 AM BOOMBOAT OPERATOR Body Mass Index 31.89 06/16/2024 10:41 AM BOOMBOAT OPERATOR Plan of Treatment Upcoming Encounters Date Type Department Care Team (Late st Contact Info) Description 06/24/2024 11:00 AM BOOMBOAT OPERATOR Appointment [facility] [place], [place] [phone] Lalito Gudino MD [address] [place] [address] [place] [address] 06/30/2024 11:00 AM BOOMBOAT OPERATOR Appointment [facility] Outpatient Therapy [place], [place] [address] Lalito Gudino MD [address] [place] [address] [place] [address] 08/07/2024 8:00 AM CDT Treatment [facility] [place] [address] Gloria Gregorio, STORE LOSS PREVENTION MANAGER [address] [place] [address] 11/17/2024 11:40 AM CDT Telemedicine [facility] Multispecialty Care - [address], [facility] [address] [place] [id number] Lalito Gudino MD [address] [place] [address] Health Maintenance Due Date Last Done Comments Hepatitis B Vaccines (1 of 3 - 19+ 3-dose series) 2007 HPV Vaccines (3 - 3-dose series) 05/27/2012 03/04/2012, 08/09/2011 COVID-19 Vaccine ( season) 2024 05/24/2021, 09/18/2020, 08/21/2020 Annual Physical 04/07/2025 04/07/2024, 02/10, 02/07/2022 Cervical Cancer Screening Pap Smear (Age 30 to 64) Every 3 Years 09/05/2026 09/06/2023, 07/16/2022, 11/08/2021 Cervical Cancer Screening Pap with HPV Testing (Age 30 to 64) Every 5 Years 07/17/2027 07/16/2022, 07/16/2022 Cervical Cancer Screening with HPV 07/17/2027 DTaP, Tdap and Td Vaccines (3 - Td or Tdap) 02/08/2032 02/07/2022, 03/03/2010 Meningococcal Vaccine Aged Out 03/03/2010 No lucho franklin eligible based on patient's age to complete this topic Influenza Adult Completed 02/28/2024, 02/10, 02/07/2022, Additional history exists Hepatitis C Completed 05/20/2024, 05/14, 05/28/2022 PHQ-2 (Physician [place]) Completed 06/16/2024 Meningococcal B Vaccine Aged Out No l onger eligible based on patient's age to complete this topic Pneumococcal Vaccine: Pediatrics (0 to 5 Years) and At-Risk Patients (6 to 64 Years) Aged Out No longer eligible based on patient's age to complete this topic RSV Immunizations Under 20 Months Aged Out No longer eligible based on patient's age to complete this topic Procedures Procedure Name Priority Date/Time Associated Diagnosis Comments MRI BRAIN WWO CON Routine 06/09/2024 12: 22 PM BOOMBOAT OPERATOR MS (multiple sclerosis) ([facility]) MRI CERV SPINE WWO CON Routine 06/09/2024 12:22 PM BOOMBOAT OPERATOR MS (multiple sclerosis) ([facility]) MRI THOR SPINE WWO CON Routine 06/09/2024 11:55 AM BOOMBOAT OPERATOR MS (multiple sclerosis) ([facility]) HEP C SCANNED ORDERS Routine 05/20/2024 CORONAVIRUS (COVID-19) INFLUENZA A & B ANTIGEN IA PANEL Routine 05/07/2024 Acute cough CULTURE STREP A Routine 05/05/2024 8:36 AM BOOMBOAT OPERATOR Sore throat CORONAVIRUS (COVID-19) INFLUENZA A & B ANTIGEN IA PANEL Routine 05/05/2024 Acute cough STREP A RAPID Routine 05/05/2024 Sore throat XR RIBS NORY+PA CHEST STAT 04/26/2024 5:44 PM BOOMBOAT OPERATOR XR THOR SPINE 3V STAT 04/26/2024 5:44 PM BOOMBOAT OPERATOR VITAMIN B-12 Routine 04/07/2024 1:35 PM BOOMBOAT OPERATOR Encounter for routine gynecological examination with Papanicolaou smear of cervix VITAMIN D, 25 OH Routine 04/07/2024 1:35 PM BOOMBOAT OPERATOR Vitamin D deficiency CBC W/DIFF AUTOMATED Routine 04/07/2024 1:35 PM BOOMBOAT OPERATOR Screening for endocrine, metabolic and immunity disorder COMPREHENSIVE METABOLIC PANEL Routine 04/07/2024 1:35 PM BOOMBOAT OPERATOR Impaired fasting glucose Screening for endocrine, metabolic and immunity disorder LIPID PANEL Routine 04/07/2024 1:35 PM BOOMBOAT OPERATOR Screening for hyperlipidemia TSH W/REFLEX Routine 04/07/2024 1:35 PM BOOMBOAT OPERATOR Screening for thyroid disorder HEMOGLOBIN, GLYCOSYLATED Routine 04/07/2024 1:35 PM BOOMBOAT OPERATOR Impaired fasting glucose INSULIN,TOTAL Routine 04/07/2024 1:35 PM BOOMBOAT OPERATOR Impaired fasting glucose OUTSIDE CYTOPATH CERV/VAG INTERPRET (PAP) 07/16/2022 from Last 3 Months or Most Recently Relevant to Health Maintenance Results * MRI BRAIN WWO CON (06/09/2024 12:22 PM BOOMBOAT OPERATOR) Anatomical Region Laterality Modality Head Magnetic Resonan ce 06/10/2024 10:0 0 AM BOOMBOAT OPERATOR Impressions 06/10/2024 10:06 AM BOOMBOAT OPERATOR IMPRESSION: 1. Redemonstration of patchy abnormalities in the supratentorial white matter and corpus callosum, in keeping with history of multiple sclerosis. No definite new white matter lesions identified. No definite corresponding enhancement to suggest active demyelination at this time. Ordered By: LALITO GUDINO Interpreted By: Dmitry Dinero MD, 06/10/2024 10:00 AM Narrative 06/10/2024 10:06 AM BOOMBOAT OPERATOR [address] [address] DATE: 06/09/2024 10:07 AM INDICATION: Multiple sclerosis. Follow-up. EXAMINATION: MRI brain with and without contrast. TECHNIQUE: Multiplanar and multisequence MRI images of the brain were obtained before and after uneventful intravenous administration of 17 mL Dotarem COMPARISON: 06/12/2023 FINDINGS: Again seen are patchy, somewhat ovoid foci of T2/FLAIR hyperintensity in the periventricular, subcortical, and juxtacortical white matter, corpus callosum, and callososeptal interface, in keeping with history of multiple sclerosis. No definite new white matter lesions identified. No definite corresponding abnormal enhancement to suggest active demyelination at this time. Some of the lesions demonstrate T2 shine through phenomenon on diffusion-weighted images and ADC maps. Otherwise there is no diffusion restriction to suggest acute infarct. No intracranial mass, mass effect, or midline shift. The remainder of the postcontrast images reveal no abnormal enhancement elsewhere. Ventricles and extra-axial/subarachnoid spaces are unremarkable. No extra-axial collections. Proximal portions of the major intracranial arterial flow voids are patent. No hemorrhagic foci of susceptibility seen on gradient echo images. Craniocervical junction, sellar content, pineal region are unremarkable. Scattered fluid in the mastoid air cells. Paranasal sinuses clear. Visualized orbits unremarkable. Procedure Note Dmitry Dinero MD - 06/10/2024 [place] [id number] [place] [address] DATE: 06/09/2024 10:07 AM INDICATION: Multiple sclerosis. Follow-up. EXAMINATION: MRI brain with and without contrast. TECHNIQUE: Multiplanar and multisequence MRI images of the brain wereobtained before and after uneventful intravenous administration of 17 mLDotarem COMPARISON: 06/12/2023 FINDINGS: Again seen are patchy, somewhat ovoid foci of T2/FLAIR hyperintensity inthe periventricular, subcortical, and juxtacortical white matter, corpuscallosum, and callososeptal interface, in keeping with history of multiplesclerosis. No definite new white matter lesions identified. No definitecorresponding abnormal enhancement to suggest active demyelination at thistime. Some of the lesions demonstrate T2 shine through phenomenon ondiffusion-weighted images and ADC maps. Otherwise there is no diffusion restriction to suggest acute infarct. Nointracranial mass, mass effect, or midline shift. The remainder of thepostcontrast images reveal no abnormal enhancement elsewhere. Ventriclesand extra-axial/subarachnoid spaces are unremarkable. No extra-axialcollections. Proximal portions of the major intracranial arterial flowvoids are patent. No hemorrhagic foci of susceptibility seen on gradientecho images. Craniocervical junction, sellar content, pineal region are unremarkable.Scattered fluid in the mastoid air cells. Paranasal sinuses clear.Visualized orbits unremarkable. IMPRESSION: 1. Redemonstration of patchy abnormalities in the supratentorial whitematter and corpus callosum, in keeping with history of multiple sclerosis.No definite new white matter lesions identified. No definite correspondingenhancement to suggest active demyelination at this time. Ordered By: LALITO GUDINO Interpreted By: Dmitry Dinero MD, 06/10/2024 10:00 AM us Lalito Gudino MD MRI Final Res ult * MRI CERV SPINE WWO CON (06/09/2024 12:22 PM BOOMBOAT OPERATOR) Anatomical Region Laterality Modality Spine Magnetic Resonan ce 06/10/2024 10:0 9 AM BOOMBOAT OPERATOR Impressions 06/10/2024 10:21 AM BOOMBOAT OPERATOR IMPRESSION: 1. Redemonstration of patchy signal abnormalities in the cervical cord, in keeping with history of multiple sclerosis, similar to the prior examination. No definite new foci of abnormal signal seen elsewhere in the cervical cord. No definite corresponding abnormal enhancement to suggest active demyelination at this time. 2. Mild degenerative changes. 3. Partially imaged ovoid T2 hyperintensity along the left soft palate/oropharynx, possibly retention cyst. Could correlate with direct visualization. Ordered By: LALITO GUDINO Interpreted By: Dmitry Dinero MD, 06/10/2024 10:09 AM Narrative 06/10/2024 10:21 AM BOOMBOAT OPERATOR [place] [address] DATE: 06/09/2024 10:38 AM INDICATION: Multiple sclerosis. Follow-up. EXAMINATION: MRI of the cervical spine without and with contrast. TECHNIQUE: Multiplanar and multisequence MRI images of the cervical spine were obtained before and after uneventful intravenous administration of 17 mL Dotarem. COMPARISON: None FINDINGS: Redemonstration of patchy foci of T2/STIR hyperintensity in the cervical cord, in keeping with history of multiple sclerosis. No definite new foci of abnormal signal identified elsewhere in the cervical cord. No definite corresponding postcontrast enhancement to suggest active demyelination at this time. The cervical vertebral alignment, vertebral body heights, and facet alignment are maintained. Mild degenerative changes are evident in the cervical spine with mild disc degeneration, tiny uncovertebral osteophytes, and mild facet hypertrophy noted. Examination of the individual cervical intervertebral levels reveals no compressive disc herniations, spinal canal compromise, or significant foraminal narrowing in the cervical spine. Imaged portions of the soft tissues reveal no definite acute findings. Stable lobular T2 hyperintense focus along the left soft palate/oropharynx, possibly retention cyst; could correlate with direct visualization. Procedure Note Dmitry Dinero MD - 06/10/2024 [facility] [address] [place] [address] DATE: 06/09/2024 10:38 AM INDICATION: Multiple sclerosis. Follow-up. EXAMINATION: MRI of the cervical spine without and with contrast. TECHNIQUE: Multiplanar and multisequence MRI images of the cervical spinewere obtained before and after uneventful intravenous administration of 17mL Dotarem. COMPARISON: None FINDINGS: Redemonstration of patchy foci of T2/STIR hyperintensity in the cervicalcord, in keeping with history of multiple sclerosis. No definite new fociof abnormal signal identified elsewhere in the cervical cord. No definitecorresponding postcontrast enhancement to suggest active demyelination atthis time. The cervical vertebral alignment, vertebral body heights, and facetalignment are maintained. Mild degenerative changes are evident in thecervical spine with mild disc degeneration, tiny uncovertebralosteophytes, and mild facet hypertrophy noted. Examination of theindividual cervical intervertebral levels reveals no compressive discherniations, spinal canal compromise, or significant foraminal narrowingin the cervical spine. Imaged portions of the soft tissues reveal no definite acute findings.Stable lobular T2 hyperintense focus along the left softpalate/oropharynx, possibly retention cyst; could correlate with directvisualization. IMPRESSION: 1. Redemonstration of patchy signal abnormalities in the cervical cord, inkeeping with history of multiple sclerosis, similar to the priorexamination. No definite new foci of abnormal signal seen elsewhere in thecervical cord. No definite corresponding abnormal enhancement to suggestactive demyelination at this time. 2. Mild degenerative changes. 3. Partially imaged ovoid T2 hyperintensity along the left softpalate/oropharynx, possibly retention cyst. Could correlate with directvisualization. Ordered By: LALITO GUDINO Interpreted By: Dmitry Dinero MD, 06/10/2024 10:09 AM us Lalito Gudino MD MRI Final Res ult * MRI THOR SPINE WWO CON (06/09/2024 11:55 AM BOOMBOAT OPERATOR) Anatomical Region Laterality Modality Spine Magnetic Resonan ce 06/10/2024 10:2 4 AM BOOMBOAT OPERATOR Impressions 06/10/2024 10:27 AM BOOMBOAT OPERATOR IMPRESSION: 1. Patchy signal abnormalities in the thoracic cord, similar to prior, in keeping with history of multiple sclerosis. No definite new thoracic cord lesions identified. No definite corresponding abnormal enhancement to suggest active demyelination at this time. 2. New (since 06/12/2023) chronic appearing mild superior endplate compression from involving the T4 vertebral level. Ordered By: LALITO GUDINO Interpreted By: Dmitry Dinero MD, 06/10/2024 10:24 AM Narrative 06/10/2024 10:27 AM BOOMBOAT OPERATOR [address] [address] DATE: 06/09/2024 10:38 AM INDICATION: Multiple sclerosis. Follow-up. EXAMINATION: MRI of the thoracic spine without and with contrast. TECHNIQUE: Multiplanar and multisequence MRI images of the thoracic spine were obtained before and after uneventful intravenous administration of 17 mL Dotarem. COMPARISON: 06/12/2023 FINDINGS: There are at least 2 foci of abnormal T2/STIR signal seen within the thoracic cord, larger involving the T4-T5 cord segment, similar to prior. No definite new foci of abnormal signal identified elsewhere in the thoracic cord. No definite corresponding abnormal enhancement suggest active demyelination at this time. There is a new (since 06/12/2023) mild superior endplate compression deformity involving the T4 level, likely chronic, and without corresponding marrow edema to suggest acute injury. There is less than 25% loss of vertebral body height, and no significant retropulsion. The remainder of the thoracic vertebral alignment, vertebral body heights, and facet alignment are maintained. Examination of the individual thoracic intervertebral levels reveals no compressive disc herniations, spinal canal compromise, or significant foraminal narrowing in the thoracic spine. Imaged portions of the soft tissues reveal no definite acute findings. Procedure Note Dmitry Dinero MD - 06/10/[address] [address] DATE: 06/09/2024 10:38 AM INDICATION: Multiple sclerosis. Follow-up. EXAMINATION: MRI of the thoracic spine without and with contrast. TECHNIQUE: Multiplanar and multisequence MRI images of the thoracic spinewere obtained before and after uneventful intravenous administration of 17mL Dotarem. COMPARISON: 06/12/2023 FINDINGS: There are at least 2 foci of abnormal T2/STIR signal seen within thethoracic cord, larger involving the T4-T5 cord segment, similar to prior.No definite new foci of abnormal signal identified elsewhere in thethoracic cord. No definite corresponding abnormal enhancement suggestactive demyelination at this time. There is a new (since 06/12/2023) mildsuperior endplate compression deformity involving the T4 level, likelychronic, and without corresponding marrow edema to suggest acute injury.There is less than 25% loss of vertebral body height, and no significantretropulsion. The remainder of the thoracic vertebral alignment, vertebralbody heights, and facet alignment are maintained. Examination of theindividual thoracic intervertebral levels reveals no compressive discherniations, spinal canal compromise, or significant foraminal narrowingin the thoracic spine. Imaged portions of the soft tissues reveal nodefinite acute findings. IMPRESSION: 1. Patchy signal abnormalities in the thoracic cord, similar to prior, inkeeping with history of multiple sclerosis. No definite new thoracic cordlesions identified. No definite corresponding abnormal enhancement tosuggest active demyelination at this time. 2. New (since 06/12/2023) chronic appearing mild superior endplatecompression from involving the T4 vertebral level. Ordered By: LALITO GUDINO Interpreted By: Dmitry Dinero MD, 06/10/2024 10:24 AM Lalito Gudino MD MRI Final Res ult * HEP C SCANNED ORDERS (05/20/2024) [facility] Scanned SCANNING Final Resu lt [facility] ON[facility] * (ABNORMAL) CORONAVIRUS (COVID-19) INFLUENZA A & B ANTIGEN IA PANEL (05/07/2024) Only the most recent of2 resultswithin the time period is included. CORONAVIRUS ANTIGEN IA NEGATIVE NEGATIVE [address], [place] INFLUENZA A POSITIVE(A) NEGATIVE [address], [place] INFLUENZA B NEGATIVE NEGATIVE [address], [place] Internal Control: VALID VALID [address], [place] NASAL STRUCTURE / Unknown 05/07/2024 Gloria Gregorio NP MICROBIOLOGY - GENERAL OR DERABLES Final Result [address] [place] [address] [place] [address], [place] [phone] * CULTURE STREP A (MG/SJS/SMD Only) (05/05/2024 8:36 AM BOOMBOAT OPERATOR) THROAT CULTURE STREP A ONLY Negative for Group A Streptococci Negative for Group A Streptococci 05/06/2024 1:57 PM BOOMBOAT OPERATOR -[facility] KAREEM [place] STRUCTURE OF ANTERIOR PORTION OF NECK / Unknown 05/05/2024 8:36 AM BOOMBOAT OPERATOR Gloria Gregorio NP MICROBIOLOGY - GENERAL OR DERABLES Final Result [facility] [address] [facility] [address] [place] [address], [place] [phone] * STREP A RAPID (05/05/2024) RAPID STREP TEST NEGATIVE NEGATIVE [address], [place] Internal Control: VALID VALID [address], [place] STRUCTURE OF ANTERIOR PORTION OF NECK / Unknown 05/05/2024 Gloria Gregorio STORE LOSS PREVENTION MANAGER MICROBIOLOGY - GENERAL OR DERABLES Final Result [address], [place] [address] [facility] [address] [place] [address], [place] [phone] * XR THOR SPINE 3V (04/26/2024 5:44 PM BOOMBOAT OPERATOR) Anatomical Region Laterality Modality Spine Radiographic Francia ging 04/26/2024 5:47 PM BOOMBOAT OPERATOR Impressions 04/26/2024 5:49 PM BOOMBOAT OPERATOR IMPRESSION: No convincing evidence of a thoracic spine fracture. Upper thoracic segments are suboptimally evaluated due to overlapping structures. Referred By: Interpreted By: Tacho West MD, 04/26/2024 5:47 PM Narrative 04/26/2024 5:49 PM BOOMBOAT OPERATOR [address] [place] [address] Examination: XR THOR SPINE 3V Exam time: 04/26/2024 5:44 PM Indication: Fall down stairs. Mid back pain. Comparison: None available. Technique: 3 views of the thoracic spine, 3 images. Findings: Evaluation of the upper thoracic segments is suboptimal due to overlapping structures. There is mild leftward curvature of the upper thoracic spine, which could be positional. Thoracic spine alignment is otherwise well-maintained without evidence of significant spinal listhesis. The visualized vertebral body heights and intervertebral disc spaces are within normal limits without significant endplate degenerative changes. No convincing evidence of a thoracic spine fracture is seen. Procedure Note Tacho West MD - 04/26/[address] [place] [address] Examination: XR THOR SPINE 3V Exam time: 04/26/2024 5:44 PM Indication: Fall down stairs. Mid back pain. Comparison: None available. Technique: 3 views of the thoracic spine, 3 images. Findings: Evaluation of the upper thoracic segments is suboptimal due tooverlapping structures. There is mild leftward curvature of the upperthoracic spine, which could be positional. Thoracic spine alignment isotherwise well-maintained without evidence of significant spinallisthesis. The visualized vertebral body heights and intervertebral discspaces are within normal limits without significant endplate degenerativechanges. No convincing evidence of a thoracic spine fracture is seen. IMPRESSION: No convincing evidence of a thoracic spine fracture. Upper thoracicsegments are suboptimally evaluated due to overlapping structures. Referred By: Interpreted By: Tacho West MD, 04/26/2024 5:47 PM Freddy Orellana DO GENERAL IMAGING Final Result * XR RIBS NORY+PA CHEST (04/26/2024 5:44 PM BOOMBOAT OPERATOR) Anatomical Region Laterality Modality Chest Radiographic Francia ging 04/26/2024 5:49 PM BOOMBOAT OPERATOR Impressions 04/26/2024 5:58 PM BOOMBOAT OPERATOR IMPRESSION: No radiographic evidence of active chest disease or displaced rib fracture. Referred By: Interpreted By: Tacho West MD, 04/26/2024 5:49 PM Narrative 04/26/2024 5:58 PM BOOMBOAT OPERATOR [address] [place] [address] Examination: XR RIBS NORY+PA CHEST Exam time: 04/26/2024 5:44 PM Indication: Fall down stairs. Mid back pain. Bilateral posterior rib pain. Comparison: None available. Technique: PA view of the chest with 2 views of the bilateral ribs, 6 images. Findings: The central silhouette and pulmonary vasculature are within normal limits. No pneumothorax, large pleural effusion, or focal consolidation. No convincing evidence of acute osseous abnormality or displaced rib fracture. Procedure Note Tacho West MD - 04/26/2024 [facility] [address] [place] [address] Examination: XR RIBS NORY+PA CHEST Exam time: 04/26/2024 5:44 PM Indication: Fall down stairs. Mid back pain. Bilateral posterior ribpain. Comparison: None available. Technique: PA view of the chest with 2 views of the bilateral ribs, 6images. Findings: The central silhouette and pulmonary vasculature are withinnormal limits. No pneumothorax, large pleural effusion, or focalconsolidation. No convincing evidence of acute osseous abnormality ordisplaced rib fracture. IMPRESSION: No radiographic evidence of active chest disease or displacedrib fracture. Referred By: Interpreted By: Tacho West MD, 04/26/2024 5:49 PM Freddy Orellana DO GENERAL IMAGING Final Result * TSH W/REFLEX (04/07/2024 1:35 PM BOOMBOAT OPERATOR) TSH 1.467 0.358 - 3.740 uIU/ML 04/08/2024 1:33 PM BOOMBOAT OPERATOR [facility] 04/07/2024 1:35 PM BOOMBOAT OPERATOR Gloria Gregorio STORE LOSS PREVENTION MANAGER LABORATORY Final Res ult [facility] [address] [place] [address], * HEMOGLOBIN, GLYCOSYLATED (04/07/2024 1:35 PM BOOMBOAT OPERATOR) HGB A1C 5.1 4.5 - 6.2 % 04/08/2024 8:48 AM BOOMBOAT OPERATOR [facility] ESTIMATED AVG GLUCOSE 100 74 - 106 MG/DL 04/08/2024 8:48 AM BOOMBOAT OPERATOR [facility] 04/07/2024 1:35 PM BOOMBOAT OPERATOR Gloria Gregorio STORE LOSS PREVENTION MANAGER LABORATORY Final Res ult [facility] [address] [place] [address], * VITAMIN B-12 (04/07/2024 1:35 PM BOOMBOAT OPERATOR) VITAMIN B12 S/P/B 396 193 - 986 PG/ML 04/08/2024 4:47 PM BOOMBOAT OPERATOR [address] [facility] 04/07/2024 1:35 PM BOOMBOAT OPERATOR Gloria Gregorio STORE LOSS PREVENTION MANAGER LABORATORY Final Res ult [facility] [address] [place] [address], * (ABNORMAL) COMPREHENSIVE METABOLIC PANEL (04/07/2024 1:35 PM BOOMBOAT OPERATOR) SODIUM S/P/B 140 136 - 145 MMOL/L 04/08/2024 1:33 PM BOOMBOAT OPERATOR [facility] POTASSIUM S/P/B 4.3 3.5 - 5.1 MMOL/L 04/08/2024 1:33 PM BOOMBOAT OPERATOR [facility] CHLORIDE S/P/B 102 98 - 107 MMOL/L 04/08/2024 1:33 PM BOOMBOAT OPERATOR [facility] CO2 27.6 21 - 32 MMOL/L 04/08/2024 1:33 PM BOOMBOAT OPERATOR [facility] GLUCOSE 96 70 - 99 MG/DL 04/08/2024 1:33 PM [facility] BUN 7 7 - 18 MG/DL 04/08/2024 1:33 PM [facility] CREATININE S/P/B 0.57 0.55 - 1.02 MG/DL 04/08/2024 1:33 PM [facility] CALCIUM S/P/B 9.0 8.4 - 10.5 MG/DL 04/08/2024 1:33 PM [facility] BILIRUBIN TOTAL S/P/B 0.4 0.2 - 1.0 MG/DL 04/08/2024 1:33 PM [facility] ALKALINE PHOSPHATASE S/P/B 81 37 - 98 U/L 04/08/2024 1:33 PM [facility] AST 12(L) 15 - 37 U/L 04/08/2024 1:33 PM [facility] ALT 21 14 - 59 U/L 04/08/2024 1:33 PM [facility] TOTAL PROTEIN S/P/B 7.1 6.4 - 8.2 G/DL 04/08/2024 1:33 PM [facility] ALBUMIN S/P/B 4.0 3.4 - 5.0 G/DL 04/08/2024 1:33 PM [facility] ANION GAP 10.4 5 - 15 MMOL/L 04/08/2024 1:33 PM [facility] Comment:REFERENCE RANGE NOT ESTABLISHED OSMOLALITY (CALC) 288 MOSM/KG 024 1:33 PM [facility] Comment:REFERENCE RANGE NOT ESTABLISHED GFR ESTIMATE >90 >90 ML/MIN/1. 73 M2 04/08/2024 1:33 PM [facility] GFR NOTES GFR REFERENCE S: 04/08/2024 1:33 PM [facility] Comment: THE ESTIMATED GFR IS CALCULATED USING THE 2020 CKD-EPI EQUATION. THE FOLLOWING CATEGORIES FOR GRADING RENAL FUNCTION ARE RECOMMENDED BY THE INTERNATIONAL SOCIETY OF NEPHROLOGY (KDIGO 2012 CLINICAL PRACTICE GUIDELINE). G1,NORMAL OR HIGH: >89 ml/min/1.73 m2 G2,MILDLY DECREASED: 60-89 ml/min/1.73 m2 G3A,MILDLY TO MODERATELY DECREASED: 45-59 ml/min/1.73 m2 G3B,MODERATELY TO SEVERELY DECREASED: 30-44 ml/min/1.73 m2 G4,SEVERELY DECREASED: 15-29 ml/min/1.73 m2 G5,KIDNEY FAILURE: <15 ml/min/1.73 m2 04/07/2024 1:35 PM BOOMBOAT OPERATOR us Gloria Gregorio NP LABORATORY Final Res ult [facility] [address] [place] [address], * (ABNORMAL) LIPID PANEL (04/07/2024 1:35 PM BOOMBOAT OPERATOR) CHOLESTEROL 213(H) <200 MG/DL 04/08/2024 1:33 PM BOOMBOAT OPERATOR [facility] TRIGLYCERIDES 130 <150 MG/DL 04/08/2024 1:33 PM BOOMBOAT OPERATOR [facility] HDL 55 >40 MG/DL 04/08/2024 1:33 PM BOOMBOAT OPERATOR [facility] LDL-C 132(H) <100 MG/DL 04/08/2024 1:33 PM BOOMBOAT OPERATOR [facility] VLDL CALCULATION 26 5 - 28 MG/DL 04/08/2024 1:33 PM BOOMBOAT OPERATOR [facility] CHOL/HDL RATIO 3.9 0.0 - 4.0 04/08/2024 1:33 PM BOOMBOAT OPERATOR [facility] LDL/HDL 2.4(H) 0.41 - 2.13 04/08/2024 1:33 PM BOOMBOAT OPERATOR [facility] NON HDL CHOLESTEROL 158(H) <140 MG/DL 04/08/2024 1:33 PM BOOMBOAT OPERATOR [facility] 04/07/2024 1:35 PM BOOMBOAT OPERATOR Gloria Gregorio STORE LOSS PREVENTION MANAGER LABORATORY Final Res ult [facility] [address] [place] [address], * (ABNORMAL) CBC W/DIFF AUTOMATED (04/07/2024 1:35 PM BOOMBOAT OPERATOR) WBC 8.82 4.00 - 10.80 x10'3/uL 04/07/2024 7:51 PM BOOMBOAT OPERATOR [facility] RBC 4.78 4.10 - 5.40 x10'6/uL 04/07/2024 7:51 PM BOOMBOAT OPERATOR [facility] HGB 13.8 12.0 - 16.0 G/DL 04/07/2024 7:51 PM BOOMBOAT OPERATOR [facility] HCT 40.8 36.0 - 47.0 % 04/07/2024 7:51 PM BOOMBOAT OPERATOR [facility] MCV 85.4 78.0 - 100.0 FL 04/07/2024 7:51 PM BOOMBOAT OPERATOR [facility] MCH 28.9 27.0 - 31.0 PG 04/07/2024 7:51 PM BOOMBOAT OPERATOR [facility] MCHC 33.8 33.0 - 36.0 G/DL 04/07/2024 7:51 PM BOOMBOAT OPERATOR [facility] RDW 11.9 11.5 - 14.5 % 04/07/2024 7:51 PM BOOMBOAT OPERATOR [facility] PLT 370(H) 150 - 350 x10'3/uL 04/07/2024 7:51 PM BOOMBOAT OPERATOR [facility] MPV 10.8(H) 7.4 - 10.4 FL 04/07/2024 7:51 PM BOOMBOAT OPERATOR [facility] DIFFERENTIAL TYPE AUTOMATED DIFFERENTIAL 04/07/2024 7:51 PM BOOMBOAT OPERATOR [facility] NEUTROPHILS % 75.1 % 04/07/2024 7:51 PM [facility] LYMPHOCYTES % 17.3 % 04/07/2024 7:51 PM BOOMBOAT OPERATOR [facility] MONOCYTES % 5.6 % 04/07/2024 7:51 PM BOOMBOAT OPERATOR [facility] EOSINOPHILS % 1.4 % 04/07/2024 7:51 PM BOOMBOAT OPERATOR [facility] BASOPHILS % 0.6 % 04/07/2024 7:51 PM BOOMBOAT OPERATOR [facility] IMMATURE GRANS % 0.0 % 04/07/2024 7:51 PM BOOMBOAT OPERATOR [facility] ABS. NEUTROPHILS 6.63 1.60 - 8.30 x10'3/uL 04/07/2024 7:51 PM BOOMBOAT OPERATOR [facility] ABS. LYMPHOCYTES 1.53 0.80 - 4.70 x10'3/uL 04/07/2024 7:51 PM BOOMBOAT OPERATOR [facility] ABS. MONOCYTES 0.49 0.00 - 1.50 x10'3/uL 04/07/2024 7:51 PM BOOMBOAT OPERATOR [facility] ABS. EOSINOPHILS 0.12 0.00 - 0.40 x10'3/uL 04/07/2024 7:51 PM BOOMBOAT OPERATOR [facility] ABS. BASOPHILS 0.05 0.00 - 0.20 x10'3/uL 04/07/2024 7:51 PM BOOMBOAT OPERATOR [facility] ABS. IMMATURE GRANULOCYTES 0.00 0.00 - 0.03 x10'3/uL 04/07/2024 7:51 PM BOOMBOAT OPERATOR [facility] 04/07/2024 1:35 PM BOOMBOAT OPERATOR us Gloria Gregorio STORE LOSS PREVENTION MANAGER LABORATORY Final Res ult [facility] [address] [place] [address], * (ABNORMAL) VITAMIN D 25 OH ([facility] ONLY) (04/07/2024 1:35 PM BOOMBOAT OPERATOR) Pathologist [facility] VITAMIN D 25 HYDROXY TOTAL S/P/B 29.3(L) 30 - 100 NG/ML 04/08/2024 4:47 PM BOOMBOAT OPERATOR [address] Comment: DEFICIENT <20 INSUFFICIENT 20-30 SUFFICIENT 30-100 04/07/2024 1:35 PM BOOMBOAT OPERATOR Gloria Gregorio NP LABORATORY Final Res ult [address] [address] [place] [address] [place] [address], * INSULIN,TOTAL (04/07/2024 1:35 PM BOOMBOAT OPERATOR) Pathologist [facility] INSULIN 17.9 2.6 - 37.6 uIU/ML 04/07/2024 9:52 PM BOOMBOAT OPERATOR [facility] Comment: ASSAY PERFORMED BY CHEMILUMINESCENCE METHODOLOGY USING SIEMENS CENTAUR XPT REAGENT. PATIENT RESULTS DETERMINED BY ASSAYS USING DIFFERENT MANUFACTURERS FOR METHODS MAY NOT BE COMPARABLE. 04/07/2024 1:35 PM BOOMBOAT OPERATOR Gloria Gregorio NP LABORATORY Final Res ult [facility] [address] [place] [address], [place] [phone] * PAP SMEAR WITH HPV (07/16/2022) 07/16/2022 [facility] Scanned SCANNING Final Resu lt from Last 3 Months or Most Recently Relevant to Health Maintenance Insurance [employer] Care Teams Floor Inspector Relationship Specialty Start Date End Date Gloria Gregorio NP [address] [place] [address] PCP - General NURSE PRACTITIONER 02/02/22
--- OUTSIDE RECORDS SUMMARY | 2024-06-18 13:25 | XMS_ITS | Referral Summary ---
Author Organization [facility] Healthcare Address [address] [place] [address] Care Team Providers Care Windows Desktop Support Name Role Phone Lalito Gudino MD Unavailable [phone] Gloria Gregorio MD Primary Care Provider [phone] Allergies No known active allergies Medications ocrelizumab (OCREVUS IV) Ocrevus Q6 Months Active cholecalciferol (VITAMIN D-3) 5,000 unit tablet Take 1 tablet (5,000 Units total) by mouth daily 05/28/2022 Active Active Problems Problem Noted Date Diagnosed Date Lumbago 01/11/2012 Arthralgia of hip 11/09/2011 Social History Tobacco Use Types Packs/Day Years Used Date Smoking Tobacco: Former Cigarettes 0.3 4 2 015 - 2019 Tobacco Cessation:Counseling Given: Not Answered Comments Unknown Sex and Gender Information Value Date Recorded Sex Assigned at Not on file Legal Sex Female 9:54 AM TECHNICIAN HELPER INSTRUMENT Gender Identity Female 12/03/2022 11:45 AM CDT Sexual Orientation Straight 12/03/2022 11 :45 AM CDT Last Filed Vital Signs Vital Sign Reading [...] 07/23/2023 8:58 AM CDT Plan of Treatment Not on file Insurance [employer] SIG [id number] [facility] Care Teams Windows Desktop Support Relationship Specialty Start Date End Date Gloria Gregorio MD [address] [place] [id number] PCP - General Nurse Practitioner 10/11/22 Lalito Gudino MD [address] [place] [address] Referring Physician Neurology 10/02/22
--- OUTSIDE RECORDS SUMMARY | 2024-06-18 13:25 | XMS_ITS | Encounter Summary ---
Author Organization [facility] Address [address] [place] [address] Care Team Providers Care Weigher And Mixer Name Role Phone Gloria Gregorio NP Primary Care Provider [phone] Encounter Details Date Type Department Care Team (Late st Contact Info) Description 05/07/2024 Gangkr Message Enc [facility] Medical Group Family Medicine - [place] [address] [facility] [address] [place] [address] [phone] Gloria Gregorio NP [address] [place], [place] [address] Sick note Social History Tobacco Use Types Packs/Day Years [...] Sex Assigned at Female 06/09/2024 9:52 AM BED LASTER Legal Sex Female 12:19 AM BED LASTER Gender Identity Female 06/16/2024 10:41 AM BED LASTER Sexual Orientation Straight 06/16/2024 10 :41 AM BED LASTER documented as of this encounter Progress Notes * Gloria Gregorio NP - 05/07/2024 12:34 PM CST Will you add her on for acute. LASTER documented in this encounter Plan of Treatment Upcoming Encounters Date Type Department Care Team (Late st Contact Info) Description 06/24/2024 11:00 AM BED LASTER Appointment [facility] [address] Lalito Gudino MD [address] [place] [address] [place] [address] 06/30/2024 11:00 AM BED LASTER Appointment [facility] [address] Lalito Gudino MD [address] [place] [address] [place] [address] 08/07/2024 8:00 AM CDT Treatment [facility] [place] [address] Gloria Gregorio, SANTI [address] [place] [address] 11/17/2024 11:40 AM CDT Telemedicine [facility] Medical Group Multispecialty Care - [address] [place] [address] Lalito Gudino MD [address] [place] [address] documented as of this encounter Visit Diagnoses Not on filedocumented in this encounter Additional Health Concerns Infection Onset Date Last Indicated Resolved Time COVID-19 Rule Out 05/07/2024 05/07/2024 05/07/2024 1:36 PM BED LASTER Influenza - Seasonal 05/07/2024 05/07/2024 025 12:32 AM BED LASTER documented as of this encounter Care Teams Weigher And Mixer Relationship Specialty Start Date End Date Gloria Gregorio NP [address] [place] [address] PCP - General NURSE PRACTITIONER 02/02/22 documented as of this encounter
--- OUTSIDE RECORDS SUMMARY | 2024-06-18 13:25 | XMS_ITS | Encounter Summary ---
Author Organization [facility] Address [address] [place] [address] Care Team Providers Care Flight Attendant/Inflight Manager Name Role Phone Gloria Gregorio NP Primary Care Provider [phone] Encounter Details Date Type Department Care Team (Late st Contact Info) Description 07/11/2023 Pinguot Message Enc [facility] Medical Group Family Medicine [facility] [address] [facility] [address] [place] [phone] Gloria Gregorio, FREIGHT ENGINEER [address] [place] [address] Fmla Social History Tobacco Use Types Packs/Day [...] Sex Assigned at Female 06/09/2024 9:52 AM AERIAL SPRAYER Legal Sex Female 12:19 AM AERIAL SPRAYER Gender Identity Female 06/16/2024 10:41 AM AERIAL SPRAYER Sexual Orientation Straight 06/16/2024 10 :41 AM AERIAL SPRAYER documented as of this encounter Plan of Treatment Upcoming Encounters Date Type Department Care Team (Late Contact Info) Description 06/24/2024 11:00 AM AERIAL SPRAYER Appointment [facility] [place] [address] Lalito Gudino MD [address] [place] [address] [address] [place] [address] 06/30/2024 11:00 AM AERIAL SPRAYER Appointment [facility] [place] [address] Lalito Gudino MD [address] [place] [address] [place] [address] 08/07/2024 8:00 AM CDT Treatment [facility] [place] [address] Gloria Gregorio, FREIGHT ENGINEER [address] [place] [address] 11/17/2024 11:40 AM CDT Telemedicine [facility] Medical Group Multispecialty Care - [address], [address] [place] [address] Lalito Gudino MD [address] [place] [address] documented as of this encounter Visit Diagnoses Not on filedocumented in this encounter Additional Health Concerns Infection Onset Date Last Indicated Resolved Time COVID-19 Rule Out 05/05/2024 05/05/2024 05/05/2024 8:33 AM AERIAL SPRAYER COVID-19 Rule Out 05/07/2024 05/07/2024 05/07/2024 1:36 PM AERIAL SPRAYER Influenza - Seasonal 05/07/2024 05/07/2024 025 12:32 AM AERIAL SPRAYER documented as of this encounter Care Teams Flight Attendant/Inflight Manager Relationship Specialty Start Date End Date Gloria Gregorio NP [address] [place] [address] PCP - General NURSE PRACTITIONER 02/02/22 documented as of this encounter
== END 2024-06-18 13:17 | disposition home or self-care (01) ==
LOC: CHSIMG 13:17
PROVIDERS: PCP Nurse Practitioner; Visit Provider Nurse Practitioner
DX: Z78.0 Asymptomatic menopausal state (principal)
CPT/HCPCS: 77080

== ENCOUNTER 2024-07-20 00:15 | Day surgery (SDC) | payer OTHER, SELFPAY ==
--- NOTE | 2024-07-09 12:48 | SUR.PREOP ---
Report to the Outpatient Waiting Room, entrance under the green pavilion located off [facility], at time ___729____ on date ___07/20/24____. Planned Procedure Time: ____929____.? Time changes happen often and if your time is changed the preop area will call you the afternoon before. - You and your visitor will be asked to self-screen and do not enter if you have any COVID symptoms. Please call surgeon if you need to reschedule. - A mask is optional within the hospital at this time. Patients may have clear liquids (water, carbonated beverages, clear teas, apple juice) until 3 hours prior to surgery with a maximum of 20 ounces. - NO CLEAR LIQUIDS AFTER 0630 - No food from midnight until time of surgery and no smoking, or chewing tobacco (or any form of nicotine). No chewing gum, candy or mints. - Infants may have breast milk until 4 hours before surgery, infant formula 6 hours prior to surgery. - Children will be allowed to drink immediately following surgery.? If applicable, please bring a bottle or sippy cup to assist with drinking. Juice, water, soda, and popsicles are readily available.? For infants on formula, please bring formula the day of surgery.? Pacifiers are allowed. Take only the following medications with a SIP of water on the morning of surgery: N/A DO NOT STOP ANY OF YOUR OTHER PRESCRIPTION MEDICATIONS PRIOR TO SURGERY EXCEPT THE FOLLOWING Hold all vitamins and supplements for 3 days per anesthesiologist. Medications to discontinue per physician N/A Date to take last dose Please no make-up, nail solomon islander, hairspray, perfume, deodorant, or body powder the day of surgery.? No jewelry (including any body piercings) or valuables the day of surgery, leave them at home.? Please take a shower or bath the night before, or the morning of, surgery with an antibacterial soap.? Wear comfortable, loose fitting clothing.? Children are encouraged to wear pajamas. - Jewelry must be removed prior to entering the operating room.? Rings and piercings that are not removed may be cut off. - The hospital will not accept responsibility for valuables.? - Please leave all valuables, including medications, at home the day of surgery. If you are going home after surgery, a licensed driver/merchandiser must drive you home.? - NO public transportation without another adult if you receive anesthesia. - We recommend that an adult stay with you for 24 hours following discharge. - We also recommend that you do not drive, make important decision, drink alcoholic beverages, or take any drugs that were not prescribed by your health care provider for at least 24 hours after your discharge time. For Pediatric surgeries, we recommend two adults accompany the child home. Follow any additional instructions given to you from your surgeon. Telephone instructions given to TERRA ENCINAS and asked if any additional questions and then verbalized understanding. Patient advised to call surgeon office or pre surgery nurse liaison [phone] if any additional questions.
[2024-07-09 12:58] VITALS: BMI 30.8
[2024-07-20] VITALS (9 sets, daily range): BP systolic 107–149; BP diastolic 61–90; PULSE 52–84; RESP 9–16; TEMP 36.2–36.4; O2SAT 98–100
--- OUTSIDE RECORDS SUMMARY | 2024-07-20 00:18 | XMS_ITS | Encounter Summary ---
Author Organization [facility] Address [address] [place] [address] Care Team Providers Care Test Hole Driller Name Role Phone Gloria Gregorio NP Primary Care Provider [phone] Encounter Details Date Type Department Care Team (Latest Contact Info) Description 03/18/2018 Abstract [facility] Karmen Cardenas MD Social History Tobacco Use Types Packs/Day Years Used Date Smoking Tobacco: Never Assessed Comments Unknown Sex and Gender Information Value Date Recorded Sex Assigned at Female 06/09/2024 9:52 AM TELEVISION INSTALLER HELPER Legal Sex Female 12:19 AM TELEVISION INSTALLER HELPER Gender Identity Female 06/16/2024 10:41 AM TELEVISION INSTALLER HELPER Sexual Orientation Straight 06/16/2024 10 :41 AM TELEVISION INSTALLER HELPER documented as of this encounter Plan of Treatment Upcoming Encounters Date Type Department Care Team (Late st Contact Info) Description 07/24/2024 11:00 AM CDT Appointment [facility] [place]patient [place] [address] Lalito Gudino MD [address] [place] [address] Viv Carmona, CUTTER [place] [address] 11/17/2024 11:40 AM CDT Telemedicine [facility] Multispecialty Care - [address] [place] [address] Lalito Gudino MD [address] [place] [address] documented as of this encounter Visit Diagnoses Not on filedocumented in this encounter Additional Health Concerns Infection Onset Date Last Indicated Resolved Time COVID-19 Rule Out 01/23/2023 01/23/2023 01/23/2023 10:48 AM CDT COVID-19 Confirmed 01/23/2023 01/23/2023 12:32 AM CDT COVID-19 Rule Out 05/05/2024 05/05/2024 05/05/2024 8:33 AM TELEVISION INSTALLER HELPER COVID-19 Rule Out 05/07/2024 05/07/2024 05/07/2024 1:36 PM TELEVISION INSTALLER HELPER Influenza - Seasonal 05/07/2024 05/07/2024 025 12:32 AM TELEVISION INSTALLER HELPER documented as of this encounter Care Teams Test Hole Driller Relationship Specialty Start Date End Date Gloria Gregorio NP [address] [place] [address] PCP - General NURSE PRACTITIONER 02/02/22 documented as of this encounter
--- OUTSIDE RECORDS SUMMARY | 2024-07-20 00:19 | XMS_ITS | Encounter Summary ---
Author Organization [facility] Address [address] [facility] [place] [address] Care Team Providers Care Collections Assistant Name Role Phone Unavailable Primary Care Provider Unavailabl e Encounter Details Date Type Department Care Team (Late st Contact Info) Description 11/21/2022 Lab Requisition [facility] - DermPath Lab [address] [facility], [place] [address] Luis Moscoso MD [address] [place] [address] Social History Tobacco Use Types Packs/Day Years [...] AM CDT) Case Report Dermatopathology Report Case: [id number] Authorizing Provider: Luis Moscoso MD Collected: 11/21/2022 12:00 AM Ordering Location: [facility] DermPath Lab Received: 11/22/2022 07:16 AM Pathologist: Faby Alejandro MD Specimen: Skin, right post. scalp 3:20 PM CDT DERMATOPATHOLOGY LABORATORY Final Diagnosis Specimen A. SKIN, right post. scalp: INTRADERMAL MELANOCYTIC NEVUS (D22.4) 3:20 PM CDT DERMATOPATHOLOGY LABORATORY Clinical History Nevus Path#[id number] 3:20 PM CDT DERMATOPATHOLOGY LABORATORY Gross Description [...] characteristic determined by the Dermatopathology Laboratory at [facility], directed by Dr. Michelle Yeung. These tests need not be, and therefore are not, approved by the [place] Food and Drug Administration. The tests are used for clinical purposes. Billing Codes Specimen Charges Stain Charges 04752 1 3:20 PM CDT DERMATOPATHOLOGY LABORATORY Embedded Images 3:20 PM CDT DERMATOPATHOLOGY LABORATORY Pathology/Cytolog y TISSUE SPECIMEN FROM SKIN / Unknown 11/21/2022 11/22/2022 7:16 AM CDT Luis Moscoso MD LAB - PATHOLOGY/CYTO LOGY ORDERABLES DERMATOPATHOLOGY LABORATORY [facility] - Department of Dermatology [address], [address] [phone] documented in this encounter Visit Diagnoses Not on filedocumented in this encounter
--- OUTSIDE RECORDS SUMMARY | 2024-07-20 00:19 | XMS_ITS | Encounter Summary ---
Author Organization [facility] Address [address] [place] [address] Care Team Providers Care Bullard Machine Operator Name Role Phone Gloria Gregorio NP Primary Care Provider [phone] [phone] Encounter Details Date Type Department Care Team (Late st Contact Info) Description 05/26/2022 MyChart Message Enc [facility] Medical Group Multispecialty Care - [facility] [address] [facility], [address] [place] [address] Lalito Gudino MD [address] [place] [address] Blood test Social History Tobacco Use Types [...] Sex Assigned at Female 06/09/2024 9:52 AM LICENSE REGISTRATION EXAMINER Legal Sex Female 12:19 AM LICENSE REGISTRATION EXAMINER Gender Identity Female 06/16/2024 10:41 AM LICENSE REGISTRATION EXAMINER Sexual Orientation Straight 06/16/2024 10 :41 AM LICENSE REGISTRATION EXAMINER COVID-19 Exposure Response Date Recorded In the last 10 days, have yo u been in contact with someone who was confirmed or suspected to have Coronavirus/COVID-19? No / Unsure 05/28/2022 4:21 PM LICENSE REGISTRATION EXAMINER documented as of this encounter Plan of Treatment Upcoming Encounters Date Type Department Care Team (Late st Contact Info) Description 07/24/2024 11:00 AM CDT Appointment [facility] [place] [address] Lalito Gudino MD [address] [place] [address] Viv Carmona, DEVELOPMENTAL TRAINING [place] [address] 11/17/2024 11:40 AM CDT Telemedicine [facility] Medical Group Multispecialty Care - [facility] [address] [facility], [address] [place] [address] Lalito Gudino MD [address] [place] [address] documented as of this encounter Visit Diagnoses Not on filedocumented in this encounter Additional Health Concerns Infection Onset Date Last Indicated Resolved Time COVID-19 Rule Out 01/23/2023 01/23/2023 01/23/2023 10:48 AM CDT COVID-19 Confirmed 01/23/2023 01/23/2023 12:32 AM CDT COVID-19 Rule Out 05/05/2024 05/05/2024 05/05/2024 8:33 AM LICENSE REGISTRATION EXAMINER COVID-19 Rule Out 05/07/2024 05/07/2024 05/07/2024 1:36 PM LICENSE REGISTRATION EXAMINER Influenza - Seasonal 05/07/2024 05/07/2024 025 12:32 AM LICENSE REGISTRATION EXAMINER documented as of this encounter Care Teams Bullard Machine Operator Relationship Specialty Start Date End Date Gloria Gregorio NP [address] [place] [address] PCP - General NURSE PRACTITIONER 02/02/22 documented as of this encounter
--- OUTSIDE RECORDS SUMMARY | 2024-07-20 00:19 | XMS_ITS | Referral Summary ---
Author Organization [facility] Address [address] [place] [address] Care Team Providers Care Vinyl Hanger Name Role Phone Unavailable Primary Care Provider Unavailabl e Source Comments [facility],non-[facility] Affiliates and Associated Physician Practices is amultiple site organization consisting of ambulatory clinics and hospital sitesin [place], [place], [place] and [place]. This disclosure is being madepursuant to the Care Everywhere program and may not contain all information available regarding this patient. Last updated 18.[facility] Social History Tobacco Use Types Packs/Day Years Used Date Smoking Tobacco: Never Assessed Sex and Gender Information Value Date Recorded Sex Assigned at Not on file Gender Identity Not on file Sexual Orientation Not on file Plan of Treatment Not on file
--- OUTSIDE RECORDS SUMMARY | 2024-07-20 00:19 | XMS_ITS | Encounter Summary ---
Author Organization [facility] Address [address] [facility] [place] [address] Care Team Providers Care Personal Injury Legal Assistant Name Role Phone Unavailable Primary Care Provider Unavailabl e Encounter Details Date Type Department Care Team (Late st Contact Info) Description 01/02/2023 Lab Requisition [facility] - DermPath Lab [address] [facility] [place] [id number] Luis Moscoso MD [address] [place] [address] Social History Tobacco Use Types Packs/Day Years [...] AM CDT) Case Report Dermatopathology Report Case: [id number] Authorizing Provider: Luis Moscoso MD Collected: 01/02/2023 12:00 AM Ordering Location: [facility] DermPath Lab Received: 01/03/2023 07:46 AM Pathologist: Faby Alejandro MD Specimens: A) - Skin, ant. scalp B) - Skin, right post scalp 4:02 PM CDT DERMATOPATHOLOGY LABORATORY Final Diagnosis Specimen A. SKIN, ant. scalp: TRICHILEMMAL (PILAR) CYST WITH CALCIFICATION (L72.12) PRESENT AT MARGIN Specimen B. SKIN, right post scalp: TRICHILEMMAL (PILAR) CYST (L72.12) PRESENT AT MARGIN 3 4:02 PM [facility] DERMATOPATHOLOGY LABORATORY Clinical History A: pilar Cyst Path#[id number] check margins B: Pilar Cyst Path#[id number] check margins 3 4:02 PM [facility] DERMATOPATHOLOGY LABORATORY Gross Description Specimen A: Received is one formalin filled container labeled with the patient's name and designated ant. scalp. The specimen consists of a [id number] mm piece of skin. The specimen is serially sectioned and a bilingual call center representative section is submitted in cassette 1. Jar 0. Specimen B: Received is one formalin filled container labeled with the patient's name and designated right post scalp. The specimen consists of a 10x7x8 mm piece of skin. The specimen is serially sectioned and a bilingual call center representative section is submitted in cassette 1. Jar 0. 3 4:02 PM [facility] DERMATOPATHOLOGY LABORATORY Microscopic Description Specimen A. SKIN, [...] margin of the specimen. 3 4:02 PM [facility] DERMATOPATHOLOGY LABORATORY Disclaimer An external and internal positive and negative controls are appropriate for the histochemical, immunohistochemical and immunofluorescence stain(s) in this case (if any), except where stated explicitly. The performance characteristics of the stain(s) cited in this report were developed and its performance characteristic determined by the Dermatopathology Laboratory at [facility], directed by Dr. Michelle Yeung. These tests need not be, and therefore are not, approved by the [place] Food and Drug Administration. The tests are used for clinical purposes. Billing Codes Specimen Charges Stain Charges 53076 18308 1 1 3 4:02 PM CDT DERMATOPATHOLOGY LABORATORY Embedded Images 4:02 PM CDT DERMATOPATHOLOGY LABORATORY Pathology/Cytology TISSUE SPECIMEN FROM SKIN / Unknown 01/02/2023 01/03/2023 7:46 AM CDT Miscellaneous samples (specimen) TISSUE SPECIMEN FROM SKIN / Unknown 01/02/2023 01/03/2023 7:46 AM CDT Luis Moscoso MD LAB - PATHOLOGY/CYTO LOGY ORDERABLES DERMATOPATHOLOGY LABORATORY [facility] - Department of Dermatology [facility] Medicine [address] [place] [address], [address] [phone] documented in this encounter Visit Diagnoses Not on filedocumented in this encounter
--- OUTSIDE RECORDS SUMMARY | 2024-07-20 00:19 | XMS_ITS | Encounter Summary ---
Author Organization [facility] Address [address] [place] [address] Care Team Providers Care Cause Analyst Name Role Phone Gloria Gregorio NP Primary Care Provider [phone] [phone] Encounter Details Date Type Department Care Team (Late Contact Info) Description 06/30/2022 Maxeler Technologiest Message Enc [facility] Family Medicine [facility] [address] [facility] [address] [place] [phone] Gloria Gregorio, COOK HELPER PRESERVES [address] [place] [address] Mamm/Pap Social History Tobacco Use Types Packs/Day [...] Sex Assigned at Female 06/09/2024 9:52 AM VARNISHING MACHINE OPERATOR Legal Sex Female 12:19 AM VARNISHING MACHINE OPERATOR Gender Identity Female 06/16/2024 10:41 AM VARNISHING MACHINE OPERATOR Sexual Orientation Straight 06/16/2024 10 :41 AM VARNISHING MACHINE OPERATOR COVID-19 Exposure Response Date Recorded In the last 10 days, have yo u been in contact with someone who was confirmed or suspected to have Coronavirus/COVID-19? No / Unsure 07/03/2022 7:54 AM VARNISHING MACHINE OPERATOR documented as of this encounter Plan of Treatment Upcoming Encounters Date Type Department Care Team (Late Contact Info) Description 07/24/2024 11:00 AM CDT Appointment [facility] [place]patient [place] [address] Lalito Gudino MD [address] [place] [address] Viv Carmona, [place] [address] 11/17/2024 11:40 AM CDT Telemedicine [facility] Multispecialty Care - [facility] [address] [facility], [address] [place] [address] Lalito Gudino MD [address] [place] [address] documented as of this encounter Visit Diagnoses Not on filedocumented in this encounter Additional Health Concerns Infection Onset Date Last Indicated Resolved Time COVID-19 Rule Out 01/23/2023 01/23/2023 01/23/2023 10:48 AM CDT COVID-19 Confirmed 01/23/2023 01/23/2023 12:32 AM CDT COVID-19 Rule Out 05/05/2024 05/05/2024 05/05/2024 8:33 AM VARNISHING MACHINE OPERATOR COVID-19 Rule Out 05/07/2024 05/07/2024 05/07/2024 1:36 PM VARNISHING MACHINE OPERATOR Influenza - Seasonal 05/07/2024 05/07/2024 025 12:32 AM VARNISHING MACHINE OPERATOR documented as of this encounter Care Teams Cause Analyst Relationship Specialty Start Date End Date Gloria Gregorio NP [address] [place] [address] PCP - General NURSE PRACTITIONER 02/02/22 documented as of this encounter
--- OUTSIDE RECORDS SUMMARY | 2024-07-20 00:19 | XMS_ITS | Encounter Summary ---
Author Organization [facility] Address [address] [place] [address] Care Team Providers Care General Education Instructor Name Role Phone Gloria Gregorio NP Primary Care Provider [phone] [phone] Encounter Details Date Type Department Care Team (Late st Contact Info) Description 05/07/2024 4-Tell Message Enc [facility] Family Medicine - [place] [address] [facility] [address] [place] [phone] Gloria Gregorio NP [address] [place], [place] [address] Sick note Social History Tobacco Use Types [...] Sex Assigned at Female 06/09/2024 9:52 AM TECHNICAL RESEARCH SCIENTIST Legal Sex Female 12:19 AM TECHNICAL RESEARCH SCIENTIST Gender Identity Female 06/16/2024 10:41 AM TECHNICAL RESEARCH SCIENTIST Sexual Orientation Straight 06/16/2024 10 :41 AM TECHNICAL RESEARCH SCIENTIST documented as of this encounter Progress Notes * Gloria Gregorio NP - 05/07/2024 12:34 PM CST Will you add her on for acute. NICAL RESEARCH SCIENTIST documented in this encounter Plan of Treatment Upcoming Encounters Date Type Department Care Team (Late st Contact Info) Description 07/24/2024 11:00 AM CDT Appointment [facility] [place] [address] Lalito Gudino MD [address] [place] [address] Viv Carmona, ELIGIBILITY [place] [address] 11/17/2024 11:40 AM CDT Telemedicine [facility] Multispecialty Care - [facility] [address] [facility], [address] [place] [address] Lalito Gudino MD [address] [place] [address] documented as of this encounter Visit Diagnoses Not on filedocumented in this encounter Additional Health Concerns Infection Onset Date Last Indicated Resolved Time COVID-19 Rule Out 05/07/2024 05/07/2024 05/07/2024 1:36 PM TECHNICAL RESEARCH SCIENTIST Influenza - Seasonal 05/07/2024 05/07/2024 025 12:32 AM TECHNICAL RESEARCH SCIENTIST documented as of this encounter Care Teams General Education Instructor Relationship Specialty Start Date End Date Gloria Gregorio NP [address] [place] [address] PCP - General NURSE PRACTITIONER 02/02/22 documented as of this encounter
--- OUTSIDE RECORDS SUMMARY | 2024-07-20 00:19 | XMS_ITS | Clinical Summary ---
Author Organization [facility] Address [address] [place] [address] Care Team Providers Care Taxi Driver Name Role Phone Unavailable Primary Care Provider Unavailabl e Source Comments [facility],non-owned Affiliates and Associated Physician Practices is amultiple site organization consisting of ambulatory clinics and hospital sitesin [place], [place], [place] and [place]. This disclosure is being madepursuant to the Care Everywhere program and may not contain all information available regarding this patient. Last updated 18.[facility] Social History Tobacco Use Types Packs/Day Years [...]
--- OUTSIDE RECORDS SUMMARY | 2024-07-20 00:19 | XMS_ITS | Referral Summary ---
Author Organization [facility] Address [address] [place] [address] Care Team Providers Care Product Support Representative Name Role Phone Lalito Gudino MD Unavailable [phone] Gloria Gregorio MD Primary Care Provider +1- [phone] Allergies No known active allergies Medications ocrelizumab [...] on file Legal Sex Female 9:54 AM CRANE MANAGER Gender Identity Female 12/03/2022 11:45 AM CDT [...] Treatment Not on file Insurance [employer] SIG [id number] Member Subscriber Plan / Payer (Ef fective 2012-Present) Name:Josephine Encinas Relation to Subscriber:Spouse Name:NEO ENCINAS Date of :1983 (Home) Address: [address] [place] [address] Payer ID:[id number] (NAIC) Type:AETNA HMO/PPO Address: [address] [place] [address] [facility] Care Teams Product Support Representative Relationship Specialty Start Date End Date Gloria Gregorio MD [address] [place] [address] PCP - General Nurse Practitioner 10/11/22 Lalito Gudino MD [address] [place] [address] Referring Physician Neurology 10/02/22
--- OUTSIDE RECORDS SUMMARY | 2024-07-20 00:19 | XMS_ITS | Data Portability ---
Author Organization [facility] Address [address] [place] [address] Care Team Providers Care Wafer Slicer Name Role Phone CHELSEA SOMMERS Primary Care Provider RACHAEL GIANG OTHER [phone] Assessment Encounter Date Assessment Date Assessment LastModified [...] Lab CBC w/ auto diff 2021 022 [facility] (Lab), [address] [facility] [address], [place], [address], 05:44:44 CMP, serum or plasma 2021 022 [facility] (Lab), [address], [place], [address], 05:44:46 prolactin, serum 2021 022 [facility] (Lab), [address], [place], [address], 2 05:44:49 HbA1c (hemoglobi n A1c), blood 2021 022 [facility] (Lab), [address], [place], [address], 05:44:52 TSH, serum or plasma 2021 022 [facility] (Lab), [address], [place], [address], 05:44:47 beta-HCG, quantitati ve, serum or plasma 2021 022 [facility] (Lab), [address], [place], [address], 05:44:47 hormone panel, serum or plasma 2021 022 [facility] (Lab), [address], [place], [address], 2 05:44:51 progestero ne, serum 2021 022 [facility] (Lab), [address], [place], [address], 2 05:44:48 estradiol, serum 2021 022 [facility] (Lab), [address], [place], [address], 2 05:44:50 testostero ne, total, serum 2021 022 [facility] (Lab), [address], [place], [address], 2 05:44:45 Referral None recorded. Procedures None recorded. Surgeries None recorded. Imaging MAMMO, screening, bilateral [address] [facility], [address], [place], [address], 4 09:44:43 MAMMO, screening, bilateral [address] [facility], [address], [place], [address], 3 05:01:35 Medication Orders None recorded. Patient TargetsNo targets [...] Trime ster5 8.70- 214.0 0 Not Available [facility] (Lab) [address], [place], [address], 01/12/2021 15:15:30 02/04/20 21 02/03/2021 PROGE STERO [...] Trime ster5 8.70- 214.0 0 Not Available [facility] (Lab) [address], [place], [address], 02/04/2021 04:03:55 10/11/19 22 10/10/2021 CBC W/DIF F WBC 10.2 10'3/ uL 3.6-10 .2 Not Available [facility] (Lab) [address], [place], [address], 10/11/2021 05:44:44 10/11/19 22 10/10/2021 CBC W/DIF F RBC 4.70 10'6/ uL (based on docume nted legal sex) 4.10-5 .30 Not Available [facility] (Lab) [address] [place], [address], 10/11/2021 05:44:44 10/11/19 22 10/10/2021 CBC W/DIF F HGB 13.3 g/dL (based on docume nted legal sex) 11.9-1 5.8 Not Available [facility] (Lab) [address] [place], [address], 10/11/2021 05:44:44 10/11/19 22 10/10/2021 CBC W/DIF F HCT 41.6 % (based on docume nted legal sex) 37.4-4 8.3 Not Available [facility] (Lab) [address] [place], [address], 10/11/2021 05:44:44 10/11/19 22 10/10/2021 CBC W/DIF F MCV 88.0 fL 82.0-9 9.0 Not Available [facility] (Lab) [address], [place], [address], 10/11/2021 05:44:44 10/11/19 22 10/10/2021 CBC W/DIF F MCH 28.0 pg 27.0-3 3.0 Not Available [facility] (Lab) [address], [place], [address], 10/11/2021 05:44:44 10/11/19 22 10/10/2021 CBC W/DIF F MCHC 32.0 g/dL 32.0-3 6.0 Not Available [facility] (Lab) [address], [place], [address], 10/11/2021 05:44:44 10/11/19 22 10/10/2021 CBC W/DIF F RDW 13.0 % 11.0-1 5.0 Not Available [facility] (Lab) [address] [facility] [address], [place], [address], 10/11/2021 05:44:44 10/11/19 22 10/10/2021 CBC W/DIF F plt 347 10'3/ uL 150-45 0 Not Available [facility] (Lab) [address], [place], [address], 10/11/2021 05:44:44 10/11/19 22 10/10/2021 CBC W/DIF F MPV 11.2 fL 9.8-12 .7 Not Available [facility] (Lab) [address], [place], [address], 10/11/2021 05:44:44 10/11/19 22 10/10/2021 CBC W/DIF F NRBC's 0.00 % 0 Not Available [facility] (Lab) [address] [facility] [address], [place], [address], 10/11/2021 05:44:44 10/11/19 22 10/10/2021 CBC W/DIF F absolute NRBCs 0.0 10'3/ uL 0 Not Available [facility] (Lab) [address] [facility] [address], [place], [address], 10/11/2021 05:44:44 10/11/19 22 10/10/2021 CBC W/DIF F neutrophils 62.0 % 37.0-7 2.0 Not Available [facility] (Lab) [address], [place], [address], 10/11/2021 05:44:44 10/11/19 22 10/10/2021 CBC W/DIF F lymphocytes 30.0 % 16.0-4 8.0 Not Available [facility] (Lab) [address] [facility] [address], [place], [address], 10/11/2021 05:44:44 10/11/19 22 10/10/2021 CBC W/DIF F monocytes 6.0 % 4.0-14 .0 Not Available [facility] (Lab) [address], [place], [address], 10/11/2021 05:44:44 10/11/19 22 10/10/2021 CBC W/DIF F eosinophils 1.0 % 0.0-9. 0 Not Available [facility] (Lab) [address] [facility] [address], [place], [address], 10/11/2021 05:44:44 10/11/19 22 10/10/2021 CBC W/DIF F basophils 1.0 % 0.0-2. 0 Not Available [facility] (Lab) [address], [place], [address], 10/11/2021 05:44:44 10/11/19 22 10/10/2021 CBC W/DIF F immature granulocytes 0.0 % no define d refere nce range Not Available [facility] (Lab) [address], [place], [address], 10/11/2021 05:44:44 10/11/19 22 10/10/2021 CBC W/DIF F absolute neutrophils 6.3 10'3/ uL 1.1-6. 0 high Not Available [facility] (Lab) [address] [place], [address], 10/11/2021 05:44:44 10/11/19 22 10/10/2021 CBC W/DIF F absolute lymphocytes 3.1 10'3/ uL 0.7-3. 4 Not Available [facility] (Lab) [address], [place], [address], 10/11/2021 05:44:44 10/11/19 22 10/10/2021 CBC W/DIF F absolute monocytes 0.6 10'3/ uL 0.3-1. 0 Not Available [facility] (Lab) [address], [place], [address], 10/11/2021 05:44:44 10/11/19 22 10/10/2021 CBC W/DIF F absolute eosinophils 0.1 10'3/ uL 0.0-0. 6 Not Available [facility] (Lab) [address] [place], [address], 10/11/2021 05:44:44 10/11/19 22 10/10/2021 CBC W/DIF F absolute basophils 0.1 10'3/ uL 0.0-0. 1 Not Available [facility] (Lab) [address] [place], [address], 10/11/2021 05:44:44 10/11/19 22 10/10/2021 CBC W/DIF [...] resul ts are expec leonard. Not Available [facility] (Lab) [address], [place], [address], 10/11/2021 05:44:44 10/11/19 22 10/10/2021 TESTO STERO NE, TOTAL testosterone , total 72 NG/dL 0-100 Not Available [facility] (Lab) [address], [place], [address], 10/11/2021 05:44:45 10/11/19 22 10/10/2021 CMP WITH BUN/C REAT RATIO sodium 136 mmol/ L 133-14 6 Not Available [facility] (Lab) [address], [place], [address], 10/11/2021 05:44:46 10/11/19 22 10/10/2021 CMP WITH BUN/C REAT RATIO potassium 4.0 mmol/ L 3.5-5. 1 Not Available [facility] (Lab) [address] [place], [address], 10/11/2021 05:44:46 10/11/19 22 10/10/2021 CMP WITH BUN/C REAT RATIO chloride 101 mmol/ L 98-107 Not Available [facility] (Lab) [address] [place], [address], 10/11/2021 05:44:46 10/11/19 22 10/10/2021 CMP WITH BUN/C REAT RATIO carbon dioxide 27 mmol/ L 21-31 Not Available [facility] (Lab) [address] [place], [address], 10/11/2021 05:44:46 10/11/19 22 10/10/2021 CMP WITH BUN/C REAT RATIO anion gap 8 mmol/ L 4-13 Not Available [facility] (Lab) [address] [place], [address], 10/11/2021 05:44:46 10/11/19 22 10/10/2021 CMP WITH BUN/C REAT RATIO blood urea nitrogen 7 mg/dL 7-25 Not Available [facility] (Lab) [address], [place], [address], 10/11/2021 05:44:46 10/11/19 22 10/10/2021 CMP WITH BUN/C REAT RATIO creatinine 0.53 mg/dL 0.60-1 .30 low Not Available [facility] (Lab) [address], [place], [address], 10/11/2021 05:44:46 10/11/19 22 10/10/2021 CMP WITH BUN/C REAT RATIO egfrcr (CKD-epi 2020) >90 mL/mi n/1.7 3_m2 >=60 Not Available [facility] (Lab) [address], [place], [address], 10/11/2021 05:44:46 10/11/19 22 10/10/2021 CMP WITH BUN/C REAT RATIO BUN/creatini ne ratio 13.2 . 10.0-2 2.0 Not Available [facility] (Lab) [address], [place], [address], 10/11/2021 05:44:46 10/11/19 22 10/10/2021 CMP WITH BUN/C REAT RATIO calcium 9.4 mg/dL 8.3-10 .5 Not Available [facility] (Lab) [address], [place], [address], 10/11/2021 05:44:46 10/11/19 22 10/10/2021 CMP WITH BUN/C REAT RATIO glucose 81 mg/dL 70-100 Not Available [facility] (Lab) [address] [place], [address], 10/11/2021 05:44:46 10/11/19 22 10/10/2021 CMP WITH BUN/C REAT RATIO protein, total 7.1 g/dL 6.4-8. 3 Not Available [facility] (Lab) [address] [place], [address], 10/11/2021 05:44:46 10/11/19 22 10/10/2021 CMP WITH BUN/C REAT RATIO albumin 4.1 g/dL 3.5-5. 0 Not Available [facility] (Lab) [address] [place], [address], 10/11/2021 05:44:46 10/11/19 22 10/10/2021 CMP WITH BUN/C REAT RATIO ALT 24 units /L 9-43 Not Available [facility] (Lab) [address] [place], [address], 10/11/2021 05:44:46 10/11/19 22 10/10/2021 CMP WITH BUN/C REAT RATIO alkaline phosphatase 83 units /L 34-104 Not Available [facility] (Lab) [address] [place], [address], 10/11/2021 05:44:46 10/11/19 22 10/10/2021 CMP WITH BUN/C REAT RATIO AST 16 units /L 13-39 Not Available [facility] (Lab) [address] [place], [address], 10/11/2021 05:44:46 10/11/19 22 10/10/2021 CMP WITH BUN/C REAT RATIO bilirubin, total 0.4 mg/dL 0.2-1. 2 Not Available [facility] (Lab) [address] [place], [address], 10/11/2021 05:44:46 10/11/19 22 10/10/2021 TSH, REFLE X FREE T4 TSH 1.75 uIU/m L 0.30-5 .33 Not Available [facility] (Lab) [address] [place], [address], 10/11/2021 05:44:47 10/11/19 22 10/10/2021 BHCG, QUANT ITATI VE B-HCG <0.2 mIU/m L This assay was perfo rmed using [employer] n reage nts and test kits. Value s obtai santos with other assay metho ds or kits canno t be used inter [facility] [place] . Refer ence Range s: Non-p regna [...] Weeks 8,099 - 58,17 6 Not Available [facility] (Lab) [address], [place], [address], 10/11/2021 05:44:47 10/11/19 22 10/10/2021 PROGE STERO NE progesterone 5.31 NG/mL This assay was perfo rmed using [employer] reage nts and test kits. Value s obtai santos with other assay metho ds or kits canno t be used inter [facility] eay . Femal e Proge stero ne Range s: Folli cular phase 0.06- 0.89 ng/mL Ovula tion phase 0.12- 12.00 ng/mL Lutea l phase 1.83- 23.90 ng/mL Postm enopa usal< 0.05- 0.13 ng/mL Healt hy Pregn ant Women 1st Trime ster1 1.0-4 4.30 2nd Trime ster2 5.40- 83.30 3rd Trime ster5 8.70- 214.0 0 Not Available [facility] (Lab) [address] [place], [address], 10/11/2021 05:44:48 10/11/19 22 10/10/2021 PROLA CTIN prolactin, total 31.20 NG/mL 4.79-2 3.30 high This assay was perfo rmed using [employer] reage nts and test kits. Value s obtai santos with other assay metho ds or kits canno t be used inter [facility] e[facility] . Not Available [facility] (Lab) [address] [place], [address], 10/11/2021 05:44:49 10/11/19 22 10/10/2021 ESTRA DIOL [...] 561-2 1280 pg/mL 3rd Trime ster8 525-> 65014 pg/mL This assay was perfo rmed using [...] 561-2 1280 pg/mL 3rd Trime ster8 525-> 33294 pg/mL Not Available [facility] (Lab) [address] [place], [address], 10/11/2021 05:44:50 10/11/19 22 10/10/2021 FSH, LH, ESTRA DIOL estradiol 109.0 pg/mL This assay was perfo rmed using [employer] reage nts and test kits. Value s obtai santos with other assay metho ds or kits canno t be used inter [facility] eay . Femal e Estra diol Range s: Folli cular phase 12.4- 233 pg/mL Ovula tion phase 41.0- 398 pg/mL Lutea l phase 22.3- 341 pg/mL Postm enopa usal< 5-138 pg/mL Healt hy Pregn ant Women 1st Trime ster1 54-32 43 pg/mL 2nd Trime ster1 561-2 1280 pg/mL 3rd Trime ster8 525-> 01726 pg/mL Not Available [facility] (Lab) [address] [place], [address], 10/11/2021 05:44:51 10/11/19 22 10/10/2021 FSH, LH, ESTRA DIOL FSH 5.5 mIU/m L This assay was perfo rmed using [employer] reage nts and test kits. Value s obtai santos with other assay metho ds or kits canno t be used inter [facility] eay . Femal es Folli cular : 3.5-1 2.5 mIU/m L Ovula tion: 4.7-2 1.5 mIU/m L Lutea l: 1.7-7 .7 mIU/m L Postm enopa use: 25.8- 134.8 mIU/m L Not Available [facility] (Lab) [address] [place], [address], 10/11/2021 05:44:51 10/11/19 22 10/10/2021 FSH, LH, [...] use: 7.7-5 8.5 mIU/m L Not Available [facility] (Lab) [address], [place], [address], 10/11/2021 05:44:51 10/11/19 22 10/10/2021 HEMOG LOBIN [...] >8.0% Actio n sugge sted Not Available [facility] (Lab) [address], [place], [address], 10/11/2021 05:44:52 10/24/19 22 10/23/2021 PROLA CTIN prolactin, total 24.80 NG/mL 4.79-2 3.30 high This assay was perfo rmed using [employer] reage nts and test kits. Value s obtai santos with other assay metho ds or kits canno t be used inter [facility] eacaspar . Copy resul ts to: CHAZ GOODE , fax Not Available [facility] (Lab) [address], [place], [address], 10/24/2021 05:54:32 10/24/19 22 10/23/2021 CBC W/DIF F WBC 8.3 10'3/ uL 3.6-10 .2 Not Available [facility] (Lab) [address], [place], [address], 10/24/2021 05:54:33 10/24/19 22 10/23/2021 CBC W/DIF F RBC 4.80 10'6/ uL (based on docume nted legal sex) 4.10-5 .30 Not Available [facility] (Lab) [address], [place], [address], 10/24/2021 05:54:33 10/24/19 22 10/23/2021 CBC W/DIF F HGB 13.6 g/dL (based on docume nted legal sex) 11.9-1 5.8 Not Available [facility] (Lab) [address], [place], [address], 10/24/2021 05:54:33 10/24/19 22 10/23/2021 CBC W/DIF F HCT 43.8 % (based on docume nted legal sex) 37.4-4 8.3 Not Available [facility] (Lab) [address], [place], [address], 10/24/2021 05:54:33 10/24/19 22 10/23/2021 CBC W/DIF F MCV 92.0 fL 82.0-9 9.0 Not Available [facility] (Lab) [address], [place], [address], 10/24/2021 05:54:33 10/24/19 22 10/23/2021 CBC W/DIF F MCH 29.0 pg 27.0-3 3.0 Not Available [facility] (Lab) [address], [place], [address], 10/24/2021 05:54:33 10/24/19 22 10/23/2021 CBC W/DIF F MCHC 31.0 g/dL 32.0-3 6.0 low Not Available [facility] (Lab) [address], [place], [address], 10/24/2021 05:54:33 10/24/19 22 10/23/2021 CBC W/DIF F RDW 13.0 % 11.0-1 5.0 Not Available [facility] (Lab) [address], [place], [address], 10/24/2021 05:54:33 10/24/19 22 10/23/2021 CBC W/DIF F plt 352 10'3/ uL 150-45 0 Not Available [facility] (Lab) [address], [place], [address], 10/24/2021 05:54:33 10/24/19 22 10/23/2021 CBC W/DIF F MPV 11.0 fL 9.8-12 .7 Not Available [facility] (Lab) [address], [place], [address], 10/24/2021 05:54:33 10/24/19 22 10/23/2021 CBC W/DIF F NRBC's 0.00 % 0 Not Available [facility] (Lab) [address] [place], [address], 10/24/2021 05:54:33 10/24/19 22 10/23/2021 CBC W/DIF F absolute NRBCs 0.0 10'3/ uL 0 Not Available [facility] (Lab) [address] [place], [address], 10/24/2021 05:54:33 10/24/19 22 10/23/2021 CBC W/DIF F neutrophils 64.0 % 37.0-7 2.0 Not Available [facility] (Lab) [address], [place], [address], 10/24/2021 05:54:33 10/24/19 22 10/23/2021 CBC W/DIF F lymphocytes 29.0 % 16.0-4 8.0 Not Available [facility] (Lab) [address] [facility], [place], [address], 10/24/2021 05:54:33 10/24/19 22 10/23/2021 CBC W/DIF F monocytes 5.0 % 4.0-14 .0 Not Available [facility] (Lab) [address] [facility] [address] [facility], [place], [address], 10/24/2021 05:54:33 10/24/19 22 10/23/2021 CBC W/DIF F eosinophils 1.0 % 0.0-9. 0 Not Available [facility] (Lab) [address] [facility] [address], [place], [address], 10/24/2021 05:54:33 10/24/19 22 10/23/2021 CBC W/DIF F basophils 1.0 % 0.0-2. 0 Not Available [facility] (Lab) [address] [facility] [address], [place], [address], 10/24/2021 05:54:33 10/24/19 22 10/23/2021 CBC W/DIF F immature granulocytes 0.0 % no define d refere nce range Not Available [facility] (Lab) [address] [facility] [address] [facility], [place], [address], 10/24/2021 05:54:33 10/24/19 22 10/23/2021 CBC W/DIF F absolute neutrophils 5.3 10'3/ uL 1.1-6. 0 Not Available [facility] (Lab) [address] [place], [address], 10/24/2021 05:54:33 10/24/19 22 10/23/2021 CBC W/DIF F absolute lymphocytes 2.4 10'3/ uL 0.7-3. 4 Not Available [facility] (Lab) [address] [facility] [address], [place], [address], 10/24/2021 05:54:33 10/24/19 22 10/23/2021 CBC W/DIF F absolute monocytes 0.4 10'3/ uL 0.3-1. 0 Not Available [facility] (Lab) [address] [facility] [address], [place], [address], 10/24/2021 05:54:33 10/24/19 22 10/23/2021 CBC W/DIF F absolute eosinophils 0.1 10'3/ uL 0.0-0. 6 Not Available [facility] (Lab) [address] [facility], [place], [address], 10/24/2021 05:54:33 10/24/19 22 10/23/2021 CBC W/DIF F absolute basophils 0.1 10'3/ uL 0.0-0. 1 Not Available [facility] (Lab) [address] [facility], [place], [address], 10/24/2021 05:54:33 10/24/19 22 10/23/2021 CBC W/DIF F absolute immature granulocytes 0.00 10'3/ uL 0.00-0 .10 Copy resul ts to: CHAZ MICHELLE GARCIAICH , fax 2021 4:51 AM: P indic ates parti al resul ts on a panel have been relea sed. Addit ional resul ts will follo w. 2021 4:51 AM: This resul t has been final verif ied. No addit ional or high ed resul ts are expec leonard. Not Available [facility] (Lab) [address] [facility] [address], [place], [address], 10/24/2021 05:54:33 11/09/19 22 11/08/2021 IMAGE GUIDE D PAP AND HPV REGAR DLESS image guided Pap, HPV regardless of Pap result SEE RESULT S BELOW CASE REPOR T: Cytol ogy Gynec ologi jeimy Repor t Case: [id number] Autho franciscokaron ira Provi sandy: Narcisa goode , Neda Pierce cted: 11/08 1703 VP [employer] Order ing Locat ion: [place] Patho logheather [...] Thinp rep Imagi ng Syste m. CLINI JEIMY INFOR MATIO N: Menst rual Statu s: LMP (if appli cable ): Clini jeimy Histo ry/Pr eviou s Pap: Type of Neopl raegan (if appli cable ): Signi fican t Clini jeimy Findi ngs: Other Histo ry: Hormo patsy [...] ng do not corre late with physi jeimy and/o r histo rical findi ngs, furth er inves tigat ion is recom tye d, as clini lluvia jeronimo nted. Not Available [facility] (Lab) [address] [facility], [place], [address], 11/14/2021 18:50:52 07/17/19 23 07/16/2022 IMAGE GUIDE D PAP AND HPV REGAR DLESS image guided Pap, HPV regardless of Pap result SEE RESULT S BELOW CASE REPOR T: Cytol ogy Gynec ologi jeimy Repor t Case: [id number] Autho demar g Provi sandy: Chaz Machado Colle cted: 07/16 1045 VP [employer] Order ing Locat ion: [place] Patho logy [...] Thinp rep Imagi ng Syste m. CLINI JEIMY INFOR MATIO N: Menst rual Statu s: LMP (if appli cable ): Clini jeimy Histo ry/Pr eviou s Pap: Type of Neopl raegan (if appli cable ): Signi fican t Clini jeimy Findi ngs: Other Histo ry: Hormo patsy [...] ng do not corre late with physi jeimy and/o r histo rical findi ngs, furth er inves tigat ion is recom tye d, as clini lluvia jeronimo nted. Not Available [facility] (Lab) [address], [place], [address], 07/19/2022 16:29:34 09/06/19 24 09/06/2023 IMAGE GUIDE D PAP AND HPV REGAR DLESS image guided Pap, HPV regardless of Pap result SEE RESULT S BELOW CASE REPOR T: Cytol ogy Gynec ologi jeimy Repor t Case: [id number] Autho demar roth Provi sandy: Narcisa garciaich , Neda Pierce cted: 09/05 0812 VP [employer] Order ing Locat ion: [place] Patho logy Recei lucho: 09/08 0711 First Scree n: Vandana Schmidt, CT Speci men: Rodger stoddard Pap [...] Thinp rep Imagi ng Syste m. CLINI JEIMY INFOR MATIO N: Menst rual Statu s: LMP (if appli cable ): Clini jeimy Histo ry/Pr eviou s Pap: Type of Neopl raegan (if appli cable ): Signi fican t Clini jeimy Findi ngs: Other Histo ry: Hormo patsy [...] ng do not corre late with physi jeimy and/o r histo rical findi ngs, furth er inves tigat ion is recom tye d, as clini lluvia warra nted. Not Available [facility] (Lab) [address], [place], [address], 09/12/2023 15:47:03 12/31/19 21 12/30/2020 US, pelvi s, trans abdom inal + trans vagin al No observ ation record ed. christos [address] [facility], [place], [address], 01/03/2021 11:41:14 12/31/19 21 01/02/2021 US, trans vagin al No observ ation record ed. [email or web address] [place] [address], [place], [address], 01/02/2021 15:22:53 01/03/20 21 01/02/2021 US, pelvi s No observ ation record ed. [email or web address] [place] [address], [place], [address], 01/02/2021 14:25:18 01/03/20 21 01/02/2021 US, pelvi s No observ ation record ed. christos [address], [place], [address], 01/03/2021 11:37:01 01/28/20 21 01/27/2021 US, trans vagin al No observ ation record ed. [email or web address] [address] [place], [address], 01/27/2021 17:22:58 01/28/20 21 01/27/2021 US, trans vagin al No observ ation record ed. layran Jackie [address], [place], [address], 01/30/2021 12:14:04 08/29/19 23 08/28/2022 [email or web address] , diagn ostic , digit al, bilat eral No observ ation record ed. [email or web address] [facility] [address], [place], [address], 10/30/2022 12:28:57 09/26/19 24 09/25/2023 MAMMO , scree richi, bilat eral No observ ation record ed. [email or web address] [facility] [address], [place], [address], 10/16/2023 04:02:00 Result Notes None recorded. Procedures Surgical History Date Name Laterality Status Provider Name and Address Organization Details Recorded Time 07/17/19 23 Date of Last Pap Smear completed Callie De La Vega [facility] 09/05/2023 17:38:37 01/29/20 21 intrauterine artificial insemination completed Gabriella Collins [facility] 09/28/2021 09:14:16 01/04/20 21 intrauterine artificial insemination completed Gabriella Collins [facility] 09/28/2021 09:14:21 12/07/19 21 intrauterine artificial insemination completed Gabriella Collins [facility] 09/28/2021 09:14:25 05/13/19 19 Dilation and Curettage completed [facility] 10/07/2020 12:48:43 05/13/19 19 excision of cystic duct remnant completed [facility] 10/07/2020 12:49:38 05/13/19 14 cholecystectomy completed [facility] 01/03/2021 09:46:13 05/13/19 04 excision of cystic duct remnant completed [facility] 10/07/2020 12:49:33 Imaging Results Imaging Date Name Status LastModified by Organization Details LastModified Time 12/30/2020 US, pelvis, transabdominal + transvaginal completed layran Jackie [address], [place], [address], 01/03/2021 11:41:14 01/02/2021 US, transvaginal completed [email or web address] Anshul e [address], [place], [address], 01/02/2021 15:22:53 01/02/2021 US, pelvis completed [email or web address] [facility] [address], [place], [address], 01/02/2021 14:25:18 01/02/2021 US, pelvis completed layran Jackie [address], [place], [address], 01/03/2021 11:37:01 01/27/2021 US, transvaginal completed [email or web address] [facility] [address], [place], [address], 01/27/2021 17:22:58 01/27/2021 US, transvaginal completed layran Jackie [address], [place], [address], 01/30/2021 12:14:04 08/28/2022 MAMMO, diagnostic, digital, bilateral completed [email or web address] [facility] [address], [place], [address], 10/30/2022 12:28:57 09/25/2023 MAMMO, screening, bilateral active POONAM [facility] [address], [place], [address], 10/16/2023 04:02:00 Procedure Notes None recorded. Medical Equipment None Reported. Allergies No known drug allergies Medications Name Sig Start Date Stop Date Status Note LastModified by Organization Details LastModified Time Pregnyl 10,000 unit intramusc ular solution Inject 14912 units by intramus cular route for 1 day. 10/07 completed patient was given pregnyl injectio n into right hip lot [id number] Exp Not Available Not Available Not Available [...] Updated DateTime 01/28/2021 165.1 cm 35.4 kg/m2 47902.17 g 136 mm[Hg] 85 mm[Hg] Gabriella Collins [facility] 09:05:05 Date Recorded Body height Body mass index (BMI) Body weight Provider Name and Address Organization Details Last Updated DateTime 10/07/2021 165.1 cm 34.9 kg/m2 34715.4 g Gabriella Collins [facility] 10/07/2021 10:13:07 Date Recorded Systolic blood pressure Diastolic blood pressure Provider Name and Address Organization Details Last Updated DateTime 10/07/2021 126 mm[Hg] 80 mm[Hg] Rose [place] Shafer [facility] [address], [place], [address], [facility] 10/07/2021 13:12:53 Date Recorded Body height Body mass index (BMI) Body weight Provider Name and Address Organization Details Last Updated DateTime 11/08/2021 165.1 cm 34.9 kg/m2 71421.4 g Carolina Brizuela [facility] 11/08/2021 17:18:28 Date Recorded Systolic blood pressure Diastolic blood pressure Provider Name and Address Organization Details Last Updated DateTime 11/08/2021 126 mm[Hg] 80 mm[Hg] Rose [place] Shafer [facility] [address], [place], [address], [facility] 11/08/2021 17:32:50 Date Recorded Body height Body mass index (BMI) Body weight Provider Name and Address Organization Details Last Updated DateTime 07/14/2022 165.1 cm 35.4 kg/m2 25029.74 g Carolina Eloy [facility] 07/14/2022 09:30:32 Date Recorded Systolic blood pressure Diastolic blood pressure Provider Name and Address Organization Details Last Updated DateTime 07/14/2022 129 mm[Hg] 80 mm[Hg] Rose [place] Shafer, [facility] [address], [place], [address], [facility] 07/14/2022 09:32:42 Date Recorded Body height Body mass index (BMI) Body weight Provider Name and Address Organization Details Last Updated DateTime 09/05/2023 165.1 cm 32 kg/m2 64337.74 g Callie De La Vega [facility] 09/05/2023 17:37:55 Date Recorded Systolic blood pressure Diastolic blood pressure Provider Name and Address Organization Details Last Updated DateTime 09/05/2023 118 mm[Hg] 80 mm[Hg] Rose [place] Shafer, [facility] [address], [place], [address], [facility] 09/05/2023 17:57:03 Social History Question Answer Notes LastModified by Organizat ion Details LastModified Time Tobacco Smoking Status Former Smoker Dayana reese, [facility] 07/14/2022 09:24:01 What Is Your Level Of Alcohol Consumption? Occasional Information not available 10/07/2020 If You Are , What Was Your Level Of Alcohol Consumption Prior To ? None Information not available 07/14/2022 Are You Blind Or Do You Have Difficulty Seeing? No [email or web address] Information not available 10/07/2020 What Is Your Level Of Caffeine Consumption? Occasional [email or web address] Information not available 10/07/2020 How Much Tobacco Do You Chew? None [email or web address] Information not available 10/07/2021 In The 14 Days Before Symptom Onset, Have You Had Close Contact With A Laboratory-confir med COVID-19 While That Case Was Ill? No [email or web address] Information not available 10/07/2020 In The 14 Days Before Symptom Onset, Have You Had Close Contact With A Person Who Is Under Investigation For COVID-19 While That Person Was Ill? No [email or web address] Information not available 10/07/2020 Have You Been To An Area Known To Be High Risk For COVID-19? No [email or web address] Information not available 10/07/2020 Are You Deaf Or Do You Have Serious Difficulty Hearing? No Information not available 10/07/2020 What Type Of Diet Are You Following? REGULAR [email or web address] Information not available 10/07/2020 Do You Or Have You Ever Used E-cigarettes Or Vape? Former User Of Electronic Cigarettes Information not available 07/14/2022 What Is The Highest Grade Or Level Of School You Have Completed Or The Highest Degree You Have Received? XP48289-0 [email or web address] Information not available 10/07/2021 Have You Ever Been Counseled For Unhealthy Alcohol Use? No Information not available 07/14/2022 Do You Use Protection During Sex? No [email or web address] Information not available 10/07/2021 Do You Use Your Seat Belt Or Car Seat Routinely? Yes [email or web address] Information not available 10/07/2020 Do You Have Smoke And Carbon Monoxide Detectors In Your Home? Yes Information not available 10/07/2020 Do You Or Have You Ever Used Smokeless Tobacco? Never Used Smokeless Tobacco Information not available 07/14/2022 How Much Tobacco Do You Smoke? No [email or web address] Information not available 10/07/2021 Do You Feel Stressed (tense, Restless, Nervous, Or Anxious, Or Unable To Sleep At Night)? [id number] [email or web address] Information not available 10/07/2020 Do You Use Any Illicit Or Recreational Drugs? No Information not available 10/07/2020 Do You Use Sunscreen Routinely? Yes [email or web address] Information not available 10/07/2020 Has Tobacco Cessation Counseling Been Provided? No Information not available 07/14/2022 Have You Used IV Drugs? No [email or web address] Information not available 10/07/2021 Do You Or Have You Ever Used Any Other Forms Of Tobacco Or Nicotine? Yes Information not available 07/14/2022 Sex: Unknown Functional Status Question Answer Note LastModified by Organizat ion Details LastModified Time Do you have difficulty walking or climbing stairs? No Information not available 07/14/2022 Are you able to walk? YESWOREST [email or web address] Information not available 10/07/2020 Are you able to care for yourself? Yes Information not available 07/14/2022 Do you have difficulty dressing or bathing? No Information not available 07/14/2022 What is your exercise level? Occasional [email or web address] Information not available 10/07/2020 Mental Status None recorded. Family History Relationship Description Onset Age of this Age Resolved Age Notes LastModified by Organization Details LastModified Time Maternal Uncle Malignant neoplasm of bone Not available 2023 17:31:46 Maternal Uncle Malignant tumor of lung [email or web address] Not available 10/07 12:47:39 Mother Diabetes mellitus [email or web address] Not available 10/07 12:47:50 Medical History Condition [...] SNOMED-CT Code Diagnosis ICD10 Code Diagnosis Note [id number] Roslyn Reed [facility] [address],[place] [address] 10/07/2020 12:25:31 10/07/2020 13:58:01 Irregular periods 55266030 N92.6 cont to monitor can consider monthly prometrium and tsh level if cont to be irregular [id number] Jyothi Brizuela [facility] [address],[place] [address] 12/05/2020 17:18:56 12/05/2020 18:24:06 Female infertility 3612718 N97.9 [id number] Gabriella Collins [facility] [address] [place] [address] 12/05/2020 18:21:35 12/07/2020 14:40:52 Trying to conceive 401762726 Z31.9 [id number] Roslyn Reed [facility] [address],[place] [address] 12/06/2020 08:36:25 12/06/2020 09:54:45 Artificial insemination 99301625 Z31.83 [id number] [facility] [address] [place] [address] 12/30/2020 16:13:34 12/31/2020 09:45:05 Female infertility 5917526 N97.9 [id number] [facility] [address] [place] [address] 01/02/2021 11:58:29 01/02/2021 12:49:38 Female infertility 9267568 N97.9 [id number] Gabriella Collins [facility] [address],[place] [address] 01/02/2021 12:56:43 01/02/2021 13:10:48 Trying to conceive 245440880 Z31.9 [id number] Roslyn Reed [facility] [address],[place] [address] 01/03/2021 09:31:20 01/03/2021 12:01:57 Artificial insemination 23482773 Z31.83 [id number] Jyothi Brizuela [facility] [address],[place] [address] 01/27/2021 16:25:44 01/28/2021 11:47:29 Female infertility 7087708 N97.9 [id number] Gabriella Collins [facility] [address],[place] [address] 01/27/2021 17:24:00 01/28/2021 11:45:33 Trying to [facility] 036454592 Z31.9 [id number] [facility] [address],[place] [address] 01/28/2021 08:54:34 01/28/2021 10:10:12 Female infertility 4102554 N97.9 [id number] Rose Mary Shafer [facility] [address],[place] [address] 10/07/2021 09:53:25 10/10/2021 16:08:48 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 Will return for lab work. Time spent in visit is a total of 15 mins with at least 50% of visit consisting of counseling and review of plan of care. [id number] Rose Mary Shafer [facility] [address],[place] [address] 11/08/2021 16:07:12 11/08/2021 17:46:53 Gynecologic examination 44018685 Z01.419 Take Calcium with Vitamin D 1200mg [...] two elevated prolactin levels found; having fertility issues.[facility] [place] [id number] Rose Mary Shafer [facility] [address],[place] [address] 07/14/2022 09:23:20 07/16/2022 15:22:06 Gynecologic examination 14030529 Z01.419 Z11.51 Take Calcium with Vitamin D [...] of Ocrevus for MS. Screening mammography 24 656940 Z12.31 G35 [id number] Rose Mary Shafer , [facility] [address] [address] 09/05/2023 17:29:44 09/05/2023 18:03:05 Gynecologic examination 60948263 Z01.419 Z11.51 Take Calcium with Vitamin D [...] MS.Condoms BC High risk medication monitoring indicated [id number] 7590652 Z76.89 Z12.31 Z80.9 On ocrevus for MSVery [...] 1 [facility] [id number] Neo Copple [id number] Josephine S Copple 10/07/2021 1 [facility] [id number] Neo Copple [id number] Josephine S Copple 11/08/2021 1 [facility] 63139 Neo Copple [id number] Josephine S Copple 07/14/2022 1 [facility] 86045 Neo Copple [id number] Josephine S Copple 09/05/2023 1 [facility] 66308 Neo Copple [id number] Josephine S Copple Notes Date Note Type Note Provider Name and Address Organization Details Recorded Time 01/28/2021 text/html pt here for insemination, pre and post wash good, questions answered Roslyn Reed CNM [address], [place], [address], [facility] 01/28/2021 09:32:31 10/07/2021 text/html Here today [...] itching, odor, irritation.Monogam ous Rose Mary Shafer [facility] [address], [place], [address], [facility] 10/07/2021 13:17:05 11/08/2021 text/html Annual GYNReport [...] mammograms starting age 38 Rose Mary Shafer [facility] [address], [place], [address], [facility] 11/08/2021 17:35:06 07/14/2022 text/html Annual GYNReport [...] yearly pap smears; [facility] [address], [place], [address], [facility] 07/14/2022 09:50:54 09/05/2023 text/html Annual GYNReport [...] yearly pap smears; [facility] [address], [place], [address], [facility] 09/05/2023 17:59:38 OBGyn Episode Ob Episode Information Episode Created Date Number of Fetuses Patient Bloodtype Patient rh Status Prepregnancy Weight lbs Domestic Partner Domestic Partner Phone Father Name Custom Shoe Designer And Maker Status 10/08/19 21 1 CLOSED Fetus Data First Name Last Name Admitted to NICU Weight (g) Sex Living Outcome Pediatric Complications Fetus ID Race Codes Race Delivery Type , Spontane ous [id number] Martin Calculation Initial Martin Date Initial Exam [...]
--- OUTSIDE RECORDS SUMMARY | 2024-07-20 00:19 | XMS_ITS | Clinical Summary ---
Author Organization [facility] Healthcare Address [address] [place] [address] Care Team Providers Care Energy Project Manager Name Role Phone Lalito Gudino MD Unavailable [phone] Gloria Gregorio MD Primary Care Provider [phone]- [phone] Allergies No known active allergies Medications ocrelizumab [...] on file Legal Sex Female 9:54 AM NAPRAPATH Gender Identity Female 12/03/2022 11:45 AM CDT [...] to complete this topic Insurance [employer] SIG [id number] [facility] Care Teams Energy Project Manager Relationship Specialty Start Date End Date Gloria Gregorio MD [address] [place] [address] PCP - General Nurse Practitioner 10/11/22 Lalito Gudino MD [address] [place] [address] Referring Physician Neurology 10/02/22
--- OUTSIDE RECORDS SUMMARY | 2024-07-20 00:19 | XMS_ITS | Encounter Summary ---
Author Organization [facility] Address [address] [place] [address] Care Team Providers Care Quality Assurance Group Leader Name Role Phone Gloria Gregorio NP Primary Care Provider [phone] [phone] Encounter Details Date Type Department Care Team (Late st Contact Info) Description 03/05/2023 BeSmartt Message Enc [facility] Medical Group Family Medicine [facility] [address] [place] [phone] Gloria Gregorio, RECEPTION AGENT [address] [place], [place] [address] follow up thryoid [place] Social History Tobacco [...] Sex Assigned at Female 06/09/2024 9:52 AM ELECTRONICS PRODUCTION SUPERVISOR Legal Sex Female 12:19 AM ELECTRONICS PRODUCTION SUPERVISOR Gender Identity Female 06/16/2024 10:41 AM ELECTRONICS PRODUCTION SUPERVISOR Sexual Orientation Straight 06/16/2024 10 :41 AM ELECTRONICS PRODUCTION SUPERVISOR documented as of this encounter Plan of Treatment Upcoming Encounters Date Type Department Care Team (Late st Contact Info) Description 07/24/2024 11:00 AM CDT Appointment [facility] [place] [address] [place] [address] Lalito Gudino MD [address] [place] [address] Viv Carmona, SECTION PL[place]TER [place] [address] 11/17/2024 11:40 AM CDT Telemedicine [facility] Medical Group Multispecialty Care - [facility] [address] [facility], [address] [place] [address] Lalito Gudino MD [address] [place] [address] documented as of this encounter Visit Diagnoses Not on filedocumented in this encounter Additional Health Concerns Infection Onset Date Last Indicated Resolved Time COVID-19 Rule Out 05/05/2024 05/05/2024 05/05/2024 8:33 AM ELECTRONICS PRODUCTION SUPERVISOR COVID-19 Rule Out 05/07/2024 05/07/2024 05/07/2024 1:36 PM ELECTRONICS PRODUCTION SUPERVISOR Influenza - Seasonal 05/07/2024 05/07/2024 025 12:32 AM ELECTRONICS PRODUCTION SUPERVISOR documented as of this encounter Care Teams Quality Assurance Group Leader Relationship Specialty Start Date End Date Gloria Gregorio NP [address] [place] [address] PCP - General NURSE PRACTITIONER 02/02/22 documented as of this encounter
--- OUTSIDE RECORDS SUMMARY | 2024-07-20 00:19 | XMS_ITS | Encounter Summary ---
Author Organization [facility] Address [address] [place] [address] Care Team Providers Care Head Tennis Coach Name Role Phone Gloria Gregorio NP Primary Care Provider [phone] Encounter Details Date Type Department Care Team (Late st Contact Info) Description 08/13/2022 MyCVidAngelt Message Enc [facility] Multispecialty Care - [facility] [address] [facility], [address] [place] [address] Lalito Gudino MD [address] [place] [address] Fmla Social History Tobacco Use Types Packs/Day [...] Sex Assigned at Female 06/09/2024 9:52 AM FLY WORKER Legal Sex Female 12:19 AM FLY WORKER Gender Identity Female 06/16/2024 10:41 AM FLY WORKER Sexual Orientation Straight 06/16/2024 10 :41 AM FLY WORKER COVID-19 Exposure Response Date Recorded In the last 10 days, have yo u been in contact with someone who was confirmed or suspected to have Coronavirus/COVID-19? No / Unsure 07/17/2022 7:55 AM FLY WORKER documented as of this encounter Plan of Treatment Upcoming Encounters Date Type Department Care Team (Late st Contact Info) Description 07/24/2024 11:00 AM CDT Appointment [facility] [place] [address] Lalito Gudino MD [address] [place] [address] Viv Carmona, ELECTROMECH[place]ISMS [place] [address] 11/17/2024 11:40 AM CDT Telemedicine [facility] Mult[facility]pecialty Care - [facility] [address] [facility], [address] [place] [address] Lalito Gudino MD [address] [place] [address] documented as of this encounter Visit Diagnoses Not on filedocumented in this encounter Additional Health Concerns Infection Onset Date Last Indicated Resolved Time COVID-19 Rule Out 01/23/2023 01/23/2023 01/23/2023 10:48 AM CDT COVID-19 Confirmed 01/23/2023 01/23/2023 12:32 AM CDT COVID-19 Rule Out 05/05/2024 05/05/2024 05/05/2024 8:33 AM FLY WORKER COVID-19 Rule Out 05/07/2024 05/07/2024 05/07/2024 1:36 PM FLY WORKER Influenza - Seasonal 05/07/2024 05/07/2024 025 12:32 AM FLY WORKER documented as of this encounter Care Teams Head Tennis Coach Relationship Specialty Start Date End Date Gloria Gregorio NP [address] [place] [address] PCP - General NURSE PRACTITIONER 02/02/22 documented as of this encounter
--- OUTSIDE RECORDS SUMMARY | 2024-07-20 00:19 | XMS_ITS | Encounter Summary ---
Author Organization [facility] Address [address] [place] [address] Care Team Providers Care Silk Screener Name Role Phone Gloria Gregorio NP Primary Care Provider [phone] Encounter Details Date Type Department Care Team (Late Contact Info) Description 08/13/2022 The Venue Reportt Message Enc [facility] Medical [facility] Family Medicine [place] [address] [facility] [address] [place] [phone] Gloria Gregorio, FUSION ANALYST [address] [place] [address] Fmla Social History Tobacco Use Types Packs/Day [...] Sex Assigned at Female 06/09/2024 9:52 AM RENAL DIALYSIS RN Legal Sex Female 12:19 AM RENAL DIALYSIS RN Gender Identity Female 06/16/2024 10:41 AM RENAL DIALYSIS RN Sexual Orientation Straight 06/16/2024 10 :41 AM RENAL DIALYSIS RN COVID-19 Exposure Response Date Recorded In the last 10 days, have yo u been in contact with someone who was confirmed or suspected to have Coronavirus/COVID-19? No / Unsure 07/17/2022 7:55 AM RENAL DIALYSIS RN documented as of this encounter Plan of Treatment Upcoming Encounters Date Type Department Care Team (Late Contact Info) Description 07/24/2024 11:00 AM CDT Appointment [facility] [place] [address] [place] [address] Lalito Gudino MD [address] [place] [address] Viv Carmona, [place] [address] 11/17/2024 11:40 AM CDT Telemedicine [facility] Medical Group Multispecialty Care - [facility] [address] [facility], [address] [place] [address] Lalito Gudino MD [address] [place] [address] documented as of this encounter Visit Diagnoses Not on filedocumented in this encounter Additional Health Concerns Infection Onset Date Last Indicated Resolved Time COVID-19 Rule Out 01/23/2023 01/23/2023 01/23/2023 10:48 AM CDT COVID-19 Confirmed 01/23/2023 01/23/2023 12:32 AM CDT COVID-19 Rule Out 05/05/2024 05/05/2024 05/05/2024 8:33 AM RENAL DIALYSIS RN COVID-19 Rule Out 05/07/2024 05/07/2024 05/07/2024 1:36 PM RENAL DIALYSIS RN Influenza - Seasonal 05/07/2024 05/07/2024 025 12:32 AM RENAL DIALYSIS RN documented as of this encounter Care Teams Silk Screener Relationship Specialty Start Date End Date Gloria Gregorio NP [address] [place] [address] PCP - General NURSE PRACTITIONER 9/23/22 documented as of this encounter
--- OUTSIDE RECORDS SUMMARY | 2024-07-20 00:19 | XMS_ITS | Encounter Summary ---
Author Organization [facility] Address [address] [place] [address] Care Team Providers Care Trailer Park Manager Name Role Phone Gloria Gregorio NP Primary Care Provider [phone] Encounter Details Date Type Department Care Team (Late st Contact Info) Description 07/11/2023 ReGen Biologicst Message Enc [facility] Medical Group Family Medicine [facility] [address] [facility] [address] [place] [phone] Gloria Gregorio, CARGO SERVICE AGENT [address] [place] [address] Fmla Social History Tobacco Use Types Packs/Day [...] Sex Assigned at Female 06/09/2024 9:52 AM PSYCH ARNP Legal Sex Female 12:19 AM PSYCH ARNP Gender Identity Female 06/16/2024 10:41 AM PSYCH ARNP Sexual Orientation Straight 06/16/2024 10 :41 AM PSYCH ARNP documented as of this encounter Plan of Treatment Upcoming Encounters Date Type Department Care Team (Late Contact Info) Description 07/24/2024 11:00 AM CDT Appointment [facility] [place] [place] [address] Lalito Gudino MD [address] [place] [address] Viv Carmona, [place] [address] 11/17/2024 11:40 AM CDT Telemedicine [facility] Medical Group Multispecialty Care - [facility] [address] [facility], [address] [place] [address] Lalito Gudino MD [address] [place] [address] documented as of this encounter Visit Diagnoses Not on filedocumented in this encounter Additional Health Concerns Infection Onset Date Last Indicated Resolved Time COVID-19 Rule Out 05/05/2024 05/05/2024 05/05/2024 8:33 AM PSYCH ARNP COVID-19 Rule Out 05/07/2024 05/07/2024 05/07/2024 1:36 PM PSYCH ARNP Influenza - Seasonal 05/07/2024 05/07/2024 025 12:32 AM PSYCH ARNP documented as of this encounter Care Teams Trailer Park Manager Relationship Specialty Start Date End Date Gloria Gregorio NP [address] [place] [address] PCP - General NURSE PRACTITIONER 02/02/22 documented as of this encounter
--- OUTSIDE RECORDS SUMMARY | 2024-07-20 00:19 | XMS_ITS | Patient Health Summary ---
Author Organization [facility] [employer] Address [address] [place] [address] Care Team Providers Care Web Weaver Name Role Phone Unavailable Primary Care Provider Unavailabl e Note from [facility],non-owned Affiliates and Associated Physician Practices is amultiple site organization consisting of ambulatory clinics and hospital sitesin [place], [place], [place] and [place]. This disclosure is being madepursuant to the Care Everywhere program and may not contain all information available regarding this patient. Last updated 18.[facility] Social History Tobacco Use Types Packs/Day Years [...] is included. Case Report Dermatopathology Report Case: [id number] Authorizing Provider: Luis Moscoso MD Collected: 01/02/2023 12:00 AM Ordering Location: [facility] Received: 01/03/2023 07:46 AM Pathologist: Faby Alejandro MD Specimens: A) - Skin, ant. scalp B) - Skin, right post scalp 4:02 PM CDT DERMATOPATHOLOGY LABORATORY Final Diagnosis Specimen A. SKIN, ant. scalp: TRICHILEMMAL (PILAR) CYST WITH CALCIFICATION (L72.12) PRESENT AT MARGIN Specimen B. SKIN, right post scalp: TRICHILEMMAL (PILAR) CYST (L72.12) PRESENT AT MARGIN 3 4:02 PM [facility] DERMATOPATHOLOGY LABORATORY Clinical History A: pilar Cyst Path#[id number] check margins B: Pilar Cyst Path#[id number] check margins 3 4:02 PM [facility] DERMATOPATHOLOGY LABORATORY Gross Description Specimen A: Received is one formalin filled container labeled with the patient's name and designated ant. scalp. The specimen consists of a [id number] mm piece of skin. The specimen is serially sectioned and a customer sales representative section is submitted in cassette 1. Jar 0. Specimen B: Received is one formalin filled container labeled with the patient's name and designated right post scalp. The specimen consists of a 10x7x8 mm piece of skin. The specimen is serially sectioned and a customer sales representative section is submitted in cassette 1. Jar 0. 3 4:02 PM [facility] DERMATOPATHOLOGY LABORATORY Microscopic Description Specimen A. SKIN, [...] of the specimen. 3 4:02 PM [facility] DERMATOPATHOLOGY LABORATORY Disclaimer An external and internal positive and negative controls are appropriate for the histochemical, immunohistochemical and immunofluorescence stain(s) in this case (if any), except where stated explicitly. The performance characteristics of the stain(s) cited in this report were developed and its performance characteristic determined by the Dermatopathology Laboratory at [facility], directed by Dr. Michelle Yeung. These tests need not be, and therefore are not, approved by the [place] Food and Drug Administration. The tests are used for clinical purposes. Billing Codes Specimen Charges Stain Charges 92049 [id number] 1 1 3 4:02 PM T DERMATOPATHOLOGY LABORATORY Embedded Images 3 4:02 PM [facility] DERMATOPATHOLOGY [facility]ORATORY Pathology/Cytology TISSUE SPECIMEN FROM SKIN / Unknown 01/02/2023 01/03/2023 7:46 AM CDT Miscellaneous samples (specimen) TISSUE SPECIMEN FROM SKIN / Unknown 01/02/2023 01/03/2023 7:46 AM CDT Luis Moscoso MD LAB - PATHOLOGY/CYTO LOGY ORDERABLES DERMATOPATHOLOGY LABORATORY [facility] - Department of Dermatology [facility] [address] [place] [address], [address] [phone]
--- OUTSIDE RECORDS SUMMARY | 2024-07-20 00:19 | XMS_ITS | Encounter Summary ---
Author Organization [facility] Address [address] [place] [address] Care Team Providers Care Covered Buckle Assembler Name Role Phone Gloria Gregorio NP Primary Care Provider [phone] Encounter Details Date Type Department Care Team (Late st Contact Info) Description 01/15/2024 Me[employer]ies Message Enc [facility] Provider Action Needed Social History Tobacco Use [...] Sex Assigned at Female 06/09/2024 9:52 AM SOCIAL PSYCHOLOGIST Legal Sex Female 12:19 AM SOCIAL PSYCHOLOGIST Gender Identity Female 06/16/2024 10:41 AM SOCIAL PSYCHOLOGIST Sexual Orientation Straight 06/16/2024 10 :41 AM SOCIAL PSYCHOLOGIST documented as of this encounter Plan of Treatment Upcoming Encounters Date Type Department Care Team (Late st Contact Info) Description 07/24/2024 11:00 AM CDT Appointment [facility] [place] [address] Lalito Gudino MD [address] [place], [place] [phone] Viv Carmona, [place] [address] 11/17/2024 11:40 AM CDT Telemedicine [facility] Multispecialty Care - [facility] [address], [address] [place] [address] Lalito Gudino MD [address] [place] [address] documented as of this encounter Visit Diagnoses Not on filedocumented in this encounter Additional Health Concerns Infection Onset Date Last Indicated Resolved Time COVID-19 Rule Out 05/05/2024 05/05/2024 05/05/2024 8:33 AM SOCIAL PSYCHOLOGIST COVID-19 Rule Out 05/07/2024 05/07/2024 05/07/2024 1:36 PM SOCIAL PSYCHOLOGIST Influenza - Seasonal 05/07/2024 05/07/2024 025 12:32 AM SOCIAL PSYCHOLOGIST documented as of this encounter Care Teams Covered Buckle Assembler Relationship Specialty Start Date End Date Gloria Gregorio NP [address] [place] [address] PCP - General NURSE PRACTITIONER 02/02/22 documented as of this encounter
--- OUTSIDE RECORDS SUMMARY | 2024-07-20 00:19 | XMS_ITS | Encounter Summary ---
Author Organization [facility] Address [address] [place] [address] Care Team Providers Care Research Management Associate Name Role Phone Gloria Gregorio NP Primary Care Provider [phone] Encounter Details Date Type Department Care Team (Late Contact Info) Description 05/25/2022 Therapy Plan [facility] Infusion Services [address] [place], [place] [id number] Lalito Gudino MD [address] [place] [address] Social History Tobacco Use Types Packs/Day Years [...] Sex Assigned at Female 06/09/2024 9:52 AM RICE CLEANING MACHINE TENDER Legal Sex Female 12:19 AM RICE CLEANING MACHINE TENDER Gender Identity Female 06/16/2024 10:41 AM RICE CLEANING MACHINE TENDER Sexual Orientation Straight 06/16/2024 10 :41 AM RICE CLEANING MACHINE TENDER COVID-19 Exposure Response Date Recorded In the last 10 days, have yo u been in contact with someone who was confirmed or suspected to have Coronavirus/COVID-19? No / Unsure 05/28/2022 4:21 PM RICE CLEANING MACHINE TENDER documented as of this encounter Plan of Treatment Upcoming Encounters Date Type Department Care Team (Late Contact Info) Description 07/24/2024 11:00 AM CDT Appointment [facility] [place] [place] [address] Lalito Gudino MD [address] [place] [address] Viv Carmona, NETWORK [place] [address] 11/17/2024 11:40 AM CDT Telemedicine [facility] Medical [facility] Multispecialty Care - [facility] [address], [address] [place] [address] Lalito Gudino MD [address] [place] [address] documented as of this encounter Visit Diagnoses Diagnosis Multiple sclerosis ([facility])- Primary Multiple sclerosis documented in this encounter Additional Health Concerns Infection Onset Date Last Indicated Resolved Time COVID-19 Rule Out 01/23/2023 01/23/2023 01/23/2023 10:48 AM CDT COVID-19 Confirmed 01/23/2023 01/23/2023 12:32 AM CDT COVID-19 Rule Out 05/05/2024 05/05/2024 05/05/2024 8:33 AM RICE CLEANING MACHINE TENDER COVID-19 Rule Out 05/07/2024 05/07/2024 05/07/2024 1:36 PM RICE CLEANING MACHINE TENDER Influenza - Seasonal 05/07/2024 05/07/2024 025 12:32 AM RICE CLEANING MACHINE TENDER documented as of this encounter Care Teams Research Management Associate Relationship Specialty Start Date End Date Gloria Gregorio NP [address] [place] [address] PCP - General NURSE PRACTITIONER 02/02/22 documented as of this encounter
--- OUTSIDE RECORDS SUMMARY | 2024-07-20 00:20 | XMS_ITS | Clinical Summary ---
Author Organization [facility] Address [facility] [place] [address] Care Team Providers Care Home Teaching Grades 9 Thru 12 Teacher Name Role Phone Gloria Gregorio NP Primary Care Provider [phone] Allergies No known active allergies Medications Cholecalciferol (VITAMIN D-3) 125 MCG (5000 UT) TabIndications: MS (multiple sclerosis) ([facility]) Take 1 tablet (5,000 Units total) by mouth daily. 30 tablet 11 3 Active Ocrelizumab (OCREVUS IV) Inject into the vein every 6 (six) months. Active memantine (NAMENDA) 5 MG tabletIndicatio ns:MS (multiple sclerosis) ([facility]) Take 1 tablet (5 mg total) by mouth 2 (two) times daily. 60 tablet 11 5 Active nystatin-triamc inolone (MYCOLOG) ointmentIndicat ions:Skin rash in pelvic region Apply topically 2 (two) times daily. 30 g 4 06/28/19 25 Additional Information Patient not taking.Reported on 06/16/2024 Active Problems Problem Noted Date Diagnosed Date Brain fog 04/07/2024 Overview (04/07/2024): Has been having brain fog. Unsure the cause. Assessment & Plan (04/07/2024 1:32 PM CUSHION GUM APPLICATOR): Recommend discussing with her neurologist. Pt to [...] fog. Assessment & Plan (04/07/2024 1:31 PM CUSHION GUM APPLICATOR): Encourage good sleep hygiene. Weight loss. Vitamin D deficiency 08/20/2022 Assessment & Plan (04/07/2024 1:28 PM CUSHION GUM APPLICATOR): Will recheck levels. MS (multiple sclerosis) ([facility]) 2022 Overview (04/07/2024): Follows with neurology for management. On ocrevus. Tolerating well. No flairs. Pt suffrers from brain fog but is unsure what its from. Assessment & Plan (04/07/2024 1:26 PM CUSHION GUM APPLICATOR): Continue to follow up with neurology as directed. PCOS (polycystic ovarian syndrome) 02/08/2022 Overview (04/07/2024): Hx of PCOS. Assessment & Plan (04/07/2024 1:35 PM CUSHION GUM APPLICATOR): Encourage diet and lifestyle changes to assist with weight loss and improve PCOS symptoms. Obesity (BMI 30-39.9) 02/08/2022 Overview (04/07/2024): Struggles with weight loss. Assessment & Plan (04/07/2024 1:27 PM CUSHION GUM APPLICATOR): Encourage diet and lifestyle changes to assist [...] Encounters Date Type Department Care Team Description 07/02/2024 1:57 PM CUSHION GUM APPLICATOR - 07/02/2024 11:59 PM CUSHION GUM APPLICATOR Hospital Encounter [facility] [place] [address] Lalito Gudino MD Frost, Shayna L, HOME HEALTH TRAVEL OT Cognitive Linguistic Impairment Discharge Disposition: Home or Self Care (Routine Discharge) 07/02/2024 Travel 06/24/2024 11:00 AM CUSHION GUM APPLICATOR - 06/24/2024 11:59 PM CUSHION GUM APPLICATOR Hospital Encounter [facility] [place] [address] Lalito Gudino MD Frost, Shayna L, HOME HEALTH TRAVEL OT Discharge Disposition: Home or Self Care (Routine Discharge) 06/24/2024 Travel 06/19/2024 Scan The Daily Caller INFO SRVCS Scanned, Doc Med Group 06/19/2024 MyChart Message Enc [facility] Medical [facility] Multispecialty Care - [address], [address] [place] [phone] Lalito Gudino MD Infusion referral 06/19/2024 Telephone [facility] Medical Group Neurology Speciality Clinic - [address] [place] [address] Lalito Gudino MD Referral 06/18/2024 Scan [facility] HE[facility] INFO SRVCS Scanned, Doc Med Group Bone Density Report (SCAN) 06/17/2024 Telephone [facility] Neurology Speciality Clinic - [place] [address] [place] [address] Lalito Gudino MD Medication Information; Medication 06/16/2024 10:40 AM CUSHION GUM APPLICATOR Office Visit [facility] [address] [place] [address] Gloira Gregorio NP Follow Up (Patient presents for a f/u regarding a compression fracture and osteoporosis ) 06/16/2024 Telephone [facility] [address] [place] [address] Gloria Gregorio NP Orders 06/16/2024 Travel 06/11/2024 Telephone [facility] Multispecialty Care - [facility] [address], [address] [place] [address] Lalito Gudino MD Results 06/10/2024 Orders Only [facility] [address], [address] [place] [address] Lalito Gudino MD 06/09/2024 9:55 AM CUSHION GUM APPLICATOR - 06/09/2024 11:59 PM CUSHION GUM APPLICATOR Hospital Encounter [facility] Open MRI [address] [address] Lalito Gudino MD Discharge Disposition: Home or Self Care (Routine Discharge) 06/09/2024 Scan [facility] INFO SRVCS Scanned, Doc Med Group 06/09/2024 Travel 06/02/2024 9:10 AM CUSHION GUM APPLICATOR - 06/02/2024 11:59 PM CUSHION GUM APPLICATOR Hospital Encounter [facility] [place] [address] Lalito Gudino MD Frost, Shayna L, HOME HEALTH TRAVEL OT Cognitive Linguistic Impairment Discharge Disposition: Home or Self Care (Routine Discharge) 06/02/2024 Travel 05/26/2024 Telephone [facility] Neurology Speciality [facility] - [address] [address] Lalito Gudino MD Question 05/21/2024 MyChart Message Enc [facility] Multispecialty [facility] - [address], [address] [place] [address] Lalito Gudino MD Referral 05/20/2024 Scan [facility] INFO SRVCS Scanned, Doc Med Group Lab (SCAN) 05/20/2024 Telephone [facility] - [address], [address] [place] [address] Lalito Guidno MD Information 05/20/2024 Telephone [facility] Neurology Speciality [address] [address] Lalito Gudino MD Orders 05/19/2024 Scan [facility] INFO SRVCS Scanned, Doc Med Group 05/18/2024 2:20 PM CUSHION GUM APPLICATOR [facility] - [address], [address] [place] [address] Lalito Gudino MD Numbness 05/18/2024 Telephone [facility] Neurology Speciality [address] [address] Lalito Gudino MD Reschedule 05/18/2024 Travel 05/07/2024 1:00 PM CUSHION GUM APPLICATOR Office Visit [address] [place] [address] Gloria Gregorio NP URI (Patient presents for follow up URI, still having Cough, congestion, sore throat, headache, body aches. X 4 days) 05/07/2024 Travel 05/07/2024 MyChart Message Enc [address] [place] [address] Gloria Gregorio NP Sick note 05/05/2024 8:00 AM CUSHION GUM APPLICATOR Office Visit [address] [place] [address] Gloria Gregorio NP Sore Throat (Patient presents with c/o sore throat, swollen glands in neck, cough, congestion, and body ache x 2 days) 05/05/2024 Travel 04/26/2024 4:57 PM CUSHION GUM APPLICATOR - 04/26/2024 7:22 PM [facility] Emergency [facility] [address] [place] [address] Freddy Orellana, Fall Discharge Disposition: Home or Self Care (Routine Discharge) 04/26/2024 Travel from Last 3 Months Immunizations Name Administration Dates Next Due Anthrax Vaccine 02/07/2011 Fluzone 6 Months+ Quad (0.5 mL Prefilled Syringe) 02/20/2023,02/07/2022 HPV2 (Cervarix) 03/04/2012,08/09/2011 Hepatitis A (Havrix [address]) 06/20/2011,2010 Influenza (Generic) 02/28/2024, 2,01/03/2011,03/03 Influenza Adult (Generic) 05/24/2021 MODERNA COVID-19 ([employer]AVAGE), MRNA, LNP-S, PF, 50 MCG/ [...] Sex Assigned at Female 06/09/2024 9:52 AM CUSHION GUM APPLICATOR Legal Sex Female 12:19 AM CUSHION GUM APPLICATOR Gender Identity Female 06/16/2024 10:41 AM CUSHION GUM APPLICATOR Sexual Orientation Straight 06/16/2024 10 :41 AM CUSHION GUM APPLICATOR Last Filed Vital Signs Vital Sign Reading Time Taken Comments Blood Pressure 122/82 06/16/2024 10:41 AM CUSHION GUM APPLICATOR Pulse 74 06/16/2024 10:41 AM CUSHION GUM APPLICATOR Temperature 36.6 C (97.8 F) 06/16/2024 10:41 AM CUSHION GUM APPLICATOR Respiratory Rate 16 06/16/2024 10:4 1 AM CUSHION GUM APPLICATOR Oxygen Saturation 98% 06/16/2024 10: 41 AM CUSHION GUM APPLICATOR Inhaled Oxygen Concentration - - Weight 84.3 kg (185 lb 12.8 oz) 025 10:41 AM CUSHION GUM APPLICATOR Height 162.6 cm (5' 4 ) 06/16/2024 10:4 1 AM CUSHION GUM APPLICATOR Body Mass Index 31.89 06/16/2024 10:41 AM CUSHION GUM APPLICATOR Plan of Treatment Upcoming Encounters Date Type Department Care Team (Late st Contact Info) Description 07/24/2024 11:00 AM CDT Appointment [facility] [place] [address] Lalito Gudino MD [address] [place] [address] Viv Carmona, [place] [address] 11/17/2024 11:40 AM CDT Telemedicine [facility] Medical Group Multispecialty Care - [facility] [address] [place] [address] Lalito Gudino MD [address] [place] [address] Health Maintenance Due Date Last Done Comments [...] C Completed 05/20/2024, 05/14, 05/28/2022 PHQ-2 (Physician [place]) Completed 06/16/2024 Meningococcal B Vaccine Aged Out [...] Procedure Name Priority Date/Time Associated Diagnosis Comments BONE DENSITY GENERIC (SCAN ORDER) 06/18/2024 MRI BRAIN WWO CON Routine 06/09/2024 12: 22 PM CUSHION GUM APPLICATOR MS (multiple sclerosis) ([facility]) MRI CERV SPINE WWO CON Routine 06/09/2024 12:22 PM CUSHION GUM APPLICATOR MS (multiple sclerosis) ([facility]) MRI THOR SPINE WWO CON Routine 06/09/2024 11:55 AM CUSHION GUM APPLICATOR MS (multiple sclerosis) ([facility]) HEP C SCANNED ORDERS Routine 05/20/2024 CORONAVIRUS (COVID-19) INFLUENZA A & B ANTIGEN IA PANEL Routine 05/07/2024 Acute cough CULTURE STREP A Routine 05/05/2024 8:36 AM CUSHION GUM APPLICATOR Sore throat CORONAVIRUS (COVID-19) INFLUENZA A & B ANTIGEN IA PANEL Routine 05/05/2024 Acute cough STREP A RAPID Routine 05/05/2024 Sore throat XR RIBS NORY+PA CHEST STAT 04/26/2024 5:44 PM CUSHION GUM APPLICATOR XR THOR SPINE 3V STAT 04/26/2024 5:44 PM CUSHION GUM APPLICATOR OUTSIDE CYTOPATH CERV/VAG INTERPRET (PAP) 07/16/2022 from Last 3 Months or Most Recently Relevant to Health Maintenance Results * BONE DENSITY GENERIC (SCAN ORDER) (06/18/2024) Anatomical Region Laterality Modality Other 06/18/2024 us Doc [facility] Scanned SCANNING Final Resu lt * MRI BRAIN WWO CON (06/09/2024 12:22 PM CUSHION GUM APPLICATOR) Anatomical Region Laterality Modality Head Magnetic Resonan ce 06/10/2024 10:0 0 AM CUSHION GUM APPLICATOR Impressions 06/10/2024 10:06 AM CUSHION GUM APPLICATOR IMPRESSION: 1. Redemonstration of patchy abnormalities in the supratentorial white matter and corpus callosum, in keeping with history of multiple sclerosis. No definite new white matter lesions identified. No definite corresponding enhancement to suggest active demyelination at this time. Ordered By: LALITO GUDINO Interpreted By: Dmitry Dinero MD, 06/10/2024 10:00 AM Narrative 06/10/2024 10:06 AM CUSHION GUM APPLICATOR [facility] [address] [place] [address] DATE: 06/09/2024 10:07 AM INDICATION: Multiple sclerosis. [...] Procedure Note Dmitry Dinero MD - 06/10/[address] [address] DATE: 06/09/2024 10:07 AM INDICATION: Multiple sclerosis. [...] CERV SPINE WWO CON (06/09/2024 12:22 PM CUSHION GUM APPLICATOR) Anatomical Region Laterality Modality Spine Magnetic Resonan ce 06/10/2024 10:0 9 AM CUSHION GUM APPLICATOR Impressions 06/10/2024 10:21 AM CUSHION GUM APPLICATOR IMPRESSION: 1. Redemonstration of patchy signal abnormalities [...] 06/10/2024 10:09 AM Narrative 06/10/2024 10:21 AM CUSHION GUM APPLICATOR [address] [address] DATE: 06/09/2024 10:38 AM INDICATION: Multiple sclerosis. [...] Procedure Note Dmitry Dinero MD - 06/10/2024 [id number] [place] [address] DATE: 06/09/2024 10:38 AM INDICATION: Multiple sclerosis. [...] THOR SPINE WWO CON (06/09/2024 11:55 AM CUSHION GUM APPLICATOR) Anatomical Region Laterality Modality Spine Magnetic Resonan ce 06/10/2024 10:2 4 AM CUSHION GUM APPLICATOR Impressions 06/10/2024 10:27 AM CUSHION GUM APPLICATOR IMPRESSION: 1. Patchy signal abnormalities in the [...] 06/10/2024 10:24 AM Narrative 06/10/2024 10:27 AM CUSHION GUM APPLICATOR [address] [address] DATE: 06/09/2024 10:38 AM INDICATION: Multiple sclerosis. [...] Procedure Note Dmitry Dinero MD - 06/10/2024 [address] [place] [address] DATE: 06/09/2024 10:38 AM INDICATION: Multiple sclerosis. [...] ult * HEP C SCANNED ORDERS (05/20/2024) us [facility] Scanned SCANNING Final Resu lt [facility] ONBASE * (ABNORMAL) CORONAVIRUS (COVID-19) INFLUENZA A & B ANTIGEN IA PANEL (05/07/2024) Only the most recent of2 resultswithin the time period is included. CORONAVIRUS ANTIGEN IA NEGATIVE NEGATIVE [address] [place] INFLUENZA A POSITIVE(A) NEGATIVE [address] [place] INFLUENZA B NEGATIVE NEGATIVE [address] [place] Internal Control: VALID VALID [address] [place] NASAL STRUCTURE / Unknown 05/07/2024 Gloria Gregorio RAIL SIGNAL MECHANIC MICROBIOLOGY - GENERAL OR DERABLES Final Result [address] [place] [address] [place] [address], [place] [phone] * CULTURE STREP A (MG/SJS/SMD Only) (05/05/2024 8:36 AM CUSHION GUM APPLICATOR) THROAT CULTURE STREP A ONLY Negative for Group A Streptococci Negative for Group A Streptococci 05/06/2024 1:57 PM CUSHION GUM APPLICATOR [facility] STRUCT[facility] OF ANTERIOR PORTION OF NECK / Unknown 05/05/2024 8:36 AM CUSHION GUM APPLICATOR Gloria Gregorio RAIL SIGNAL MECHANIC MICROBIOLOGY - GENERAL OR DERABLES Final Result [facility] [address] [place] [address], [place] [phone] * STREP A RAPID (05/05/2024) RAPID STREP TEST NEGATIVE NEGATIVE [address] [place] Internal Control: VALID VALID [address] [place] STRUCTURE OF ANTERIOR PORTION OF NECK / Unknown 05/05/2024 Gloria Gregorio NP MICROBIOLOGY - GENERAL OR DERABLES Final Result [address] [place] [address] [place] [address], [place] [phone] * XR THOR SPINE 3V (04/26/2024 5:44 PM CUSHION GUM APPLICATOR) Anatomical Region Laterality Modality Spine Radiographic Francia ging 04/26/2024 5:47 PM CUSHION GUM APPLICATOR Impressions 04/26/2024 5:49 PM CUSHION GUM APPLICATOR IMPRESSION: No convincing evidence of a thoracic spine fracture. Upper thoracic segments are suboptimally evaluated due to overlapping structures. Referred By: Interpreted By: Tacho West MD, 04/26/2024 5:47 PM Narrative 04/26/2024 5:49 PM CUSHION GUM APPLICATOR [address] [place] [address] Examination: XR THOR SPINE 3V Exam time: [...] Procedure Note Tacho West MD - 04/26/[address] [place] [address] Examination: XR THOR SPINE 3V Exam time: [...] By: Tacho West MD, 04/26/2024 5:47 PM us Freddy Orellana DO GENERAL IMAGING Final Result * XR RIBS NORY+PA CHEST (04/26/2024 5:44 PM CUSHION GUM APPLICATOR) Anatomical Region Laterality Modality Chest Radiographic Francia ging 04/26/2024 5:49 PM CUSHION GUM APPLICATOR Impressions 04/26/2024 5:58 PM CUSHION GUM APPLICATOR IMPRESSION: No radiographic evidence of active chest disease or displaced rib fracture. Referred By: Interpreted By: Tacho West MD, 04/26/2024 5:49 PM Narrative 04/26/2024 5:58 PM CUSHION GUM APPLICATOR [address] [place] [address] Examination: XR RIBS NORY+PA CHEST Exam time: [...] Procedure Note Tacho West MD - 04/26/[address] [place] [address] Examination: XR RIBS NORY+PA CHEST Exam time: [...] Orellana DO GENERAL IMAGING Final Result * PAP SMEAR WITH HPV (07/16/2022) 07/16/2022 us [facility] Scanned SCANNING Final Resu lt from Last 3 Months or Most Recently Relevant to Health Maintenance Insurance Care Teams Home Teaching Grades 9 Thru 12 Teacher Relationship Specialty Start Date End Date Gloria Gregorio NP [address] [place] [address] PCP - General NURSE PRACTITIONER 02/02/22
--- OUTSIDE RECORDS SUMMARY | 2024-07-20 00:20 | XMS_ITS | Continuity of Care Document ---
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 Status Comments Source human papilloma virus vaccine, bivalent 2 2011 AHPVA11 7BA 118 [employer] ([facility]) complet ed human papilloma virus vaccine, bivalent DoD Influenza, seasonal, injectable 1 2011 [id number] 141 Sanofi Pasteur ([facility]) complet ed Influenza , seasonal, injectabl e DoD human papilloma virus vaccine, bivalent 1 2011 AHPVA09 2AD 118 [employer] ([facility]) complet ed human papilloma virus vaccine, bivalent DoD hepatitis A vaccine, adult dosage 2 2011 AHAVB53 8AA 52 [employer] ([facility]) complet ed hepatitis A vaccine, adult dosage DoD anthrax vaccine 1 2010 [id number] 24 [employer] [place] ([facility]) complet ed anthrax vaccine DoD vaccinia (smallpox) vaccine 1 2010 VV04-00 3A 75 [facility] ([facility]) complet ed vaccinia (smallpox ) vaccine DoD typhoid Vi capsular polysaccharid e vaccine 1 2010 C0469-7 101 Sanofi Pasteur ([facility]) complet ed typhoid Vi capsular polysacch aride vaccine DoD Influenza, seasonal, injectable 0 2010 [id number] 141 Sanofi Pasteur ([facility]) complet ed Influenza , seasonal, injectabl e DoD hepatitis A vaccine, adult dosage 1 2010 AHAVB44 3BA 52 [employer] ([facility]) complet ed hepatitis A vaccine, adult [...] purified surface antigen)-reti red CODE 1 2009 [id number] 15 [employer] ([facility]) complet ed influenza virus vaccine, split virus (incl. purified surface antigen)- retired CODE DoD meningococcal polysaccharid e (groups A, C, Y and W-135) diphtheria toxoid conjugate vaccine (MCV4P) 1 2009 [id number] 114 Sanofi Pasteur ([facility]) complet ed meningoco ccal polysacch aride (groups A, C, Y and W-135) diphtheri a toxoid conjugate vaccine (MCV4P) DoD tetanus toxoid, reduced diphtheria toxoid, and acellular pertu is vaccine, adsorbed 1 2009 [id number] 115 Sanofi Pasteur ([facility]) complet ed tetanus [...] ADM Date DC Date Status Disposition Source [facility] [place] [address]([facility] OUTPATIENT [id number] 0740-f/ u sob-(32 6/046/1 ) ELISABETH OBREGON 03/10 Released with Work/Duty Limitations [facility] [place] [address]([facility] [place] [address]([facility]) OUTPATIENT [id number] AR JUDITH REID 03/10 Released w/o Limitations [facility] [place] [address](O ptometr y Clinic [facility]) [facility] [place] [address]([facility]) OUTPATIENT [id number] 0820 - F/U BRONCHI TIS (10/12) ELISABETH OBREGON 03/13 Released with Work/Duty Limitations [facility] [place] [address]([facility] RubénIsidro tysonlan d) [facility] [place] [address]([facility]) OUTPATIENT [id number] 0820 - F/U BRONCHI TIS (10/12) TRISH ARIAS T 03/16 Released with Work/Duty Limitations [place] [address](T [facility] Isidro Mont[facility] d) [facility] [place] [address]([facility] OUTPATIENT [id number] 1020-R foot pain (343/t -4) TRISH ARIAS 08/07 Released with Work/Duty Limitations [facility] [place] [address](T alisha Health Isidro Montanalan d) [facility] [place] [address]([facility]) OUTPATIENT [id number] 1320-F/ U R FOOT (343/XR AY) TRISH ARIAS T 08/11 Released with Work/Duty Limitations [facility] [address](T jarad Health RubénIsidro tysonlan d) [facility] [place] [address]([facility]) OUTPATIENT [id number] 0840-f/ u R foot-(3 43xray) VIRGILIO IRENE 08/18 Released w/o Limitations [facility] [place] [address](T jarad Health Isidro Montanalan d) [address] [place] [address] Grant VELEZ ([facility]Hea lthcare Integrato rs) OUTPATIENT [id number] LATE ENTRY: Attende d FTAC Orienta tion to MDG September 20 ELIJAH KIRKPATRICK 09/25 Released w/o Limitations [employer] ([facility])(H ealthca re Integra tors) [employer] ([facility])(Sco tt [facility] Team 3) OUTPATIENT [id number] [facility] BASILIO WOLF 10/05 Released w/o Limitations [employer] ([facility] Team 3) [employer] ([facility])(Sco tt [facility] Team 3) TELE CONSULT [id number] Needs Well Woman Exam - Luciano // PRAVEEN Obando 10/13 [employer] ([facility] Team 3) [employer] ([facility])(Sco tt [facility] Team 3) OUTPATIENT [id number] [facility] BASILIO COELLO 12/11 Released w/o Limitations [employer] ([facility] 3) [employer] ([facility])([facility]) OUTPATIENT [id number] HASEEB JUSTIN 01/29 Released w/o Limitations [employer] ([facility]) [employer] ([facility])(Dep loyment Health Assessmen ts) OUTPATIENT [id number] Pre Deploye r MAYCO GIRARD 01/31 Released w/o Limitations [employer] ([facility])(D eployme nt Health Assessm ents) [employer] ([facility])(Opt ometry) OUTPATIENT [id number] routine for depoyme nt FRANCO VENCES 02/12 Released w/o Limitations [employer] ([facility])(O ptometr y) [employer] ([facility])(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) OUTPATIENT [id number] annual pap DESHAWN CABRERA 02/12 Released w/o Limitations [employer] ([facility])(G ynecolo gy) [facility] [employer] ([facility])(Ob/ Technical Support Consultant) OUTPATIENT [id number] COLPO LILIANA ROMERO LATRICIA 02/15 Released w/o Limitations [facility] [employer] ([facility])(O b/Technical Support Consultant) [facility] [employer] ([facility])(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) TELE CONSULT [id number] Discuss pap results DESHAWN CABRERA 02/[address] [place] [address] [employer] ([facility])(G ynecolo gy) [address] [place] [address] [employer] ([facility])(Ob/ Technical Support Consultant) TELE CONSULT [id number] colpo results ROMERO FORD 02/[address] [place] [address] [employer] ([facility])(O b/Technical Support Consultant) [address] [place] [address] [employer] ([facility])(Sco tt [facility] Team 3) OUTPATIENT [id number] knee and back pain BRIANA ARIAS 03/28 Released w/o Limitations [address] [place] [address] [employer] ([facility])(S cott [facility] Team 3) [address] [place] [address] [employer] ([facility])(Phy sical Therapy) OUTPATIENT [id number] LUMBAGO WILLEM GURROLA 04/12 Released with Work/Duty Limitations [address] [place] [address] [employer] ([facility])(P hysical Therapy ) [address] [place] [address] [employer] ([facility])(Sco tt [facility] Team 3) OUTPATIENT [id number] f/u back pain RICHARD PEDERSEN 05/30 Released w/o Limitations [facility] [employer] ([facility])(S cott [facility] Team 3) [address] [place] [address] [employer] ([facility])(Phy sical Therapy) OUTPATIENT [id number] low back pain WILLEM GURROLA 06/01 Released w/o Limitations [facility] [employer] ([facility])(P hysical Therapy ) [address] [place] [address] [employer] ([facility])(Sco tt [facility] Team 3) TELE CONSULT [id number] Patient calling about profile from May appt Sj Brown [id number] [id number] PRAVEEN ESTEVEZ 06/[address] [place] [address] [employer] ([facility])(S hi [facility] Team 3) [employer] ([facility])(Chi ropractic ) OUTPATIENT [id number] LUMBAGO ARABELLA GONZALES R 06/12 Released w/o Limitations [employer] ([facility])(C hiropra ctic) [employer] ([facility])(Chi ropractic ) OUTPATIENT [id number] back pain ARABELLA GONZALES R 06/15 Released w/o Limitations [employer] ([facility])(C hiropra ctic) [employer] ([facility])(Chi ropractic ) OUTPATIENT [id number] f/u on back - [id number] ARABELLA GONZALES R 07/06 Released w/o Limitations [employer] ([facility])(C hiropra ctic) [employer] ([facility])(Chi ropractic ) OUTPATIENT [id number] back pain ARABELLA GONZALES R 07/11 Released w/o Limitations [employer] ([facility])(C hiropra ctic) [employer] ([facility])(Sco tt [facility] Team 3) OUTPATIENT [id number] f/u on back - [id number] [phone] RICHARD PEDERSEN 07/15 Released w/o Limitations [employer] ([facility])(S hi [facility] Team 3) [employer] ([facility])(Chi ropractic ) OUTPATIENT [id number] f/u on back - [id number] ARABELLA GONZALES R 07/24 Released w/o Limitations [employer] ([facility])(C hiropra ctic) [employer] ([facility])(Chi ropractic ) OUTPATIENT [id number] back pain ARABELLA GONZALES R 08/01 Released w/o Limitations [employer] ([facility])(C hiropra ctic) [employer] ([facility])(Sco tt [facility] Team 3) TELE CONSULT [id number] Notes Entered by: REFUGIO SIMON 07 Aug 2011 0821 ------- ------- ------- ------- -- Test results - [facility] - [id number] - [facility] PRAVEEN ESTEVEZ 08/[address] [place] [address] [employer] MARIELB ([facility])([facility] Team 3) [address] [place] [address] Grant B [facility])(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) OUTPATIENT [id number] OVARIAN CYST ROMERO FORD LATRICIA 08/07 Released w/o Limitations [address] [place] [address] [employer] [facility])(G ynecolo gy) [address] [place] [address] [employer] B [facility])(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) OUTPATIENT [id number] ROMERO FORD LATRICIA 08/08 Released w/o Limitations [address] [place] [address] [employer] ([facility])(G ynecolo gy) [address] [place] [address] [employer] B [facility])(Chi ropractic ) OUTPATIENT [id number] JÚNIORAAMIRARABELLA 08/16 Released w/o Limitations [address] [place] [address] [employer] B [facility])(C hiropra ctic) [address] [place] [address] [employer] B [facility])(Chi ropractic ) TELE CONSULT [id number] JANET ARABELLA Lonnie 08/[address] [place] [address] [employer] B [facility])(C hiropra ctic) [address] [place] [address] Grant B [facility])(Sco tt [facility] Team 3) OUTPATIENT [id number] f/u for back issues [phone] kellie'd by RICHARD BLAS 08/28 Released w/o Limitations [address] [place] [address] [employer] MARIELB ([facility] Team 3) [address] [place] [address] [employer] B [facility])([facility] Team 3) TELE CONSULT [id number] Notes Entered by: Isabelle BRADSHAW 18 Sep 2011 0627 ------- ------- ------- ------- -- Need profile OBED Schumacher 09/[address] [place] [address] [employer] B ([facility] Team 3) [address] [place] [address] [employer] B ([facility])(Chi ropractic ) OUTPATIENT [id number] follow up [id number] ARABELLA GONZALES 09/19 Released w/o Limitations [address] [place] [address] [employer] ([facility])(C hiropra ctic) [facility] [employer] ([facility])(Phy sical Therapy) OUTPATIENT [id number] joint pain, localiz ed in the hip STERLING FOX Pita 09/30 Released w/o Limitations [facility] [employer] ([facility])(P hysical Therapy ) [facility] [employer] [facility])(Sco tt [facility] Team 3) TELE CONSULT [id number] Notes Entered by: DEISY WEST 22 Oct 2011900 ------- ------- ------- ------- -- Rx Refill/ Sj /[id number]/ ANTHONY TSE 10/21[facility] [employer] ([facility]S cott [facility] Team 3) [facility] [employer] [facility])(Phy sical Therapy) OUTPATIENT [id number] IAN DYER 10/22 Released w/o Limitations [employer] ([facility])(P hysical Therapy ) [facility] [employer] ([facility])(Chi ropractic ) OUTPATIENT [id number] ARABELLA GONZALES 10/24 Released w/o Limitations [facility] [employer] ([facility])(C hiropra ctic) [address] [place] [address] [employer] ([facility])(Phy sical Therapy) OUTPATIENT [id number] IAN DYER 10/24 Released w/o Limitations [address] [place] [address] [employer] ([facility])(P hysical Therapy ) [address] [place] [address] [employer] [facility])(Fam felix Med Tm B Non-AD BCC) OUTPATIENT [id number] Pt w/back, hip pain. RICHARD PEDERSEN 10/31 Released with Work/Duty Limitations [facility] [employer] ([facility])(F amily Med Tm B Non-AD BCC) [facility] Medical [facility] [employer] ([facility])(Chi ropractic ) OUTPATIENT [id number] ARABELLA GONZALES 11/01 Released w/o Limitations [facility] [employer] ([facility])(C hiropra ctic) [address] [place] [address] [employer] ([facility])(Phy sical Therapy) OUTPATIENT [id number] lbp/leg ANEL FOXIdris Lema 11/01 Released w/o Limitations [address] [place] [address] [facility] ([facility])(P hysical Therapy ) [address] [place] [address] Grant [facility])(Kso tt [facility] Team 3) TELE CONSULT [id number] Notes Entered by: PAOLO ARGUELLES 06 Nov 2011 0744 ------- ------- ------- ------- -- [facility]BASILIO GHOSH 11/[address] [place] [address] [employer] [facility])(S cott [facility] Team 3) [address] [place] [address] Grant [facility])(Chi ropractic ) OUTPATIENT [id number] BP W#256-2 223 ARABELLA GONZALES Lonnie 11/20 Released w/o Limitations [address] [place] [address] [employer] [facility] ([facility])(C hiropra ctic) [address] [place] [address] Grant [facility])([facility] Team 3) TELE CONSULT [id number] Notes Entered by: ZANA WRIGHT 27 Nov 2011 1544 ------- ------- ------- ------- -- Med samantha /Chidi r/ /[facility] ANTHONY MCKEON 11/[address] [place] [address] [employer] [facility])(S hi [facility] Team 3) [address] [place] [address] Grant [facility])(Chi ropractic ) OUTPATIENT [id number] BP W#256-2 223 ARABELLA GONZALES R 11/28 Released w/o Limitations [address] [place] [address] [employer] ([facility])(C hiropra ctic) [address] [place] [address] [employer] [facility])([facility] Team 3) OUTPATIENT [id number] Possibl e MEB for back BASILIO WOLF 12/20 Released w/o Limitations [address] [place] [address] [employer] ([facility] Team 3) [address] [place] [address] [employer] [facility])([facility] Team 3) TELE CONSULT [id number] Notes Entered by: ZANA WRIGHT 24 Dec 2011 0925 ------- ------- ------- ------- -- BOGDAN/Reena oer/517 .759.27 22 or 256.167 1/mnm BASILIO WOLF 12/[address] [place] [address] Grant [facility])([facility] Team 3) [address] [place] [address])(Phy sical Therapy) OUTPATIENT [id number] LUMSTERLING MCCORMACK 12/26 Released w/o Limitations [address] [place] [address] Grant [facility] ([facility])(P hysical Therapy ) [address] [place] [address])(Chi ropractic ) OUTPATIENT [id number] follow up [id number] ARABELLA GONZALES 01/09 Released w/o Limitations [address] [place] [address])(C hiropra ctic) [address] [place] [address] Grant [facility])([facility] Team 3) TELE CONSULT [id number] Notes Entered by: REFUGIO SIMON 21 Jan 2012 1219 ------- ------- ------- ------- -- Ira Wolf - [id number] [phone]/[phone] - [facility] PRAVEEN ESTEVEZ 01/[address] [place] [address] Grant [facility])([facility] Team 3) [address] [place] [address])([facility] Team 3) TELE CONSULT [id number] Notes Entered by: SENTHIL AUSTIN 21 Jan 2012 1317 ------- ------- ------- ------- -- Info for referra stark being sent to clinic BLUE Bah 01/[address] [place] [address] Grant [facility] ([facility] Team 3) [address] [place] [address])(War rior Op Med Cln Tm A Ad) TELE CONSULT [id number] Notes Entered by: WILBER GUZMAN 12 Feb 2012 1427 ------- ------- ------- ------- -- Nausea, vomitin g, POLLY Corrigan 02/[address] [place] [address])(W arrior Op Med Cln Tm A Ad) [address] [place] [address])(Chi ropractic ) OUTPATIENT [id number] ARABELLA GONZALES 02/20 Released w/o Limitations [address] [place] [address])(C hiropra ctic) [address] [place] [address])([facility] Team 3) TELE CONSULT [id number] Notes Entered by: BASILIO WOLF 26 Feb 2012 0726 ------- ------- ------- ------- -- BASILIO RODAS 02/[address] [place] [address])(S cott [facility] Team 3) [address] [place] [address])([facility] Team 3) TELE CONSULT [id number] Notes Entered by: DEISY WEST 26 Feb 2012 1106 ------- ------- ------- ------- -- Stat Referra l for Feb/Na almanza/61 [id number]/KMR * BLUE FRASER 02/[address] [place] [address])(S cott [facility] Team 3) [address] [place] [address])(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) TELE CONSULT [id number] Notes Entered by: CAROL CUELLAR 03 Mar 2012 1447 ------- ------- ------- ------- -- Concern s appt itzel w ph [phone], MIGNON VINSON 03/[address] [place] [address])(Camron dias gy) [address] [place] [address])(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) OUTPATIENT [id number] 1 yr f/u hpv [id number] ROMERO FORD 03/04 Released w/o Limitations [address] [place] [address] [employer] ([facility])(G ynecolo gy) [address] [place] [address] [employer] B ([facility])(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) TELE CONSULT [id number] Notes Entered by: ROMERO FORD 12 Mar 2012 0904 ------- ------- ------- ------- -- Needs colpo/+ hpv STEFAN HENDRIX 03/[address] [place] [address] [employer] ([facility])(G ynecolo gy) [address] [place] [address] [employer] ([facility])(Kso tt [facility] Team 3) OUTPATIENT [id number] Stomach pain/he adache BASILIO WOLF 03/17 Sick at Home/Quarter s [address] [place] [address] [employer] ([facility] Team 3) [address] [place] [address] [employer] ([facility])(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) OUTPATIENT [id number] Colpo ELIJAH TURNER 03/31 Released w/o Limitations [address] [place] [address] [employer] ([facility])(G ynecolo gy) [address] [place] [address] [employer] ([facility])([facility] Team 3) TELE CONSULT [id number] Notes Entered by: ADRY MOREL 01 Apr 2012 1131 ------- ------- ------- ------- -- Network Results -RADIOL OGY 02/14/12 BASILIO WOLF 04/[address] [place] [address] [employer] ([facility] Team 3) [address] [place] [address] [employer] ([facility])(Ob/ Technical Support Consultant) TELE CONSULT [id number] Notes Entered by: Pita TURNER 11 Apr 2012 0732 ------- ------- ------- ------- -- Results of colpo ELIJAH TURNER 04/[address] [place] [address] [employer] ([facility])(O b/Technical Support Consultant) [address] [place] [address] [employer] ([facility])([facility] Team 3) TELE CONSULT [id number] Notes Entered by: DEISY WEST 21 May 2012 0840 ------- ------- ------- ------- -- Juancarlos quintero for 1 day/Na almanza/Tisha [phone] BLUE FRASER 05/[address] [place], [place] [address]B [facility])([facility] Team 3) [address] [place] [address])([facility] Team 3) OUTPATIENT [id number] follow up MEB [id number] BASILIO WOLF 06/24 Released w/o Limitations [address] [place], [place] [address]B [facility])([facility] Team 3) [address] [place] [address])([facility] Team 3) OUTPATIENT [id number] f/u depress ion medicat ion BASILIO WOLF 07/28 Released w/o Limitations [address] [place] [address])([facility] [facility] 3) [address] [place] [address])([facility]) TELE CONSULT [id number] Notes Entered by: TRISTAN LIMA 18 Aug 2012 1519 ------- ------- ------- ------- -- SUMAYA Nguyen 08/[address] [place] [address])([facility]) [address] [place] [address])([facility] Team 3) TELE CONSULT [id number] Notes Entered by: DEISY WEST 21 Aug 2012 1041 ------- ------- ------- ------- -- Chest Pain and Black Tar Stool/S chloer/ / BLUE FRASER 08/[address] [place], [place] [address]B [facility])([facility] 3) [address] [place] [address])([facility] Team 3) TELE CONSULT [id number] Notes Entered by: ZANA WRIGHT 22 Aug 2012 0717 ------- ------- ------- ------- -- ER follow yp/Schl oer/618 .[phone] 19 EVELIOBLUE RODRIGUEZ Deepika 08/[address] [place] [address] Grant B [facility])([facility] Team 3) [address] [place] [address] Grant B [facility])([facility] Team 3) OUTPATIENT [id number] er follow up now itchy all over. BASILIO WOLF 08/22 Released w/o Limitations [address] [place] [address] Grant B [facility])([facility] 3) [address] [place] [address] Grant [facility])([facility]) TELE CONSULT [id number] Notes Entered by: SIRENA SY 02 Sep 2012 1007 ------- ------- ------- ------- -- Pt cancell ed SUMAYA GRAYSON 09/[address] [place] [address] Grant [facility])([facility]) [address] [place] [address] Grant [facility])([facility] Team 3) TELE CONSULT [id number] Notes Entered by: ZANA WRIGHT 04 Sep 2012 1156 ------- ------- ------- ------- -- Fax medical records /Chidi r/ or SADAF MAGANA 09/04 Referred for Appointment [address] [place] [address] Grant FLOYDB [facility])([facility] 3) [address] [place] [address] Grant B [facility])([facility] Team 3) TELE CONSULT [id number] Notes Entered by: BASILIO WOLF 08 Sep 2012 1214 ------- ------- ------- ------- -- lab results BASILIO WOLF 09/[address] [place] [address] Grant MARIELB [facility])([facility] 3) [address] [place] [address] Grant [facility])([facility] Team 3) OUTPATIENT [id number] AF serpati on phys [id number] BASILIO WOLF 10/14 Released w/o Limitations [address] [place] [address] Grant [facility])([facility] 3) [address] [place] [address] Grant [facility])([facility] Team 3) OUTPATIENT [id number] Sepjama jimenez BASILIO Villareal 10/16 Released w/o Limitations [address] [place] [address] Grant [facility])([facility] 3) [address] [place] [address] Grant [facility])(Fam felix Med Tm B Non-AD BCC) TELE CONSULT [id number] Notes Entered by: VENITA GARCIA 24 Nov 2012 1040 ------- ------- ------- ------- -- Network Results -GASTRO ENTEROL OGY 3 BASILIO WOLF 11/[address] [place] [address] Grant [facility])(F amily Med Tm B Non-AD BCC) [facility] Outpatient Encounter [id number] 3 03/09 [facility] Outpatient Encounter [id number] 2 FIDEL LOUIS I 09/25 [facility] Procedures Combined list of: 1) Procedures from Department of Veterans Affairs facilities going back up to thelast 18 months, not all VA non-surgical procedures are included; 2) All procedures from the Department of Defense facilities. Procedure Procedure Type Code Date Perfomer Comments Sourc e THERAPEUTIC, PROPHYLACTIC, OR DIAGNOSTIC INJECTION (SPECIFY SUBSTANCE OR DRUG); SUBCUTANEOUS OR INTRAMUSCULAR 2009 [facility] FITTING OF SPECTACLES, EXCEPT FOR APHAKIA; MONOFOCAL 2009 [facility] ALBUTEROL, UP TO 2.5 MG AND IPRATROPIUM [...] OUTPATIENT FACILITY, APPROXIMATELY 45 TO 50 MINUTES [id number] W THE PATIENT; W MED EVAL & [...] 24 HR/SOON APT;5-10 MIN MED DIS 2011 [facility] OSTEOPATHIC MANIPULATIVE TREATMENT (OMT); 1-2 BODY REGIONS INVOLVED 2011 [facility] THERAPEUTIC PROCEDURE, 1 OR MORE AREAS, EACH 15 MINUTES; THERAPEUTIC EXERCISES TO DEVELOP STRENGTH AND ENDURANCE, RANGE OF MOTION AND FLEXIBILITY 2010 [facility] URINE TEST, BY VISUAL COLOR COMPARISON METHODS 2010 [facility] CULTURE, CHLAMYDIA, ANY SOURCE 2010 [facility] FITTING OF SPECTACLES, EXCEPT FOR APHAKIA; MONOFOCAL 2010 [facility] NEUROPSYCHOLOGICAL TESTING (EG, [place] CARD SORTING TEST), ADMINISTERED BY A COMPUTER, WITH QUALIFIED HEALTH WOOL BUYER INTERPRETATION AND REPORT 2010 [facility] Determination Of Refractive State Determination Of Refractive State 14067 2009 MAYTE CADENA [facility] Psychiatric Diagnostic Evaluation Review of Records and Reports Psychiatric Diagnostic Evaluation Review of Records and Reports 38497 2012 NI BARRERA Psychotherapy Individual Approx 30 Min W/ Medical Evaluation & Management 2012 NI BARRERA Non-Physician Phone Call To Patient/Provider Brief (5-10min) Non-Physician Phone Call To Patient/Provider Brief (5-10min) 26823 2012 SADAF MAGANA [facility] Psychotherapy Individual Approximately 60 Minutes 2012 EMANUEL DANIEL Psychotherapy Individual Approximately 60 Minutes 2012 EMANUEL DANIEL Psychotherapy Indiv Approx 45 Min W/ Medical Evaluation & Management 2012 NI BARRERA Psychotherapy Individual Approximately 60 Minutes 2012 EMANUEL DANIEL Psychiatric Diagnostic Evaluation Comprehensive Examination Psychiatric Diagnostic Evaluation Comprehensive Examination 19851 2012 NI BARRERA DoD Psychotherapy Individual Approximately 60 Minutes 2012 EMANUEL DANIEL Psychiatric Diagnostic Evaluation Comprehensive Examination Psychiatric Diagnostic Evaluation Comprehensive Examination 46383 2012 EMANUEL DANIEL Psychotherapy Indiv Approx 45 Min W/ Medical Evaluation & Management Psychotherapy Indiv Approx 45 Min W/ Medical Evaluation & Management 22570 2012 NI BARERRA Test Test 20473 2011 ELIJAH TURNER [facility] Colposcopy Cervix With Endocervical Curettage Colposcopy Cervix With Endocervical Curettage 73005 2011 ELIJAH TURNER [facility] Screening papanicolaou smear; obtaining, preparing and conveyance of cervical or vaginal smear to laboratory 2011 ROMERO FORD [facility] Modalities Heat Hot Packs Modalities Heat Hot Packs 87749 2011 ARABELLA GONZALES Modalities Electrical Stimulation Unattended Modalities Electrical Stimulation Unattended 35413 2011 ARABELLA GONZALES Chiropractic Manip Treatmt (CMT) Spinal Three To Four Region Chiropractic Manip Treatmt (CMT) Spinal Three To Four Region 86660 2011 ARABELLA GONZALES Modalities Traction Manual (Each Region 15 Minutes) Modalities Traction Manual (Each Region 15 Minutes) 65081 2011 ARABELLA GONZALES Non-Physician Phone Call To Patient/Provider Brief (5-10min) Non-Physician Phone Call To Patient/Provider Brief (5-10min) 10527 2011 BLUE FRASER [facility] Modalities Heat Hot Packs Modalities Heat Hot Packs 96029 2011 ARABELLA GONZALES Moist heat for 20min to hypertonic lumbar erectors bilaterally DoD Modalities Electrical Stimulation Unattended Modalities Electrical Stimulation Unattended 56304 2011 ARABELLA GONZALES Interferential 80-150hz with Moist heat for 20min to hypertonic lumbar erectors bilaterally [facility] Modalities Traction Manual (Each Region 15 Minutes) Modalities Traction Manual (Each Region 15 Minutes) 33473 2011 ARABELLA GONZALES 57-Performed attended, prone, Aguilera Flexion/Distracti on to lumbar spine (15min) [facility] Chiropractic Manip Treatmt (CMT) Spinal Three To Four Region Chiropractic Manip Treatmt (CMT) Spinal Three To Four Region 04066 2011 ARABELLA GONZALES AT - Diversified supine adjustment to C/S, prone T/S, Diversified side posture to SI and L/S [facility] Range Of Motion Evaluation Of Extremity Range Of Motion Evaluation Of Extremity 51070 2011 STERLING FOX [facility] Modalities Electrical Stimulation Unattended Modalities Electrical Stimulation Unattended 90502 2011 ARABELLA GONZALES Modalities Heat Hot Packs Modalities Heat Hot Packs 83044 2011 ARABELLA GONZALES [facility] Modalities Traction Manual (Each Region 15 Minutes) Modalities Traction Manual (Each Region 15 Minutes) 47339 2011 ARABELLA GONZALES [facility] Chiropractic Manip Treatmt (CMT) Spinal Three To Four Region Chiropractic Manip Treatmt (CMT) Spinal Three To Four Region 67206 2011 ARABELLA GONZALES [facility] Psychiatric Diagnostic Evaluation Comprehensive Examination Psychiatric Diagnostic Evaluation Comprehensive Examination 38089 2011 JACQUES CORTES [facility] Modalities Electrical Stimulation Unattended Modalities Electrical Stimulation Unattended 41990 2011 ARABELLA GONZALES [facility] Modalities Heat Hot Packs Modalities Heat Hot Packs 99052 2011 ARABELLA GONZALES [facility] Modalities Traction Manual (Each Region 15 Minutes) Modalities Traction Manual (Each Region 15 Minutes) 69708 2011 ARABELLA GONZALES [facility] Chiropractic Manip Treatmt (CMT) Spinal Three To Four Region Chiropractic Manip Treatmt (CMT) Spinal Three To Four Region 91038 2011 ARABELLA GONZALES [facility] Physical Therapy Service Re-Evaluation Physical Therapy Service Re-Evaluation 46872 2011 STERLING FOX [facility] Modalities Heat Hot Packs Modalities Heat Hot Packs 19176 2011 ARABELLA GONZALES [facility] Modalities Electrical Stimulation Unattended Modalities Electrical Stimulation Unattended 12576 2011 ARABELLA GONZALES [facility] Modalities Traction Manual (Each Region 15 Minutes) Modalities Traction Manual (Each Region 15 Minutes) 74576 2011 ARABELLA GONZALES Chiropractic Manip Treatmt (CMT) Spinal Three To Four Region Chiropractic Manip Treatmt (CMT) Spinal Three To Four Region 23933 2011 ARABELLA GONZALES [facility] PT A e ment Kinetic Training PT Assessment Kinetic Training 28483 2011 IAN DYER [facility] Physical Therapy Neuromuscular Re-education Physical Therapy Neuromuscular Re-education 01019 2011 IAN DYER Physical Therapy: ___ Se ion Segments, 15 Minutes Each Physical Therapy: ___ Session Segments, 15 Minutes Each 93078 2011 IAN DYER Modalities Electrical Stimulation Unattended Modalities Electrical Stimulation Unattended 16740 2011 ARABELLA GONZALES Interferential 80-150hz with Moist heat for 20min to hypertonic cervicothoracic thoracic erectors bilaterally DoD Modalities Heat Hot Packs Modalities Heat Hot Packs 32040 2011 ARABELLA GONZALES Moist heat for 20min to hypertonic cervicothoracic thoracic erectors bilaterally DoD Modalities Traction Manual (Each Region 15 Minutes) Modalities Traction Manual (Each Region 15 Minutes) 13796 2011 ARABELLA GONZALES 57-Performed attended, prone, Aguilera Flexion/Distracti on to lumbar spine (15min) [facility] Chiropractic Manip Treatmt (CMT) Spinal Three To Four Region Chiropractic Manip Treatmt (CMT) Spinal Three To Four Region 55660 2011 ARABELLA GONZALES AT - Diversified supine adjustment to C/S, prone T/S, Diversified side posture to SI and L/S [facility] PT A e ment Kinetic Training PT Assessment Kinetic Training 33085 2011 IAN DYER [facility] Physical Therapy Neuromuscular Re-education Physical Therapy Neuromuscular Re-education 12289 2011 IAN DYER Physical Therapy: ___ Se ion Segments, 15 Minutes Each Physical Therapy: ___ Session Segments, 15 Minutes Each 16327 2011 IAN DYER [facility] A isted Exercises For ROM Assisted Exercises For ROM 96098 2011 STERLING FOX [facility] Osteopathic Manip Treatment (OMT) 1-2 Body Regions Involved Osteopathic Manip Treatment (OMT) 1-2 Body Regions Involved 89656 2011 STERLING FOX [facility] Physical Therapy Service Evaluation Physical Therapy Service Evaluation 02503 2011 STERLING FOX [facility] Modalities Electrical Stimulation Unattended Modalities Electrical Stimulation Unattended 78164 2011 ARABELLA GONZALES DoD Modalities Heat Hot Packs Modalities Heat Hot Packs 69421 2011 ARABELLA GONZALES Moist heat for 20min to hypertonic lumbar erectors bilaterally DoD Modalities Traction Manual (Each Region 15 Minutes) Modalities Traction Manual (Each Region 15 Minutes) 70322 2011 ARABELLA GONZALES 57 - Performed attended, prone, Aguilera Flexion/Distracti on to lumbar spine (15min) [facility] Chiropractic Manip Treatmt (CMT) Spinal Three To Four Region Chiropractic Manip Treatmt (CMT) Spinal Three To Four Region 41172 2011 ARABELLA GONZALES AT - Diversified supine adjustment to C/S, prone T/S, Diversified side posture to SI and L/S DoD Modalities Heat Hot Packs Modalities Heat Hot Packs 46972 2011 ARABELLA GONZALES Moist heat for 20min to hypertonic lumbar erectors bilaterally DoD Modalities Electrical Stimulation Unattended Modalities Electrical Stimulation Unattended 49353 2011 ARABELLA GONZALES Interferential 80-150hz with Moist heat for 20min to hypertonic lumbar erectors bilaterally DoD Modalities Traction Manual (Each Region 15 Minutes) Modalities Traction Manual (Each Region 15 Minutes) 77406 2011 ARABELLA GONZALES Chiropractic Manip Treatmt (CMT) Spinal Three To Four Region Chiropractic Manip Treatmt (CMT) Spinal Three To Four Region 85469 2011 ARABELLA OGNZALES Test Test 49072 2011 ROMERO FORD Implantable Contraceptive Capsules Insertion Implantable Contraceptive Capsules Insertion 78196 2011 ROMERO FORD Non-Physician Phone Call To Patient/Provider Brief (5-10min) Non-Physician Phone Call To Patient/Provider Brief (5-10min) 16891 2011 PRAVEEN ESTEVEZ Modalities Traction Manual (Each Region 15 Minutes) Modalities Traction Manual (Each Region 15 Minutes) 23801 2011 ARABELLA GONZALES Chiropractic Manip Treatmt (CMT) Spinal Three To Four Region Chiropractic Manip Treatmt (CMT) Spinal Three To Four Region 59756 2011 ARABELLA GONZALES Modalities Electrical Stimulation Unattended Modalities Electrical Stimulation Unattended 26676 2011 ARABELLA GONZALES Modalities Heat Hot Packs Modalities Heat Hot Packs 92873 2011 ARABELLA GONZALES Chiropractic Manip Treatmt (CMT) Spinal Three To Four Region Chiropractic Manip Treatmt (CMT) Spinal Three To Four Region 89026 2011 ARABELLA GONZALES Modalities Traction Manual (Each Region 15 Minutes) Modalities Traction Manual (Each Region 15 Minutes) 64738 2011 ARABELLA GONZALES Modalities Heat Hot Packs Modalities Heat Hot Packs 07385 2011 ARABELLA GONZALES Moist heat for 20min to hypertonic lumbar erectors bilaterally DoD Modalities Electrical Stimulation Unattended Modalities Electrical Stimulation Unattended 02452 2011 ARABELLA GONZALES Interferential 80-150hz with Moist heat for 20min to hypertonic lumbar erectors bilaterally DoD Modalities Traction Manual (Each Region 15 Minutes) Modalities Traction Manual (Each Region 15 Minutes) 91731 2011 ARABELLA GONZALES Chiropractic Manip Treatmt (CMT) Spinal Three To Four Region Chiropractic Manip Treatmt (CMT) Spinal Three To Four Region 76232 2011 ARABELLA GONZALES A isted Exercises For ROM Assisted Exercises For ROM 23036 2011 ARABELLA GONZALES Tonic/Phasic lumbar hip extensor imbalance. Tonic lumbar erectors, tonic biceps femoris, paresis 3/5 hip extensors. 15min attended hip extensor/biceps femoris Proprioceptive Neuromuscular Facilitation stretching followed by hip extension and gluteal seated isometric contraction exercises to strengthen weak g-medius bilaterally. Patient to continue routine daily 25 reps bilaterally hold 3 secs, stretch before and after exercise [facility] Chiropractic Manip Treatmt (CMT) Spinal Three To Four Region Chiropractic Manip Treatmt (CMT) Spinal Three To Four Region 02722 2011 ARABELLA GONZALES Modalities Traction Manual (Each Region 15 Minutes) Modalities Traction Manual (Each Region 15 Minutes) 66495 2011 ARABELLA GONZALES Modalities Traction Manual (Each Region 15 Minutes) Modalities Traction Manual (Each Region 15 Minutes) 60939 2011 ARABELLA GONZALES Performed attended, prone, Aguilera Flexion/Distracti on to lumbar spine (15min) [facility] Chiropractic Manip Treatmt (CMT) Spinal Three To Four Region Chiropractic Manip Treatmt (CMT) Spinal Three To Four Region 74856 2011 ARABELLA GONZALES Modalities Heat Hot Packs Modalities Heat Hot Packs 14792 2011 ARABELLA GONZALES Modalities Electrical Stimulation Unattended Modalities Electrical Stimulation Unattended 54072 2011 ARABELLA GONZALES Chiropractic Manip Treatmt (CMT) Spinal Three To Four Region Chiropractic Manip Treatmt (CMT) Spinal Three To Four Region 39872 2011 ARABELLA GONZALES [facility] Non-Physician Phone Call To Patient/Provider Brief (5-10min) Non-Physician Phone Call To Patient/Provider Brief (5-10min) 91226 2011 PRAVEEN ESTEVEZ Osteopathic Manip Treatment (OMT) 1-2 Body Regions Involved Osteopathic Manip Treatment (OMT) 1-2 Body Regions Involved 02468 2011 WILLEM GURROLA Physical Therapy Service Re-Evaluation Physical Therapy Service Re-Evaluation 23752 2011 WILLEM GURROLA Physical Therapy: ___ Se ion Segments, 15 Minutes Each Physical Therapy: ___ Session Segments, 15 Minutes Each 40703 2010 WILLEM GURROLA combined time of 16 minutes exercises for back rotation and left quad strengthening [facility] Physical Therapy Service Evaluation Physical Therapy Service Evaluation 29176 2010 WILLEM GURROLA Osteopathic Manip Treatment (OMT) 1-2 Body Regions Involved Osteopathic Manip Treatment (OMT) 1-2 Body Regions Involved 92638 2010 WILLEM GURROLA OMT to the LS spine [facility] Colposcopy Cervix With Biopsy Colposcopy Cervix With Biopsy 63206 2010 ROMERO FORD Test Test 48677 2010 ROMERO FORD Pt informed of Negative results [facility] Cervical Culture Chlamydia trachomatis Cervical Culture Chlamydia trachomatis 93403 2010 DESHAWN CABRERA Screening papanicolaou smear; obtaining, preparing and conveyance of cervical or vaginal smear to laboratory 2010 DESHAWN CABRERA Determination Of Refractive State Determination Of Refractive State 19337 2010 FRANCO VENCES Spectacles Services Fitting Monofocal Except For Aphakia Spectacles Services Fitting Monofocal Except For Aphakia 40247 2010 FRANCO VENCES Ophthalmological New Patient Start Comprehensive Care Ophthalmological New Patient Start Comprehensive Care 20823 2010 FRANCO VENCES Psychometric Neuropsych Testing Battery Admin By Computer Psychometric Neuropsych Testing Battery Admin By Computer 79549 2010 KEENAN LONDONO Spectacles Services Fitting Monofocal Except For Aphakia Spectacles Services Fitting Monofocal Except For Aphakia 60113 2009 MAYTE CADENA DoD Social History Combined list of available smoking, tobacco, and other social history from 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 Social History Type Response Date Comment [facility] e This section is an empty social history section. DoD
--- OUTSIDE RECORDS SUMMARY | 2024-07-20 00:20 | XMS_ITS | Clinical Summary ---
Author Organization [facility] Address [address] [place] [address] Phone Care Team Providers Care Operating Room Assistant Name Role Phone Gloria Gregorio APRN, JANE Primary Care Provid er Jan Alvares MD Unavailable [phone] Allergies No known active allergies Medications Ocrelizumab [...] Comments Blood Pressure 132/84 06/19/2023 9:03 AM SPECIAL EFFECTS DESIGNER Pulse 96 06/19/2023 9:03 AM [employer] EFFECTS DESIGNER Temperature 36.6 C (97.8 F) 06/19/2023 9:03 AM [employer] EFFECTS DESIGNER Respiratory Rate 18 06/19/2023 9:03 AM [employer] EFFECTS DESIGNER Oxygen Saturation 96% 06/19/2023 9:03 AM SPECIAL EFFECTS DESIGNER Inhaled Oxygen Concentration - - Weight 88.2 kg (194 lb 6.4 oz) 06/19/2023 9:03 A M [employer] DES[employer]ER Height 165.1 cm (5' 5 ) 06/19/2023 9:03 AM [employer] EFFECTS DESIGNER Body Mass Index 32.35 06/19/2023 9:03 AM SPECIAL EFFECTS DESIGNER Plan of Treatment Health Maintenance Due Date [...] age to complete this topic Insurance [facility] Care Teams Operating Room Assistant Relationship Specialty Start Date End Date Gloria Gregorio APRN, [employer]FORM [employer] [id number] [place] [address] PCP - General Advanced Practice Nurse 06/07/23 Jan Alvares MD [address] [place] [phone] Consulting Physician Oncology 06/07/23
--- NOTE | 2024-07-20 07:10 | P.HP_ITS ---
H&P: HPI History of Present Illness Date/Time: 07/20/24 07:10 Chief Complaint: airway obstruction, THA Review of Systems Review of Systems: All systems reviewed & are unremarkable except as noted in HPI and below [facility] Family History Family History Mother Diabetes mellitus Social History Social History Years smoked: 2 Smoking status: Former smoker Living arrangements: with family Spiritual care concerns: No Meds Home Medications and Allergies Home Medications ?Medication ?Instructions ?Recorded ?Confirmed ?Type memantine 5 mg tablet 5 mg PO BID 07/09/24 07/09/24 History Allergies Allergy/AdvReac Type Severity Reaction Status Date / Time No Known Allergies Allergy Unverified 07/09/24 13:00 Exam Narrative: mucosal cyst on posterior surface of soft palate. Approximately 2cm in size. Otherwise normal exam Assessment and Plan Assessment and plan (1) Pharyngeal or nasopharyngeal cyst: Code(s): J39.2 - Other diseases of pharynx Status: Acute Plan This patient has a benign mucosal cyst on the posterior aspect of soft palate, likely contributing to sleep apnea symptoms. Here today for direct laryngoscopy and excisional biopsy of this lesion under anesthesia. r/b/a reviewed, all questions answered and she understands and agrees to proceed. Refer to outpt H&P for further detail.
--- NOTE | 2024-07-20 07:13 | WPDHPUPDATE1 ---
History and Physical Update Update Date/Time: 07/20/24 07:13 History and Physical has been reviewed, including an updated exam of the patient. There are NO changes in the patient's condition. Risks, benefits, and alternatives have been discussed and questions answered. Patient agrees to proceed with procedure.
[2024-07-20 07:59] LABS: BEDSIDEPREGUCG Negative (Negative)
[2024-07-20] MEDS: LACTATED RINGERS 1,000 ML 30 ML IV CONT ×2 (08:34→10:15)
--- NOTE | 2024-07-20 08:51 | W.PM.PROC2 ---
Procedure Note - Detailed Date of Procedure 07/20/24 Pre-op Diagnosis lesion of soft palate Post-op Diagnosis Same Procedure Performed Direct laryngoscopy with excisional biopsy of palate cyst Surgeon Hunter Taveras MD Anesthesia General Indications Lesion of left soft palate Findings Submucosal cyst in left soft palate. Fully removed, no other lesions noted. Description of Procedure On the date of surgery, the patient was identified in the preoperative holding area. All questions answered, consent signed and verified and they agreed to proceed. They were then brought to the OR and placed under general endotracheal anesthesia. A shoulder roll was placed. Timeout was performed verifying the correct patient identity and procedure to be performed which they were. The patient was then draped in standard fashion for direct laryngoscopy with biopsy. The bed was rotated 90 degrees counter-clockwise and a dental guard was placed to protect the upper teeth. A laryngoscope was then advanced in the oral cavity and upper airway to visualize all subsites of the oral cavity, oropharynx, hypopharynx and larynx. The only lesion noted was on the left soft palate. A McGuiver oral retractor was then used to open the mouth and expose the posterior oropharynx and the patient was then suspended from the garcía stand. A needle tip bovie was used to make incision in soft palate and the submucosala cyst was exposed. This was then dissected using tonsil clamp, bovie and the cyst was fully excised. This was passed off as specimen to pathology. The incision was closed with two simple interrupted sutures with 3-0 vicryl suture. With all specimen removed, the procedure was concluded. The oral retractor was removed, the dental guard removed, and the oral cavity was examined showing no injury to lips, gums, teeth or tongue. Care of the patient was returned to anesthesia who extubated the patient and transferred to the PACU for recovery in stable condition without complication. Estimated Blood Loss 0 Drains No Packing No Pathology Yes (left soft palate cyst) Complications No immediate complications Condition Stable Disposition PACU
--- NOTE | 2024-07-20 09:02 | WPDANESEPPF ---
Anes - Initial Pre Proc Eval Procedure: Operation Date: 07/20/24 09:30 Proposed Procedures p Direct Laryngoscopy with Biopsy - Hunter Taveras MD Date/Time: 07/20/24 09:02 Surgeon: Hunter Taveras MD Pre Op Diagnosis: lesion of soft palate Patient Data Age: 34 Gender: F Height: 1.65 m Weight: 85 kg Last Vital Signs Temp 36.4 C L 07/20/24 07:45 Pulse 68 07/20/24 07:45 Resp 16 07/20/24 07:45 BP 134/90 07/20/24 07:45 Pulse Ox 99 07/20/24 07:45 O2 Del Method Room Air 07/20/24 07:45 Allergies Allergy/AdvReac Type Severity Reaction Status Date / Time No Known Allergies Allergy Verified 07/20/24 07:49 Home Medications ?Medication ?Instructions ?Recorded ?Confirmed ?Type memantine 5 mg tablet 5 mg PO BID 07/09/24 07/20/24 History Laboratory Tests 07/20/24 07:58 POC Urine HCG, Qual Negative (Negative) Patient hx anesthesia problems: none Family hx anesthesia problems: none Results Review: All pre-operative results and documents have been reviewed as part of the pre-operative evaluation. [facility] Past Medical History Medical History (Updated 07/20/24 @ 09:02 by Jackson Mcpherson MD) Obesity Family History Family History Mother Diabetes mellitus Social History Social History Years smoked: 2 Smoking status: Former smoker Living arrangements: with family Spiritual care concerns: No Anes - Eval Final PreProcedure Day of Procedure 07/20/24 09:02 Patient weight: obese Heart: regular rate and rhythm Lungs: clear to auscultation Airway: Mallampati scale class II Neurological: alert and oriented Last oral intake: >/= 8 hours ASA classification: II Emergent: no Anesthetic plan: proceed Anesthesia type and monitoring: general ETT and standard monitoring Results Review: All pre-operative results and documents have been reviewed as part of the pre-operative evaluation. Informed Consent: The patient's anesthetic plan and its attendant risks and benefits were discussed with the patient/family/POA. Questions were solicited and answers provided to the satisfaction of the patient/family/POA.
[2024-07-20] MEDS: fentaNYL CITRATE INJ (*CRX) 100 MCG/2 ML VIAL 25 MCG IV PUSH ×4 (10:22→10:34)
== END 2024-07-20 11:42 | disposition home or self-care (01) ==
PROVIDERS: Anesthesiology; PCP Nurse Practitioner; Visit Provider Otolaryngology
PROC: 0CJS8ZZ Inspection of Larynx, Via Natural or Artificial Opening Endoscopic (ICD-10-PCS; CPT 31535; principal; 2024-07-20 09:30)
DX: K13.79 Other lesions of oral mucosa (principal); K09.1 Developmental (nonodontogenic) cysts of oral region; E66.9 Obesity, unspecified; Z68.31 Body mass index [BMI] 31.0-31.9, adult; Z87.891 Personal history of nicotine dependence
CPT/HCPCS: 31535; 88305; A9270; J0330; J2003; J2250; J2405; J2704; J3010; J7120

== ENCOUNTER 2024-09-26 11:30 | Outpatient (CLI) | payer OTHER, SELFPAY ==
--- NOTE | ~2024-09-26 | MM_ITS ---
EXAMINATION: MM screening sanya BI w adria HISTORY: Screening TECHNIQUE: Craniocaudal and mediolateral oblique 3-D tomosynthesis images were obtained and synthetic 2-D images were generated. CAD analysis was submitted and interpreted. COMPARISON: Comparison to multiple prior studies sequentially, with oldest reviewed study dated 08/28. BREAST PARENCHYMAL COMPOSITION: Not dense: There are scattered areas of fibroglandular density. FINDINGS: There is no evidence of suspicious mass, calcification, or architectural distortion to sugg est malignancy in either breast. There has been no suspicious interval change. IMPRESSION: 1. No mammographic evidence of malignancy. 2. Recommend routine screening mammography in one year. BI-RADS Category 1: Negative Reviewed, dictated and finalized at location B.
== END 2024-09-26 11:31 | disposition home or self-care (01) ==
PROVIDERS: PCP Nurse Practitioner; Visit Provider Obstetrics & Gynecology
DX: Z12.31 Encounter for screening mammogram for malignant neoplasm of breast (principal)
CPT/HCPCS: 77063; 77067

== ENCOUNTER 2025-01-25 15:04 | Outpatient (CLI) | payer OTHER, SELFPAY ==
--- NOTE | ~2025-01-25 | CT_ITS ---
EXAMINATION: CT abdomen pelvis wo con, 01/25/2025 15:05 CDT HISTORY: acute right lower abd pain COMPARISON: No comparisons available. TECHNIQUE: CT scan of the abdomen and pelvis was performed without IV contrast. One or more of the following dose reduction techniques were used: automated exposure control, adjustment of the mA and/or kV according to patient size, use of iterative reconstruction technique. Unless otherwise stated, incidental findings do not require dedicated follow up imaging FINDINGS: CT abdomen: LUNG BASES: The lung bases are clear. The visualized portions of the heart and pericardium are unremarkable. LIVER: Unremarkable, liver contours intact, no lesions. SPLEEN: Unremarkable, no splenomegaly. KIDNEYS: Right Kidney: There is prominence of the right renal pelvis with mild hydronephrosis with abrupt tapering, there is no obstructing renal calculus or hydroureter identified. Left Kidney: Unremarkable. No calculi. No hydronephrosis ADRENAL GLANDS: Unremarkable. PANCREAS: Unremarkable. GALLBLADDER/BILIARY: Postcholecystectomy. STOMACH AND ESOPHAGUS: Visualized stomach and esophagus within normal limits. BOWEL/MESENTERY: No colitis or diverticulitis. Appendix normal. Mesentery normal. Small bowel normal. ADENOPATHY/RETROPERITONEUM: No lymphadenopathy. AORTA/VASCULATURE: Normal caliber aorta. FREE FLUID OR FREE AIR: No free fluid.. CT pelvis: SOLID ORGANS/REPRODUCTIVE: Unremarkable. BLADDER: Small amount of air in the bladder may relate to recent catheterization. OSSEOUS STRUCTURES: No acute osseous abnormality.No suspicious lesions. OVERLYING SOFT TISSUES: Unremarkable. IMPRESSION: 1. Probable right-sided UPJ obstruction. Outpatient CT urogram or nuclear medicine study suggested Reviewed, dictated and finalized at location A. IMPRESSION: 1. Probable right-sided UPJ obstruction. Outpatient CT urogram or nuclear medic ine study suggested
== END 2025-01-25 15:05 | disposition home or self-care (01) ==
PROVIDERS: PCP Nurse Practitioner; Visit Provider Nurse Practitioner
DX: R10.31 Right lower quadrant pain (principal)
CPT/HCPCS: 74176

== ENCOUNTER 2025-02-01 11:46 | Outpatient (CLI) | payer OTHER, SELFPAY ==
--- NOTE | ~2025-02-01 | CT_ITS ---
EXAMINATION: CT abdomen pelvis wo/w con DATE: 02/01/2025 12:29 INDICATION: Right lower quadrant pain TECHNIQUE: Computed tomography (CT) of the abdomen and pelvis was performed without and with 130 cc Omnipaque 350 intravenous contrast. The dose-length product was 1742.86 mGy-cm. COMPARISON: CT dated 01/25/2025. FINDINGS: There is dependent atelectasis. Heart size normal. No significant pleural or pericardial effusion. Status post cholecystectomy. There is a probable extrarenal pelvis of the right kidney versus partial UPJ obstruction. The ureters are normal in course and caliber otherwise. The liver, spleen, pancreas, adrenal glands and kidneys are unremarkable. Status post cholecystectomy. Normal appendix. Nonobstructive bowel gas pattern. No abnormal pelvic masses or fluid collections. No acute osseous abnormality. IMPRESSION: 1. Prominent right renal collecting system which may represent extrarenal pelvis or partial UPJ obstruction. Reviewed, dictated and finalized at location O. IMPRESSION: 1. Prominent right renal collecting system which may represent extrarenal pelvi s or partial UPJ obstruction.
[2025-02-01 12:08] LABS: Estimated Glomerular Filt Rate > 60
== END 2025-02-01 11:47 | disposition home or self-care (01) ==
LOC: MICIMG 11:46
PROVIDERS: PCP Nurse Practitioner; Visit Provider Nurse Practitioner
DX: N13.5 Crossing vessel and stricture of ureter without hydronephrosis (principal)
CPT/HCPCS: 74178; Q9967

== ENCOUNTER 2025-02-16 12:36 | Outpatient (CLI) | payer OTHER, SELFPAY ==
--- NOTE | ~2025-02-16 | NM_ITS ---
EXAMINATION: MADDIE chavez renal scan DATE: 02/16/2025 13:36 INDICATION: Right flank pain TECHNIQUE: 8.0 mCi Tc-99m MAG3 was administered IV. 40 mg furosemide was administered IV 10 minutes afterward. The patient was scanned in the supine position. A posterior abdominal radionuclide angiogram was obtained. A subsequent time course of static images of the kidneys, ureters, and bladder was obtained. COMPARISON: None FINDINGS: The posterior abdominal radionuclide angiogram and sequential static images show normal size, position, and morphology of the kidneys. Peak renal parenchymal uptake was 6 min in left kidney and 11 min in right kidney (normal peak 3-5 minutes). The relative early renal uptake was 51% on the left and 49% on the right (<40% is abnormal). No abnormalities of the ureters or bladder are seen. T1/2 for clearance of activity from the left kidney and proximal collecting system was 4 minutes. T1/2 for clearance of activity from the right kidney and proximal collecting system was 6 minutes. Notes on interpretation: T1/2 <10 minutes is normal, 10-15 minutes is low grade obstruction of questionable clinical significance, 15-20 minutes is partial obstruction that is likely clinically significant, >20 minutes is high grade obstruction. Note that false positives may be seen with supine positioning, dehydration, severely dilated nonobstructed kidney, atonic collecting system, poor renal function, and chronic furosemide use. IMPRESSION: 1. Symmetric kidney function. 2. No delay in contrast clearance from either kidney to suggest fixed obstruction. Reviewed, dictated and finalized at location A. IMPRESSION: 1. Symmetric kidney function. 2. No delay in contrast clearance from either kidney to suggest fixed obstruct ion.
--- OUTSIDE RECORDS SUMMARY | 2025-02-16 13:25 | XMS_ITS | Encounter Summary ---
Author Organization [facility] Address [facility] [place] [address] Care Team Providers Care Yarn Mercerizer Operator Name Role Phone Gloria Gregorio NP Primary Care Provider [phone] [phone] Encounter Details Date Type Department Care Team (Late st Contact Info) Description 06/30/2022 Vidimaxt Message Enc [facility] Family Medicine - Check [address] [facility] [address] [place] [phone] Gloria Gregorio, SOCIAL MEDIA MANAGER [address] [place] [address] Mamm/Pap Social History Tobacco Use Types Packs/Day [...] Sex Assigned at Female 06/09/2024 9:52 AM FIRE CONTROL OFFICER Legal Sex Female 12:19 AM FIRE CONTROL OFFICER Gender Identity Female 06/16/2024 10:41 AM FIRE CONTROL OFFICER Sexual Orientation Straight 06/16/2024 10 :41 AM FIRE CONTROL OFFICER COVID-19 Exposure Response Date Recorded In the last 10 days, have yo u been in contact with someone who was confirmed or suspected to have Coronavirus/COVID-19? No / Unsure 07/03/2022 7:54 AM FIRE CONTROL OFFICER documented as of this encounter Plan of Treatment Upcoming Encounters Date Type Department Care Team (Late st Contact Info) Description 03/11/2025 2:00 PM CDT Allied Health/Nurse Visit [facility] Family Medicine - Check [address] [facility] [address] [place] [address] Gloria Gregorio NP [address] [place] [address] 05/24/2025 3:20 PM FIRE CONTROL OFFICER Office Visit [facility] Multispecialty Care - [facility] [address] [facility], [address] [place] [address] Lalito Gudino MD 3 [place] [address] 07/29/2025 2:00 PM CDT Allied Health/Nurse Visit [facility] Medicine - Check [address] [address] Gloria Gregorio NP [address] [place], [place] [address] documented as of this encounter Visit Diagnoses Not on filedocumented in this encounter Additional Health Concerns Infection Onset Date Last Indicated Resolved Time COVID-19 Rule Out 01/23/2023 01/23/2023 01/23/2023 10:48 AM CDT COVID-19 Confirmed 01/23/2023 01/23/2023 12:32 AM CDT COVID-19 Rule Out 05/05/2024 05/05/2024 05/05/2024 8:33 AM FIRE CONTROL OFFICER COVID-19 Rule Out 05/07/2024 05/07/2024 05/07/2024 1:36 PM FIRE CONTROL OFFICER Influenza - Seasonal 05/07/2024 05/07/2024 025 12:32 AM FIRE CONTROL OFFICER documented as of this encounter Care Teams Yarn Mercerizer Operator Relationship Specialty Start Date End Date Gloria Gregorio NP [address] [place] [address] PCP - General NURSE PRACTITIONER 02/02/22 documented as of this encounter
--- OUTSIDE RECORDS SUMMARY | 2025-02-16 13:25 | XMS_ITS | Encounter Summary ---
Author Organization [facility] Address [address] [facility] [place] [address] Care Team Providers Care Satellite Technician Name Role Phone Unavailable Primary Care Provider Unavailabl e Encounter Details Date Type Department Care Team (Late st Contact Info) Description 01/02/2023 Lab Requisition [facility] - DermPath Lab [address] [facility] [place] [id number] Luis Moscoso MD [address] [place] [address] Social History Tobacco Use Types Packs/Day Years Used Date Smoking Tobacco: Never Assessed Comments Unknown Sex and Gender Information Value Date Recorded Sex Assigned at Not on file Legal Sex Female 10:28 AM CAMPAIGN ADVISOR Gender Identity Not on file Sexual Orientation Not on file documented as of this encounter Plan of Treatment Not on file documented as of this encounter Procedures Procedure Name Priority Date/Time Associated Diagnosis Comments DERMATOPATHOLOGY Routine 01/02/2023 12:0 0 AM CDT documented in this encounter Results * DERMATOPATHOLOGY (01/02/2023 12:00 AM CDT) Case Report Dermatopathology Report Case: [id number] Authorizing Provider: Luis Moscoso MD Collected: 01/02/2023 12:00 AM Ordering Location: [facility] DermPath Lab Received: 01/03/2023 07:46 AM Pathologist: Faby Alejandro MD Specimens: A) - Skin, ant. scalp B) - Skin, right post scalp 3 4:02 PM CDT DERMATOPATHOLOGY LABORATORY Final Diagnosis Specimen A. SKIN, ant. scalp: TRICHILEMMAL (PILAR) CYST WITH CALCIFICATION (L72.12) PRESENT AT MARGIN Specimen B. SKIN, right post scalp: TRICHILEMMAL (PILAR) CYST (L72.12) PRESENT AT MARGIN 3 4:02 PM CDT DERMATOPATHOLOGY LABORATORY at 1602 CDT Clinical History A: pilar Cyst Path#[id number] check margins B: Pilar Cyst Path#[id number] check margins 3 4:02 PM CDT DERMATOPATHOLOGY LABORATORY Gross Description Specimen A: Received is one formalin filled container labeled with the patient's name and designated ant. scalp. The specimen consists of a 04y74j4 mm piece of skin. The specimen is serially sectioned and a goodwill representative section is submitted in cassette 1. Jar 0. Specimen B: Received is one formalin filled container labeled with the patient's name and designated right post scalp. The specimen consists of a 10x7x8 mm piece of skin. The specimen is serially sectioned and a goodwill representative section is submitted in cassette 1. Jar 0. 3 4:02 PM CDT DERMATOPATHOLOGY LABORATORY Microscopic Description Specimen [...] margin of the specimen. 3 4:02 PM CDT DERMATOPATHOLOGY LABORATORY Disclaimer An external and internal positive and negative controls are appropriate for the histochemical, immunohistochemical and immunofluorescence stain(s) in this case (if any), except where stated explicitly. The performance characteristics of the stain(s) cited in this report were developed and its performance characteristic determined by the Dermatopathology Laboratory at [facility], directed by Dr. Michelle Yeung. These tests need not be, and therefore are not, approved by the [place] Food and Drug Administration. The tests are used for clinical purposes. Billing Codes Specimen Charges Stain Charges 63473 82631 1 1 3 4:02 PM CDT DERMATOPATHOLOGY LABORATORY Embedded Images 3 4:02 PM CDT DERMATOPATHOLOGY LABORATORY Pathology/Cytology TISSUE SPECIMEN FROM SKIN / Unknown 01/02/2023 01/03/2023 7:46 AM CDT Miscellaneous samples (specimen) TISSUE SPECIMEN FROM SKIN / Unknown 01/02/2023 01/03/2023 7:46 AM CDT us Luis Moscoso MD LAB - PATHOLOGY/CYTOLOGY ORDER JULIAN Final Result DERMATOPATHOLOGY LABORATORY [facility] - Department of Dermatology [facility] [address] [place] [address], [address] [phone] documented in this encounter Visit Diagnoses Not on filedocumented in this encounter
--- OUTSIDE RECORDS SUMMARY | 2025-02-16 13:25 | XMS_ITS | Encounter Summary ---
Author Organization [facility] Address [address] [place] [address] Care Team Providers Care Zigzag Elastic Attacher Name Role Phone Unavailable Primary Care Provider Unavailabl e Encounter Details Date Type Department Care Team (Late st Contact Info) Description 11/21/2022 Lab Requisition [facility] - DermPath Lab [address] [facility] [place] [address] Luis Moscoso MD [address] [facility] [place] [address] Social History Tobacco Use Types Packs/Day Years Used Date Smoking Tobacco: Never Assessed Comments Unknown Sex and Gender Information Value Date Recorded Sex Assigned at Not on file Legal Sex Female 10:28 AM CHIEF INNOVATION OFFICER Gender Identity Not on file Sexual Orientation Not on file documented as of this encounter Plan of Treatment Not on file documented as of this encounter Procedures Procedure Name Priority Date/Time Associated Diagnosis Comments DERMATOPATHOLOGY Routine 11/21/2022 12:0 0 AM CDT documented in this encounter Results * DERMATOPATHOLOGY (11/21/2022 12:00 AM CDT) Case Report Dermatopathology Report Case: [id number] Authorizing Provider: Luis Moscoso MD Collected: 11/21/2022 12:00 AM Ordering Location: [facility] DermPath Lab Received: 11/22/2022 07:16 AM Pathologist: Faby Alejandro MD Specimen: Skin, right post. scalp 3:20 PM CDT DERMATOPATHOLOGY LABORATORY Final Diagnosis Specimen A. SKIN, right post. scalp: INTRADERMAL MELANOCYTIC NEVUS (D22.4) 3:20 PM CDT DERMATOPATHOLOGY LABORATORY at 1520 CDT Clinical History Nevus Path#[id number] 3:20 PM CDT DERMATOPATHOLOGY LABORATORY Gross Description [...] characteristic determined by the Dermatopathology Laboratory at [facility], directed by Dr. Michelle Yeung. These tests need not be, and therefore are not, approved by the [place] Food and Drug Administration. The tests are used for clinical purposes. Billing Codes Specimen Charges Stain Charges 40295 1 3:20 PM CDT DERMATOPATHOLOGY LABORATORY Embedded Images 3:20 PM CDT DERMATOPATHOLOGY LABORATORY Pathology/Cytolog y TISSUE SPECIMEN FROM SKIN / Unknown 11/21/2022 11/22/2022 7:16 AM CDT us Luis Moscoso MD LAB - PATHOLOGY/CYTOLOGY ORDER JULIAN Final Result DERMATOPATHOLOGY LABORATORY [facility] - Department of Dermatology [address], [address] [phone] documented in this encounter Visit Diagnoses Not on filedocumented in this encounter
--- OUTSIDE RECORDS SUMMARY | 2025-02-16 13:25 | XMS_ITS | Encounter Summary ---
Author Organization [facility] Address [facility] [place] [address] Care Team Providers Care Bicycle Messenger Name Role Phone Gloria Gregorio NP Primary Care Provider [phone] Encounter Details Date Type Department Care Team (Late st Contact Info) Description 05/25/[address] [facility] [address] [place], [place] [address] Lalito Gudino MD [address] [place], [place] [address] Social History Tobacco Use Types Packs/Day Years [...] Sex Assigned at Female 06/09/2024 9:52 AM SALESPERSON USED CARS Legal Sex Female 12:19 AM SALESPERSON USED CARS Gender Identity Female 06/16/2024 10:41 AM SALESPERSON USED CARS Sexual Orientation Straight 06/16/2024 10 :41 AM SALESPERSON USED CARS COVID-19 Exposure Response Date Recorded In the last 10 days, have yo u been in contact with someone who was confirmed or suspected to have Coronavirus/COVID-19? No / Unsure 05/28/2022 4:21 PM SALESPERSON USED CARS documented as of this encounter Plan of Treatment Upcoming Encounters Date Type Department Care Team (Late st Contact Info) Description 03/11/2025 2:00 PM CDT Allied Health/Nurse Visit [facility] Family [facility] - [employer] [address] [facility] [address] [place] [address] Gloria Gregorio NP [address] [place] [address] 05/24/2025 3:20 PM SALESPERSON USED CARS Office Visit [facility] Multispecialty Care - [facility] [address] [facility], [address] [place] [address] Lalito Gudino MD [address] [place] [address] 07/29/2025 2:00 PM CDT Allied Health/Nurse Visit [facility] [employer] [address] [facility] [address] [place] [address] Gloria Gregorio NP [address] [place] [address] documented as of this encounter Visit Diagnoses Diagnosis Multiple sclerosis- Primary documented in this encounter Additional Health Concerns Infection Onset Date Last Indicated Resolved Time COVID-19 Rule Out 01/23/2023 01/23/2023 01/23/2023 10:48 AM CDT COVID-19 Confirmed 01/23/2023 01/23/2023 12:32 AM CDT COVID-19 Rule Out 05/05/2024 05/05/2024 05/05/2024 8:33 AM SALESPERSON USED CARS COVID-19 Rule Out 05/07/2024 05/07/2024 05/07/2024 1:36 PM SALESPERSON USED CARS Influenza - Seasonal 05/07/2024 05/07/2024 025 12:32 AM SALESPERSON USED CARS documented as of this encounter Care Teams Bicycle Messenger Relationship Specialty Start Date End Date Gloria Gregorio NP [address] [place] [address] PCP - General NURSE PRACTITIONER 02/02/22 documented as of this encounter
--- OUTSIDE RECORDS SUMMARY | 2025-02-16 13:25 | XMS_ITS | Encounter Summary ---
Author Organization [facility] Address [facility] [place] [address] Care Team Providers Care Superintendent Oil Well Services Name Role Phone Gloria Gregorio NP Primary Care Provider [phone] [phone] Encounter Details Date Type Department Care Team (Late st Contact Info) Description 02/05/2025 Results Follow-Up [facility] [address] [phone] Gloria Gregorio, SANTI [address] [place] [phone] URINALYSIS AUTO DIP, BASIC METABOLIC PANEL, URINE BACTERIA CULTURE Social History Tobacco Use Types Packs/Day Years Used Date Smoking Tobacco: Former Cigarettes 0.3 4 Passive Smoke Exposure: Never Smokeless Tobacco: Never Alcohol Use Standard Drinks/Week Comments Yes 3.3 (1 standard drin k = 0.6 oz pure alcohol) Very rarely most times not even weekly PHQ-2 Answer Date Recorded Patient Health Questionnaire-2 Score 2 01/25/2025 Comments No Sex and Gender Information Value Date Recorded Sex Assigned at Female 06/09/2024 9:52 AM IRRIGATION SERVICE TECHNICIAN Legal Sex Female 12:19 AM IRRIGATION SERVICE TECHNICIAN Gender Identity Female 06/16/2024 10:41 AM IRRIGATION SERVICE TECHNICIAN Sexual Orientation Straight 06/16/2024 10 :41 AM IRRIGATION SERVICE TECHNICIAN documented as of this encounter Plan of Treatment Upcoming Encounters Date Type Department Care Team (Late st Contact Info) Description 03/11/2025 2:00 PM CDT Allied Health/Nurse Visit [facility] [address] [facility] [address] [place] [address] Gloria Gregorio NP [address] [place] [address] 05/24/2025 3:20 PM IRRIGATION SERVICE TECHNICIAN Office Visit [facility] Multispecialty Care - [facility] [address] [facility], [address] [place] [address] Lalito Gudino MD 3 [place] [address] 07/29/2025 2:00 PM CDT Allied Health/Nurse Visit [facility] - [place] [address] [facility] [address] [place] [address] Gloria Gregorio NP [address] [place] [address] documented as of this encounter Visit Diagnoses Diagnosis Urinary tract infection without hematuria, site unspecified- Primary documented in this encounter Additional Health Concerns Assessment Noted Time PHQ-9 Depression Total Score: 7 01/26/20 25 1:57 PM CDT documented as of this encounter Care Teams Superintendent [employer] Services Relationship Specialty Start Date End Date Gloria Gregorio NP [address] [place] [address] PCP - General NURSE PRACTITIONER 02/02/22 documented as of this encounter
--- OUTSIDE RECORDS SUMMARY | 2025-02-16 13:25 | XMS_ITS | Encounter Summary ---
Author Organization [facility] Address [facility] [place] [address] Care Team Providers Care Green Marketing Analyst Name Role Phone Gloria Gregorio NP Primary Care Provider +1 [phone] Encounter Details Date Type Department Care Team (Latest Contact Info) Description 03/18/2018 Abstract [facility] Karmen Cardenas MD Social History Tobacco Use Types Packs/Day Years Used Date Smoking Tobacco: Never Assessed Comments Unknown Sex and Gender Information Value Date Recorded Sex Assigned at Female 06/09/2024 9:52 AM METAL NEUTRALIZER Legal Sex Female 12:19 AM METAL NEUTRALIZER Gender Identity Female 06/16/2024 10:41 AM METAL NEUTRALIZER Sexual Orientation Straight 06/16/2024 10 :41 AM METAL NEUTRALIZER documented as of this encounter Plan of Treatment Upcoming Encounters Date Type Department Care Team (Late st Contact Info) Description 03/11/2025 2:00 PM CDT Allied Health/Nurse Visit [facility] Family Medicine - [place] [address] [facility] [address] [place] [address] Gloria Gregorio NP [address] [place] [address] 05/24/2025 3:20 PM METAL NEUTRALIZER Office Visit [facility] Multispecialty Care - [address], [address] [place] [address] Lalito Gudino MD 3 [place] [address] 07/29/2025 2:00 PM CDT Allied Health/Nurse Visit [facility] Family Medicine - [place] [address] [facility] [address] [place] [address] Gloria Gregorio NP [address] [place] [address] documented as of this encounter Visit Diagnoses Not on filedocumented in this encounter Additional Health Concerns Infection Onset Date Last Indicated Resolved Time COVID-19 Rule Out 01/23/2023 01/23/2023 01/23/2023 10:48 AM CDT COVID-19 Confirmed 01/23/2023 01/23/2023 12:32 AM CDT COVID-19 Rule Out 05/05/2024 05/05/2024 05/05/2024 8:33 AM METAL NEUTRALIZER COVID-19 Rule Out 05/07/2024 05/07/2024 05/07/2024 1:36 PM METAL NEUTRALIZER Influenza - Seasonal 05/07/2024 05/07/2024 025 12:32 AM METAL NEUTRALIZER documented as of this encounter Care Teams Green Marketing Analyst Relationship Specialty Start Date End Date Gloria Gregorio NP [address] [place] [address] PCP - General NURSE PRACTITIONER 02/02/22 documented as of this encounter
--- OUTSIDE RECORDS SUMMARY | 2025-02-16 13:25 | XMS_ITS | Encounter Summary ---
Author Organization [facility] Address [facility] [place] [address] Care Team Providers Care Key Maker Name Role Phone Gloria Gregorio NP Primary Care Provider +1 -[phone] Encounter Details Date Type Department Care Team (Late st Contact Info) Description 02/04/2025 MyChart Message Enc [facility] Medical [facility] Family Medicine [facility] [address] [phone] Gloria Gregorio, SANTI [address] [place], [place] [phone] [place] question Social History Tobacco Use Types Packs/Day Years [...] Sex Assigned at Female 06/09/2024 9:52 AM MICROSYSTEMS ENGINEER Legal Sex Female 12:19 AM MICROSYSTEMS ENGINEER Gender Identity Female 06/16/2024 10:41 AM MICROSYSTEMS ENGINEER Sexual Orientation Straight 06/16/2024 10 :41 AM MICROSYSTEMS ENGINEER documented as of this encounter Plan of Treatment Upcoming Encounters Date Type Department Care Team (Late st Contact Info) Description 03/11/2025 2:00 PM CDT Allied Health/Nurse Visit [facility] [address] [phone] Gloria Gregorio NP [address] [place] [address] 05/24/2025 3:20 PM MICROSYSTEMS ENGINEER Office Visit [facility] Multispecialty Care - [facility] [address] [facility], [address] [facility] [place] [address] Lalito Gudino MD 3 [place] [address] 07/29/2025 2:00 PM CDT Allied Health/Nurse Visit [facility] Family Medicine - [place] [address] [facility] [address] [place] [address] Gloria Gregorio NP [address] [place] [address] documented as of this encounter Visit Diagnoses Not on filedocumented in this encounter Additional Health Concerns Assessment Noted Time PHQ-9 Depression Total Score: 7 01/26/20 25 1:57 PM CDT documented as of this encounter Care Teams Key Maker Relationship Specialty Start Date End Date Gloria Gregorio NP [address] [place] [address] PCP - General NURSE PRACTITIONER 02/02/22 documented as of this encounter
--- OUTSIDE RECORDS SUMMARY | 2025-02-16 13:25 | XMS_ITS | Encounter Summary ---
Author Organization [facility] Address [facility] [place] [address] Care Team Providers Care Computer Programmer Chief Name Role Phone Gloria Gregorio NP Primary Care Provider +1 [phone] Encounter Details Date Type Department Care Team (Late st Contact Info) Description 05/26/2022 Azimot Message Enc [facility] Medical Group Multispecialty Care - [facility] [address] [facility], [address] [place] [address] Lalito Gudino MD 3 [place], [place] [phone] Blood test Social History Tobacco Use Types [...] Sex Assigned at Female 06/09/2024 9:52 AM COSMETIC ACCOUNT COORDINATOR Legal Sex Female 12:19 AM COSMETIC ACCOUNT COORDINATOR Gender Identity Female 06/16/2024 10:41 AM COSMETIC ACCOUNT COORDINATOR Sexual Orientation Straight 06/16/2024 10 :41 AM COSMETIC ACCOUNT COORDINATOR COVID-19 Exposure Response Date Recorded In the last 10 days, have yo u been in contact with someone who was confirmed or suspected to have Coronavirus/COVID-19? No / Unsure 05/28/2022 4:21 PM COSMETIC ACCOUNT COORDINATOR documented as of this encounter Plan of Treatment Upcoming Encounters Date Type Department Care Team (Late st Contact Info) Description 03/11/2025 2:00 PM CDT Allied Health/Nurse Visit [facility] Family Medicine - [place] [address] [facility] [address] [place] [address] Gloria Gregorio NP [address] [place], [place] [address] 05/24/2025 3:20 PM COSMETIC ACCOUNT COORDINATOR Office Visit [facility] Multispecialty Care - [facility] [address] [facility], [address] [place] [address] Lalito Gudino MD 3 [place] [address] 07/29/2025 2:00 PM CDT Allied Health/Nurse Visit [facility] [place] [address] [facility] [address] [place] [address] Gloria Gregorio NP [address] [place] [address] documented as of this encounter Visit Diagnoses Not on filedocumented in this encounter Additional Health Concerns Infection Onset Date Last Indicated Resolved Time COVID-19 Rule Out 01/23/2023 01/23/2023 01/23/2023 10:48 AM CDT COVID-19 Confirmed 01/23/2023 01/23/2023 12:32 AM CDT COVID-19 Rule Out 05/05/2024 05/05/2024 05/05/2024 8:33 AM COSMETIC ACCOUNT COORDINATOR COVID-19 Rule Out 05/07/2024 05/07/2024 05/07/2024 1:36 PM COSMETIC ACCOUNT COORDINATOR Influenza - Seasonal 05/07/2024 05/07/2024 025 12:32 AM COSMETIC ACCOUNT COORDINATOR documented as of this encounter Care Teams Computer Programmer Chief Relationship Specialty Start Date End Date Gloria Gregorio NP [address] [place] [address] PCP - General NURSE PRACTITIONER 02/02/22 documented as of this encounter
--- OUTSIDE RECORDS SUMMARY | 2025-02-16 13:25 | XMS_ITS | Encounter Summary ---
Author Organization [facility] Address [facility] [place] [address] Care Team Providers Care Truckload Owner Operator Name Role Phone Gloria Gregorio NP Primary Care Provider [phone] [phone] Encounter Details Date Type Department Care Team (Late st Contact Info) Description 08/13/2022 KeriCuret Message Enc [facility] Medical Group Multispecialty Care - [facility] [address] [facility], [address] [place] [phone] Lalito Gudino MD 3 [place], [place] [phone] Fmla Social History Tobacco Use Types Packs/Day [...] Sex Assigned at Female 06/09/2024 9:52 AM REPAIR CLERK Legal Sex Female 12:19 AM REPAIR CLERK Gender Identity Female 06/16/2024 10:41 AM REPAIR CLERK Sexual Orientation Straight 06/16/2024 10 :41 AM REPAIR CLERK COVID-19 Exposure Response Date Recorded In the last 10 days, have yo u been in contact with someone who was confirmed or suspected to have Coronavirus/COVID-19? No / Unsure 07/17/2022 7:55 AM REPAIR CLERK documented as of this encounter Plan of Treatment Upcoming Encounters Date Type Department Care Team (Late st Contact Info) Description 03/11/2025 2:00 PM CDT Allied Health/Nurse Visit [facility] Family Medicine - [place] [address] [facility] [address] [place] [address] Gloria Gregorio NP [address] [place], [place] [address] 05/24/2025 3:20 PM REPAIR CLERK Office Visit [facility] Multispecialty [place] [facility] - [facility] [address] [facility], [address] [place] [address] Lalito Gudino MD 3 [place] [address] 07/29/2025 2:00 PM CDT Allied Health/Nurse Visit [facility] [place] [address] [facility] [address] [place] [address] Gloria Gregorio NP [address] [place] [address] documented as of this encounter Visit Diagnoses Not on filedocumented in this encounter Additional Health Concerns Infection Onset Date Last Indicated Resolved Time COVID-19 Rule Out 01/23/2023 01/23/2023 01/23/2023 10:48 AM CDT COVID-19 Confirmed 01/23/2023 01/23/2023 12:32 AM CDT COVID-19 Rule Out 05/05/2024 05/05/2024 05/05/2024 8:33 AM REPAIR CLERK COVID-19 Rule Out 05/07/2024 05/07/2024 05/07/2024 1:36 PM REPAIR CLERK Influenza - Seasonal 05/07/2024 05/07/2024 025 12:32 AM REPAIR CLERK documented as of this encounter Care Teams Truckload Owner Operator Relationship Specialty Start Date End Date Gloria Gregorio NP [address] [place] [address] PCP - General NURSE PRACTITIONER 02/02/22 documented as of this encounter
--- OUTSIDE RECORDS SUMMARY | 2025-02-16 13:25 | XMS_ITS | Encounter Summary ---
Author Organization [facility] Address [facility] [place] [address] Care Team Providers Care Reexaminer Name Role Phone Gloria Gregorio NP Primary Care Provider +1 [phone] Encounter Details Date Type Department Care Team (Late st Contact Info) Description 08/13/2022 Physihomet Message Enc [facility] Medical Group Family Medicine - [place] [address] [facility] [address] [place] [phone] Gloria Gregorio, BRAND RECORDER [address] [place] [address] Fmla Social History Tobacco Use Types Packs/Day [...] Sex Assigned at Female 06/09/2024 9:52 AM WREATH MACHINE OPERATOR Legal Sex Female 12:19 AM WREATH MACHINE OPERATOR Gender Identity Female 06/16/2024 10:41 AM WREATH MACHINE OPERATOR Sexual Orientation Straight 06/16/2024 10 :41 AM WREATH MACHINE OPERATOR COVID-19 Exposure Response Date Recorded In the last 10 days, have yo u been in contact with someone who was confirmed or suspected to have Coronavirus/COVID-19? No / Unsure 07/17/2022 7:55 AM WREATH MACHINE OPERATOR documented as of this encounter Plan of Treatment Upcoming Encounters Date Type Department Care Team (Late st Contact Info) Description 03/11/2025 2:00 PM CDT Allied Health/Nurse Visit [facility] Family Medicine - [place] [address] [facility] [address] [place] [address] lGoria Gregorio NP [address] [place], [place] [address] 05/24/2025 3:20 PM WREATH MACHINE OPERATOR Office Visit [facility] Multispecialty Care - [facility] [address] [facility], [address] [place] [address] Lalito Gudino MD 3 [place] [address] 07/29/2025 2:00 PM CDT Allied Health/Nurse Visit [facility] Medicine - [place] [address] [facility] [address] [place] [address] Gloria Gregorio NP [address] [place], [place] [address] documented as of this encounter Visit Diagnoses Not on filedocumented in this encounter Additional Health Concerns Infection Onset Date Last Indicated Resolved Time COVID-19 Rule Out 01/23/2023 01/23/2023 01/23/2023 10:48 AM CDT COVID-19 Confirmed 01/23/2023 01/23/2023 12:32 AM CDT COVID-19 Rule Out 05/05/2024 05/05/2024 05/05/2024 8:33 AM WREATH MACHINE OPERATOR COVID-19 Rule Out 05/07/2024 05/07/2024 05/07/2024 1:36 PM WREATH MACHINE OPERATOR Influenza - Seasonal 05/07/2024 05/07/2024 025 12:32 AM WREATH MACHINE OPERATOR documented as of this encounter Care Teams Reexaminer Relationship Specialty Start Date End Date Gloria Gregorio NP [address] [place] [address] PCP - General NURSE PRACTITIONER 02/02/22 documented as of this encounter
--- OUTSIDE RECORDS SUMMARY | 2025-02-16 13:25 | XMS_ITS | Encounter Summary ---
Author Organization [facility] Address [facility] [place] [address] Care Team Providers Care Freight Conductor Name Role Phone Gloria Gregorio NP Primary Care Provider +1 [phone] Reason for Visit * Reason Onset Date Comments Question 02/01/2025 Encounter Details Date Type Department Care Team (Late st Contact Info) Description 02/01/2025 Telephone [facility] Medical [facility] - [address] [place] [phone] Lalito Gudino MD [address] [place] [address] Question Social History Tobacco Use Types Packs/Day Years [...] Sex Assigned at Female 06/09/2024 9:52 AM INGOT PASSER Legal Sex Female 12:19 AM INGOT PASSER Gender Identity Female 06/16/2024 10:41 AM INGOT PASSER Sexual Orientation Straight 06/16/2024 10 :41 AM INGOT PASSER documented as of this encounter Progress Notes * Genny Pappas MA - 02/16/2025 8:34 AM CDT Called Kashif and lvm to call the office back. * Yany Johnson - 02/15/2025 2:13 PM CDT Patient is requesting a call back regarding her infusion order @ [facility] [phone] * Lizy Rivas - 02/11/2025 10:46 AM CDT Kashif is calling today in regards to Josephine S Copple. They are calling from [facility] Infusion They are calling to speak about the infusion orders needed. Also to clarify any confusion. A good callback number is: [phone] * Rafat Khan MA - 02/04/2025 2:40 PM CDT Reached back out to [facility] infusion for some clarification about needing an order. Left vm to Noel, it investment/portfolio manager to give the office a call back. * Jodi Timmons - 02/01/2025 12:13 PM CDT [facility] Infusion called today and needs an order for Josephine's infusion. Please fax to [phone] documented in this encounter Plan of Treatment Upcoming Encounters Date Type Department Care Team (Late st Contact Info) Description 03/11/2025 2:00 PM CDT Allied Health/Nurse Visit [facility] Medical Group Family Medicine - [place] [address] [facility] [address] [place] [address] Gloria Gregorio NP [address] [place], [place] [address] 05/24/2025 3:20 PM INGOT PASSER Office Visit [facility] Multispecialty Care - [facility] [address] [facility], [address] [place] [address] Lalito Gudino MD 3 [place] [address] 07/29/2025 2:00 PM CDT Allied Health/Nurse Visit [facility] Family Medicine - [place] [address] [facility] [address] [address] Gloria Gregorio NP [address] [place] [address] documented as of this encounter Visit Diagnoses Not on filedocumented in this encounter Additional Health Concerns Assessment Noted Time PHQ-9 Depression Total Score: 7 01/26/20 25 1:57 PM CDT documented as of this encounter Care Teams Freight Conductor Relationship Specialty Start Date End Date Gloria Gregorio NP [address] [place] [address] PCP - General NURSE PRACTITIONER 02/02/22 documented as of this encounter
--- OUTSIDE RECORDS SUMMARY | 2025-02-16 13:25 | XMS_ITS | Clinical Summary ---
Author Organization [facility] Address [address] [place] [address] Care Team Providers Care Automotive Parts Interpreter Name Role Phone Unavailable Primary Care Provider Unavailabl e Source Comments [facility],non-owned Affiliates and Associated Physician Practices is amultiple site organization consisting of ambulatory clinics and hospital sitesin [place], [place], [place] and [place]. This disclosure is being madepursuant to the Care Everywhere program and may not contain all information available regarding this patient. Last updated 18.[facility] SocialSmack Social History Tobacco Use Types Packs/Day Years Used Date Smoking Tobacco: Never Assessed Comments Unknown Sex and Gender Information Value Date Recorded Sex Assigned at Not on file Legal Sex Female 10:28 AM ETHYLBENZENE CRACKING SUPERVISOR Gender Identity Not on file Sexual Orientation Not on file Plan of Treatment Health Maintenance Due Date Last Done Comments HIV SCREENING 2003 HEPATITIS C SCREENING 03/25/2006 DTAP/TDAP/TD VACCINES (1 - Tdap) 2007 HEPATITIS B VACCINE (1 of 3 - 19+ 3-dose series) 2007 PAP SMEAR 2009 HPV VACCINE (1 - 3-dose SCDM series) 2015 DEPRESSION SCREENING 05/13/2024 COVID-19 VACCINE ( - 2023-2 5 season) 2025 INFLUENZA VACCINE (#1) 2025 ZOSTER VACCINE (1 of 2) 2038 HIB VACCINE Aged Out No longer eligi ble based on patient's age to complete this topic MENINGOCOCCAL (Group B) VACC INE SHARED DECISION-MAKING Aged Out No longer eligibl e based on patient's age to complete this topic MENINGOCOCCAL GROUPS A/C/Y/W VACCINE Aged Out No longer eligible b ased on patient's age to complete this topic PNEUMOCOCCAL VACCINE Aged Out No long er eligible based on patient's age to complete this topic Insurance [facility]
--- OUTSIDE RECORDS SUMMARY | 2025-02-16 13:26 | XMS_ITS | Encounter Summary ---
Author Organization [facility] Address [facility] [place] [address] Care Team Providers Care Reception Specialist Name Role Phone Gloria Gregorio NP Primary Care Provider [phone] [phone] Encounter Details Date Type Department Care Team (Late st Contact Info) Description 05/07/2024 SonarMed Message Enc [facility] Medical Group Family Medicine - [place] [address] [facility] [address] [place] [phone] Gloria Gregorio NP [address] [place] [address] Sick note Social History Tobacco Use Types [...] Sex Assigned at Female 06/09/2024 9:52 AM FINISHER CARD TENDER Legal Sex Female 12:19 AM FINISHER CARD TENDER Gender Identity Female 06/16/2024 10:41 AM FINISHER CARD TENDER Sexual Orientation Straight 06/16/2024 10 :41 AM FINISHER CARD TENDER documented as of this encounter Progress Notes * Gloria Gregorio NP - 05/07/2024 12:34 PM CST Will you add her on for acute. SHER CARD TENDER documented in this encounter Plan of Treatment Upcoming Encounters Date Type Department Care Team (Late st Contact Info) Description 03/11/2025 2:00 PM CDT Allied Health/Nurse Visit [facility] Family Medicine - [place] [address] [place] [address] Gloria Gregorio NP [address] [place] [address] 05/24/2025 3:20 PM FINISHER CARD TENDER Office Visit [facility] Multispecialty Care - [facility] [address] [facility], [address] [place] [address] Lalito Gudino MD 3 [place] [address] 07/29/2025 2:00 PM CDT Allied Health/Nurse Visit [facility] - [place] [address] [facility] [address] [place] [address] Gloria Gregorio NP [address] [place] [address] documented as of this encounter Visit Diagnoses Not on filedocumented in this encounter Additional Health Concerns Infection Onset Date Last Indicated Resolved Time COVID-19 Rule Out 05/07/2024 05/07/2024 05/07/2024 1:36 PM FINISHER CARD TENDER Influenza - Seasonal 05/07/2024 05/07/2024 025 12:32 AM FINISHER CARD TENDER documented as of this encounter Care Teams Reception Specialist Relationship Specialty Start Date End Date Gloria Gregorio NP [address] [place] [address] PCP - General NURSE PRACTITIONER 02/02/22 documented as of this encounter
--- OUTSIDE RECORDS SUMMARY | 2025-02-16 13:26 | XMS_ITS | Encounter Summary ---
Author Organization [facility] Address [facility] [place] [address] Care Team Providers Care Drilling Machine Operator Name Role Phone Gloria Gregorio NP Primary Care Provider [phone] [phone] Encounter Details Date Type Department Care Team (Late st Contact Info) Description 09/17/2024 Hydrocision Message Enc [facility] Medical Group Family Medicine - [place] [address] [facility] [address] [place] [phone] Gloria Gregorio NP [address] [place] [address] Add/depression/anxie ty Social History Tobacco Use Types Packs/Day Years [...] Sex Assigned at Female 06/09/2024 9:52 AM OFFSET SECOND PRESS OPERATOR Legal Sex Female 12:19 AM OFFSET SECOND PRESS OPERATOR Gender Identity Female 06/16/2024 10:41 AM OFFSET SECOND PRESS OPERATOR Sexual Orientation Straight 06/16/2024 10 :41 AM OFFSET SECOND PRESS OPERATOR documented as of this encounter Progress Notes * Gloria Gregorio NP - 09/17/2024 12:20 PM CDT Yes, 40 minutes so we can go over medication options and a treatment plan. * Flores Stein MA - 09/17/2024 11:39 AM CDT Psych records are in the chart, are you ok with treating her? I can get her scheduled if so documented in this encounter Plan of Treatment Upcoming Encounters Date Type Department Care Team (Late st Contact Info) Description 03/11/2025 2:00 PM CDT Allied Health/Nurse Visit [facility] Family Medicine - [place] [address] [facility] [address] [place] [address] Gloria Gregorio NP [address] [place] [address] 05/24/2025 3:20 PM OFFSET SECOND PRESS OPERATOR Office Visit [facility] Multispecialty Care - [facility] [address] [facility], [address] [place] [address] Lalito Gudino MD 3 [place] [address] 07/29/2025 2:00 PM CDT Allied Health/Nurse Visit [facility] Family Medicine - [place] [address] [facility] [address] [place] [address] Gloria Gregorio NP [address] [place] [address] documented as of this encounter Visit Diagnoses Not on filedocumented in this encounter Care Teams Drilling Machine Operator Relationship Specialty Start Date End Date Gloria Gregorio NP [address] [place], [place] [address] PCP - General NURSE PRACTITIONER 02/02/22 documented as of this encounter
--- OUTSIDE RECORDS SUMMARY | 2025-02-16 13:26 | XMS_ITS | Encounter Summary ---
Author Organization [facility] Healthcare Address [address] [place] [address] Care Team Providers Care Metal Rolling Mill Operator Name Role Phone Lalito Gudino MD Unavailable [phone] Gloria Gregorio MD Primary Care Provider + [phone] Kashif Sapp [facility] Unavailable Unavaila ble Lalito Gudino MD Unavailable [phone] Ghislaine Carmona RN Unavailable Unavailable Ghislaine Carmona RN Unavailable Unavailable Encounter Details Date Type Department Care Team (Late st Contact Info) Description 02/10/[address] [facility] Home Infusion Therapy [address] [place] [address] [facility] Social History Tobacco Use Types Packs/Day Years Used Date Smoking Tobacco: Former Cigarettes 0.3 4 2 015 - 2019 OASIS D0700: Social Isolation Answer Da te Recorded Frequency of experiencing loneliness or isolatio n Never 08/18/2024 Comments Unknown Sex and Gender Information Value Date Recorded Sex Assigned at Not on file Legal Sex Female 9:54 AM SOLUTION DESIGNER Gender Identity Female 12/03/2022 11:45 AM CDT Sexual Orientation Straight 12/03/2022 11 :45 AM CDT documented as of this encounter Plan of Treatment Not on file documented as of this encounter Visit Diagnoses Not on filedocumented in this encounter Care Teams Metal Rolling Mill Operator Relationship Specialty Start Date End Date Gloria Gregorio MD [address] [place] [address] PCP - General Nurse Practitioner 10/11/22 Lalito Gudino MD [address] [place] [address] PCP - Home Infusion Attending Neurology 10/02/24 Lalito Gudino MD [address] [place], [place] [address] Referring Physician Neurology 10/02/22 Kashif Sapp [facility] Pharmacist Pharmacy 10/01/24 Ghislaine Carmona, RN Home Infusion Nursing 10/04/24 Ghislaine Carmona, RN Registered Nurse 10/04/24 documented as of this encounter
--- OUTSIDE RECORDS SUMMARY | 2025-02-16 13:26 | XMS_ITS | Encounter Summary ---
Author Organization [facility] Address [address] [place] [address] Care Team Providers Care Radiation Officer Name Role Phone Gloria Gregorio ROOM MAID Primary Care Provider [phone] Encounter Details Date Type Department Care Team (Late st Contact Info) Description 01/15/2024 Monscierge Message Enc [facility] [place] BUSINESS OFFICE [facility] Provider Action Needed Social History [...] Sex Assigned at Female 06/09/2024 9:52 AM STACKER ATTENDANT Legal Sex Female 12:19 AM STACKER ATTENDANT Gender Identity Female 06/16/2024 10:41 AM STACKER ATTENDANT Sexual Orientation Straight 06/16/2024 10 :41 AM STACKER ATTENDANT documented as of this encounter Plan of Treatment Upcoming Encounters Date Type Department Care Team (Late st Contact Info) Description 03/11/2025 2:00 PM CDT Allied Health/Nurse Visit [facility] Family Medicine - [place] [address] [facility] [address] [place], [place] [id number] Gloria Gregorio NP [address] [place], [place] [id number] 05/24/2025 3:20 PM STACKER ATTENDANT Office Visit [facility] Multispecialty Care - [facility] [address] [facility], [address] [place] [address] Lalito Gudino MD [address] [facility] [place] [address] 07/29/2025 2:00 PM CDT Allied Health/Nurse Visit [facility] Family Medicine - [place] [address] [facility] [address] [place] [address] Gloria Gregorio NP [address] [place] [address] documented as of this encounter Visit Diagnoses Not on filedocumented in this encounter Additional Health Concerns Infection Onset Date Last Indicated Resolved Time COVID-19 Rule Out 05/05/2024 05/05/2024 05/05/2024 8:33 AM STACKER ATTENDANT COVID-19 Rule Out 05/07/2024 05/07/2024 05/07/2024 1:36 PM STACKER ATTENDANT Influenza - Seasonal 05/07/2024 05/07/2024 025 12:32 AM STACKER ATTENDANT documented as of this encounter Care Teams Radiation Officer Relationship Specialty Start Date End Date Gloria Gregorio NP [address] [place] [address] PCP - General NURSE PRACTITIONER 02/02/22 documented as of this encounter
--- OUTSIDE RECORDS SUMMARY | 2025-02-16 13:26 | XMS_ITS | Encounter Summary ---
Author Organization [facility] Address [facility] [place] [address] Care Team Providers Care Bookseamer Blindstitch Name Role Phone Gloria Gregorio NP Primary Care Provider [phone] Encounter Details Date Type Department Care Team (Late st Contact Info) Description 03/05/2023 MyChart Message Enc [facility] Medical [facility] Family Medicine [facility] [address] [facility] [address] [place] [id number] Gloria Gregorio, SANTI [address] [place], [place] [phone] follow up thryoid [place] Social History Tobacco [...] Sex Assigned at Female 06/09/2024 9:52 AM BULK MAIL CLERK Legal Sex Female 12:19 AM BULK MAIL CLERK Gender Identity Female 06/16/2024 10:41 AM BULK MAIL CLERK Sexual Orientation Straight 06/16/2024 10 :41 AM BULK MAIL CLERK documented as of this encounter Plan of Treatment Upcoming Encounters Date Type Department Care Team (Late st Contact Info) Description 03/11/2025 2:00 PM CDT Allied Health/Nurse Visit [facility] Family Medicine [facility] [address] [facility] [address] [place] [address] Gloria Gregorio NP [address] [place] [address] 05/24/2025 3:20 PM BULK MAIL CLERK Office Visit [facility] Multispecialty Care - [facility] [address] [facility], [address] [place] [address] Lalito Gudino MD 3 [facility] [place] [address] 07/29/2025 2:00 PM CDT Allied Health/Nurse Visit [facility] Family Medicine - [place] [address] [facility] [address] [place] [address] Gloria Gregorio NP [address] [place] [address] documented as of this encounter Visit Diagnoses Not on filedocumented in this encounter Additional Health Concerns Infection Onset Date Last Indicated Resolved Time COVID-19 Rule Out 05/05/2024 05/05/2024 05/05/2024 8:33 AM BULK MAIL CLERK COVID-19 Rule Out 05/07/2024 05/07/2024 05/07/2024 1:36 PM BULK MAIL CLERK Influenza - Seasonal 05/07/2024 05/07/2024 025 12:32 AM BULK MAIL CLERK documented as of this encounter Care Teams Bookseamer Blindstitch Relationship Specialty Start Date End Date Gloria Gregorio NP [address] [place] [address] PCP - General NURSE PRACTITIONER 02/02/22 documented as of this encounter
--- OUTSIDE RECORDS SUMMARY | 2025-02-16 13:26 | XMS_ITS ---
Author Organization [facility] Healthcare Address [address] [place] [address] Care Team Providers Care Chemical Librarian Name Role Phone Lalito Gudino MD Unavailable [phone] Gloria Gregorio MD Primary Care Provider + [phone] Kashif Sapp [facility] Unavailable Unavaila ble Lalito Gudino MD Unavailable [phone] Ghislaine Carmona RN Unavailable Unavailable Ghislaine Carmona RN Unavailable Unavailable Home Infusion Status:Enrolled (Active) Start date:09/18/2024 Enrollment date:09/18/2024 Related service episodes:[facility] Specialty Therapies - OCREVUS 600 mg IV Every 6 Months (Active) Overview Cutover complete Janis Cox 10/02/2024 4:20 PM Case Team Name Relationship Phone Ghislaine Carmona RN(Responsible Staff) Fabiana d Nurse Continued Care and Services Coordination
--- OUTSIDE RECORDS SUMMARY | 2025-02-16 13:26 | XMS_ITS | Clinical Summary ---
Author Organization [facility] Healthcare Address [address] [place] [address] Care Team Providers Care Electronic Warfare Specialist Name Role Phone Lalito Gudino MD Unavailable [phone] Gloria Gregorio MD Primary Care Provider +- [phone] Kashif Sapp [facility] Unavailable Unavaila ble Lalito Gudino MD Unavailable [phone] Ghislaine Carmona RN Unavailable Unavailable Ghislaine Carmona RN Unavailable Unavailable Allergies No known active allergies Medications cholecalciferol (VITAMIN D-3) 5,000 unit tabletIndicatio ns:Vitamin D Deficiency Take 1 tablet by mouth daily 3 Active memantine (NAMENDA) 10 mg tabletIndicatio ns:Moderate to Severe Alzheimer's Type Dementia Take 10 mg by mouth daily. Indications: moderate to severe Alzheimer's type dementia Active methylPREDNISol one sodium succinate (SOLU-medrol) 125 mg injectionIndica tions:Allergic reaction Infuse 125 mg into a venous catheter as needed (Allegric Reaction). Give 30 mins prior to beginnning of Ocrevus infusion Indications: Allergic reaction Active acetaminophen (TYLENOL) 325 mg tabletIndicatio ns:Multiple sclerosis Take 2 tablets (650 mg total) by mouth every 6 (six) hours as needed for pain (for infusion pre med) Take 30 minutes prior to infusion 2 tablet 5 08/07/19 26 Active diphenhydrAMINE (BENADRYL) 25 mg capsuleIndicati ons:Multiple sclerosis Take 2 tablet/capsule (50 mg total) by mouth every 6 (six) hours as needed for itching Take 30 minutes prior to infusion 2 capsule 5 08/07/19 26 Active methylPREDNISol one sodium succinate (SOLU-medrol) 125 mg/2 mL recon solnIndications :Multiple sclerosis Infuse 2 mL (125 mg total) IV every 6 (six) months for 3 minutes Give 30 minutes prior to infusion 2 mL 5 08/07/19 26 Active 0.9 % sodium chloride (sodium chloride 0.9%) infusionIndicat ions:Multiple sclerosis Infuse 500 mL IV every 6 (six) months Add ocrelizumab as directed. Infuse with 0.2 micron filter via pole mounted pump Infuse at 40 ml/hr initially, and increase by 40 mL/hr every 30 minutes as tolerated. Max Rate 200 mL/hr. Rate 1: 40 mL/hr for 20 mL Rate 2: 80 mL/hr for 40 mL Rate 3: 120 mL/hr for 60 mL Rate 4: 160 mL/hr for 80 mL Rate 5: 200 mL/hr for 300 mL 500 mL 5 Active ocrelizumab (OCREVUS) 30 mg/mL solutionIndicat ions:Multiple sclerosis Infuse 20 mL (600 mg total) IV every 6 (six) months Withdraw & discard 20 mL of sodium chloride 0.9% from 500 mL bag. Draw up 20 mL (600 mg) from the 2 vials & inject into sodium chloride 0.9% bag for a final volume of 500 mL. Infuse as written on NS bag. START INFUSION WITHIN 4 HOURS OF MIXING 20 mL 5 06/18/19 26 Active sodium chloride 0.9% flush syringeIndicati ons:Multiple sclerosis Infuse 10 mL IV as needed for line care 1000 mL 5 06/18/19 26 Active Active Problems Problem Noted Date Diagnosed Date Lumbago 01/11/2012 Arthralgia of hip 11/09/2011 Encounters Date Type Department Care Team Description 02/10/[address] [facility] Home Infusion Therapy [address] [place] [address] Kashif Sapp RPh 01/26/2025 Home Infusion [facility] Home Infusion Therapy [address] [place] [address] Kashif Sapp [facility] from Last 3 Months Surgical History Surgery Date Site/Laterality Comments CHOLECYSTECTOMY LUMBAR PUNCTURE WO INJECTION, DIAGNOSTIC 06/29/2022 N/A Medical History Medical History Date Comments Multiple sclerosis Obesity (BMI 30-39.9) Vitamin D deficiency THA (obstructive sleep apnea) Family History Medical History Relation Name Comments Diabetes type II Father Arthritis Mother Diabetes type II Mother Hypertension Mother Miscarriages / Stillbirths Mother Relation Name Status Comments Father Mother Social History Tobacco Use Types Packs/Day Years Used Date Smoking Tobacco: Former Cigarettes 0.3 4 2 015 - 2019 Tobacco Cessation:Counseling Given: Not Answered OASIS D0700: Social Isolation Answer Da te Recorded Frequency of experiencing loneliness or isolatio n Never 08/18/2024 Comments Unknown Sex and Gender Information Value Date Recorded Sex Assigned at Not on file Legal Sex Female 9:54 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 Gender Identity Female 12/03/2022 11:45 AM CDT Sexual Orientation Straight 12/03/2022 11 :45 AM CDT Obstetrics History Last Filed Vital Signs Vital Sign Reading Time Taken Comments Blood Pressure 104/57 08/18/2024 3:25 PM CDT Pulse 76 08/18/2024 3:25 PM CDT Temperature 36.4 C (97.6 F) 08/18/2024 3:25 PM CDT Respiratory Rate 16 08/18/2024 3:25 PM CDT Oxygen Saturation 100% 08/18/2024 3:25 PM CDT Inhaled Oxygen Concentration - - Weight 83 kg (182 lb 15.7 oz) 10/01/2024 9:38 PM CDT Height 162.6 cm (5' 4.02) 10/01/2024 9:38 PM CD T Body Mass Index 31.39 10/01/2024 9:38 PM CDT Plan of Treatment Health Maintenance Due Date Last Done Comments Cervical Cancer Screening 1988 Depression Screening 1988 Hepatitis C Screening 1988 Varicella Vaccines (1 of 2 - 13+ 2-dose series) 2001 Regular Well Visit/Exam 18-64 2006 HPV Vaccines (3 - 3-dose series) 05/27/2012 03/04/2012, 08/09/2011 Covid-19 Vaccine (3 - Moderna risk series) 06/21/2021 05/24/2021, 09/18/2020, 08/21/2020 DTaP/Tdap/Td Vaccine (3 - Td or Tdap) 02/08/2032 02/07/2022, 03/03/2010 Hepatitis B Screening Completed 01/28/2025 Influenza Vaccine Completed 01/28/2025, , 02/20/2023, Additional history exists Pneumococcal vaccine <65 Aged Out No longer eligible based on patient's age to complete this topic Insurance [facility] SIG [id number] [facility] Care Teams Electronic Warfare Specialist Relationship Specialty Start Date End Date Gloria Gregorio MD [address] [place] [address] PCP - General Nurse Practitioner 10/11/22 Lalito Gudino MD [address] [place], [place] [id number] PCP - Home Infusion Attending Neurology 10/02/24 Lalito Gudino MD [address] [place] [address] Referring Physician Neurology 10/02/22 Kashif Sapp [facility] Pharmacist Pharmacy 10/01/24 Ghislaine Carmona, RN Home Infusion Nursing 10/04/24 Ghislaine Carmona, RN Registered Nurse 10/04/24
--- OUTSIDE RECORDS SUMMARY | 2025-02-16 13:26 | XMS_ITS | Encounter Summary ---
Author Organization [facility] Address [facility] [place] [address] Care Team Providers Care Hand Scudder Name Role Phone Gloria Gregorio NP Primary Care Provider [phone] Encounter Details Date Type Department Care Team (Late st Contact Info) Description 07/11/2023 MyChart Message Enc [facility] Medical [facility] Family Medicine [facility] [address] [phone] Gloria Gregorio, SANTI [address] [place] [address] [place], [place] [phone] Fml[place] Social History Tobacco Use Types Packs/Day [...] Sex Assigned at Female 06/09/2024 9:52 AM CARPENTER HELPER Legal Sex Female 12:19 AM CARPENTER HELPER Gender Identity Female 06/16/2024 10:41 AM CARPENTER HELPER Sexual Orientation Straight 06/16/2024 10 :41 AM CARPENTER HELPER documented as of this encounter Plan of Treatment Upcoming Encounters Date Type Department Care Team (Late st Contact Info) Description 03/11/2025 2:00 PM CDT Allied Health/Nurse Visit [facility] Medicine [facility] [address] [phone] Gloria Gregorio NP [address] [place] [address] 05/24/2025 3:20 PM CARPENTER HELPER Office Visit [facility] Multispecialty Care - [facility] [address] [facility], [address] [place] [address] Lalito Gudino MD [address] [place] [address] 07/29/2025 2:00 PM CDT Allied Health/Nurse Visit [facility] Family Medicine - [place] [address] [facility] [address] [place] [address] Gloria Gregorio NP [address] [place] [address] documented as of this encounter Visit Diagnoses Not on filedocumented in this encounter Additional Health Concerns Infection Onset Date Last Indicated Resolved Time COVID-19 Rule Out 05/05/2024 05/05/2024 05/05/2024 8:33 AM CARPENTER HELPER COVID-19 Rule Out 05/07/2024 05/07/2024 05/07/2024 1:36 PM CARPENTER HELPER Influenza - Seasonal 05/07/2024 05/07/2024 025 12:32 AM CARPENTER HELPER documented as of this encounter Care Teams Hand Scudder Relationship Specialty Start Date End Date Gloria Gregorio NP [address] [place] [address] PCP - General NURSE PRACTITIONER 02/02/22 documented as of this encounter
--- OUTSIDE RECORDS SUMMARY | 2025-02-16 13:26 | XMS_ITS | Encounter Summary ---
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 Question Answer Date of Assessment Author Status Little interest or pleasure in doing things Several days 01/25/2025 1:57 PM DEVONTET Flores Stein MA Acti ve Feeling down, depressed, or hopeless Several days 01/25/2025 1:57 PM CDT Flores Stein MA Active Patient Health Questionnaire-2 Score 2 01/25/2025 1:57 PM CDT Flores Stein M A Active * Question Answer Date of Assessment Author Status Trouble falling or staying asleep, or sleeping too much Several days 01/25/2025 1:57 PM DEVNOTET Flores Stein MA Active Feeling tired or having little energy More than half the days 01/25/2025 1:57 PM Flores Herr MA Active Poor appetite or overeating Several days 01/25/2025 1:57 PM DEVONTET Flores Stein MA Active Feeling bad about yourself - or that you are a failure or have let yourself or your family down Not at all 01/25/2025 1:57 PM Flores Herr MA Active Trouble concentrating on things, such as reading the newspaper or watching television Several days 01/25/2025 1:57 PM Flores Herr MA Active Moving or speaking so slowly that other people could have noticed? Or the opposite - being so fidgety or restless that you have been moving around a lot more than usual. Not at all 01/25/2025 1:57 PM Flores Herr MA Active Thoughts that you would be better off or hurting yourself in some way Not at all 01/25/2025 1:57 PM Flores Herr MA Active Patient Health Questionnaire-9 Score 7 01/25/2025 1:57 PM Flores Herr MA Active * Calculated C-SSRS Risk Score (Lifetime/Recent) Answer Date of Assessment Author Status Moderate Risk 09/23/2024 12:57 PM Flores Herr MA Active * If you checked off any problems on this questionnaire so far, Question Answer Date of Assessment Author Status How difficult have these problems made it for you to do your work, take care of things at home, or get along with other people? Not difficult at all 01/25/2025 1:57 PM Flores Herr MA Active * Over the last 2 weeks, how often have you been bothered by any of the following problems? Question Answer Date of Assessment Author Status Feeling nervous, anxious, or on edge 2 01/25/2025 1:59 PM Flores Herr MA Acti ve Not being able to stop or control worrying 0 01/25/2025 1:59 PM CDT Flores Stein S, MA Act martha Worrying too much about different things 0 01/25/2025 1:59 PM CDT Flores Stein S, MA Act martha Trouble relaxing 1 01/25/2025 1:59 PM CDT Flores Stein, MA Active Being so restless that it is hard to sit still 0 01/25/2025 1:59 PM CDT Flores Stein, MA Active Becoming easily annoyed or irritable 1 01/25/2025 1:59 PM CDT Flores Stein S, MA Acti ve Feeling afraid as if something awful might happen 0 01/25/2025 1:59 PM CDT Flores Stein S, MA Acti ve DESEAN-7 Total Score 4 01/25/2025 1:59 PM CDT Flores Stein, MA Active * Dent Suicide Severity Rating Scale (Screener/Recent Self-Report) Question Answer Date of Assessment Author Status 1. Wish to be (Past 1 Month) No 09/23/2024 12:57 PM CDT Flores Stein, MA Act martha 2. Non-Specific Active Suicidal Thoughts (Past 1 Month) No 09/23/2024 12:57 PM CDT Flores Stein, MA Act martha 6. Suicidal Behavior (Lifetime) Yes 09/23/2024 12:57 PM CDT Flores Stein, MA Act martha 6. Suicidal Behavior (3 Months) No 09/23/2024 12:57 PM CDT Flores Stein, MA Act martha documented as of this encounter Plan of Treatment Upcoming Encounters Date Type Department Care Team (Late st Contact Info) Description 03/11/2025 2:00 PM CDT Allied Health/Nurse Visit [facility] Medical [facility] Family Medicine - [place] [address] [facility] [address] [place] [address] Gloria Gregorio NP [address] [place] [address] 05/24/2025 3:20 PM INDUSTRIAL TRUCK MECHANIC Office Visit [facility] Multispecialty Care - [address] [place] [address] Lalito Gudino MD [address] [place] [address] 07/29/2025 2:00 PM CDT Allied Health/Nurse Visit [facility] Medical Group Family Medicine - [place] [address] [facility] [address] [place] [address] Gloria Gregorio NP [address] [place], [place] [address] documented as of this encounter Procedures Procedure Name Priority Date/Time Associated Diagnosis Comments OUTSIDE CYTOPATH CERV/VAG IN TERPRET (PAP) (SCAN ORDER) 07/23/2024 documented in this encounter Results * PAP SMEAR (SCAN ORDER) (07/23/2024) 07/23/2024 us Doc Med Group Scanned SCANNING Final Resu lt documented in this encounter Visit Diagnoses Not on filedocumented in this encounter Care Teams Superintendent Terminal Relationship Specialty Start Date End Date Gloria Gregorio NP [address] [place], [place] [address] PCP - General NURSE PRACTITIONER 02/02/22 documented as of this encounter
--- OUTSIDE RECORDS SUMMARY | 2025-02-16 13:26 | XMS_ITS | Clinical Summary ---
Author Organization [facility] Address [address] [place] [address] Phone Care Team Providers Care Maintenance Millwright Name Role Phone Gloria Gregorio APRN, JANE Primary Care Provid er Jan Alvares MD Unavailable [phone] Allergies No known active allergies Medications Ocrelizumab [...] Comments Blood Pressure 132/84 06/19/2023 9:03 AM JACKET CHANGER Pulse 96 06/19/2023 9:03 AM JACKET CHANGER Temperature 36.6 C (97.8 F) 06/19/2023 9:03 AM JACKET CHANGER Respiratory Rate 18 06/19/2023 9:03 AM JACKET CHANGER Oxygen Saturation 96% 06/19/2023 9:03 AM JACKET CHANGER Inhaled Oxygen Concentration - - Weight 88.2 kg (194 lb 6.4 oz) 06/19/2023 9:03 A M JACKET CHANGER Height 165.1 cm (5' 5) 06/19/2023 9:03 AM JACKET CHANGER Body Mass Index 32.35 06/19/2023 9:03 AM JACKET CHANGER Plan of Treatment Health Maintenance Due Date Last Done Comments Hepatitis B Immunization (1 of 3 - 19+ 3-dose series) 2007 Pap Smear 2009 Human Papillomavirus (HPV) Immunization (3 - 3-dose series) 05/27/2012 03/04/2012, 08/09/2011 Cervical Cancer Screening (CCS) 2018 HPV/Cotest 2018 Influenza Immunization (#1) 01/11/202502/10, 02/07/2022, 05/24/2021, Additional history exists SARS-COV-2 Immunization ( season) 2025 05/24/2021, 09/18/2020, 08/21/2020 Respiratory Syncytial Virus (RSV) [...] patient's age to complete this topic Insurance [facility] Care Teams Maintenance Millwright Relationship Specialty Start Date End Date Gloria Gregorio APRN, BILLER [address] [place] [address] PCP - General Advanced Practice Nurse 06/07/23 Jan Alvares MD [address] [place] [phone] Consulting Physician Oncology 06/07/23
--- OUTSIDE RECORDS SUMMARY | 2025-02-16 13:26 | XMS_ITS | Clinical Summary ---
Author Organization [facility] Address [address] [place] [address] Care Team Providers Care Record Changer Assembler Name Role Phone Gloria Gregorio NP Primary Care Provider [phone] Allergies No known active allergies Medications Cholecalciferol (VITAMIN D-3) 125 MCG (5000 UT) TabIndications:MS (multiple sclerosis) Take 1 tablet (5,000 Units total) by mouth daily. 30 tablet 11 3 Active Ocrelizumab (OCREVUS IV) Inject into the vein every 6 (six) months. Active amphetamine-dextr oamphetamine XR (ADDERALL XR) 15 MG 24 hr capsuleIndication s:Attention deficit hyperactivity disorder (ADHD), combined type Take 1 capsule (15 mg total) by mouth every morning. 30 capsule 5 Active memantine (NAMENDA) 5 MG tabletIndications :MS (multiple sclerosis) Take 1 tablet (5 mg total) by mouth 2 (two) times daily. 60 tablet 11 5 01/26/20 25 Discontinu ed(Patient /family declined) cephALEXin (KEFLEX) 500 MG capsuleIndication s:Urinary tract infection without hematuria, site unspecified Take 1 capsule (500 mg total) by mouth 2 (two) times daily for 7 days. 14 capsule 5 02/13/20 25 Active Problems Problem Noted Date Diagnosed Date Attention deficit hyperactiv ity disorder (ADHD), combined type 09/23/2024 Overview (10/22/2024): 10/22/24- Doing well with use. Denies any side effects. Feels a little more productive. Would like to increase dose to 10mg if possible. 09/23/24 Patient was referred to psychology by her neurologist due to patient having complaints of chronic brain fog, inability to focus and concentrate at work. She also notes have anxiety and depression. She was evaluated at [facility] by psychology on 07/07/2024. Records of her evaluation is scanned into her chart. She was diagnosed with attention deficit hyperactivity disorder, combined type. Major depressive disorder, recurrent severe. Generalized anxiety disorder. There is mention of rule out dependent personality disorder. Patient reports that she notes requiring dependence on others. She is going to meet with a therapist discuss this further. She denies any current SI/HI. She is unable to hold a job at this current time due to her brain fog, troubles with focus and concentration. She is very disorganized at home. She feels she cannot get anything done when she returns home from work. 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 She then got a different job that was less stressful however she still was unable to focus concentrate. She is here to discuss medication management and helps to improve her symptoms and hopefully return back to work in the near future. Assessment & Plan (10/22/2024 12:43 PM CDT): Will increase dose to 10mg daily. Follow up in 3 months UDS and CSA being completed today. She took her medication this morning.IPDMP searched prior to prescribing. Assessment & Plan (09/23/2024 1:32 PM CDT): With shared decision making we will begin patient on Adderall XR 5 mg daily. Discussed risks/benefits of medication use and common adverse effects to include (nausea, insomnia, palpitations, mood changes, weight loss, WILKES, motor tics). Will continue to work with patient to strive and meet their individual goals for treatment. Also discussed benefits of CBT in treatment of ADHD She has no contraindications for use. IPDMP searched prior to prescribing. Will obtain CSA and UDS at next visit Brain fog 04/07/2024 Overview (04/07/2024): Has been having brain fog. Unsure the cause. Assessment & Plan (04/07/2024 1:32 PM FLOWERS SALESPERSON): Recommend discussing with her neurologist. Pt to [...] fog. Assessment & Plan (04/07/2024 1:31 PM FLOWERS SALESPERSON): Encourage good sleep hygiene. Weight loss. Vitamin D deficiency 08/20/2022 Assessment & Plan (04/07/2024 1:28 PM FLOWERS SALESPERSON): Will recheck levels. MS (multiple sclerosis) 05/25/2022 Overview (04/07/2024): Follows with neurology for management. On ocrevus. Tolerating well. No flairs. Pt suffrers from brain fog but is unsure what its from. Assessment & Plan (04/07/2024 1:26 PM FLOWERS SALESPERSON): Continue to follow up with neurology as directed. PCOS (polycystic ovarian syndrome) 02/08/2022 Overview (04/07/2024): Hx of PCOS. Assessment & Plan (04/07/2024 1:35 PM FLOWERS SALESPERSON): Encourage diet and lifestyle changes to assist with weight loss and improve PCOS symptoms. Obesity (BMI 30-39.9) 02/08/2022 Overview (04/07/2024): Struggles with weight loss. Assessment & Plan (04/07/2024 1:27 PM FLOWERS SALESPERSON): Encourage diet and lifestyle changes to assist with weight loss. Costochondritis 03/17/2015 Dysuria 12/09/2013 Ovarian follicular cyst 06/15/2013 Lumbar degenerative disc disease 06/15/2013 Contraceptive surveillance 06/15/2013 Anxiety and depression 06/15/2013 Overview (09/23/2024): Notes having generalized anxiety and depression. She reports that she feels that her symptoms stem from uncontrolled ADHD. Denies SI/HI. She is going to be working with a therapist in the near future. She also reports struggles with requiring dependence on others. Assessment & Plan (09/23/2024 1:35 PM CDT): After shared decision making we decided we will begin her treatment for her ADHD first since her concerns of brain fog and inability to focus she feels is stemming from untreated ADHD which then is making her anxiety and depression worse. At her follow-up in 1 month we will discuss further med management if she feels it is necessary in addition to therapy. We went over different medications in office today that are used to treat both anxiety and depression. Lumbago 01/11/2012 Resolved Problems Problem Noted Date [...] Encounters Date Type Department Care Team Description 02/15/2025 MyChart Message Enc [facility] Medical Group Multispecialty Care - [facility] [address] [facility], [address] [place] [address] Lalito Gudino MD Ocrevus 02/05/2025 12:00 PM CDT Allied Health/Nurse Visit [place] [address] [place] [address] Gloria Gregorio NP Lab Draw 02/05/2025 - 02/05/2025 11:59 PM CDT Hospital Encounter [facility]-[address] [address] Gloria Gregorio NP Discharge Disposition: Home or Self Care (Routine Discharge) 02/05/2025 Results Follow-Up [address] [place] [address] Gloria Gregorio NP URINALYSIS AUTO DIP, BASIC METABOLIC PANEL, URINE BACTERIA CULTURE 02/05/2025 Travel 02/04/2025 [employer] Message Enc [address] [place] [address] question 02/04/[address] [place] [address] Gloria Gregorio NP Results (CT abdomen and pelvis) 02/01/2025 Telephone [facility] - [place] [id number] [place] [address] Lalito Gudino MD Question 01/28/2025 2:00 PM CDT Allied Health/Nurse Visit [address] [place] [address] Gloria Gregorio NP Imm/Inj (Patient presents for Flu vaccine and 1st hepatitis B vaccine) 01/28/2025 Travel 01/25/2025 1:40 PM CDT Office Visit [address] [place] [address] Gloria Gregorio NP Attention Deficit Hyperactivity Disorder (Patient presents for a 3 month follow up ADHD); Abdominal Pain (Patient c/o lower right sided abdominal pain this morning. Believes it was an ovarian cyst rupture. Just a little tender now.) 01/25/2025 Scan [facility] SR[facility] Scanned, Doc [facility] CT (SCAN) 01/25/[address] [place], [place] [phone] Gloria Gregorio NP CT Results 01/25/[address] [place] [address] Gloria Gregorio NP Record Request 01/25/2025 Travel 12/02/2024 MyChart Message Enc [place] [id number] [facility] [address] [place], [place] [phone] Gloria Gregorio NP Refill 11/24/2024 Results Follow-Up [facility] - [address], [address] [place] [phone] Lalito Gudino MD VITAMIN D 1,25 DIHYDROXY, HEPATITIS C AB ([facility] ONLY), HEPATITIS B SURFACE AG, EIA, QUANTIFERON TBGOLD TUBERCULOSIS TEST 4 TUBE 11/19/2024 1:50 PM CDT - 11/19/2024 11:59 PM CDT Hospital Encounter [facility] [place] [address] Lalito Gudino MD Discharge Disposition: Home or Self Care (Routine Discharge) 11/19/2024 Travel 11/17/2024 11:40 AM CDT Telemedicine [facility] - [address], [address] [place] [phone] Lalito Gudino MD Multiple Sclerosis 11/17/2024 Travel from Last 3 Months Immunizations Immunization Administration Dates Next Due Anthrax Vaccine 02/07/2011 Fluzone (IIV3, Trivalent, 0. 5 ML Prefilled Syringe) 01/28/2025 Fluzone 6 Months+ Quad (0.5 mL Prefilled Syringe) 02/20/2023,02/07/2022 HPV2 (Cervarix) 03/04/2012,08/09/2011 Hepatitis A (Havrix [address]) 06/20/2011,2010 Hepatitis B(Engerix B Adult) 01/28/2025 Influenza (Generic) 02/28/2024, 2,01/03/2011,03/03 Influenza Adult (Generic) 05/24/2021 MODERNA COVID-19 (RELAY REPAIRER JUAN SAVAGE), MRNA, LNP-S, PF, 50 MCG/ [...] Sex Assigned at Female 06/09/2024 9:52 AM FLOWERS SALESPERSON Legal Sex Female 12:19 AM FLOWERS SALESPERSON Gender Identity Female 06/16/2024 10:41 AM FLOWERS SALESPERSON Sexual Orientation Straight 06/16/2024 10 :41 AM FLOWERS SALESPERSON Last Filed Vital Signs Vital Sign Reading Time Taken Comments Blood Pressure 110/66 01/25/2025 1:54 PM CDT Pulse 74 01/25/2025 1:54 PM CDT Temperature 36.4 C (97.6 F) 01/25/2025 1:54 PM CDT Respiratory Rate 16 01/25/2025 1:54 PM CDT Oxygen Saturation 97% 01/25/2025 1:54 PM CDT Inhaled Oxygen Concentration - - Weight 84.9 kg (187 lb 3.2 oz) 01/25/2025 1:54 P M CDT Height 162.6 cm (5' 4) 01/25/2025 1:54 PM CDT Body Mass Index 32.13 01/25/2025 1:54 PM CDT Plan of Treatment Upcoming Encounters Date Type Department Care Team (Late st Contact Info) Description 03/11/2025 2:00 PM CDT Allied Health/Nurse Visit [facility] - [place] [address] [facility] [address] [place] [address] Gloria Gregorio NP [address] [place] [address] 05/24/2025 3:20 PM FLOWERS SALESPERSON Office Visit [facility] Multispecialty Care - [facility] [address] [facility], [address] [place] [address] Lalito Gudino MD [address] [place] [address] 07/29/2025 2:00 PM CDT Allied Health/Nurse Visit [facility] - [place] [address] [place] [address] Gloria Gregorio NP [address] [place] [address] Health Maintenance Due Date Last Done Comments HPV Vaccines (3 - 3-dose series) 05/27/2012 03/04/2012, 08/09/2011 Cervical Cancer Screening Pap with HPV Testing (Age 30 to 64) Every 5 Years 07/17/2023 07/16/2022, 07/16/2022 Cervical Cancer Screening with HPV 07/24/2024 COVID-19 Vaccine ( season) 2025 05/24/2021, 09/18/2020, 08/21/2020 Hepatitis B Vaccines (2 of 3 - 19+ 3-dose series) 02/25/2025 01/28/2025 Annual Physical 04/07/2025 04/07/2024, 02/10, 02/07/2022 Cervical Cancer Screening Pap Smear (Age 30 to 64) Every 3 Years 07/24/2027 07/23/2024, 09/06/2023, 07/16/2022, Additional history exists DTaP, Tdap and Td Vaccines (3 - Td or Tdap) 02/08/2032 02/07/2022, 03/03/2010 Meningococcal Vaccine Aged Out 03/03/2010 No lucho franklin eligible based on patient's age to complete this topic Hepatitis C Completed 11/19/2024, 12/2024, 06/04/2023, Additional history exists PHQ-2 (Physician [place]) Completed 01/25/2025 Influenza Adult Completed 01/28/2025, 02/10, 02/20/2023, Additional history exists Meningococcal B Vaccine Aged Out No l onger eligible based on patient's age to complete this topic Pneumococcal Vaccine: Pediatrics (0 to 5 Years) and At-Risk Patients (6 to 49 Years) Aged Out No longer eligible based on patient's age to complete this topic RSV Immunizations Under 20 Months Aged Out No longer eligible based on patient's age to complete this topic Procedures Procedure Name Priority Date/Time Associated Diagnosis Comments URINE BACTERIA CULTURE Routine 02/05/2025 12:02 PM CDT Right lower quadrant abdominal pain Ureteropelvic junction (UPJ) obstruction, right BASIC METABOLIC PANEL Routine 02/05/2025 12:02 PM CDT Right lower quadrant abdominal pain Ureteropelvic junction (UPJ) obstruction, right URINALYSIS AUTO DIP Routine 02/05/2025 Right lower quadrant abdominal pain Ureteropelvic junction (UPJ) obstruction, right CT ABD+PEL UROGRAM WWO CON ANEL 02/01/2025 12:00 AM CDT Right lower quadrant abdominal pain Ureteropelvic junction (UPJ) obstruction, right CT GENERIC 01/25/2025 TBGOLD-TUBERCULOSIS TST CELL MEDIATED IMMUNITY Routine 11/19/2024 2:24 PM CDT MS (multiple sclerosis) HEPATITIS B SURFACE AG, EIA Routine 11/19/2024 2:24 PM CDT MS (multiple sclerosis) HEPATITIS C ANTIBODY Routine 11/19/2024 2:24 PM CDT MS (multiple sclerosis) VITAMIN D 1,25 DIHYDROXY Routine 11/19/2024 2:24 PM CDT MS (multiple sclerosis) OUTSIDE CYTOPATH CERV/VAG INTERPRET (PAP) (SCAN ORDER) 07/23/2024 OUTSIDE CYTOPATH CERV/VAG INTERPRET (PAP) 07/16/2022 from Last 3 Months or Most Recently Relevant to Health Maintenance Results * URINE BACTERIA CULTURE (02/05/2025 12:02 PM CDT) SPEC DESCRIPTION URINE CLEAN CATCH 02/05/2025 12:08 PM CDT [facility] SPECIAL REQUESTS NO SPECIAL REQUEST 02/05/2025 12:08 PM CDT [facility] CULTURE RESULT EQUAL OR >100,000 CFU/mL ESCHERICHIA COLI 02/08/2025 9:08 AM CDT [facility] URINE SPECIMEN OBTAINED BY CLEAN CATCH PROCEDURE / Unknown 02/05/2025 12:02 PM CDT 02/05/2025 9:09 PM CDT Narrative Organism Antibiotic Method Susceptibility Escherichia coli AMPICILLIN LUIS A (VITEK) Sensitive Escherichia coli AMOXICILLIN/CLAVULANIC A LUIS A (VITEK) Sensitive Escherichia coli AZTREONAM LUIS A (VITEK) Sensitive Escherichia coli CEFEPIME LUIS A (VITEK) Sensitive Escherichia coli CEFTRIAXONE LUIS A (VITEK) Sensitive Escherichia coli CEFAZOLIN LUIS A (VITEK) Sensitive Escherichia coli CIPROFLOXACIN LUIS A (VITEK) Sensitive Escherichia coli ESBL LUIS A (VITEK) NEG: Sensitive Escherichia coli ERTAPENEM LUIS A (VITEK) Sensitive Escherichia coli NITROFURANTOIN LUIS A (VITEK) Sensitive Escherichia coli GENTAMICIN LUIS A (VITEK) Sensitive Escherichia coli IMIPENEM LUIS A (VITEK) Sensitive Escherichia coli LEVOFLOXACIN LUIS A (VITEK) Sensitive Escherichia coli MEROPENEM LUIS A (VITEK) Sensitive Escherichia coli PIPERACILLIN/TAZOBACTAM LUIS A (VITEK) Sensitive Escherichia coli TRIMETH-SULFAMETH. LUIS A (VITEK) Sensitive Escherichia coli TETRACYCLINE LUIS A (VITEK) Sensitive Gloria Gregorio NP MICROBIOLOGY - GENERAL OR DERABLES Final Result [facility] [address] [place] [address], [phone] * (ABNORMAL) BASIC METABOLIC PANEL (02/05/2025 12:02 PM CDT) Pathologist [facility] SODIUM S/P/B 136 136 - 145 MMOL/L 02/05/2025 9:44 PM CDT [facility] POTASSIUM S/P/B 4.4 3.5 - 5.1 MMOL/L 02/05/2025 9:44 PM CDT [facility] CHLORIDE S/P/B 98 98 - 107 MMOL/L 02/05/2025 9:44 PM CDT [facility] CO2 28.9 21 - 32 MMOL/L 02/05/2025 9:44 PM CDT [facility] GLUCOSE 108(H) 70 - 99 MG/DL 02/05/2025 9:44 PM CDT [facility] BUN 6(L) 7 - 18 MG/DL 02/05/2025 9:44 PM CDT [facility] CREATININE S/P/B 0.59 0.55 - 1.02 MG/DL 02/05/2025 9:44 PM CDT [facility] CALCIUM S/P/B 9.3 8.4 - 10.5 MG/DL 02/05/2025 9:44 PM CDT [facility] ANION GAP 9.1 5 - 15 MMOL/L 02/05/2025 9:44 PM CDT [facility] Comment:REFERENCE RANGE NOT ESTABLISHED OSMOLALITY (CALC) 280 MOSM/KG 025 9:44 PM CDT [facility] Comment:REFERENCE RANGE NOT ESTABLISHED GFR ESTIMATE >90 >90 ML/MIN/1. 73 M2 02/05/2025 9:44 PM CDT [facility] GFR NOTES GFR REFERENCE S: 02/05/2025 9:44 PM CDT [facility] Comment: THE ESTIMATED GFR IS CALCULATED [...] ml/min/1.73 m2 G5,KIDNEY FAILURE: <15 ml/min/1.73 m2 02/05/2025 12:0 2 PM CDT us Gloria Gregorio NP LABORATORY Final Res ult [facility] [address] [place] [address], * (ABNORMAL) URINALYSIS AUTO DIP (02/05/2025) COLOR (U) DARK YELLOW YELLOW [facility] [place] TRANSPARENCY CLOUDY(A) CLEAR [facility] [place] GLUCOSE (U) NEGATIVE NEGATIVE MG/DL [facility] [place] BILIRUBIN (U) NEGATIVE NEGATIVE [address] [place] KETONES MG/DL (U) NEGATIVE NEGATIVE MG/DL [facility] [place] SPECIFIC GRAVITY (U) 1.010 1.001 - 1.035 [facility] [place] BLOOD (U) NEGATIVE NEGATIVE [address] [place] U PH 7.0 5.0 - 9.0 [address] [place] PROTEIN (U) NEGATIVE NEGATIVE mg/dL [facility] [place] UROBILINOGEN 0.2 0.2 - 1.0 EU/dL = mg/dL [facility] [place] NITRITES POSITIVE(A) NEGATIVE MG/DL [address] [place] LEUKOCYTES (U) 1+ (SMALL)(A) NEGATIVE [address] [place] URINE SPECIMEN OBTAINED BY CLEAN CATCH PROCEDURE / Unknown 02/05/2025 Gloria Gregorio LOADMASTER URINE ORDERABLES Final Re sult [facility] [place] [address] [place] [address], * CT ABD+PEL UROGRAM WWO CON (02/01/2025 12:00 AM CDT) Anatomical Region Laterality Modality Abdomen Computed Tomogra phy 02/01/[address] Final Res ult * CT GENERIC (01/25/2025) Anatomical Region Laterality Modality Other 01/25/2025 Doc [facility] Scanned SCANNING Final Resu lt * QUANTIFERON TBGOLD TUBERCULOSIS TEST 4 TUBE (11/19/2024 2:24 PM CDT) TB1 AG MINUS NIL 0.00 IU/ML 11/24/19 1:19 PM CDT [facility] TB2 AG MINUS NIL 0.00 IU/ML 11/24/19 25 1:19 PM CDT [facility] TB QUANTIFERON NEGATIVE NEGATIVE 11/23/2024 1:19 PM CDT [facility] TB INTERPRETATION M. tuberculosis infection unlikely but cannot be excluded especially when any illness is consistent with TB disease and/or likelihood of progression to disease is increased. In patients at high risk to M. tuberculosis infection, a second test should be considered. 11/23/2024 1:19 PM CDT [facility] 11/19/2024 2:24 PM CDT us Lalito Gudino MD LABORATORY Final Res ult Performing Organization Address City/[facility]/ZIP Co de Phone Number [facility] [address] [place] [address], [place] [phone] * HEPATITIS C AB ([facility] ONLY) (11/19/2024 2:24 PM CDT) HEPATITIS C AB NON-REACTI VE NON-REACT KEVEN 11/19/2024 10:48 PM CDT [facility] Comment: ANTIBODIES TO HCV NOT DETECTED. DOES NOT EXCLUDE THE POSSIBILITY OF EXPOSURE TO HCV. 11/19/2024 2:24 PM CDT us Lalito Gudino MD LABORATORY Final Res ult Performing Organization Address [facility]/ZIP Co de Phone Number [facility] [address] [place] [address], [place] [phone] * HEPATITIS B SURFACE AG, EIA (11/19/2024 2:24 PM CDT) HEPATITIS B SURFACE AG NON-REACTI VE NON-REACTI VE 11/19/2024 10:48 PM CDT [facility] Comment:HBsAg NOT DETECTED. 11/19/2024 2:24 PM CDT us Lalito Gudino MD LABORATORY Final Res ult [facility] [address] [place] [id number], [id number] * VITAMIN D 1,25 DIHYDROXY (11/19/2024 2:24 PM CDT) VITAMIN D 1 25 DIHYDROXY TOTAL S/P/B 64 18 - 72 pg/mL 11/24/2024 1:51 PM CDT [facility] VITAM[facility] D3 1 25 DIHYDROXY S/P/B 64 pg/mL 11/24/2024 1:51 PM CDT [facility] VITAMIN D2 1 25 DIHYDROXY S/P/B <8 pg/mL 11/24/2024 1:51 PM CDT [facility] Comment: Vitamin D3, 1,25(OH)2 indicates both endogenous production and supplementation. Vitamin D2, 1,25(OH)2 is an indicator of exogenous sources, such as diet or supplementation. Interpretation and therapy are based on measurement of Vitamin D,1,25(OH)2, Total. This test was developed and its analytical performance characteristics have been determined by [place]. It has not been cleared or approved by the FDA. This assay has been validated pursuant to the CLIA regulations and is used for clinical purposes. Test Performed by [facility], [facility], [address] [place] [address] Bobo Rowe M.D., Ph.D., Director of Laboratories , CLIA [id number] 11/19/2024 2:24 PM CDT Lalito Gudino MD LABORATORY Final Res ult [employer] [address] , * PAP SMEAR (SCAN ORDER) (07/23/2024) 07/23/2024 us Doc [facility] Scanned SCANNING Final Resu lt * PAP SMEAR WITH HPV (07/16/2022) 07/16/2022 [employer] [facility] Scanned SCANNING Final Resu lt from Last 3 Months or Most Recently Relevant to Health Maintenance Insurance [employer] Care Teams Record Changer Assembler Relationship Specialty Start Date End Date Gloria Gregorio NP [address] [place] [address] PCP - General NURSE PRACTITIONER 02/02/22
--- OUTSIDE RECORDS SUMMARY | 2025-02-16 13:26 | XMS_ITS | Encounter Summary ---
Author Organization [facility] Address [facility] [place] [address] Care Team Providers Care Svp Name Role Phone Gloria Gregorio NP Primary Care Provider [phone] Encounter Details Date Type Department Care Team (Late st Contact Info) Description 02/15/2025 MyChart Message Enc [facility] Medical Group Multispecialty Care - [facility] [address], [address] [place] [address] Lalito Gudino MD [address] [place], [place] [phone] [facility] Social History Tobacco Use Types Packs/Day Years [...] Sex Assigned at Female 06/09/2024 9:52 AM TRIMMER OPERATOR Legal Sex Female 12:19 AM TRIMMER OPERATOR Gender Identity Female 06/16/2024 10:41 AM TRIMMER OPERATOR Sexual Orientation Straight 06/16/2024 10 :41 AM TRIMMER OPERATOR documented as of this encounter Plan of Treatment Upcoming Encounters Date Type Department Care Team (Late st Contact Info) Description 03/11/2025 2:00 PM CDT Allied Health/Nurse Visit [facility] - [place] [address] [facility] [address] [place] [address] Gloria Gregorio NP [address] [place] [address] 05/24/2025 3:20 PM TRIMMER OPERATOR Office Visit [facility] Multispecialty Care - [facility] [address] [facility] [address] [facility], [address] [place] [address] Lalito Gudino MD [address] [place] [address] 07/29/2025 2:00 PM CDT Allied Health/Nurse Visit [facility] [place] [address] [address] Gloria Gregorio NP [address] [place] [address] documented as of this encounter Visit Diagnoses Not on filedocumented in this encounter Additional Health Concerns Assessment Noted Time PHQ-9 Depression Total Score: 7 01/26/20 25 1:57 PM CDT documented as of this encounter Care Teams Svp Relationship Specialty Start Date End Date Gloria Gregorio NP [address] [place] [address] PCP - General NURSE PRACTITIONER 02/02/22 documented as of this encounter
--- OUTSIDE RECORDS SUMMARY | 2025-02-16 13:26 | XMS_ITS ---
Author Organization [facility] Healthcare Address [address] [place] [address] Care Team Providers Care Light Equipment Operator Name Role Phone Lalito Gudino MD Unavailable [phone] Gloria Gregorio MD Primary Care Provider [phone]- [phone] Kashif Sapp [facility] Unavailable Unavaila ble Lalito Gudino MD Unavailable [phone] Ghislaine Carmona RN Unavailable Unavailable Ghislaine Carmona RN Unavailable Unavailable [facility] OCREVUS 600 mg IV Every 6 Months Status:Enrolled (Active) Start date:09/18/2024 Enrollment date:09/18/2024 Related program episode:Home Infusion (Active) Overview Cutover complete Case Team Name Relationship Phone Ghislaine Carmona RN Home Infusion Nursing Kashif Sapp [facility](Responsible Staff) Pharma cist Continued Care and Services Coordination This section includes services coordinated for [facility] OCREVUS 600 mg IV Every 6Months. Home Medical Care Name Services Phone [facility] Home Infusion Therapy Home Infusion and Inje ction
== END 2025-02-16 12:37 | disposition home or self-care (01) ==
PROVIDERS: PCP Nurse Practitioner; Visit Provider Physician Assistant
DX: R10.A1 Flank pain, right side (principal)
CPT/HCPCS: 78708; A9562; J1938